=== PATIENT | male | born 1965 | race Caucasian/White ===

== ENCOUNTER 2021-07-21 13:51 | Emergency (ER) | payer OTHER ==
--- OUTSIDE RECORDS SUMMARY | 2021-07-21 14:10 | XMS REPORT | Continuity of Care Document ---
:1965 Author Organization [facility] t Address [address] [place] [address] Care Team Providers Name Role Phone Adolfo PINEDO Primary Care Physician Unavailable Josh Mendosa Attending Clinician Unavailable GUSTAVO Attending Clinician Unavailable Gustavo BAEZ Attending Clinician Massimo BAEZ Attending Clinician Lucy NORRIS Attending Clinician Unavailable Only, Test Attending Clinician Unavailable Lucy Norris MD Attending Clinician Doctor Unassigned, Name Attending Clinician Unavailable Patrick Malave MD Attending Clinician Patrick MALAVE Attending Clinician Unavailable Pob, Lab Main Attending Clinician Unavailable Aristides Vidal DO Attending Clinician Patrick Alaniz MD Attending Clinician Patrick ALANIZ Attending Clinician Unavailable Radiology Attending Clinician Unavailable RADIOLOGY Attending Clinician Unavailable Ena BAEZ Attending Clinician ENA Attending Clinician Unavailable BONITA A Attending Clinician Unavailable BASSEM Attending Clinician Unavailable Bassem BAEZ Attending Clinician Rm, Surg Spec Procedure Attending Clinician Unavailable Nurse, Surgery Gu Attending Clinician Unavailable Unknown Attending Clinician Unavailable Station, Heart Attending Clinician Unavailable 1, Lab Attending Clinician Unavailable Feroz Clifford MD Attending Clinician Leidy ORR M Attending Clinician Ibikunle MENAGERIE CARETAKER, F Attending Clinician Regino BAEZ Attending Clinician Chika BAEZ, L Attending Clinician Serjio XAVIER, S Attending Clinician Cris BAEZ, S Attending Clinician Physician, Primary or Family Admitting Clinician Estrella Lacy MD Admitting Clinician Cris BAEZ, S Admitting Clinician Payers Payer Name Policy Type Policy Number Effective Date Expiration Date Ronda aguilar [employer] MEDICARE OUT [id number] 2020 OF NETWORK 00:00:00 MEDICARE PART A [id number] 2006 \\T\\ B 00:00:00 Problems Condition Condition Condition Status Onset Resolution Last Treating Co mments Source Name Details Category Date Date Treatment Clinician Date Acute back Acute back Disease Active 2019- U nivers pain pain 1-21 ity of 00:00: [address] Branch ARF (acute ARF (acute Disease Active 2019-0 U nivers renal renal 9-05 ity of failure) failure) 00:00: [place] [address] Medical Branch Pain Pain Disease Active 2019-0 Univers 6-24 ity of 00:00: [place] [address] Medical Branch Tobacco Tobacco Disease Active 2019-0 Univers use use 2-04 ity of 00:00: [place] [address] Medical Branch UCRT CURT Disease Active 2019-0 Univers (obstructi (obstructi 2-04 it y of ve sleep ve sleep 00:00: [place] apnea) apnea) 00 Medical Branch Essential Essential Disease Active 2019-0 Uni vers hypertensi hypertensi 2-04 it y of on on 00:00: [place] [address] Medical Branch COPD COPD Disease Active 2019-0 Univers (chronic (chronic 2-04 ity [place] pulmonary pulmonary Bran ch disease) disease) Tobacco Tobacco Disease Active 2019-0 Univers use use 2-04 ity of 00:00: [place] [address] Medical Branch Chest pain Chest pain Disease Active 2019-0 U nivers 2-03 ity of 00:00: [place] [address] Medical Branch Obesity Obesity Disease Active 2017-0 Univers (BMI (BMI 6-25 ity of 30-39.9) 30-39.9) 00:00: [place] [facility] Morbid Problem Active 2020-07-26 Memor ia obesity 21:31:14 l (disorder) Morbid Herm marycruz obesity (disorder) Active Problem 07/26/2020 [facility] Thoracic Problem Active 2020-07-26 Mem oria radiculopa 21:31:14 l thy Thoracic Grant n (disorder) radiculopa thy (disorder) Active Problem 07/26/2020 [facility] Cervical Problem Active 2020-07-26 Mem oria radiculopa 21:31:14 l thy Cervical [place] n (disorder) radiculopa thy (disorder) Active Problem 07/26/2020 [facility] Device in Problem Active 2020-07-26 Me moria situ 21:31:14 l (finding) Device Khushi nn in situ (finding) Active Problem 07/26/2020 [facility] Hyperlipid Problem Active 2020-07-26 M emoria emia 21:31:14 l (disorder) [place] Hyperlipid emia (disorder) Active Problem 07/26/2020 [facility] Hypertensi Problem Active 2020-07-26 M emoria ve 21:31:14 l disorder, [place] systemic Hypertensi arterial ve (disorder) disorder, systemic arterial (disorder) Active Problem 07/26/2020 [facility] Allergies, Adverse Reactions, Alerts Allergy Allergy Status Severity Reaction(s) Onset Inactive Treating Comm ents Source Name Type Date Date Clinician furosemi DA Active U 2019-0 [facility] [place] [facility] furosemi DA Active U SYNCOPE 2019-0 [facility] [place] [facility] d [facility] NO KNOWN Drug Active Univers ALLERGIE Class ity of [facility] Branch Social History Social Habit Start Date Stop Date Quantity Comments Source History of tobacco Cigarette Smoker University of use [facility] Branch History SDOH University o f Alcohol Binge [facility] al Branch Exposure to Not sure [place] of SARS-CoV-2 (event) [place] [facility] Social History 2020-05-21 2020-05-21 Cony t[place] 20:33:55 20:33:55 Alcohol intake 2020-01-04 2020-01-04 Current drinker Unive rsity of 00:00:00 00:00:00 of alcohol [place] [facility] (finding) Branch History [facility] 2019-02-16 2019-02-16 4 University o f Alcohol Frequency 00:00:00 00:00:00 [facility] edical Branch History [facility] 2019-02-16 2019-02-16 3 University o f Alcohol Std Drinks 00:00:00 00:00:00 [place] [facility] History [facility] 2018-12-02 2018-12-02 5 University o f Financial 00:00:00 00:00:00 [place] [facility] History [facility] Food 2018-12-02 2018-12-02 1 Univers ity of Worry 00:00:00 00:00:00 [place] [facility] History [facility] Food 2018-12-02 2018-12-02 1 Univers ity of Scarcity 00:00:00 00:00:00 [place] [facility] History [facility] 2018-12-02 2018-12-02 2 University o f Transport Med 00:00:00 00:00:00 [place] [facility] al Branch History [facility] 2018-12-02 2018-12-02 2 University o f Transport Non-Med 00:00:00 00:00:00 [facility] Branch Cigarettes smoked 2017-06-22 2017-06-22 Univers ity of current (pack per 00:00:00 00:00:00 [facility]) - Reported Branch Tobacco use and 2017-06-22 2017-06-22 Never used Universit y of exposure 00:00:00 00:00:00 [facility] Branch Alcohol Comment 2017-06-22 2017-06-22 Occasional Universit y of 00:00:00 00:00:00 [facility] Sex Ass[birth year] At [birth year] Universit y of 00:00:00 00:00:00 [facility] Smoking Status Start Date Stop Date Source Current every day smoker 2017-06-22 00:00:00 Uni versity of [place] [facility] Medications Ordered Filled Start Stop Current Ordering Indication Dosage Frequency Signature Comments Components Source Medication Medication Date Date Medication? Clinician (SIG) Name Name polymyxin B 2020-03 Yes [id number] 1[drp] Place 1 Univers sulf-trimet 2-08 Drop in ity o f hoprim 00:00: right eye [place] 10,000 00 every 4 Medical unit- 1 (four) Branch mg/mL hours. ophthalmic drops iohexol 2020- No [id number] 150mL 150 mL, Univers (OMNIPAQUE 07-10 Intravenou it y of 350 19:45: 19:32 s, ONCE, 1 [place] BULK-150 00 :00 dose, Wed Medica l mL) 07/10/20 at Branch injection 1445, 150 mL Routine barium 2020- No [id number] 340g 340 g, Uni vers sulfate 06-06 Oral, ity of (LIQUID E-Z 18:15: 15:30 ONCE, 1 Evaristo BECK) 60 % 00 :00 dose, [place] Med ical (w/v) oral 06/06/20 at [facility] suspension 1215, 340 g Routine Clonidine Yes 0.1 mg = 1 Me moria Hydrochlori 2-23 tab, PO, l de 0.1 MG 19:41: PRN, 0 [place] n Oral Tablet 00 Refill(s) Hydromorpho Yes 4 mg, PO, M emoria ne 2-23 TID, 0 l 19:41: Refill(s) Ehsan 00 pregabalin Yes 50 mg = 1 Me moria 50 mg oral 2-23 cap, PO, l capsule 19:41: BID, # 60 Khushi nn 00 cap, 1 Refill(s) cyclobenzap Yes 10 mg = 1 M emoria rine 10 mg 2-23 tab, PO, l oral tablet 19:41: PRN, 0 Herm marycruz 00 Refill(s) Prednisone Yes 5 mg, PO, Me moria 2-23 PRN, l 19:41: Quantity Ehsan 00 sufficient , 0 Refill(s) Roflumilast Yes 500 Memori a 0.5 MG Oral 2-23 microgram l Tablet 19:41: = 1 tab, Ehsan [Daliresp] 00 PO, Daily, 0 Refill(s) Trelegy Yes = 1 Memoria Ellipta 2-23 inhalation l inhalation 19:41: , PO, Grant n powder 00 Daily, PRN COPD, # 1 ea, 0 Refill(s) Albuterol Yes 2.5 mg = 3 Me moria 0.83 MG/ML 2-23 mL, NEB, l Inhalant 19:41: PRN, 0 Ehsan Solution 00 Refill(s) 200 ACTUAT Yes 2 puff, Oscar ryan Albuterol 2-23 INHALATION l 0.09 19:41: , Q6H, 0 [place] MG/ACTUAT 00 Refill(s) Metered Dose Inhaler [ProAir HFA] Fluticasone Yes Daily, 0 Me moria propionate 2-23 Refill(s) l 0.05 19:41: Ehsan MG/ACTUAT 00 Metered Dose Nasal Latta [Flonase] montelukast Yes 10 mg = 1 M emoria 10 mg oral 2-23 tab, PO, l tablet 19:41: Bedtime, # Khushi nn 00 30 tab, 0 Refill(s) pantoprazol Yes 40 mg = 1 M emoria e 40 mg 2-23 tab, PO, l oral 19:41: Daily, # [place] enteric 00 30 tab, 0 coated Refill(s) tablet atorvastati Yes 40 mg = 1 M emoria n 40 mg 2-23 tab, PO, l oral tablet 19:41: Bedtime, # [place] 00 30 tab, 0 Refill(s) ezetimibe Yes 10 mg = 1 Mem oria 10 mg oral 2-23 tab, PO, l tablet 19:41: Daily, # [place] 00 30 tab, 0 Refill(s) losartan Yes 100 mg = 1 Mem oria 100 mg oral 2-23 tab, PO, l tablet 19:41: Daily, # [place] 00 30 tab, 0 Refill(s) clopidogrel Yes 75 mg = 1 M emoria 75 mg oral 2-23 tab, PO, l tablet 19:41: Daily, # [place] 00 30 tab, 0 Refill(s) metoprolol Yes 100 mg = 1 M emoria tartrate 2-23 tab, PO, l 100 mg oral 19:41: Daily, 0 He r[place] tablet 00 Refill(s) Vitamin D2 Yes 50,000 Memor ia 50,000 intl 2-23 IntlUnit = l units oral 19:41: 1 cap, PO, H ermann capsule 00 Daily, 0 Refill(s) Aspirin 81 Yes 81 mg = 1 Me moria MG Enteric 2-23 tab, PO, l Coated 19:41: Daily, # [place] Tablet 00 90 tab, 3 Refill(s) Nitroglycer Yes 0.4 mg = 1 Memoria in 0.4 MG 2-23 tab, SL, l Sublingual 19:41: Q5Min, PRN H ermann Tablet 00 Chest pain, Give up to 3 doses. Call 911 if pain persists., # 100 tab, 0 Refill(s) cephALEXin 2019- No [id number] 500mg Take 2 Univers 250 mg 10-01-10 capsules ity of capsule 00:00: 04:59 by mouth [place] 00 :00 every 12 Medical (twelve) Branch hours for 3 days. cephALEXin 2019- No [id number] 500mg Take 2 Univers 250 mg 10-01-10 capsules ity of capsule 00:00: 04:59 by mouth [place] 00 :00 every 12 Medical (twelve) Branch hours for 3 days. tamsulosin 2020- No [id number] .4mg Take 1 Univers 0.4 mg 24 08-29 capsule by ity of hr capsule 00:00: 05:59 mouth [place] 00 :00 daily for Medical 270 days. Branch tamsulosin 2020- No [id number] .4mg Take 1 Univers 0.4 mg 24 08-29 capsule by ity of hr capsule 00:00: 05:59 mouth [place] 00 :00 daily for Medical 270 days. Branch tamsulosin 2020- No [id number] .4mg Take 1 Univers 0.4 mg 24 08-29 capsule by ity of hr capsule 00:00: 05:59 mouth [place] 00 :00 daily for Medical 270 days. Branch tamsulosin 2020- No [id number] .4mg Take 1 Univers 0.4 mg 24 08-29 capsule by ity of hr capsule 00:00: 05:59 mouth [place] 00 :00 daily for Medical 270 days. Branch tamsulosin 2020- No [id number] .4mg Take 1 Univers 0.4 mg 24 6-03 03-01 capsule by ity of hr capsule 00:00: 05:59 mouth [place] 00 :00 daily for Medical 270 days. Branch tamsulosin 2020- No [id number] .4mg Take 1 Univers 0.4 mg 24 08-29 capsule by ity of hr capsule 00:00: 05:59 mouth [place] 00 :00 daily for Medical 270 days. Branch tamsulosin 2020- No [id number] .4mg Take 1 Univers 0.4 mg 24 08-29 capsule by ity of hr capsule 00:00: 05:59 mouth [place] 00 :00 daily for Medical 270 days. Branch tamsulosin 2020- No [id number] .4mg Take 1 Univers 0.4 mg 24 08-29 capsule by ity of hr capsule 00:00: 05:59 mouth [place] 00 :00 daily for Medical 270 days. Branch tamsulosin 2020- No [id number] .4mg Take 1 Univers 0.4 mg 24 08-29 capsule by ity of hr capsule 00:00: 05:59 mouth [place] 00 :00 daily for Medical 270 days. Branch tamsulosin 2020- No [id number] .4mg Take 1 Univers 0.4 mg 24 08-29 capsule by ity of hr capsule 00:00: 05:59 mouth [place] 00 :00 daily for Medical 270 days. Branch tamsulosin 2020- No [id number] .4mg Take 1 Univers 0.4 mg 24 08-29 capsule by ity of hr capsule 00:00: 05:59 mouth [place] 00 :00 daily for Medical 270 days. Branch tamsulosin 2020- No [id number] .4mg Take 1 Univers 0.4 mg 24 08-29 capsule by ity of hr capsule 00:00: 05:59 mouth [place] 00 :00 daily for Medical 270 days. Branch cephALEXin 2019-0 Yes [id number] 500mg Take 1 Univers 500 mg 3-31 capsule by ity of capsule 00:00: mouth 2 [place] 00 (two) Medical times Branch daily. cephALEXin 2020-0 Yes [id number] 500mg Take 1 Univers 500 mg 3-31 capsule by ity of capsule 00:00: mouth 2 [place] 00 (two) Medical times Branch daily. cephALEXin 2020-0 Yes [id number] 500mg Take 1 Univers 500 mg 3-31 capsule by ity of capsule 00:00: mouth 2 (two) Medical times Branch daily. cephALEXin 2020-0 Yes [id number] 500mg Take 1 Univers 500 mg 3-31 capsule by ity of capsule 00:00: mouth (two) Medical times Branch daily. cephALEXin 2020-0 Yes [id number] 500mg Take 1 Univers 500 mg 3-31 capsule by ity of capsule 00:00: mouth (two) Medical times Branch daily. cephALEXin 2020-0 Yes [id number] 500mg Take 1 Univers 500 mg 3-31 capsule by ity of capsule 00:00: mouth (two) Medical times Branch daily. cephALEXin 2020-0 Yes [id number] 500mg Take 1 Univers 500 mg 3-31 capsule by ity of capsule 00:00: mouth [place] (two) Medical times Branch daily. cephALEXin 2020-0 Yes [id number] 500mg Take 1 Univers 500 mg 3-31 capsule by ity of capsule 00:00: mouth [place] (two) Medical times Branch daily. cephALEXin 2020-0 Yes [id number] 500mg Take 1 Univers 500 mg 3-31 capsule by ity of capsule 00:00: mouth [place] (two) Medical times Branch daily. cephALEXin 2020-0 Yes [id number] 500mg Take 1 Univers 500 mg 3-31 capsule by ity of capsule 00:00: mouth [place] (two) Medical times Branch daily. cephALEXin 2020-0 Yes [id number] 500mg Take 1 Univers 500 mg 3-31 capsule by ity of capsule 00:00: mouth [place] (two) Medical times Branch daily. cephALEXin 2020-0 Yes [id number] 500mg Take 1 Univers 500 mg 3-31 capsule by ity of capsule 00:00: mouth 2 [place] (two) Medical times Branch daily. cephALEXin 2020-0 Yes [id number] 500mg Take 1 Univers 500 mg 3-31 capsule by ity of capsule 00:00: mouth 2 [place] (two) Medical times Branch daily. cephALEXin 2020-0 2020- No [id number] 500mg Take 1 Univers 500 mg 3-31 07-06 capsule by ity of capsule 00:00: 00:00 mouth 2 [place] 00 :00 (two) Medical times Branch daily. cephALEXin 2020- No [id number] 500mg Take 1 Univers 500 mg 06-26 capsule by ity of capsule 00:00: 00:00 mouth 2 [place] 00 :00 (two) Medical times Branch daily. azelastine- 2018-03 Yes 2{spray Use 2 Un rosalba fluticasone 1-23 } Sprays in ity of 137-50 22:53: each [place] mcg/spray nostril Medical nasal spray daily. Branch predniSONE 2018-03 Yes 10mg Take 10 mg U nivers 10 mg 1-23 by mouth ity of tablet pack 22:53: daily. [address] Branch pantoprazol 2018-03 Yes 40mg Take 40 mg Univers e 40 mg EC 1-23 by mouth 2 ity of tablet 22:53: (two) [place] 58 times Medical daily. Branch clotrimazol 2018-03 Yes 10mg Take 10 mg Univers e 10 mg 1-23 by mouth 5 ity of marcie 22:53: (five) [place] 58 times Medical daily. Branch nebivolol 2018-03 Yes 5mg Take 5 mg Uni vers (BYSTOLIC) 1-23 by mouth ity o f 5 mg tablet 22:53: daily. [address] HYDROmorpho 2018-03 Yes 4mg Take 4 mg U nivers ne 1-23 by mouth. ity of (DILAUDID) 22:53: [place] 4 mg tablet 58 Medical Branch aclidinium 2018-03 Yes 1{puff} Inhale 1 Univers bromide 1-23 Puff ity of (TUDORZA 22:53: daily. [place] PRESSAIR) [address] [place] [address] mcg/actuati on AePB atorvastati 2018-03 Yes 20mg Take 20 mg Univers n (LIPITOR) 1-23 by mouth ity of 20 mg 22:53: at [place] tablet 58 bedtime. Medical Branch aclidinium 2018-03 Yes 1{puff} Inhale 1 Univers bromide 1-23 Puff ity of (TUDORZA 22:53: daily. [place] PRESSAIR) [address] [place] [address] mcg/actuati on AePB atorvastati 2018-03 Yes 20mg Take 20 mg Univers n (LIPITOR) 1-23 by mouth ity of 20 mg 22:53: at [place] tablet 58 bedtime. Medical Branch roflumilast 2018-03 Yes 1{tbl} Take 1 Un rosalba (DALIRESP) 1-23 tablet by ity of 500 mcg Tab 22:53: mouth [place] 58 daily. Medical Branch fluticasone 2018-03 Yes 1{puff} Inhale 1 Univers -salmeterol 1-23 Puff every it y of (ADVAIR 22:53: 12 [place] DISKUS) 58 (twelve) Medical 250-50 hours. Branch mcg/dose inhalation disk montelukast 2018-03 Yes 10mg Take 10 mg Univers (SINGULAIR) 1-23 by mouth ity of 10 mg 22:53: daily. [place] tablet 58 Medical Branch roflumilast 2018-03 Yes 1{tbl} Take 1 Un rosalba (DALIRESP) 1-23 tablet by ity of 500 mcg Tab 22:53: mouth [place] 58 daily. Medical Branch cyclobenzap 2018-03 Yes 10mg Take 10 mg Univers rine 1-23 by mouth 3 ity of (FLEXERIL) 22:53: (three) [place] 10 mg 58 times Medical tablet daily. Branch umeclidiniu 2018-03 Yes 1{puff} Inhale 1 Univers m 62.5 1-23 Puff ity of mcg/actuati 22:53: daily. [place] on DsDv 58 Medical Branch losartan 2018-03 Yes 100mg Take 100 Univ ers 100 mg 1-23 mg by ity of tablet 22:53: mouth [place] 58 daily. Medical Branch ezetimibe 2018-03 Yes 10mg Take 10 mg Un rosalba 10 mg 1-23 by mouth ity of tablet 22:53: daily. [place] [facility] azelastine- 2018-03 Yes 2{spray Use 2 Un rosalba fluticasone 1-23 } Sprays in ity of 137-50 22:53: each [place] mcg/spray 58 nostril Medical nasal spray daily. Branch predniSONE 2018-03 Yes 10mg Take 10 mg U nivers 10 mg 1-23 by mouth ity of tablet pack 22:53: daily. [place] 58 Medical Branch pantoprazol 2018-03 Yes 40mg Take 40 mg Univers e 40 mg EC 1-23 by mouth 2 ity of tablet 22:53: (two) [place] 58 times Medical daily. Branch clotrimazol 2018- Yes 10mg Take 10 mg Univers e 10 mg 1-23 by mouth 5 ity of marcie 22:53: (five) [place] 58 times Medical daily. Branch nebivolol 2018- Yes 5mg Take 5 mg Uni vers (BYSTOLIC) 1-23 by mouth ity o f 5 mg tablet 22:53: daily. [place] 58 Medical Branch fluticasone 2018- Yes 1{puff} Inhale 1 Univers -salmeterol 1-23 Puff every it y of (ADVAIR 22:53: 12 [place] DISKUS) 58 (twelve) Medical 250-50 hours. Branch mcg/dose inhalation disk HYDROmorpho 2018- Yes 4mg Take 4 mg U nivers ne 1-23 by mouth. ity of (DILAUDID) 22:53: [place] 4 mg tablet 58 Medical Branch montelukast 2018- Yes 10mg Take 10 mg Univers (SINGULAIR) 1-23 by mouth ity of 10 mg 22:53: daily. [place] tablet 58 Medical Branch aclidinium 2018- Yes 1{puff} Inhale 1 Univers bromide 1-23 Puff ity of (TUDORZA 22:53: daily. [place] PRESSAIR) 58 Medical 400 Branch mcg/actuati on AePB atorvastati 2018- Yes 20mg Take 20 mg Univers n (LIPITOR) 1-23 by mouth ity of 20 mg 22:53: at [place] tablet 58 bedtime. Medical Branch roflumilast 2018- Yes 1{tbl} Take 1 Un rosalba (DALIRESP) 1-23 tablet by ity of 500 mcg Tab 22:53: mouth [place] 58 daily. Medical Branch fluticasone 2018- Yes 1{puff} Inhale 1 Univers -salmeterol 1-23 Puff every it y of (ADVAIR 22:53: 12 [place] DISKUS) 58 (twelve) Medical 250-50 hours. Branch mcg/dose inhalation disk montelukast 2018- Yes 10mg Take 10 mg Univers (SINGULAIR) 1-23 by mouth ity of 10 mg 22:53: daily. [place] tablet 58 Medical Branch cyclobenzap 2018- Yes 10mg Take 10 mg Univers rine 1-23 by mouth 3 ity of (FLEXERIL) 22:53: (three) [place] 10 mg 58 times Medical tablet daily. Branch umeclidiniu 2018-03 Yes 1{puff} Inhale 1 Univers m 62.5 1-23 Puff ity of mcg/actuati 22:53: daily. [place] DsDv 58 Medical Branch losartan 2018-03 Yes 100mg Take 100 Univ ers 100 mg 1-23 mg by ity of tablet 22:53: mouth [place] 58 daily. Medical Branch ezetimibe 2018-03 Yes 10mg Take 10 mg Un rosalba 10 mg 1-23 by mouth ity of tablet 22:53: daily. [place] 58 Medical Branch azelastine- 2018-03 Yes 2{spray Use 2 Un rosalba fluticasone 1-23 } Sprays in ity of 137-50 22:53: each [place] mcg/spray 58 nostril Medical nasal spray daily. Branch cyclobenzap 2018-03 Yes 10mg Take 10 mg Univers rine 1-23 by mouth 3 ity of (FLEXERIL) 22:53: (three) [place] 10 mg 58 times Medical tablet daily. Branch predniSONE 2018-03 Yes 10mg Take 10 mg U nivers 10 mg 1-23 by mouth ity of tablet pack 22:53: daily. [place] 58 Medical Branch pantoprazol 2018-03 Yes 40mg Take 40 mg Univers e 40 mg EC 1-23 by mouth 2 ity of tablet 22:53: (two) [place] 58 times Medical daily. Branch clotrimazol 2018-03 Yes 10mg Take 10 mg Univers e 10 mg 1-23 by mouth 5 ity of marcie 22:53: (five) [place] 58 times Medical daily. Branch nebivolol 2018-03 Yes 5mg Take 5 mg Uni vers (BYSTOLIC) 1-23 by mouth ity o f 5 mg tablet 22:53: daily. [place] 58 Medical Branch HYDROmorpho 2018-03 Yes 4mg Take 4 mg U nivers ne 1-23 by mouth. ity of (DILAUDID) 22:53: [place] 4 mg tablet 58 Medical Branch umeclidiniu 2018-03 Yes 1{puff} Inhale 1 Univers m 62.5 1-23 Puff ity of mcg/actuati 22:53: daily. [place] DsDv 58 Medical Branch aclidinium 2018-03 Yes 1{puff} Inhale 1 Univers bromide 1-23 Puff ity of (TUDORZA 22:53: daily. [place] PRESSAIR) 58 Medical 400 Branch mcg/actuati on AePB atorvastati 2018-03 Yes 20mg Take 20 mg Univers n (LIPITOR) 1-23 by mouth ity of 20 mg 22:53: at [place] tablet 58 bedtime. Medical Branch roflumilast 2018-03 Yes 1{tbl} Take 1 Un rosalba (DALIRESP) 1-23 tablet by ity of 500 mcg Tab 22:53: mouth [place] 58 daily. Medical Branch fluticasone 2018-03 Yes 1{puff} Inhale 1 Univers -salmeterol 1-23 Puff every it y of (ADVAIR 22:53: 12 [place] DISKUS) 58 (twelve) Medical 250-50 hours. Branch mcg/dose inhalation disk montelukast 2018-03 Yes 10mg Take 10 mg Univers (SINGULAIR) 1-23 by mouth ity of 10 mg 22:53: daily. [place] tablet 58 Medical Branch cyclobenzap 2018-03 Yes 10mg Take 10 mg Univers rine 1-23 by mouth 3 ity of (FLEXERIL) 22:53: (three) [place] 10 mg 58 times Medical tablet daily. Branch umeclidiniu 2018-03 Yes 1{puff} Inhale 1 Univers m 62.5 1-23 Puff ity of mcg/actuati 22:53: daily. [place] DsDv 58 Medical Branch losartan 2018-03 Yes 100mg Take 100 Univ ers 100 mg 1-23 mg by ity of tablet 22:53: mouth [place] 58 daily. Medical Branch losartan 2018-03 Yes 100mg Take 100 Univ ers 100 mg 1-23 mg by ity of tablet 22:53: mouth [place] 58 daily. Medical Branch ezetimibe 2018-03 Yes 10mg Take 10 mg Un rosalba 10 mg 1-23 by mouth ity of tablet 22:53: daily. [place] 58 Medical Branch azelastine- 2018- Yes 2{spray Use 2 Un rosalba fluticasone 1-23 } Sprays in ity of 137-50 22:53: each [place] mcg/spray 58 nostril Medical nasal spray daily. Branch predniSONE 2018-03 Yes 10mg Take 10 mg U nivers 10 mg 1-23 by mouth ity of tablet pack 22:53: daily. [facility] s 58 Medical Branch pantoprazol 2018-03 Yes 40mg Take 40 mg Univers e 40 mg EC 1-23 by mouth 2 ity of tablet 22:53: (two) [place] 58 times Medical daily. Branch clotrimazol 2018-03 Yes 10mg Take 10 mg Univers e 10 mg 1-23 by mouth 5 ity of marcie 22:53: (five) [place] 58 times Medical daily. Branch nebivolol 2018-03 Yes 5mg Take 5 mg Uni vers (BYSTOLIC) 1-23 by mouth ity o f 5 mg tablet 22:53: daily. [facility] s 58 Medical Branch HYDROmorpho 2018-03 Yes 4mg Take 4 mg U nivers ne 1-23 by mouth. ity of (DILAUDID) 22:53: [place] 4 mg tablet 58 Medical Branch ezetimibe 2018-03 Yes 10mg Take 10 mg Un rosalba 10 mg 1-23 by mouth ity of tablet 22:53: daily. [place] [address] Medical Branch aclidinium 2018-03 Yes 1{puff} Inhale 1 Univers bromide 1-23 Puff ity of (TUDORZA 22:53: daily. [place] PRESSAIR) 58 Medical 400 Branch mcg/actuati on AePB atorvastati 2018-03 Yes 20mg Take 20 mg Univers n (LIPITOR) 1-23 by mouth ity of 20 mg 22:53: at [place] tablet 58 bedtime. Medical Branch azelastine- 2018-03 Yes 2{spray Use 2 Un rosalba fluticasone 1-23 } Sprays in ity of 137-50 22:53: each [place] mcg/spray 58 nostril Medical nasal spray daily. Branch roflumilast 2018-03 Yes 1{tbl} Take 1 Un rosalba (DALIRESP) 1-23 tablet by ity of 500 mcg Tab 22:53: mouth [place] 58 daily. Medical Branch fluticasone 2018-03 Yes 1{puff} Inhale 1 Univers -salmeterol 1-23 Puff every it y of (ADVAIR 22:53: 12 [place] DISKUS) 58 (twelve) Medical 250-50 hours. Branch mcg/dose inhalation disk montelukast 2018- Yes 10mg Take 10 mg Univers (SINGULAIR) 1-23 by mouth ity of 10 mg 22:53: daily. [place] tablet Medical Branch cyclobenzap 2018-03 Yes 10mg Take 10 mg Univers rine 1-23 by mouth 3 ity of (FLEXERIL) 22:53: (three) [facility] 10 mg 58 times Medical tablet daily. Branch umeclidiniu 2018-03 Yes 1{puff} Inhale 1 [facility] m 62.5 1-23 Puff ity of mcg/actuati 22:53: daily. [facility] on DsDv [address] [place] [address] Branch losartan 2018-03 Yes 100mg Take 100 Univ ers 100 mg 1-23 mg by ity of tablet 22:53: mouth [place] 58 daily. Medical Branch ezetimibe 2018-03 Yes 10mg Take 10 mg Un rosalba 10 mg 1-23 by mouth ity of tablet 22:53: daily. [address] azelastine- 2018-03 Yes 2{spray Use 2 Un rosalba fluticasone 1-23 } Sprays in ity of 137-50 22:53: each [place] mcg/spray 58 nostril Medical nasal spray daily. Branch predniSONE 2018-03 Yes 10mg Take 10 mg U nivers 10 mg 1-23 by mouth ity of tablet pack 22:53: daily. [address] predniSONE 2018-03 Yes 10mg Take 10 mg U nivers 10 mg 1-23 by mouth ity of tablet pack 22:53: daily. [address] pantoprazol 2018-03 Yes 40mg Take 40 mg Univers e 40 mg EC 1-23 by mouth 2 ity of tablet 22:53: (two) [place] 58 times Medical daily. Branch clotrimazol 2018-03 Yes 10mg Take 10 mg Univers e 10 mg 1-23 by mouth 5 ity of marcie 22:53: (five) [place] 58 times Medical daily. Branch nebivolol 2018-03 Yes 5mg Take 5 mg Uni vers (BYSTOLIC) 1-23 by mouth ity o f 5 mg tablet 22:53: daily. [address] HYDROmorpho 2018-03 Yes 4mg Take 4 mg U nivers ne 1-23 by mouth. ity of (DILAUDID) 22:53: [place] 4 mg tablet Medical Branch aclidinium 2018-03 Yes 1{puff} Inhale 1 Univers bromide 1-23 Puff ity of (TUDORZA 22:53: daily. [place] PRESSAIR) 58 Medical 400 Branch mcg/actuati on AePB pantoprazol 2018-03 Yes 40mg Take 40 mg Univers e 40 mg EC 1-23 by mouth 2 ity of tablet 22:53: (two) [place] 58 times Medical daily. Branch atorvastati 2018-03 Yes 20mg Take 20 mg Univers n (LIPITOR) 1-23 by mouth ity of 20 mg 22:53: at [place] tablet 58 bedtime. Medical Branch roflumilast 2018-03 Yes 1{tbl} Take 1 Un rosalba (DALIRESP) 1-23 tablet by ity of 500 mcg Tab 22:53: mouth [place] 58 daily. Medical Branch fluticasone 2018-03 Yes 1{puff} Inhale 1 Univers -salmeterol 1-23 Puff every it y of (ADVAIR 22:53: 12 [place] DISKUS) 58 (twelve) Medical 250-50 hours. Branch mcg/dose inhalation disk montelukast 2018- Yes 10mg Take 10 mg Univers (SINGULAIR) 1-23 by mouth ity of 10 mg 22:53: daily. [place] tablet 58 Medical Branch cyclobenzap 2018-03 Yes 10mg Take 10 mg Univers rine 1-23 by mouth 3 ity of (FLEXERIL) 22:53: (three) [place] 10 [place] 58 times Medical tablet daily. Branch umeclidiniu 2018-03 Yes 1{puff} Inhale 1 [facility] m 62.5 1-23 Puff ity of mcg/actuati 22:53: [place]. [place] DsD[place] 58 Medical Branch losartan 2018- Yes 100mg Take 100 Univ ers 100 mg 1-23 mg by ity of tablet 22:53: mouth [place] 58 daily. Medical Branch ezetimibe 2018- Yes 10mg Take 10 mg Un rosalba 10 mg 1-23 by mouth ity of tablet 22:53: daily. [place] 58 Medical Branch azelastine- 2018- Yes 2{spray Use 2 Un rosal[place] fluticasone 1-23 } Sprays in ity of 137-50 22:53: each [place] mcg/spray 58 nostril Medical nasal spray daily. Branch predniSONE 2018- Yes 10mg Take 10 mg U nivers 10 mg 1-23 by mouth ity of tablet pack 22:53: daily. [address] Branch clotrimazol 2018-03 Yes 10mg Take 10 mg Univers e 10 mg 1-23 by mouth 5 ity of marcie 22:53: (five) [place] 58 times Medical daily. Branch pantoprazol 2018-03 Yes 40mg Take 40 mg [facility] e 40 mg EC 1-23 by mouth 2 ity of tablet 22:53: (two) [place] 58 times Medical daily. Branch clotrimazol 2018-03 Yes 10mg Take 10 mg [facility] e 10 mg 1-23 by mouth 5 ity of marcie 22:53: (five) [place] 58 times Medical daily. Branch nebivolol 2018-03 Yes 5mg Take 5 mg Uni vers (BYSTOLIC) 1-23 by mouth ity o f 5 mg tablet 22:53: daily. [address] Branch HYDROmorpho 2018-03 Yes 4mg Take 4 mg U nivers ne 1-23 by mouth. ity of (DILAUDID) 22:53: [place] 4 mg tablet 58 [facility] Branch nebivolol 2018-03 Yes 5mg Take 5 mg Uni vers (BYSTOLIC) 1-23 by mouth ity o f 5 mg tablet 22:53: daily. [address] Branch aclidinium 2018-03 Yes 1{puff} Inhale 1 Univers bromide 1-23 Puff ity of (TUDORZA 22:53: daily. [place] PRESSAIR) 58 Medical 400 Branch mcg/actuati on AePB HYDROmorpho 2018-03 Yes 4mg Take 4 mg U nivers ne 1-23 by mouth. ity of (DILAUDID) 22:53: [place] 4 mg tablet 58 Medical Branch atorvastati 2018-03 Yes 20mg Take 20 mg Univers n (LIPITOR) 1-23 by mouth ity of 20 mg 22:53: at [place] tablet 58 bedtime. Medical Branch roflumilast 2018-03 Yes 1{tbl} Take 1 Un rosalba (DALIRESP) 1-23 tablet by ity of 500 mcg Tab 22:53: mouth [place] 58 daily. Medical Branch fluticasone 2018-03 Yes 1{puff} Inhale 1 Univers -salmeterol 1-23 Puff every it y of (ADVAIR 22:53: 12 [place] DISKUS) 58 ([facility]) Medical 250-50 hours. Branch mcg/dose inhalation disk montelukast 2018-03 Yes 10mg Take 10 mg Univers (SINGULAIR) 1-23 by mouth ity of 10 mg 22:53: daily. [place] tablet 58 Medical Branch cyclobenzap 2018-03 Yes 10mg Take 10 mg Univers rine 1-23 by mouth 3 ity of (FLEXERIL) 22:53: (three) [place] 10 [place] 58 times Medical tablet daily. Branch umeclidiniu 2018-03 Yes 1{puff} Inhale 1 [facility] m 62.5 1-23 Puff ity of mcg/actuati 22:53: daily. [place] on DsD[facility] Medical Branch losartan 2018-03 Yes 100mg Take 100 Univ ers 100 mg 1-23 mg by ity of tablet 22:53: mouth [place] 58 daily. Medical Branch ezetimibe 2018-03 Yes 10mg Take 10 mg Un rosalba 10 mg 1-23 by mouth ity of tablet 22:53: daily. [place] [address] Medical Branch azelastine- 2018-03 Yes 2{spray Use 2 Un rosalba fluticasone 1-23 } Sprays in ity of 137-50 22:53: each [place] mcg/spray nostril Medical nasal spray daily. Branch predniSONE 2018-03 Yes 10mg Take 10 mg U nivers 10 mg 1-23 by mouth ity of tablet pack 22:53: daily. [facility] Branch pantoprazol 2018-03 Yes 40mg Take 40 mg Univers e 40 mg EC 1-23 by mouth 2 ity of tablet 22:53: (two) [place] 58 times Medical daily. Branch clotrimazol 2018-03 Yes 10mg Take 10 mg Univers e 10 mg 1-23 by mouth 5 ity of marcie 22:53: (five) [place] 58 times Medical daily. Branch nebivolol 2018-03 Yes 5mg Take 5 mg Uni vers (BYSTOLIC) 1-23 by mouth ity o f 5 mg tablet 22:53: daily. [facility] Medical Branch HYDROmorpho 2018-03 Yes 4mg Take 4 mg U nivers ne 1-23 by mouth. ity of (DILAUDID) 22:53: [place] 4 mg tablet 58 Medical Branch aclidinium 2018-03 Yes 1{puff} Inhale 1 Univers bromide 1-23 Puff ity of (TUDORZA 22:53: daily. [place] PRESSAIR) 58 Medical 400 Branch mcg/actuati on AePB atorvastati 2018-03 Yes 20mg Take 20 mg Univers n (LIPITOR) 1-23 by mouth ity of 20 mg 22:53: at [place] tablet 58 bedtime. Medical Branch roflumilast 2018-03 Yes 1{tbl} Take 1 Un rosalba (DALIRESP) 1-23 tablet by ity of 500 mcg Tab 22:53: mouth [place] 58 daily. Medical Branch fluticasone 2018-03 Yes 1{puff} Inhale 1 Univers -salmeterol 1-23 Puff every it y of (ADVAIR 22:53: 12 [place] DISKUS) 58 (twelve) Medical 250-50 hours. Branch mcg/dose inhalation disk montelukast 2018- Yes 10mg Take 10 mg Univers (SINGULAIR) 1-23 by mouth ity of 10 mg 22:53: daily. [place] tablet 58 Medical Branch cyclobenzap 2018-03 Yes 10mg Take 10 mg Univers rine 1-23 by mouth 3 ity of (FLEXERIL) 22:53: (three) [place] 10 [place] 58 times Medical tablet daily. Branch umeclidiniu 2018-03 Yes 1{puff} Inhale 1 [facility] m 62.5 1-23 Puff ity of mcg/actuati 22:53: daily. [place] on DsD[place] 58 Medical Branch losartan 2018-03 Yes 100mg Take 100 Univ ers 100 mg 1-23 mg by ity of tablet 22:53: mouth [place] 58 daily. Medical Branch ezetimibe 2018-03 Yes 10mg Take 10 mg Un rosalba 10 mg 1-23 by mouth ity of tablet 22:53: daily. [place] [facility] Branch azelastine- 2018- Yes 2{spray Use 2 Un rosalba fluticasone 1-23 } Sprays in ity of 137-50 22:53: each [place] mcg/spray 58 nostril Medical nasal spray daily. Branch predniSONE 2018- Yes 10mg Take 10 mg U nivers 10 mg 1-23 by mouth ity of tablet pack 22:53: daily. [place] 58 Medical Branch pantoprazol 2018-03 Yes 40mg Take 40 mg Univers e 40 mg EC 1-23 by mouth 2 ity of tablet 22:53: (two) [place] 58 times Medical daily. Branch clotrimazol 2018-03 Yes 10mg Take 10 mg Univers e 10 mg 1-23 by mouth 5 ity of marcie 22:53: (five) [place] 58 times Medical daily. Branch nebivolol 2018-03 Yes 5mg Take 5 mg Uni vers (BYSTOLIC) 1-23 by mouth ity o f 5 mg tablet 22:53: daily. [place] 58 Medical Branch HYDROmorpho 2018-03 Yes 4mg Take 4 mg U nivers ne 1-23 by mouth. ity of (DILAUDID) 22:53: [place] 4 mg tablet 58 Medical Branch aclidinium 2018- Yes 1{puff} Inhale 1 [facility] bromide 1-23 Puff ity of (TUDORZA 22:53: daily. [place] PRESSAIR) 58 Medical 400 Branch mcg/actuati on AePB atorvastati 2018-03 Yes 20mg Take 20 mg Univers n (LIPITOR) 1-23 by mouth ity of 20 mg 22:53: at [place] tablet 58 bedtime. Medical Branch roflumilast 2018-03 Yes 1{tbl} Take 1 Un rosalba (DALIRESP) 1-23 tablet by ity of 500 mcg Tab 22:53: mouth [place] 58 daily. Medical Branch fluticasone 2018-03 Yes 1{puff} Inhale 1 Univers -salmeterol 1-23 Puff every it y of (ADVAIR 22:53: 12 [place] DISKUS) 58 (twelve) Medical 250-50 hours. Branch mcg/dose inhalation disk montelukast 2018-03 Yes 10mg Take 10 mg Univers (SINGULAIR) 1-23 by mouth ity of 10 mg 22:53: daily. [place] tablet 58 Medical Branch cyclobenzap 2018-03 Yes 10mg Take 10 mg Univers rine 1-23 by mouth 3 ity of (FLEXERIL) 22:53: (three) [place] 10 mg 58 times Medical tablet daily. Branch umeclidiniu 2018-03 Yes 1{puff} Inhale 1 [facility] m 62.5 1-23 Puff ity of mcg/actuati 22:53: daily. [place] on DsD[place] 58 Medical Branch losartan 2018-03 Yes 100mg Take 100 Univ ers 100 mg 1-23 mg by ity of tablet 22:53: mouth [place] 58 daily. Medical Branch ezetimibe 2018- Yes 10mg Take 10 mg Un rosalba 10 mg 1-23 by mouth ity of tablet 22:53: daily. [place] [address] Medical Branch azelastine- 2018- Yes 2{spray Use 2 Un rosalba fluticasone 1-23 } Sprays in ity of 137-50 22:53: each [place] mcg/spray 58 nostril Medical nasal spray daily. Branch predniSONE 2018-03 Yes 10mg Take 10 mg U nivers 10 mg 1-23 by mouth ity of tablet pack 22:53: daily. [facility] 58 Medical Branch pantoprazol 2018-03 Yes 40mg Take 40 mg Univers e 40 mg EC 1-23 by mouth 2 ity of tablet 22:53: (two) [place] 58 times Medical daily. Branch clotrimazol 2018-03 Yes 10mg Take 10 mg Univers e 10 mg 1-23 by mouth 5 ity of marcie 22:53: (five) [place] 58 times Medical daily. Branch nebivolol 2018-03 Yes 5mg Take 5 mg Uni vers (BYSTOLIC) 1-23 by mouth ity o f 5 mg tablet 22:53: daily. [facility] 58 Medical Branch HYDROmorpho 2018-03 Yes 4mg Take 4 mg U nivers ne 1-23 by mouth. ity of (DILAUDID) 22:53: [place] 4 mg tablet 58 Medical Branch aclidinium 2018-03 Yes 1{puff} Inhale 1 Univers bromide 1-23 Puff ity of (TUDORZA 22:53: daily. [place] PRESSAIR) 58 [facility] Branch mcg/actuati on AePB atorvastati 2018-03 Yes 20mg Take 20 mg Univers n (LIPITOR) 1-23 by mouth ity of 20 mg 22:53: at [place] tablet 58 bedtime. Medical Branch roflumilast 2018- Yes 1{tbl} Take 1 Un rosalba (DALIRESP) 1-23 tablet by ity of 500 mcg Tab 22:53: mouth [place] 58 daily. Medical Branch fluticasone 2018-03 Yes 1{puff} Inhale 1 Univers -salmeterol 1-23 Puff every it y of (ADVAIR 22:53: 12 [place] DISKUS) 58 (twelve) Medical 250-50 hours. Branch mcg/dose inhalation disk montelukast 2018- Yes 10mg Take 10 mg Univers (SINGULAIR) 1-23 by mouth ity of 10 mg 22:53: daily. [place] tablet 58 Medical Branch cyclobenzap 2018-03 Yes 10mg Take 10 mg Univers rine 1-23 by mouth 3 ity of (FLEXERIL) 22:53: (three) [place] 10 mg 58 times Medical tablet daily. Branch umeclidiniu 2018-03 Yes 1{puff} Inhale 1 Univers m 62.5 1-23 Puff ity of mcg/actuati 22:53: daily. [place] on DsDv 58 Medical Branch losartan 2018-03 Yes 100mg Take 100 Univ ers 100 mg 1-23 mg by ity of tablet 22:53: mouth [place] 58 daily. Medical Branch ezetimibe 2018-03 Yes 10mg Take 10 mg Un rosalba 10 mg 1-23 by mouth ity of tablet 22:53: daily. [place] [address] Medical Branch azelastine- 2018-03 Yes 2{spray Use 2 Un rosalba fluticasone 1-23 } Sprays in ity of 137-50 22:53: each [place] mcg/spray 58 nostril Medical nasal spray daily. Branch predniSONE 2018-03 Yes 10mg Take 10 mg U nivers 10 mg 1-23 by mouth ity of tablet pack 22:53: daily. [facility] s Medical Branch pantoprazol 2018-03 Yes 40mg Take 40 mg Univers e 40 mg EC 1-23 by mouth 2 ity of tablet 22:53: (two) [place] 58 times Medical daily. Branch clotrimazol 2018-03 Yes 10mg Take 10 mg Univers e 10 mg 1-23 by mouth 5 ity of marcie 22:53: (five) [place] 58 times Medical daily. Branch nebivolol 2018-03 Yes 5mg Take 5 mg Uni vers (BYSTOLIC) 1-23 by mouth ity o f 5 mg tablet 22:53: daily. [facility] s Medical Branch HYDROmorpho 2018-03 Yes 4mg Take 4 mg U nivers ne 1-23 by mouth. ity of (DILAUDID) 22:53: [place] 4 mg tablet 58 Medical Branch aclidinium 2018-03 Yes 1{puff} Inhale 1 Univers bromide 1-23 Puff ity of (TUDORZA 22:53: daily. [place] PRESSAIR) 58 Medical 400 Branch mcg/actuati on AePB atorvastati 2018-03 Yes 20mg Take 20 mg Univers n (LIPITOR) 1-23 by mouth ity of 20 mg 22:53: at [place] tablet 58 bedtime. Medical Branch roflumilast 2018- Yes 1{tbl} Take 1 Un rosalba (DALIRESP) 1-23 tablet by ity of 500 mcg Tab 22:53: mouth [place] 58 daily. Medical Branch fluticasone 2018-03 Yes 1{puff} Inhale 1 Univers -salmeterol 1-23 Puff every it y of (ADVAIR 22:53: 12 [place] DISKUS) 58 (twelve) Medical 250-50 hours. Branch mcg/dose inhalation disk montelukast 2018- Yes 10mg Take 10 mg Univers (SINGULAIR) 1-23 by mouth ity of 10 mg 22:53: daily. [place] tablet 58 Medical Branch cyclobenzap 2018-03 Yes 10mg Take 10 mg Univers rine 1-23 by mouth 3 ity of (FLEXERIL) 22:53: (three) [place] 10 [place] 58 times Medical tablet daily. Branch umeclidiniu 2018-03 Yes 1{puff} Inhale 1 Univers m 62.5 1-23 Puff ity of mcg/actuati 22:53: daily. [place] on DsDv 58 Medical Branch losartan 2018- Yes 100mg Take 100 Univ ers 100 mg 1-23 mg by ity of tablet 22:53: mouth [place] 58 daily. Medical Branch ezetimibe 2018-03 Yes 10mg Take 10 mg Un rosalba 10 mg 1-23 by mouth ity of tablet 22:53: daily. [place] 58 Medical Branch azelastine- 2018- Yes 2{spray Use 2 Un rosalba fluticasone 1-23 } Sprays in ity of 137-50 22:53: each [place] mcg/spray 58 nostril Medical nasal spray daily. Branch predniSONE 2018-03 Yes 10mg Take 10 mg U nivers 10 mg 1-23 by mouth ity of tablet pack 22:53: daily. [place] 58 Medical Branch pantoprazol 2018- Yes 40mg Take 40 mg Univers e 40 mg EC 1-23 by mouth 2 ity of tablet 22:53: (two) [place] 58 times Medical daily. Branch clotrimazol 2018-03 Yes 10mg Take 10 mg Univers e 10 mg 1-23 by mouth 5 ity of marcie 22:53: (five) [place] 58 times Medical daily. Branch nebivolol 2018-03 Yes 5mg Take 5 mg Uni vers (BYSTOLIC) 1-23 by mouth ity o f 5 mg tablet 22:53: daily. [place] 58 Medical Branch HYDROmorpho 2018-03 Yes 4mg Take 4 mg U nivers ne 1-23 by mouth. ity of (DILAUDID) 22:53: [place] 4 mg tablet 58 Medical Branch aclidinium 2018-03 Yes 1{puff} Inhale 1 Univers bromide 1-23 Puff ity of (TUDORZA 22:53: daily. [place] PRESSAIR) 58 Medical 400 Branch mcg/actuati on AePB atorvastati 2018-03 Yes 20mg Take 20 mg Univers n (LIPITOR) 1-23 by mouth ity of 20 mg 22:53: at [place] tablet 58 bedtime. Medical Branch roflumilast 2018-03 Yes 1{tbl} Take 1 Un rosalba (DALIRESP) 1-23 tablet by ity of 500 mcg Tab 22:53: mouth [place] 58 daily. Medical Branch fluticasone 2018-03 Yes 1{puff} Inhale 1 Univers -salmeterol 1-23 Puff every it y of (ADVAIR 22:53: 12 [place] DISKUS) 58 (twelve) Medical 250-50 hours. Branch mcg/dose inhalation disk montelukast 2018- Yes 10mg Take 10 mg Univers (SINGULAIR) 1-23 by mouth ity of 10 mg 22:53: daily. [place] tablet 58 Medical Branch cyclobenzap 2018-03 Yes 10mg Take 10 mg Univers rine 1-23 by mouth 3 ity of (FLEXERIL) 22:53: (three) [place] 10 mg 58 times Medical tablet daily. Branch umeclidiniu 2018-03 Yes 1{puff} Inhale 1 Univers m 62.5 1-23 Puff ity of mcg/actuati 22:53: daily. [place] on DsDv 58 Medical Branch losartan 2018-03 Yes 100mg Take 100 Univ ers 100 mg 1-23 mg by ity of tablet 22:53: mouth [place] 58 daily. Medical Branch ezetimibe 2018-03 Yes 10mg Take 10 mg Un rosalba 10 mg 1-23 by mouth ity of tablet 22:53: daily. [place] 58 Medical Branch azelastine- 2018- Yes 2{spray Use 2 Un rosalba fluticasone 1-23 } Sprays in ity of 137-50 22:53: each [place] mcg/spray 58 nostril Medical nasal spray daily. Branch predniSONE 2018- Yes 10mg Take 10 mg U nivers 10 mg 1-23 by mouth ity of tablet pack 22:53: daily. [facility] 58 Medical Branch pantoprazol 2018-03 Yes 40mg Take 40 mg Univers e 40 mg EC 1-23 by mouth 2 ity of tablet 22:53: (two) [place] 58 times Medical daily. Branch clotrimazol 2018-03 Yes 10mg Take 10 mg Univers e 10 mg 1-23 by mouth 5 ity of marcie 22:53: (five) [place] 58 times Medical daily. Branch nebivolol 2018-03 Yes 5mg Take 5 mg Uni vers (BYSTOLIC) 1-23 by mouth ity o f 5 mg tablet 22:53: daily. [facility] 58 Medical Branch HYDROmorpho 2018-03 Yes 4mg Take 4 mg U nivers ne 1-23 by mouth. ity of (DILAUDID) 22:53: [place] 4 mg tablet 58 Medical Branch aclidinium 2018-03 Yes 1{puff} Inhale 1 Univers bromide 1-23 Puff ity of (TUDORZA 22:53: daily. [place] PRESSAIR) 58 Medical 400 Branch mcg/actuati on AePB atorvastati 2018-03 Yes 20mg Take 20 mg Univers n (LIPITOR) 1-23 by mouth ity of 20 mg 22:53: at [place] tablet 58 bedtime. Medical Branch roflumilast 2018- Yes 1{tbl} Take 1 Un rosalba (DALIRESP) 1-23 tablet by ity of 500 mcg Tab 22:53: mouth [place] 58 daily. Medical Branch fluticasone 2018-03 Yes 1{puff} Inhale 1 Univers -salmeterol 1-23 Puff every it y of (ADVAIR 22:53: 12 [place] DISKUS) 58 (twelve) Medical 250-50 hours. Branch mcg/dose inhalation disk montelukast 2019-1 Yes 10mg Take 10 mg Univers (SINGULAIR) 1-23 by mouth ity of 10 mg 22:53: daily. [place] tablet 58 Medical Branch cyclobenzap 2018-03 Yes 10mg Take 10 mg Univers rine 1-23 by mouth 3 ity of (FLEXERIL) 22:53: (three) [place] 10 [place] 58 times Medical tablet daily. Branch umeclidiniu 2018-03 Yes 1{puff} Inhale 1 Univers m 62.5 1-23 Puff ity of mcg/actuati 22:53: daily. [place] [facility] 58 Medical Branch losartan 2018-03 Yes 100mg Take 100 Univ ers 100 mg 1-23 mg by ity of tablet 22:53: mouth [place] 58 daily. Medical Branch ezetimibe 2018-03 Yes 10mg Take 10 mg Un rosalba 10 mg 1-23 by mouth ity of tablet 22:53: daily. [place] [address] Medical Branch azelastine- 2018- Yes 2{spray Use 2 Un rosalba fluticasone 1-23 } Sprays in ity of 137-50 22:53: each [place] mcg/spray nostril Medical nasal spray daily. Branch predniSONE 2018-03 Yes 10mg Take 10 mg U nivers 10 mg 1-23 by mouth ity of tablet pack 22:53: daily. [facility] Medical Branch pantoprazol 2018-03 Yes 40mg Take 40 mg Univers e 40 mg EC 1-23 by mouth 2 ity of tablet 22:53: (two) [place] 58 times Medical daily. Branch clotrimazol 2018-03 Yes 10mg Take 10 mg Univers e 10 mg 1-23 by mouth 5 ity of marcie 22:53: (five) [place] [address] times Medical daily. Branch nebivolol 2018-03 Yes 5mg Take 5 mg Uni vers (BYSTOLIC) 1-23 by mouth ity o f 5 mg tablet 22:53: daily. [facility] Medical Branch HYDROmorpho 2018-03 Yes 4mg Take 4 mg U nivers ne 1-23 by mouth. ity of (DILAUDID) 22:53: [place] 4 mg tablet 58 Medical Branch aclidinium 2018-03 Yes 1{puff} Inhale 1 Univers bromide 1-23 Puff ity of (TUDORZA 22:53: daily. [place] [id number] Medical 400 Branch mcg/actuati on AePB atorvastati 2018-03 Yes 20mg Take 20 mg Univers n (LIPITOR) 1-23 by mouth ity of 20 mg 22:53: at [place] tablet 58 bedtime. Medical Branch roflumilast 2018-03 Yes 1{tbl} Take 1 Un rosalba (DALIRESP) 1-23 tablet by ity of 500 mcg Tab 22:53: mouth [place] 58 daily. Medical Branch fluticasone 2018-03 Yes 1{puff} Inhale 1 Univers -salmeterol 1-23 Puff every it y of (ADVAIR 22:53: 12 [place] DISKUS) 58 (twelve) Medical 250-50 hours. Branch mcg/dose inhalation disk montelukast 2018- Yes 10mg Take 10 mg Univers (SINGULAIR) 1-23 by mouth ity of 10 mg 22:53: daily. [place] tablet 58 Medical Branch cyclobenzap 2018-03 Yes 10mg Take 10 mg Univers rine 1-23 by mouth 3 ity of (FLEXERIL) 22:53: (three) [place] 10 [place] 58 times Medical tablet daily. Branch umeclidiniu 2018-03 Yes 1{puff} Inhale 1 Univers m 62.5 1-23 Puff ity of mcg/actuati 22:53: daily. [place] on DsDv 58 Medical Branch losartan 2018- Yes 100mg Take 100 Univ ers 100 mg 1-23 mg by ity of tablet 22:53: mouth [place] 58 daily. Medical Branch ezetimibe 2018- Yes 10mg Take 10 mg Un rosalba 10 mg 1-23 by mouth ity of tablet 22:53: daily. [place] 58 Medical Branch azelastine- 2018- Yes 2{spray Use 2 Un rosalba fluticasone 1-23 } Sprays in ity of 137-50 22:53: each [place] mcg/spray 58 nostril Medical nasal spray daily. Branch predniSONE 2018- Yes 10mg Take 10 mg U nivers 10 mg 1-23 by mouth ity of tablet pack 22:53: daily. [place] 58 [facility] Branch pantoprazol 2018- Yes 40mg Take 40 mg Univers e 40 mg EC 1-23 by mouth 2 ity of tablet 22:53: (two) [place] 58 times Medical daily. Branch clotrimazol 2018- Yes 10mg Take 10 mg Univers e 10 mg 1-23 by mouth 5 ity of marcie 22:53: (five) [place] 58 times Medical daily. Branch nebivolol 2018-03 Yes 5mg Take 5 mg Uni vers (BYSTOLIC) 1-23 by mouth ity o f 5 mg tablet 22:53: daily. [place] 58 Medical Branch HYDROmorpho 2018-03 Yes 4mg Take 4 mg U nivers ne 1-23 by mouth. ity of (DILAUDID) 22:53: [place] 4 mg tablet 58 Medical Branch aclidinium 2018-03 Yes 1{puff} Inhale 1 Univers bromide 1-23 Puff ity of (TUDORZA 22:53: daily. [place] PRESSAIR) 58 Medical 400 Branch mcg/actuati on AePB atorvastati 2018-03 Yes 20mg Take 20 mg Univers n (LIPITOR) 1-23 by mouth ity of 20 mg 22:53: at [place] tablet 58 bedtime. Medical Branch roflumilast 2018-03 Yes 1{tbl} Take 1 Un rosalba (DALIRESP) 1-23 tablet by ity of 500 mcg Tab 22:53: mouth [place] 58 daily. Medical Branch fluticasone 2018-03 Yes 1{puff} Inhale 1 Univers -salmeterol 1-23 Puff every it y of (ADVAIR 22:53: 12 [place] DISKUS) 58 (twelve) Medical 250-50 hours. Branch mcg/dose inhalation disk montelukast 2018-03 Yes 10mg Take 10 mg Univers (SINGULAIR) 1-23 by mouth ity of 10 mg 22:53: daily. [place] tablet 58 Medical Branch cyclobenzap 2018-03 Yes 10mg Take 10 mg Univers rine 1-23 by mouth 3 ity of (FLEXERIL) 22:53: (three) [place] 10 [place] 58 times Medical tablet daily. Branch umeclidiniu 2018-03 Yes 1{puff} Inhale 1 Univers m 62.5 1-23 Puff ity of mcg/actuati 22:53: daily. [place] DsDv 58 Medical Branch losartan 2018-03 Yes 100mg Take 100 Univ ers 100 mg 1-23 mg by ity of tablet 22:53: mouth [place] 58 daily. Medical Branch ezetimibe 2018-03 Yes 10mg Take 10 mg Un rosalba 10 mg 1-23 by mouth ity of tablet 22:53: daily. [place] [address] Medical Branch azelastine- 2018- Yes 2{spray Use 2 Un rosalba fluticasone 1-23 } Sprays in ity of 137-50 22:53: each [place] mcg/spray 58 nostril Medical nasal spray daily. Branch predniSONE 2018- Yes 10mg Take 10 mg U nivers 10 mg 1-23 by mouth ity of tablet pack 22:53: daily. [facility] 58 Medical Branch pantoprazol 2018- Yes 40mg Take 40 mg Univers e 40 mg EC 1-23 by mouth 2 ity of tablet 22:53: (two) [place] 58 times Medical daily. Branch clotrimazol 2018-03 Yes 10mg Take 10 mg Univers e 10 mg 1-23 by mouth 5 ity of marcie 22:53: (five) [place] 58 times Medical daily. Branch nebivolol 2018-03 Yes 5mg Take 5 mg Uni vers (BYSTOLIC) 1-23 by mouth ity o f 5 mg tablet 22:53: daily. [facility] 58 Medical Branch HYDROmorpho 2018-03 Yes 4mg Take 4 mg U nivers ne 1-23 by mouth. ity of (DILAUDID) 22:53: [place] 4 mg tablet 58 Medical Branch aclidinium 2018-03 Yes 1{puff} Inhale 1 Univers bromide 1-23 Puff ity of (TUDORZA 22:53: daily. [place] PRESSAIR) 58 Medical 400 Branch mcg/actuati on AePB atorvastati 2018- Yes 20mg Take 20 mg Univers n (LIPITOR) 1-23 by mouth ity of 20 mg 22:53: at [place] tablet 58 bedtime. Medical Branch roflumilast 2018- Yes 1{tbl} Take 1 Un rosalba (DALIRESP) 1-23 tablet by ity of 500 mcg Tab 22:53: mouth [place] 58 daily. Medical Branch fluticasone 2018-03 Yes 1{puff} Inhale 1 Univers -salmeterol 1-23 Puff every it y of (ADVAIR 22:53: 12 [place] DISKUS) 58 (twelve) Medical 250-50 hours. Branch mcg/dose inhalation disk montelukast 2018- Yes 10mg Take 10 mg Univers (SINGULAIR) 1-23 by mouth ity of 10 mg 22:53: daily. [place] tablet 58 Medical Branch cyclobenzap 2018-03 Yes 10mg Take 10 mg [facility] rine 1-23 by mouth 3 ity of (FLEXERIL) 22:53: (three) [place] 10 [place] 58 times Medical tablet daily. Branch umeclidiniu 2018-03 Yes 1{puff} Inhale 1 [facility] m 62.5 1-23 Puff ity of mcg/actuati 22:53: daily. [place] on DsDv 58 Medical Branch losartan 2018- Yes 100mg Take 100 [facility] ers 100 mg 1-23 mg by ity of tablet 22:53: mouth [place] 58 daily. Medical Branch ezetimibe 2018-03 Yes 10mg Take 10 mg Un rosal[place] 10 mg 1-23 by mouth ity of tablet 22:53: daily. [place] [address] Medical Branch azelastine- 2018- Yes 2{spray Use 2 Un [place] fluticasone 1-23 } Sprays in ity of 137-50 22:53: each [place] mcg/spray nostril Medical nasal spray daily. Branch predniSONE 2018-03 Yes 10mg Take 10 mg U nivers 10 mg 1-23 by mouth ity of tablet pack 22:53: daily. [place] [facility] pantoprazol 2018-03 Yes 40mg Take 40 mg [facility] e 40 mg EC 1-23 by mouth 2 ity of tablet 22:53: (two) [place] [address] times Medical daily. Branch clotrimazol 2018-03 Yes 10mg Take 10 mg [facility] e 10 mg 1-23 by mouth 5 ity of marcie 22:53: (five) [place] 58 times Medical daily. Branch nebivolol 2018-03 Yes 5mg Take 5 mg Uni vers (BYSTOLIC) 1-23 by mouth ity o f 5 mg tablet 22:53: daily. [place] [facility] HYDROmorpho 2018-03 Yes 4mg Take 4 mg U nivers ne 1-23 by mouth. ity of (DILAUDID) 22:53: [place] 4 mg tablet 58 Medical Branch aclidinium 2018-03 Yes 1{puff} Inhale 1 [facility] bromide 1-23 Puff ity of (TUDORZA 22:53: daily. [place] PRESSAIR) Medical 400 Branch mcg/actuati on AePB atorvastati 2018-03 Yes 20mg Take 20 mg [facility] n (LIPITOR) 1-23 by mouth ity of 20 mg 22:53: at [place] tablet 58 bedtime. Medical Branch roflumilast 2018-03 Yes 1{tbl} Take 1 Un rosalba (DALIRESP) 1-23 tablet by ity of 500 mcg Tab 22:53: mouth [place] 58 daily. Medical Branch fluticasone 2018-03 Yes 1{puff} Inhale 1 [facility] -salmeterol 1-23 Puff every it y of (ADVAIR 22:53: 12 [place] DISKUS) 58 (twelve) Medical 250-50 hours. Branch mcg/dose inhalation disk montelukast 2018-03 Yes 10mg Take 10 mg [facility] (SINGULAIR) 1-23 by mouth ity of 10 mg 22:53: daily. [place] tablet 58 Medical Branch cyclobenzap 2018-03 Yes 10mg Take 10 mg [facility] rine 1-23 by mouth 3 ity of (FLEXERIL) 22:53: (three) [place] 10 [place] 58 times [facility] tablet daily. Branch umeclidiniu 2018-03 Yes 1{puff} Inhale 1 [facility] m 62.5 1-23 Puff ity of mcg/actuati 22:53: daily. [place] DsDv 58 [facility] losartan 2018-03 Yes 100mg Take 100 [facility] ers 100 mg 1-23 mg by ity of tablet 22:53: mouth [place] 58 daily. Medical Branch ezetimibe 2018-03 Yes 10mg Take 10 mg Un rosalba 10 mg 1-23 by mouth ity of tablet 22:53: daily. [place] 58 Medical Branch azelastine- 2018- Yes 2{spray Use 2 Un [place] fluticasone 1-23 } Sprays in ity of 137-50 22:53: each [place] mcg/spray 58 nostril Medical nasal spray daily. Branch predniSONE 2018- Yes 10mg Take 10 mg U nivers 10 mg 1-23 by mouth ity of tablet pack 22:53: daily. [place] 58 [facility] pantoprazol 2018-03 Yes 40mg Take 40 mg [facility] e 40 mg EC 1-23 by mouth 2 ity of tablet 22:53: (two) [place] 58 times Medical daily. Branch clotrimazol 2018-03 Yes 10mg Take 10 mg [facility] e 10 mg 1-23 by mouth 5 ity of marcie 22:53: (five) [place] 58 times Medical daily. Branch nebivolol 2018-03 Yes 5mg Take 5 mg Uni vers (BYSTOLIC) 1-23 by mouth ity o f 5 mg tablet 22:53: daily. [place] 58 [facility] HYDROmorpho 2018-03 Yes 4mg Take 4 mg U nivers ne 1-23 by mouth. ity of (DILAUDID) 22:53: [place] 4 mg tablet 58 Medical Branch aclidinium 2018-03 Yes 1{puff} Inhale 1 [facility] bromide 1-23 Puff ity of (TUDORZA 22:53: daily. [place] PRESSAIR) 58 Medical 400 Branch mcg/actuati on AePB atorvastati 2018-03 Yes 20mg Take 20 mg [facility] n (LIPITOR) 1-23 by mouth ity of 20 mg 22:53: at [place] tablet 58 bedtime. Medical Branch roflumilast 2018-03 Yes 1{tbl} Take 1 Un rosalba (DALIRESP) 1-23 tablet by ity of 500 mcg Tab 22:53: mouth [place] 58 daily. Medical Branch fluticasone 2018-03 Yes 1{puff} Inhale 1 [facility] -salmeterol 1-23 Puff every it y of (ADVAIR 22:53: 12 [place] DISKUS) 58 (twelve) Medical 250-50 hours. Branch mcg/dose inhalation disk montelukast 2018-03 Yes 10mg Take 10 mg [facility] (SINGULAIR) 1-23 by mouth ity of 10 mg 22:53: daily. [place] tablet 58 Medical Branch cyclobenzap 2018-03 Yes 10mg Take 10 mg [facility] rine 1-23 by mouth 3 ity of (FLEXERIL) 22:53: (three) [place] 10 [place] 58 times Medical tablet daily. Branch umeclidiniu 2018-03 Yes 1{puff} Inhale 1 [facility] m 62.5 1-23 Puff ity of mcg/actuati 22:53: daily. [place] DsDv 58 [facility] Branch losartan 2018-03 Yes 100mg Take 100 [facility] ers 100 mg 1-23 mg by ity of tablet 22:53: mouth [place] 58 daily. Medical Branch ezetimibe 2018-03 Yes 10mg Take 10 mg Un rosal[place] 10 mg 1-23 by mouth ity of tablet 22:53: daily. [place] [address] Medical Branch azelastine- 2018- Yes 2{spray Use 2 Un [place] fluticasone 1-23 } Sprays in ity of 137-50 22:53: each [place] mcg/spray 58 nostril Medical nasal spray daily. Branch predniSONE 2018- Yes 10mg Take 10 mg U nivers 10 mg 1-23 by mouth ity of tablet pack 22:53: daily. [facility] 58 Medical Branch pantoprazol 2018- Yes 40mg Take 40 mg [facility] e 40 mg EC 1-23 by mouth 2 ity of tablet 22:53: (two) [place] 58 times Medical daily. Branch clotrimazol 2018-03 Yes 10mg Take 10 mg [facility] e 10 mg 1-23 by mouth 5 ity of marcie 22:53: (five) [place] 58 times Medical daily. Branch nebivolol 2018-03 Yes 5mg Take 5 mg Uni vers (BYSTOLIC) 1-23 by mouth ity o f 5 mg tablet 22:53: daily. [facility] 58 Medical Branch HYDROmorpho 2018-03 Yes 4mg Take 4 mg U nivers ne 1-23 by mouth. ity of (DILAUDID) 22:53: [place] 4 mg tablet 58 Medical Branch aclidinium 2018-03 Yes 1{puff} Inhale 1 [facility] bromide 1-23 Puff ity of (TUDORZA 22:53: daily. [place] [facility] Branch mcg/actuati on AePB atorvastati 2018- Yes 20mg Take 20 mg [facility] n (LIPITOR) 1-23 by mouth ity of 20 mg 22:53: at [place] tablet 58 bedtime. Medical Branch roflumilast 2018- Yes 1{tbl} Take 1 Un rosalba (DALIRESP) 1-23 tablet by ity of 500 mcg Tab 22:53: mouth [place] 58 daily. Medical Branch fluticasone 2018- Yes 1{puff} Inhale 1 [facility] -salmeterol 1-23 Puff every it y of (ADVAIR 22:53: 12 [place] DISKUS) 58 (twelve) Medical 250-50 hours. Branch mcg/dose inhalation disk montelukast 2018- Yes 10mg Take 10 mg [facility] (SINGULAIR) 1-23 by mouth ity of 10 mg 22:53: daily. [place] tablet 58 Medical Branch cyclobenzap 2018-03 Yes 10mg Take 10 mg [facility] rine 1-23 by mouth 3 ity of (FLEXERIL) 22:53: (three) [place] 10 [place] 58 times Medical tablet daily. Branch umeclidiniu 2018-03 Yes 1{puff} Inhale 1 [facility] m 62.5 1-23 Puff ity of mcg/actuati 22:53: daily. [place] DsD[place] 58 [facility] Branch losartan 2018- Yes 100mg Take 100 [facility] ers 100 mg 1-23 mg by ity of tablet 22:53: mouth [place] 58 daily. Medical Branch ezetimibe 2018- Yes 10mg Take 10 mg Un rosalba 10 mg 1-23 by mouth ity of tablet 22:53: daily. [place] [address] Medical Branch azelastine- 2018- Yes 2{spray Use 2 Un [place] fluticasone 1-23 } Sprays in ity of 137-50 22:53: each [place] mcg/spray nostril Medical nasal spray daily. Branch predniSONE 2018-03 Yes 10mg Take 10 mg U nivers 10 mg 1-23 by mouth ity of tablet pack 22:53: daily. [place] 58 [facility] pantoprazol 2018-03 Yes 40mg Take 40 mg [facility] e 40 mg EC 1-23 by mouth 2 ity of tablet 22:53: (two) [place] [address] times Medical daily. Branch clotrimazol 2018-03 Yes 10mg Take 10 mg [facility] e 10 mg 1-23 by mouth 5 ity of marcie 22:53: (five) [place] 58 times Medical daily. Branch nebivolol 2018-03 Yes 5mg Take 5 mg Uni vers (BYSTOLIC) 1-23 by mouth ity o f 5 mg tablet 22:53: daily. [place] 58 [facility] Branch HYDROmorpho 2018-03 Yes 4mg Take 4 mg U nivers ne 1-23 by mouth. ity of (DILAUDID) 22:53: [place] 4 mg tablet 58 Medical Branch aclidinium 2018-03 Yes 1{puff} Inhale 1 [facility] bromide 1-23 Puff ity of (TUDORZA 22:53: daily. [place] [id number] Medical 400 Branch mcg/actuati on AePB atorvastati 2018-03 Yes 20mg Take 20 mg [facility] n (LIPITOR) 1-23 by mouth ity of 20 mg 22:53: at [place] tablet 58 bedtime. Medical Branch roflumilast 2018-03 Yes 1{tbl} Take 1 Un rosalba (DALIRESP) 1-23 tablet by ity of 500 mcg Tab 22:53: mouth [place] 58 daily. Medical Branch fluticasone 2018-03 Yes 1{puff} Inhale 1 [facility] -salmeterol 1-23 Puff every it y of (ADVAIR 22:53: 12 [place] DISKUS) 58 (twelve) Medical 250-50 hours. Branch mcg/dose inhalation disk montelukast 2018-03 Yes 10mg Take 10 mg [facility] (SINGULAIR) 1-23 by mouth ity of 10 mg 22:53: daily. [place] tablet 58 Medical Branch cyclobenzap 2018-03 Yes 10mg Take 10 mg [facility] rine 1-23 by mouth 3 ity of (FLEXERIL) 22:53: (three) [place] 10 mg 58 times Medical tablet daily. Branch umeclidiniu 2018-03 Yes 1{puff} Inhale 1 [facility] m 62.5 1-23 Puff ity of mcg/actuati 22:53: daily. [place] DsDv 58 Medical Branch losartan 2018-03 Yes 100mg Take 100 Univ ers 100 mg 1-23 mg by ity of tablet 22:53: mouth [place] 58 daily. Medical Branch ezetimibe 2018-03 Yes 10mg Take 10 mg Un rosalba 10 mg 1-23 by mouth ity of tablet 22:53: daily. [place] [address] Medical Branch azelastine- 2018- Yes 2{spray Use 2 Un rosal[place] fluticasone 1-23 } Sprays in ity of 137-50 22:53: each [place] mcg/spray 58 nostril Medical nasal spray daily. Branch predniSONE 2018-03 Yes 10mg Take 10 mg U nivers 10 mg 1-23 by mouth ity of tablet pack 22:53: daily. [place] 58 [facility] Branch pantoprazol 2018-03 Yes 40mg Take 40 mg [facility] e 40 mg EC 1-23 by mouth 2 ity of tablet 22:53: (two) [place] 58 times Medical daily. Branch clotrimazol 2018-03 Yes 10mg Take 10 mg [facility] e 10 mg 1-23 by mouth 5 ity of marcie 22:53: (five) [place] 58 times Medical daily. Branch nebivolol 2018- Yes 5mg Take 5 mg Uni vers (BYSTOLIC) 1-23 by mouth ity o f 5 mg tablet 22:53: daily. [place] 58 [facility] Branch HYDROmorpho 2018- Yes 4mg Take 4 mg U nivers ne 1-23 by mouth. ity of (DILAUDID) 22:53: [place] 4 mg tablet 58 Medical Branch aclidinium 2018- Yes 1{puff} Inhale 1 [facility] bromide 1-23 Puff ity of (TUDORZA 22:53: daily. [place] PRESSAIR) 58 Medical 400 Branch mcg/actuati on AePB atorvastati 2018- Yes 20mg Take 20 mg Univers n (LIPITOR) 1-23 by mouth ity of 20 mg 22:53: at [place] tablet 58 bedtime. Medical Branch roflumilast 2018- Yes 1{tbl} Take 1 Un rosalba (DALIRESP) 1-23 tablet by ity of 500 mcg Tab 22:53: mouth [place] 58 daily. Medical Branch fluticasone 2018- Yes 1{puff} Inhale 1 Univers -salmeterol 1-23 Puff every it y of (ADVAIR 22:53: 12 [place] DISKUS) 58 (twelve) Medical 250-50 hours. Branch mcg/dose inhalation disk montelukast 2018- Yes 10mg Take 10 mg Univers (SINGULAIR) 1-23 by mouth ity of 10 mg 22:53: daily. [place] tablet 58 Medical Branch cyclobenzap 2018- Yes 10mg Take 10 mg [facility] rine 1-23 by mouth 3 ity of (FLEXERIL) 22:53: (three) [place] 10 mg 58 times Medical tablet daily. Branch umeclidiniu 2018- Yes 1{puff} Inhale 1 [facility] m 62.5 1-23 Puff ity of mcg/actuati 22:53: daily. [place] on DsDv 58 Medical Branch losartan 2018- Yes 100mg Take 100 Univ ers 100 mg 1-23 mg by ity of tablet 22:53: mouth [place] 58 daily. Medical Branch ezetimibe 2018- Yes 10mg Take 10 mg Un rosalba 10 mg 1-23 by mouth ity of tablet 22:53: daily. [place] 58 Medical Branch azelastine- 2018- Yes 2{spray Use 2 Un [place] fluticasone 1-23 } Sprays in ity of 137-50 22:53: each [place] mcg/spray 58 nostril Medical nasal spray daily. Branch predniSONE 2018- Yes 10mg Take 10 mg U nivers 10 mg 1-23 by mouth ity of tablet pack 22:53: daily. [facility] 58 Medical Branch pantoprazol 2018-03 Yes 40mg Take 40 mg Univers e 40 mg EC 1-23 by mouth 2 ity of tablet 22:53: (two) [place] 58 times Medical daily. Branch clotrimazol 2018-03 Yes 10mg Take 10 mg [facility] e 10 mg 1-23 by mouth 5 ity of marcie 22:53: (five) [place] 58 times Medical daily. Branch nebivolol 2018- Yes 5mg Take 5 mg Uni vers (BYSTOLIC) 1-23 by mouth ity o f 5 mg tablet 22:53: daily. [facility] 58 Medical Branch HYDROmorpho 2018-03 Yes 4mg Take 4 mg U nivers ne 1-23 by mouth. ity of (DILAUDID) 22:53: [place] 4 mg tablet 58 Medical Branch aclidinium 2018-03 Yes 1{puff} Inhale 1 [facility] bromide 1-23 Puff ity of (TUDORZA 22:53: daily. [place] [facility] 400 Branch mcg/actuati on AePB atorvastati 2018-03 Yes 20mg Take 20 mg Univers n (LIPITOR) 1-23 by mouth ity of 20 mg 22:53: at [place] tablet 58 bedtime. Medical Branch roflumilast 2018- Yes 1{tbl} Take 1 Un rosalba (DALIRESP) 1-23 tablet by ity of 500 mcg Tab 22:53: mouth [place] 58 daily. Medical Branch fluticasone 2018- Yes 1{puff} Inhale 1 Univers -salmeterol 1-23 Puff every it y of (ADVAIR 22:53: 12 [place] DISKUS) 58 (twelve) Medical 250-50 hours. Branch mcg/dose inhalation disk montelukast 2018- Yes 10mg Take 10 mg Univers (SINGULAIR) 1-23 by mouth ity of 10 mg 22:53: daily. [place] tablet 58 Medical Branch cyclobenzap 2018-03 Yes 10mg Take 10 mg [facility] rine 1-23 by mouth 3 ity of (FLEXERIL) 22:53: (three) [place] 10 [place] 58 times Medical tablet daily. Branch umeclidiniu 2018-03 Yes 1{puff} Inhale 1 [facility] m 62.5 1-23 Puff ity of mcg/actuati 22:53: daily. [place] on DsD[place] 58 Medical Branch losartan 2018-03 Yes 100mg Take 100 Univ ers 100 mg 1-23 mg by ity of tablet 22:53: mouth [place] 58 daily. Medical Branch ezetimibe 2018-03 Yes 10mg Take 10 mg Un rosalba 10 mg 1-23 by mouth ity of tablet 22:53: daily. [place] [address] Medical Branch azelastine- 2018-03 Yes 2{spray Use 2 Un rosalba fluticasone 1-23 } Sprays in ity of 137-50 22:53: each [place] mcg/spray 58 nostril Medical nasal spray daily. Branch predniSONE 2018-03 Yes 10mg Take 10 mg U nivers 10 mg 1-23 by mouth ity of tablet pack 22:53: daily. [place] 58 [facility] Branch pantoprazol 2018-03 Yes 40mg Take 40 mg Univers e 40 mg EC 1-23 by mouth 2 ity of tablet 22:53: (two) [place] 58 times Medical daily. Branch clotrimazol 2018-03 Yes 10mg Take 10 mg [facility] e 10 mg 1-23 by mouth 5 ity of marcie 22:53: (five) [place] 58 times Medical daily. Branch nebivolol 2018-03 Yes 5mg Take 5 mg Uni vers (BYSTOLIC) 1-23 by mouth ity o f 5 mg tablet 22:53: daily. [place] 58 [facility] Branch HYDROmorpho 2018-03 Yes 4mg Take 4 mg U nivers ne 1-23 by mouth. ity of (DILAUDID) 22:53: [place] 4 mg tablet 58 Medical Branch aclidinium 2018-03 Yes 1{puff} Inhale 1 [facility] bromide 1-23 Puff ity of (TUDORZA 22:53: daily. [place] PRESSAIR) Medical 400 Branch mcg/actuati on AePB atorvastati 2018-03 Yes 20mg Take 20 mg Univers n (LIPITOR) 1-23 by mouth ity of 20 mg 22:53: at [place] tablet 58 bedtime. Medical Branch roflumilast 2018-03 Yes 1{tbl} Take 1 Un rosalba (DALIRESP) 1-23 tablet by ity of 500 mcg Tab 22:53: mouth [place] 58 daily. Medical Branch fluticasone 2018-03 Yes 1{puff} Inhale 1 Univers -salmeterol 1-23 Puff every it y of (ADVAIR 22:53: 12 [place] DISKUS) 58 (twelve) Medical 250-50 hours. Branch mcg/dose inhalation disk montelukast 2018-03 Yes 10mg Take 10 mg Univers (SINGULAIR) 1-23 by mouth ity of 10 mg 22:53: daily. [place] tablet 58 Medical Branch cyclobenzap 2018-03 Yes 10mg Take 10 mg [facility] rine 1-23 by mouth 3 ity of (FLEXERIL) 22:53: (three) [place] 10 [place] 58 times Medical tablet daily. Branch umeclidiniu 2018-03 Yes 1{puff} Inhale 1 Univers m 62.5 1-23 Puff ity of mcg/actuati 22:53: daily. [place] DsDv 58 Medical Branch losartan 2018-03 Yes 100mg Take 100 Univ ers 100 mg 1-23 mg by ity of tablet 22:53: mouth [place] 58 daily. Medical Branch ezetimibe 2018-03 Yes 10mg Take 10 mg Un rosalba 10 mg 1-23 by mouth ity of tablet 22:53: daily. [place] 58 Medical Branch azelastine- 2018-03 Yes 2{spray Use 2 Un rosalba fluticasone 1-23 } Sprays in ity of 137-50 22:53: each [place] mcg/spray 58 nostril Medical nasal spray daily. Branch predniSONE 2018-03 Yes 10mg Take 10 mg U nivers 10 mg 1-23 by mouth ity of tablet pack 22:53: daily. [place] 58 [facility] Branch pantoprazol 2018-03 Yes 40mg Take 40 mg Univers e 40 mg EC 1-23 by mouth 2 ity of tablet 22:53: (two) [place] 58 times Medical daily. Branch clotrimazol 2018-03 Yes 10mg Take 10 mg Univers e 10 mg 1-23 by mouth 5 ity of marcie 22:53: (five) [place] 58 times Medical daily. Branch nebivolol 2018- Yes 5mg Take 5 mg Uni vers (BYSTOLIC) 1-23 by mouth ity o f 5 mg tablet 22:53: daily. [place] 58 [facility] Branch HYDROmorpho 2018- Yes 4mg Take 4 mg U nivers ne 1-23 by mouth. ity of (DILAUDID) 22:53: [place] 4 mg tablet 58 Medical Branch aclidinium 2018- Yes 1{puff} Inhale 1 [facility] bromide 1-23 Puff ity of (TUDORZA 22:53: daily. [place] PRESSAIR) 58 Medical 400 Branch mcg/actuati on AePB atorvastati 2018- Yes 20mg Take 20 mg Univers n (LIPITOR) 1-23 by mouth ity of 20 mg 22:53: at [place] tablet 58 bedtime. Medical Branch roflumilast 2018- Yes 1{tbl} Take 1 Un rosalba (DALIRESP) 1-23 tablet by ity of 500 mcg Tab 22:53: mouth [place] 58 daily. Medical Branch fluticasone 2018- Yes 1{puff} Inhale 1 Univers -salmeterol 1-23 Puff every it y of (ADVAIR 22:53: 12 [place] DISKUS) 58 (twelve) Medical 250-50 hours. Branch mcg/dose inhalation disk montelukast 2018- Yes 10mg Take 10 mg Univers (SINGULAIR) 1-23 by mouth ity of 10 mg 22:53: daily. [place] tablet 58 Medical Branch cyclobenzap 2018- Yes 10mg Take 10 mg [facility] rine 1-23 by mouth 3 ity of (FLEXERIL) 22:53: (three) [place] 10 [place] 58 times Medical tablet daily. Branch umeclidiniu 2018- Yes 1{puff} Inhale 1 [facility] m 62.5 1-23 Puff ity of mcg/actuati 22:53: daily. [place] on DsDv 58 Medical Branch losartan 2018- Yes 100mg Take 100 Univ ers 100 mg 1-23 mg by ity of tablet 22:53: mouth [place] 58 daily. Medical Branch ezetimibe 2018- Yes 10mg Take 10 mg Un rosalba 10 mg 1-23 by mouth ity of tablet 22:53: daily. [place] 58 Medical Branch azelastine- 2018-03 Yes 2{spray Use 2 Un rosalba fluticasone 1-23 } Sprays in ity of 137-50 22:53: each [place] mcg/spray 58 nostril Medical nasal spray daily. Branch predniSONE 2018-03 Yes 10mg Take 10 mg U nivers 10 mg 1-23 by mouth ity of tablet pack 22:53: daily. [facility] 58 [facility] Branch pantoprazol 2018-03 Yes 40mg Take 40 mg Univers e 40 mg EC 1-23 by mouth 2 ity of tablet 22:53: (two) [place] 58 times Medical daily. Branch clotrimazol 2018-03 Yes 10mg Take 10 mg [facility] e 10 mg 1-23 by mouth 5 ity of marcie 22:53: (five) [place] 58 times Medical daily. Branch nebivolol 2018-03 Yes 5mg Take 5 mg Uni vers (BYSTOLIC) 1-23 by mouth ity o f 5 mg tablet 22:53: daily. [facility] 58 Medical Branch HYDROmorpho 2018-03 Yes 4mg Take 4 mg U nivers ne 1-23 by mouth. ity of (DILAUDID) 22:53: [place] 4 mg tablet 58 Medical Branch aclidinium 2018-03 Yes 1{puff} Inhale 1 Univers bromide 1-23 Puff ity of (TUDORZA 22:53: daily. [place] PRESSAIR) 58 [facility] Branch mcg/actuati on AePB atorvastati 2018-03 Yes 20mg Take 20 mg Univers n (LIPITOR) 1-23 by mouth ity of 20 mg 22:53: at [place] tablet 58 bedtime. Medical Branch roflumilast 2018-03 Yes 1{tbl} Take 1 Un rosalba (DALIRESP) 1-23 tablet by ity of 500 mcg Tab 22:53: mouth [place] 58 daily. Medical Branch fluticasone 2018-03 Yes 1{puff} Inhale 1 Univers -salmeterol 1-23 Puff every it y of (ADVAIR 22:53: 12 [place] DISKUS) 58 (twelve) Medical 250-50 hours. Branch mcg/dose inhalation disk montelukast 2018-03 Yes 10mg Take 10 mg Univers (SINGULAIR) 1-23 by mouth ity of 10 mg 22:53: daily. [place] tablet 58 Medical Branch cyclobenzap 2018-03 Yes 10mg Take 10 mg [facility] rine 1-23 by mouth 3 ity of (FLEXERIL) 22:53: (three) [place] 10 [place] 58 times Medical tablet daily. Branch umeclidiniu 2018-03 Yes 1{puff} Inhale 1 [facility] m 62.5 1-23 Puff ity of mcg/actuati 22:53: daily. [place] DsD[place] 58 Medical Branch losartan 2018-03 Yes 100mg Take 100 Univ ers 100 mg 1-23 mg by ity of tablet 22:53: mouth [place] 58 daily. Medical Branch ezetimibe 2018-03 Yes 10mg Take 10 mg Un rosalba 10 mg 1-23 by mouth ity of tablet 22:53: daily. [place] [address] Medical Branch azelastine- 2018-03 Yes 2{spray Use 2 Un rosalba fluticasone 1-23 } Sprays in ity of 137-50 22:53: each [place] mcg/spray 58 nostril Medical nasal spray daily. Branch predniSONE 2018-03 Yes 10mg Take 10 mg U nivers 10 mg 1-23 by mouth ity of tablet pack 22:53: daily. [place] 58 [facility] Branch pantoprazol 2018-03 Yes 40mg Take 40 mg Univers e 40 mg EC 1-23 by mouth 2 ity of tablet 22:53: (two) [place] 58 times Medical daily. Branch clotrimazol 2018-03 Yes 10mg Take 10 mg [facility] e 10 mg 1-23 by mouth 5 ity of marcie 22:53: (five) [place] 58 times Medical daily. Branch nebivolol 2018-03 Yes 5mg Take 5 mg Uni vers (BYSTOLIC) 1-23 by mouth ity o f 5 mg tablet 22:53: daily. [place] 58 [facility] Branch HYDROmorpho 2018-03 Yes 4mg Take 4 mg U nivers ne 1-23 by mouth. ity of (DILAUDID) 22:53: [place] 4 mg tablet 58 Medical Branch aclidinium 2018-03 Yes 1{puff} Inhale 1 [facility] bromide 1-23 Puff ity of (TUDORZA 22:53: daily. [place] PRESSAIR) Medical 400 Branch mcg/actuati on AePB atorvastati 2018-03 Yes 20mg Take 20 mg Univers n (LIPITOR) 1-23 by mouth ity of 20 mg 22:53: at [place] tablet 58 bedtime. Medical Branch roflumilast 2018-03 Yes 1{tbl} Take 1 Un rosalba (DALIRESP) 1-23 tablet by ity of 500 mcg Tab 22:53: mouth [place] 58 daily. Medical Branch fluticasone 2018-03 Yes 1{puff} Inhale 1 Univers -salmeterol 1-23 Puff every it y of (ADVAIR 22:53: 12 [place] DISKUS) 58 (twelve) Medical 250-50 hours. Branch mcg/dose inhalation disk montelukast 2018-03 Yes 10mg Take 10 mg Univers (SINGULAIR) 1-23 by mouth ity of 10 mg 22:53: daily. [place] tablet 58 Medical Branch cyclobenzap 2018-03 Yes 10mg Take 10 mg [facility] rine 1-23 by mouth 3 ity of (FLEXERIL) 22:53: (three) [place] 10 [place] 58 times Medical tablet daily. Branch umeclidiniu 2018-03 Yes 1{puff} Inhale 1 [facility] m 62.5 1-23 Puff ity of mcg/actuati 22:53: daily. [place] DsDv 58 Medical Branch losartan 2018-03 Yes 100mg Take 100 Univ ers 100 mg 1-23 mg by ity of tablet 22:53: mouth [place] 58 daily. Medical Branch ezetimibe 2018-03 Yes 10mg Take 10 mg Un rosalba 10 mg 1-23 by mouth ity of tablet 22:53: daily. [place] [address] Medical Branch azelastine- 2018-03 Yes 2{spray Use 2 Un rosalba fluticasone 1-23 } Sprays in ity of 137-50 22:53: each [place] mcg/spray 58 nostril Medical nasal spray daily. Branch predniSONE 2018-03 Yes 10mg Take 10 mg U nivers 10 mg 1-23 by mouth ity of tablet pack 22:53: daily. [place] 58 [facility] Branch pantoprazol 2018-03 Yes 40mg Take 40 mg Univers e 40 mg EC 1-23 by mouth 2 ity of tablet 22:53: (two) [place] 58 times Medical daily. Branch clotrimazol 2018-03 Yes 10mg Take 10 mg Univers e 10 mg 1-23 by mouth 5 ity of marcie 22:53: (five) [place] 58 times Medical daily. Branch nebivolol 2019-1 Yes 5mg Take 5 mg Uni vers (BYSTOLIC) 1-23 by mouth ity o f 5 mg tablet 22:53: daily. [place] 58 [facility] Branch HYDROmorpho 2018- Yes 4mg Take 4 mg U nivers ne 1-23 by mouth. ity of (DILAUDID) 22:53: [place] 4 mg tablet 58 Medical Branch aclidinium 2018- Yes 1{puff} Inhale 1 [facility] bromide 1-23 Puff ity of (TUDORZA 22:53: daily. [place] PRESSAIR) 58 Medical 400 Branch mcg/actuati on AePB atorvastati 2018- Yes 20mg Take 20 mg Univers n (LIPITOR) 1-23 by mouth ity of 20 mg 22:53: at [place] tablet 58 bedtime. Medical Branch roflumilast 2018- Yes 1{tbl} Take 1 Un rosalba (DALIRESP) 1-23 tablet by ity of 500 mcg Tab 22:53: mouth [place] 58 daily. Medical Branch fluticasone 2019- Yes 1{puff} Inhale 1 Univers -salmeterol 1-23 Puff every it y of (ADVAIR 22:53: 12 [place] DISKUS) 58 (twelve) Medical 250-50 hours. Branch mcg/dose inhalation disk montelukast 2018- Yes 10mg Take 10 mg Univers (SINGULAIR) 1-23 by mouth ity of 10 mg 22:53: daily. [place] tablet 58 Medical Branch cyclobenzap 2018- Yes 10mg Take 10 mg [facility] rine 1-23 by mouth 3 ity of (FLEXERIL) 22:53: (three) [place] 10 [place] 58 times Medical tablet daily. Branch umeclidiniu 2019- Yes 1{puff} Inhale 1 [facility] m 62.5 1-23 Puff ity of mcg/actuati 22:53: daily. [place] DsDv 58 Medical Branch losartan 2018- Yes 100mg Take 100 Univ ers 100 mg 1-23 mg by ity of tablet 22:53: mouth [place] 58 daily. Medical Branch ezetimibe 2019- Yes 10mg Take 10 mg Un rosalba 10 mg 1-23 by mouth ity of tablet 22:53: daily. [place] Medical Branch azelastine- 2018- Yes 2{spray Use 2 Un rosalba fluticasone 1-23 } Sprays in ity of 137-50 22:53: each [place] mcg/spray 58 nostril Medical nasal spray daily. Branch predniSONE 2018-03 Yes 10mg Take 10 mg U nivers 10 mg 1-23 by mouth ity of tablet pack 22:53: daily. [facility] 58 Medical Branch pantoprazol 2018-03 Yes 40mg Take 40 mg Univers e 40 mg EC 1-23 by mouth 2 ity of tablet 22:53: (two) [place] 58 times Medical daily. Branch clotrimazol 2018-03 Yes 10mg Take 10 mg Univers e 10 mg 1-23 by mouth 5 ity of marcie 22:53: (five) [place] 58 times Medical daily. Branch nebivolol 2018-03 Yes 5mg Take 5 mg Uni vers (BYSTOLIC) 1-23 by mouth ity o f 5 mg tablet 22:53: daily. [facility] 58 Medical Branch HYDROmorpho 2018-03 Yes 4mg Take 4 mg U nivers ne 1-23 by mouth. ity of (DILAUDID) 22:53: [place] 4 mg tablet 58 Medical Branch aclidinium 2018-03 Yes 1{puff} Inhale 1 Univers bromide 1-23 Puff ity of (TUDORZA 22:53: daily. [place] PRESSAIR) 58 Medical 400 Branch mcg/actuati on AePB atorvastati 2018-03 Yes 20mg Take 20 mg Univers n (LIPITOR) 1-23 by mouth ity of 20 mg 22:53: at [place] tablet 58 bedtime. Medical Branch roflumilast 2018-03 Yes 1{tbl} Take 1 Un rosalba (DALIRESP) 1-23 tablet by ity of 500 mcg Tab 22:53: mouth [place] 58 daily. Medical Branch fluticasone 2018-03 Yes 1{puff} Inhale 1 Univers -salmeterol 1-23 Puff every it y of (ADVAIR 22:53: 12 [place] DISKUS) 58 (twelve) Medical 250-50 hours. Branch mcg/dose inhalation disk montelukast 2018- Yes 10mg Take 10 mg Univers (SINGULAIR) 1-23 by mouth ity of 10 mg 22:53: daily. [place] tablet 58 Medical Branch cyclobenzap 2018- Yes 10mg Take 10 mg Univers rine 1-23 by mouth 3 ity of (FLEXERIL) 22:53: (three) [place] 10 [place] 58 times Medical tablet daily. Branch umeclidiniu 2018-03 Yes 1{puff} Inhale 1 Univers m 62.5 1-23 Puff ity of mcg/actuati 22:53: daily. [place] DsD[facility] 58 Medical Branch losartan 2018-03 Yes 100mg Take 100 Univ ers 100 mg 1-23 mg by ity of tablet 22:53: mouth [place] 58 daily. Medical Branch ezetimibe 2019- Yes 10mg Take 10 mg Un rosalba 10 mg 1-23 by mouth ity of tablet 22:53: daily. [place] [address] Medical Branch azelastine- 2018- Yes 2{spray Use 2 Un rosalba fluticasone 1-23 } Sprays in ity of 137-50 22:53: each [place] mcg/spray 58 nostril Medical nasal spray daily. Branch predniSONE 2018-03 Yes 10mg Take 10 mg U nivers 10 mg 1-23 by mouth ity of tablet pack 22:53: [place]. [place] 58 [facility] Branch pantoprazol 2018-03 Yes 40mg Take 40 mg Univers e 40 mg EC 1-23 by mouth 2 ity of tablet 22:53: (two) [place] 58 times Medical daily. Branch clotrimazol 2018-03 Yes 10mg Take 10 mg Univers e 10 mg 1-23 by mouth 5 ity of marcie 22:53: (five) [place] 58 times Medical daily. Branch nebivolol 2018-03 Yes 5mg Take 5 mg Uni vers (BYSTOLIC) 1-23 by mouth ity o f 5 mg tablet 22:53: daily. [place] 58 [facility] Branch HYDROmorpho 2018-03 Yes 4mg Take 4 mg U nivers ne 1-23 by mouth. ity of (DILAUDID) 22:53: [place] 4 mg tablet 58 Medical Branch aclidinium 2018- Yes 1{puff} Inhale 1 Univers bromide 1-23 Puff ity of (TUDORZA 22:53: daily. [place] [facility] Branch mcg/actuati on AePB atorvastati 2018-03 Yes 20mg Take 20 mg Univers n (LIPITOR) 1-23 by mouth ity of 20 mg 22:53: at [place] tablet 58 bedtime. Medical Branch roflumilast 2018-03 Yes 1{tbl} Take 1 Un rosalba (DALIRESP) 1-23 tablet by ity of 500 mcg Tab 22:53: mouth [place] 58 daily. Medical Branch fluticasone 2018-03 Yes 1{puff} Inhale 1 Univers -salmeterol 1-23 Puff every it y of (ADVAIR 22:53: 12 [place] DISKUS) 58 (twelve) Medical 250-50 hours. Branch mcg/dose inhalation disk montelukast 2018- Yes 10mg Take 10 mg Univers (SINGULAIR) 1-23 by mouth ity of 10 mg 22:53: daily. [place] tablet 58 Medical Branch cyclobenzap 2018-03 Yes 10mg Take 10 mg Univers rine 1-23 by mouth 3 ity of (FLEXERIL) 22:53: (three) [place] 10 [place] 58 times Medical tablet daily. Branch umeclidiniu 2018-03 Yes 1{puff} Inhale 1 Univers m 62.5 1-23 Puff ity of mcg/actuati 22:53: daily. [place] Ds[facility] Branch losartan 2018-03 Yes 100mg Take 100 Univ ers 100 mg 1-23 mg by ity of tablet 22:53: mouth [place] 58 daily. Medical Branch ezetimibe 2018-03 Yes 10mg Take 10 mg Un rosalba 10 mg 1-23 by mouth ity of tablet 22:53: daily. [place] [address] Medical Branch azelastine- 2018- Yes 2{spray Use 2 Un rosalba fluticasone 1-23 } Sprays in ity of 137-50 22:53: each [place] mcg/spray 58 nostril Medical nasal spray daily. Branch predniSONE 2018-03 Yes 10mg Take 10 mg U nivers 10 mg 1-23 by mouth ity of tablet pack 22:53: daily. [place] 58 [facility] Branch pantoprazol 2018- Yes 40mg Take 40 mg Univers e 40 mg EC 1-23 by mouth 2 ity of tablet 22:53: (two) [place] 58 times Medical daily. Branch clotrimazol 2018-03 Yes 10mg Take 10 mg Univers e 10 mg 1-23 by mouth 5 ity of marcie 22:53: (five) [place] 58 times Medical daily. Branch nebivolol 2018-03 Yes 5mg Take 5 mg Uni vers (BYSTOLIC) 1-23 by mouth ity o f 5 mg tablet 22:53: daily. [place] 58 [facility] Branch aclidinium 2018-03 Yes 1{puff} Inhale 1 Univers bromide 1-23 Puff ity of (TUDORZA 22:53: daily. [place] PRESSAIR) 58 Medical 400 Branch mcg/actuati on AePB atorvastati 2018-03 Yes 20mg Take 20 mg Univers n (LIPITOR) 1-23 by mouth ity of 20 mg 22:53: at [place] tablet 58 bedtime. Medical Branch roflumilast 2018-03 Yes 1{tbl} Take 1 Un rosalba (DALIRESP) 1-23 tablet by ity of 500 mcg Tab 22:53: mouth [place] 58 daily. Medical Branch fluticasone 2018-03 Yes 1{puff} Inhale 1 Univers -salmeterol 1-23 Puff every it y of (ADVAIR 22:53: 12 [place] DISKUS) 58 (twelve) Medical 250-50 hours. Branch mcg/dose inhalation disk montelukast 2018- Yes 10mg Take 10 mg Univers (SINGULAIR) 1-23 by mouth ity of 10 mg 22:53: daily. [place] tablet 58 Medical Branch cyclobenzap 2018-03 Yes 10mg Take 10 mg Univers rine 1-23 by mouth 3 ity of (FLEXERIL) 22:53: (three) [place] 10 [place] 58 times Medical tablet daily. Branch umeclidiniu 2018-03 Yes 1{puff} Inhale 1 Univers m 62.5 1-23 Puff ity of mcg/actuati 22:53: daily. [place] Ds[facility] 58 Medical Branch losartan 2018- Yes 100mg Take 100 Univ ers 100 mg 1-23 mg by ity of tablet 22:53: mouth [place] 58 daily. Medical Branch ezetimibe 2018- Yes 10mg Take 10 mg Un rosalba 10 mg 1-23 by mouth ity of tablet 22:53: daily. [place] 58 Medical Branch azelastine- 2018-03 Yes 2{spray Use 2 Un rosalba fluticasone 1-23 } Sprays in ity of 137-50 22:53: each [place] mcg/spray 58 nostril Medical nasal spray daily. Branch predniSONE 2018- Yes 10mg Take 10 mg U nivers 10 mg 1-23 by mouth ity of tablet pack 22:53: daily. [place] 58 [facility] Branch pantoprazol 2018-03 Yes 40mg Take 40 mg Univers e 40 mg EC 1-23 by mouth 2 ity of tablet 22:53: (two) [place] 58 times Medical daily. Branch clotrimazol 2018-03 Yes 10mg Take 10 mg Univers e 10 mg 1-23 by mouth 5 ity of marcie 22:53: (five) [place] 58 times Medical daily. Branch nebivolol 2018-03 Yes 5mg Take 5 mg Uni vers (BYSTOLIC) 1-23 by mouth ity o f 5 mg tablet 22:53: daily. [place] 58 [facility] Branch HYDROmorpho 2018-03 Yes 4mg Take 4 mg U nivers ne -23 by mouth. ity of (DILAUDID) 22:53: [place] 4 mg tablet 58 Medical Branch aclidinium 2018-03 Yes 1{puff} Inhale 1 Univers bromide 1-23 Puff ity of (TUDORZA 22:53: daily. [place] PRESSAIR) 58 Medical 400 Branch mcg/actuati on AePB atorvastati 2018-03 Yes 20mg Take 20 mg Univers n (LIPITOR) 1-23 by mouth ity of 20 mg 22:53: at [place] tablet 58 bedtime. Medical Branch roflumilast 2018-03 Yes 1{tbl} Take 1 Un rosalba (DALIRESP) 1-23 tablet by ity of 500 mcg Tab 22:53: mouth [place] 58 daily. Medical Branch fluticasone 2018-03 Yes 1{puff} Inhale 1 Univers -salmeterol 1-23 Puff every it y of (ADVAIR 22:53: 12 [place] DISKUS) 58 (twelve) Medical 250-50 hours. Branch mcg/dose inhalation disk montelukast 2018- Yes 10mg Take 10 mg Univers (SINGULAIR) 1-23 by mouth ity of 10 mg 22:53: daily. [place] tablet 58 Medical Branch cyclobenzap 2018-03 Yes 10mg Take 10 mg Univers rine 1-23 by mouth 3 ity of (FLEXERIL) 22:53: (three) [place] 10 [place] 58 times Medical tablet daily. Branch umeclidiniu 2018-03 Yes 1{puff} Inhale 1 Univers m 62.5 1-23 Puff ity of mcg/actuati 22:53: daily. [place] DsDv 58 Medical Branch losartan 2018-03 Yes 100mg Take 100 Univ ers 100 mg 1-23 mg by ity of tablet 22:53: mouth [place] 58 daily. Medical Branch ezetimibe 2018-03 Yes 10mg Take 10 mg Un rosalba 10 mg 1-23 by mouth ity of tablet 22:53: daily. [place] [address] Medical Branch azelastine- 2018-03 Yes 2{spray Use 2 Un rosalba fluticasone 1-23 } Sprays in ity of 137-50 22:53: each [place] mcg/spray 58 nostril Medical nasal spray daily. Branch predniSONE 2018-03 Yes 10mg Take 10 mg U nivers 10 mg 1-23 by mouth ity of tablet pack 22:53: daily. [place] 58 Medical Branch pantoprazol 2018-03 Yes 40mg Take 40 mg Univers e 40 mg EC 1-23 by mouth 2 ity of tablet 22:53: (two) [place] 58 times Medical daily. Branch clotrimazol 2018-03 Yes 10mg Take 10 mg Univers e 10 mg 1-23 by mouth 5 ity of marcie 22:53: (five) [place] [address] times Medical daily. Branch nebivolol 2018-03 Yes 5mg Take 5 mg Uni vers (BYSTOLIC) 1-23 by mouth ity o f 5 mg tablet 22:53: daily. [place] 58 Medical Branch HYDROmorpho 2018-03 Yes 4mg Take 4 mg U nivers ne 1-23 by mouth. ity of (DILAUDID) 22:53: [place] 4 mg tablet 58 Medical Branch aclidinium 2018-03 Yes 1{puff} Inhale 1 Univers bromide 1-23 Puff ity of (TUDORZA 22:53: daily. [place] PRESSAIR) Medical 400 Branch mcg/actuati on AePB atorvastati 2018-03 Yes 20mg Take 20 mg Univers n (LIPITOR) 1-23 by mouth ity of 20 mg 22:53: at [place] tablet 58 bedtime. Medical Branch roflumilast 2018-03 Yes 1{tbl} Take 1 Un rosalba (DALIRESP) 1-23 tablet by ity of 500 mcg Tab 22:53: mouth [place] 58 daily. Medical Branch fluticasone 2018-03 Yes 1{puff} Inhale 1 Univers -salmeterol 1-23 Puff every it y of (ADVAIR 22:53: 12 [place] DISKUS) 58 (twelve) Medical 250-50 hours. Branch mcg/dose inhalation disk montelukast 2018-03 Yes 10mg Take 10 mg Univers (SINGULAIR) 1-23 by mouth ity of 10 mg 22:53: daily. [place] tablet Medical Branch cyclobenzap 2018-03 Yes 10mg Take 10 mg Univers rine 1-23 by mouth 3 ity of (FLEXERIL) 22:53: (three) [place] 10 [place] 58 times Medical tablet daily. Branch umeclidiniu 2018-03 Yes 1{puff} Inhale 1 Univers m 62.5 1-23 Puff ity of mcg/actuati 22:53: daily. [place] DsD[facility] Medical Branch losartan 2018-03 Yes 100mg Take 100 Univ ers 100 mg 1-23 mg by ity of tablet 22:53: mouth [place] 58 daily. Medical Branch ezetimibe 2018-03 Yes 10mg Take 10 mg Un rosalba 10 mg 1-23 by mouth ity of tablet 22:53: daily. [place] [address] Medical Branch azelastine- 2018-03 Yes 2{spray Use 2 Un rosalba fluticasone 1-23 } Sprays in ity of 137-50 22:53: each [place] mcg/spray 58 nostril Medical nasal spray daily. Branch predniSONE 2018-03 Yes 10mg Take 10 mg U nivers 10 mg 1-23 by mouth ity of tablet pack 22:53: [place]. [place] [facility] pantoprazol 2018-03 Yes 40mg Take 40 mg Univers e 40 mg EC 1-23 by mouth 2 ity of tablet 22:53: (two) [place] 58 times Medical daily. Branch clotrimazol 2018-03 Yes 10mg Take 10 mg Univers e 10 mg 1-23 by mouth 5 ity of marcie 22:53: (five) [place] 58 times Medical daily. Branch nebivolol 2018-03 Yes 5mg Take 5 mg Uni vers (BYSTOLIC) 1-23 by mouth ity o f 5 mg tablet 22:53: daily. [place] [facility] HYDROmorpho 2018-03 Yes 4mg Take 4 mg U nivers ne 1-23 by mouth. ity of (DILAUDID) 22:53: [place] 4 mg tablet 58 Medical Branch aclidinium 2018- Yes 1{puff} Inhale 1 Univers bromide 1-23 Puff ity of (TUDORZA 22:53: daily. [place] PRESSAIR) 58 Medical 400 Branch mcg/actuati on AePB atorvastati 2018-03 Yes 20mg Take 20 mg Univers n (LIPITOR) 1-23 by mouth ity of 20 mg 22:53: at [place] tablet 58 bedtime. Medical Branch roflumilast 2019- Yes 1{tbl} Take 1 Un rosalba (DALIRESP) 1-23 tablet by ity of 500 mcg Tab 22:53: mouth [place] 58 daily. Medical Branch fluticasone 2019- Yes 1{puff} Inhale 1 Univers -salmeterol 1-23 Puff every it y of (ADVAIR 22:53: 12 [place] DISKUS) 58 (twelve) Medical 250-50 hours. Branch mcg/dose inhalation disk montelukast 2018- Yes 10mg Take 10 mg Univers (SINGULAIR) 1-23 by mouth ity of 10 mg 22:53: daily. [place] tablet 58 Medical Branch cyclobenzap 2018- Yes 10mg Take 10 mg Univers rine 1-23 by mouth 3 ity of (FLEXERIL) 22:53: (three) [place] 10 [place] 58 times Medical tablet daily. Branch umeclidiniu 2018-03 Yes 1{puff} Inhale 1 Univers m 62.5 1-23 Puff ity of mcg/actuati 22:53: daily. [place] DsD[facility] 58 Medical Branch losartan 2018- Yes 100mg Take 100 Univ ers 100 mg 1-23 mg by ity of tablet 22:53: mouth [place] 58 daily. Medical Branch ezetimibe 2019- Yes 10mg Take 10 mg Un rosalba 10 mg 1-23 by mouth ity of tablet 22:53: daily. [place] 58 Medical Branch azelastine- 2018- Yes 2{spray Use 2 Un rosalba fluticasone 1-23 } Sprays in ity of 137-50 22:53: each [place] mcg/spray 58 nostril Medical nasal spray daily. Branch predniSONE 2018- Yes 10mg Take 10 mg U nivers 10 mg 1-23 by mouth ity of tablet pack 22:53: daily. [place] 58 [facility] Branch pantoprazol 2018-03 Yes 40mg Take 40 mg Univers e 40 mg EC 1-23 by mouth 2 ity of tablet 22:53: (two) [place] 58 times Medical daily. Branch clotrimazol 2018-03 Yes 10mg Take 10 mg Univers e 10 mg 1-23 by mouth 5 ity of marcie 22:53: (five) [place] 58 times Medical daily. Branch nebivolol 2018-03 Yes 5mg Take 5 mg Uni vers (BYSTOLIC) 1-23 by mouth ity o f 5 mg tablet 22:53: daily. [place] 58 Medical Branch HYDROmorpho 2018-03 Yes 4mg Take 4 mg U nivers ne 1-23 by mouth. ity of (DILAUDID) 22:53: [place] 4 mg tablet 58 Medical Branch aclidinium 2018-03 Yes 1{puff} Inhale 1 Univers bromide 1-23 Puff ity of (TUDORZA 22:53: daily. [place] PRESSAIR) 58 Medical 400 Branch mcg/actuati on AePB atorvastati 2018-03 Yes 20mg Take 20 mg Univers n (LIPITOR) 1-23 by mouth ity of 20 mg 22:53: at [place] tablet 58 bedtime. Medical Branch roflumilast 2018-03 Yes 1{tbl} Take 1 Un rosalba (DALIRESP) 1-23 tablet by ity of 500 mcg Tab 22:53: mouth [place] 58 daily. Medical Branch fluticasone 2018-03 Yes 1{puff} Inhale 1 Univers -salmeterol 1-23 Puff every it y of (ADVAIR 22:53: 12 [place] DISKUS) 58 (twelve) Medical 250-50 hours. Branch mcg/dose inhalation disk montelukast 2018- Yes 10mg Take 10 mg Univers (SINGULAIR) 1-23 by mouth ity of 10 mg 22:53: daily. [place] tablet 58 Medical Branch cyclobenzap 2018- Yes 10mg Take 10 mg Univers rine 1-23 by mouth 3 ity of (FLEXERIL) 22:53: (three) [place] 10 [place] 58 times Medical tablet daily. Branch umeclidiniu 2018-03 Yes 1{puff} Inhale 1 Univers m 62.5 1-23 Puff ity of mcg/actuati 22:53: daily. [place] DsD[facility] 58 Medical Branch losartan 2018-03 Yes 100mg Take 100 Univ ers 100 mg 1-23 mg by ity of tablet 22:53: mouth [place] 58 daily. Medical Branch ezetimibe 2018-03 Yes 10mg Take 10 mg Un rosalba 10 mg 1-23 by mouth ity of tablet 22:53: daily. [place] [address] Medical Branch azelastine- 2018-03 Yes 2{spray Use 2 Un rosalba fluticasone 1-23 } Sprays in ity of 137-50 22:53: each [place] mcg/spray nostril Medical nasal spray daily. Branch predniSONE 2018-03 Yes 10mg Take 10 mg U nivers 10 mg 1-23 by mouth ity of tablet pack 22:53: daily. [place] 58 Medical Branch pantoprazol 2018-03 Yes 40mg Take 40 mg Univers e 40 mg EC 1-23 by mouth 2 ity of tablet 22:53: (two) [place] [address] times Medical daily. Branch clotrimazol 2018-03 Yes 10mg Take 10 mg Univers e 10 mg 1-23 by mouth 5 ity of marcie 22:53: (five) [place] [address] times Medical daily. Branch nebivolol 2018-03 Yes 5mg Take 5 mg Uni vers (BYSTOLIC) 1-23 by mouth ity o f 5 mg tablet 22:53: daily. [place] 58 Medical Branch HYDROmorpho 2018-03 Yes 4mg Take 4 mg U nivers ne 1-23 by mouth. ity of (DILAUDID) 22:53: [place] 4 mg tablet 58 Medical Branch aclidinium 2018-03 Yes 1{puff} Inhale 1 Univers bromide 1-23 Puff ity of (TUDORZA 22:53: daily. [place] [facility] Branch mcg/actuati on AePB atorvastati 2018-03 Yes 20mg Take 20 mg Univers n (LIPITOR) 1-23 by mouth ity of 20 mg 22:53: at [place] tablet 58 bedtime. Medical Branch aclidinium 2018-03 Yes 1{puff} Inhale 1 Univers bromide 1-23 Puff ity of (TUDORZA 22:53: daily. [place] [facility] Medical 400 Branch mcg/actuati on AePB roflumilast 2018- Yes 1{tbl} Take 1 Un rosalba (DALIRESP) 1-23 tablet by ity of 500 mcg Tab 22:53: mouth [place] 58 daily. Medical Branch fluticasone 2018-03 Yes 1{puff} Inhale 1 Univers -salmeterol 1-23 Puff every it y of (ADVAIR 22:53: 12 [place] DISKUS) 58 (twelve) Medical 250-50 hours. Branch mcg/dose inhalation disk montelukast 2018-03 Yes 10mg Take 10 mg Univers (SINGULAIR) 1-23 by mouth ity of 10 mg 22:53: daily. [place] tablet 58 Medical Branch cyclobenzap 2018-03 Yes 10mg Take 10 mg Univers rine 1-23 by mouth 3 ity of (FLEXERIL) 22:53: (three) [place] 10 [place] 58 times Medical tablet daily. Branch umeclidiniu 2018-03 Yes 1{puff} Inhale 1 Univers m 62.5 1-23 Puff ity of mcg/actuati 22:53: daily. [place] DsD[facility] 58 Medical Branch losartan 2018-03 Yes 100mg Take 100 Univ ers 100 mg 1-23 mg by ity of tablet 22:53: mouth [place] 58 daily. Medical Branch ezetimibe 2018-03 Yes 10mg Take 10 mg Un rosalba 10 mg 1-23 by mouth ity of tablet 22:53: daily. [place] [address] Medical Branch azelastine- 2018-03 Yes 2{spray Use 2 Un rosalba fluticasone 1-23 } Sprays in ity of 137-50 22:53: each [place] mcg/spray 58 nostril Medical nasal spray daily. Branch predniSONE 2018-03 Yes 10mg Take 10 mg U nivers 10 mg 1-23 by mouth ity of tablet pack 22:53: daily. [place] 58 [facility] Branch atorvastati 2018-03 Yes 20mg Take 20 mg Univers n (LIPITOR) 1-23 by mouth ity of 20 mg 22:53: at [place] tablet 58 bedtime. Medical Branch pantoprazol 2018-03 Yes 40mg Take 40 mg Univers e 40 mg EC 1-23 by mouth 2 ity of tablet 22:53: (two) [place] 58 times Medical daily. Branch clotrimazol 2018-03 Yes 10mg Take 10 mg Univers e 10 mg 1-23 by mouth 5 ity of marcie 22:53: (five) [place] 58 times Medical daily. Branch nebivolol 2018-03 Yes 5mg Take 5 mg Uni vers (BYSTOLIC) 1-23 by mouth ity o f 5 mg tablet 22:53: daily. [place] 58 Medical Branch HYDROmorpho 2018-03 Yes 4mg Take 4 mg U nivers ne 1-23 by mouth. ity of (DILAUDID) 22:53: [place] 4 mg tablet 58 Medical Branch roflumilast 2018-03 Yes 1{tbl} Take 1 Un rosalba (DALIRESP) 1-23 tablet by ity of 500 mcg Tab 22:53: mouth [place] 58 daily. Medical Branch aclidinium 2018-03 Yes 1{puff} Inhale 1 Univers bromide 1-23 Puff ity of (TUDORZA 22:53: daily. [place] PRESSAIR) 58 Medical 400 Branch mcg/actuati on AePB atorvastati 2018-03 Yes 20mg Take 20 mg Univers n (LIPITOR) 1-23 by mouth ity of 20 mg 22:53: at [place] tablet 58 bedtime. Medical Branch roflumilast 2018-03 Yes 1{tbl} Take 1 Un rosalba (DALIRESP) 1-23 tablet by ity of 500 mcg Tab 22:53: mouth [place] 58 daily. Medical Branch fluticasone 2018-03 Yes 1{puff} Inhale 1 Univers -salmeterol 1-23 Puff every it y of (ADVAIR 22:53: 12 [place] DISKUS) 58 (twelve) Medical 250-50 hours. Branch mcg/dose inhalation disk fluticasone 2018-03 Yes 1{puff} Inhale 1 Univers -salmeterol 1-23 Puff every it y of (ADVAIR 22:53: 12 [place] DISKUS) 58 (twelve) Medical 250-50 hours. Branch mcg/dose inhalation disk montelukast 2018-03 Yes 10mg Take 10 mg Univers (SINGULAIR) 1-23 by mouth ity of 10 mg 22:53: daily. [place] tablet 58 Medical Branch cyclobenzap 2018-03 Yes 10mg Take 10 mg Univers rine 1-23 by mouth 3 ity of (FLEXERIL) 22:53: (three) [place] 10 [place] 58 times Medical tablet daily. Branch umeclidiniu 2018-03 Yes 1{puff} Inhale 1 Univers m 62.5 1-23 Puff ity of mcg/actuati 22:53: daily. [place] Ds[facility] 58 Medical Branch losartan 2018- Yes 100mg Take 100 Univ ers 100 mg 1-23 mg by ity of tablet 22:53: mouth [place] 58 daily. Medical Branch ezetimibe 2018- Yes 10mg Take 10 mg Un rosalba 10 mg 1-23 by mouth ity of tablet 22:53: daily. [place] [address] Medical Branch azelastine- 2018- Yes 2{spray Use 2 Un rosalba fluticasone 1-23 } Sprays in ity of 137-50 22:53: each [place] mcg/spray 58 nostril Medical nasal spray daily. Branch predniSONE 2018-03 Yes 10mg Take 10 mg U nivers 10 mg 1-23 by mouth ity of tablet pack 22:53: daily. [facility] Medical Branch pantoprazol 2018-03 Yes 40mg Take 40 mg Univers e 40 mg EC 1-23 by mouth 2 ity of tablet 22:53: (two) [place] 58 times Medical daily. Branch montelukast 2018-03 Yes 10mg Take 10 mg Univers (SINGULAIR) 1-23 by mouth ity of 10 mg 22:53: daily. [place] tablet Medical Branch clotrimazol 2018-03 Yes 10mg Take 10 mg Univers e 10 mg 1-23 by mouth 5 ity of marcie 22:53: (five) [place] 58 times Medical daily. Branch nebivolol 2018-03 Yes 5mg Take 5 mg Uni vers (BYSTOLIC) 1-23 by mouth ity o f 5 mg tablet 22:53: daily. [place] 58 Medical Branch HYDROmorpho 2018-03 Yes 4mg Take 4 mg U nivers ne 1-23 by mouth. ity of (DILAUDID) 22:53: [place] 4 mg tablet 58 Medical Branch cyclobenzap 2018-03 Yes 10mg Take 10 mg Univers rine 1-23 by mouth 3 ity of (FLEXERIL) 22:53: (three) [place] 10 [place] 58 times Medical tablet daily. Branch aclidinium 2018-03 Yes 1{puff} Inhale 1 Univers bromide 1-23 Puff ity of (TUDORZA 22:53: daily. [place] [facility] Medical 400 Branch mcg/actuati on AePB atorvastati 2018-03 Yes 20mg Take 20 mg Univers n (LIPITOR) 1-23 by mouth ity of 20 mg 22:53: at [place] tablet 58 bedtime. Medical Branch roflumilast 2018- Yes 1{tbl} Take 1 Un rosalba (DALIRESP) 1-23 tablet by ity of 500 mcg Tab 22:53: mouth [place] 58 daily. Medical Branch fluticasone 2018-03 Yes 1{puff} Inhale 1 Univers -salmeterol 1-23 Puff every it y of (ADVAIR 22:53: 12 [place] DISKUS) 58 (twelve) Medical 250-50 hours. Branch mcg/dose inhalation disk montelukast 2018- Yes 10mg Take 10 mg Univers (SINGULAIR) 1-23 by mouth ity of 10 mg 22:53: daily. [place] tablet 58 Medical Branch cyclobenzap 2018- Yes 10mg Take 10 mg Univers rine 1-23 by mouth 3 ity of (FLEXERIL) 22:53: (three) [place] 10 [place] 58 times Medical tablet daily. Branch umeclidiniu 2018- Yes 1{puff} Inhale 1 Univers m 62.5 1-23 Puff ity of mcg/actuati 22:53: daily. [place] DsDv 58 Medical Branch losartan 2018- Yes 100mg Take 100 Univ ers 100 mg 1-23 mg by ity of tablet 22:53: mouth [place] 58 daily. Medical Branch ezetimibe 2018-03 Yes 10mg Take 10 mg Un rosalba 10 mg 1-23 by mouth ity of tablet 22:53: daily. [place] [address] Medical Branch umeclidiniu 2018-03 Yes 1{puff} Inhale 1 Univers m 62.5 1-23 Puff ity of mcg/actuati 22:53: daily. [place] Ds[facility] 58 Medical Branch azelastine- 2018- Yes 2{spray Use 2 Un rosalba fluticasone 1-23 } Sprays in ity of 137-50 22:53: each [place] mcg/spray 58 nostril Medical nasal spray daily. Branch predniSONE 2018- Yes 10mg Take 10 mg U nivers 10 mg 1-23 by mouth ity of tablet pack 22:53: daily. [place] 58 [facility] Branch pantoprazol 2018- Yes 40mg Take 40 mg Univers e 40 mg EC 1-23 by mouth 2 ity of tablet 22:53: (two) [place] 58 times Medical daily. Branch clotrimazol 2018- Yes 10mg Take 10 mg Univers e 10 mg 1-23 by mouth 5 ity of marcie 22:53: (five) [place] 58 times Medical daily. Branch nebivolol 2018- Yes 5mg Take 5 mg Uni vers (BYSTOLIC) 1-23 by mouth ity o f 5 mg tablet 22:53: daily. [place] 58 Medical Branch HYDROmorpho 2018- Yes 4mg Take 4 mg U nivers ne 1-23 by mouth. ity of (DILAUDID) 22:53: [place] 4 mg tablet 58 Medical Branch losartan 2018- Yes 100mg Take 100 Univ ers 100 mg 1-23 mg by ity of tablet 22:53: mouth [place] 58 daily. Medical Branch aclidinium 2018- Yes 1{puff} Inhale 1 Univers bromide 1-23 Puff ity of (TUDORZA 22:53: daily. [place] PRESSAIR) 58 Medical 400 Branch mcg/actuati on AePB ezetimibe 2018- Yes 10mg Take 10 mg Un rosalba 10 mg 1-23 by mouth ity of tablet 22:53: daily. [place] [address] Medical Branch atorvastati 2018- Yes 20mg Take 20 mg Univers n (LIPITOR) 1-23 by mouth ity of 20 mg 22:53: at [place] tablet 58 bedtime. Medical Branch roflumilast 2018- Yes 1{tbl} Take 1 Un rosalba (DALIRESP) 1-23 tablet by ity of 500 mcg Tab 22:53: mouth [place] 58 daily. Medical Branch fluticasone 2018- Yes 1{puff} Inhale 1 Univers -salmeterol 1-23 Puff every it y of (ADVAIR 22:53: 12 [place] DISKUS) 58 (twelve) Medical 250-50 hours. Branch mcg/dose inhalation disk montelukast 2018- Yes 10mg Take 10 mg Univers (SINGULAIR) 1-23 by mouth ity of 10 mg 22:53: daily. [place] tablet 58 Medical Branch cyclobenzap 2018- Yes 10mg Take 10 mg Univers rine 1-23 by mouth 3 ity of (FLEXERIL) 22:53: (three) [place] 10 [place] 58 times Medical tablet daily. Branch umeclidiniu 2018-03 Yes 1{puff} Inhale 1 Univers m 62.5 1-23 Puff ity of mcg/actuati 22:53: daily. [place] [facility] losartan 2018-03 Yes 100mg Take 100 Univ ers 100 mg 1-23 mg by ity of tablet 22:53: mouth [place] 58 daily. Medical Branch ezetimibe 2018-03 Yes 10mg Take 10 mg Un rosalba 10 mg 1-23 by mouth ity of tablet 22:53: daily. [place] [address] Medical Branch azelastine- 2018-03 Yes 2{spray Use 2 Un [place] fluticasone 1-23 } Sprays in ity of 137-50 22:53: each [place] mcg/spray 58 nostril Medical nasal spray daily. Branch predniSONE 2018-03 Yes 10mg Take 10 mg U nivers 10 mg 1-23 by mouth ity of tablet pack 22:53: daily. [place] [place] azelastine- 2018-03 Yes 2{spray Use 2 Un [place] fluticasone 1-23 } Sprays in ity of 137-50 22:53: each [place] mcg/spray 58 nostril Medical nasal spray daily. Branch pantoprazol 2018-03 Yes 40mg Take 40 mg Univers e 40 mg EC 1-23 by mouth 2 ity of tablet 22:53: (two) [place] 58 times Medical daily. Branch clotrimazol 2018-03 Yes 10mg Take 10 mg Univers e 10 mg 1-23 by mouth 5 ity of marcie 22:53: (five) [place] 58 times Medical daily. Branch nebivolol 2018-03 Yes 5mg Take 5 mg Uni vers (BYSTOLIC) 1-23 by mouth ity o f 5 mg tablet 22:53: daily. [facility] Branch HYDROmorpho 2018-03 Yes 4mg Take 4 mg U nivers ne 1-23 by mouth. ity of (DILAUDID) 22:53: [place] 4 mg tablet Medical Branch predniSONE 2018-03 Yes 10mg Take 10 mg U nivers 10 mg 1-23 by mouth ity of tablet pack 22:53: daily. [place] [address] Medical Branch aclidinium 2018-03 Yes 1{puff} Inhale 1 Univers bromide 1-23 Puff ity of (TUDORZA 22:53: daily. [place] PRESSAIR) 58 Medical 400 Branch mcg/actuati on AePB atorvastati 2018-03 Yes 20mg Take 20 mg Univers n (LIPITOR) 1-23 by mouth ity of 20 mg 22:53: at [place] tablet 58 bedtime. Medical Branch roflumilast 2018- Yes 1{tbl} Take 1 Un rosalba (DALIRESP) 1-23 tablet by ity of 500 mcg Tab 22:53: mouth [place] 58 daily. Medical Branch fluticasone 2018-03 Yes 1{puff} Inhale 1 Univers -salmeterol 1-23 Puff every it y of (ADVAIR 22:53: 12 [place] DISKUS) 58 (twelve) Medical 250-50 hours. Branch mcg/dose inhalation disk montelukast 2018-03 Yes 10mg Take 10 mg Univers (SINGULAIR) 1-23 by mouth ity of 10 mg 22:53: daily. [place] tablet 58 Medical Branch cyclobenzap 2018-03 Yes 10mg Take 10 mg Univers rine 1-23 by mouth 3 ity of (FLEXERIL) 22:53: (three) [place] 10 [place] 58 times Medical tablet daily. Branch umeclidiniu 2018-03 Yes 1{puff} Inhale 1 Univers m 62.5 1-23 Puff ity of mcg/actuati 22:53: [place]. [place] [facility] [place] Medical Branch losartan 2018-03 Yes 100mg Take 100 Univ ers 100 mg 1-23 mg by ity of tablet 22:53: mouth [place] 58 daily. Medical Branch pantoprazol 2018-03 Yes 40mg Take 40 mg Univers e 40 mg EC 1-23 by mouth 2 ity of tablet 22:53: (two) [place] 58 times Medical daily. Branch ezetimibe 2018- Yes 10mg Take 10 mg Un rosalba 10 mg 1-23 by mouth ity of tablet 22:53: daily. [place] 58 Medical Branch azelastine- 2018- Yes 2{spray Use 2 Un [place] fluticasone 1-23 } Sprays in ity of 137-50 22:53: each [place] mcg/spray 58 nostril Medical nasal spray daily. Branch predniSONE 2018- Yes 10mg Take 10 mg U nivers 10 mg 1-23 by mouth ity of tablet pack 22:53: daily. [facility] 58 Medical Branch pantoprazol 2018-03 Yes 40mg Take 40 mg Univers e 40 mg EC 1-23 by mouth 2 ity of tablet 22:53: (two) [place] 58 times Medical daily. Branch clotrimazol 2018-03 Yes 10mg Take 10 mg Univers e 10 mg 1-23 by mouth 5 ity of marcie 22:53: (five) [place] 58 times Medical daily. Branch nebivolol 2018-03 Yes 5mg Take 5 mg Uni vers (BYSTOLIC) 1-23 by mouth ity o f 5 mg tablet 22:53: daily. [facility] 58 Medical Branch HYDROmorpho 2018-03 Yes 4mg Take 4 mg U nivers ne 1-23 by mouth. ity of (DILAUDID) 22:53: [place] 4 mg tablet 58 Medical Branch clotrimazol 2018-03 Yes 10mg Take 10 mg Univers e 10 mg 1-23 by mouth 5 ity of marcie 22:53: (five) [place] 58 times Medical daily. Branch aclidinium 2018-03 Yes 1{puff} Inhale 1 Univers bromide 1-23 Puff ity of (TUDORZA 22:53: daily. [place] PRESSAIR) 58 Medical 400 Branch mcg/actuati on AePB atorvastati 2018-03 Yes 20mg Take 20 mg Univers n (LIPITOR) 1-23 by mouth ity of 20 mg 22:53: at [place] tablet 58 bedtime. Medical Branch nebivolol 2018-03 Yes 5mg Take 5 mg Uni vers (BYSTOLIC) 1-23 by mouth ity o f 5 mg tablet 22:53: daily. [facility] 58 Medical Branch roflumilast 2018-03 Yes 1{tbl} Take 1 Un rosalba (DALIRESP) 1-23 tablet by ity of 500 mcg Tab 22:53: mouth [place] 58 daily. Medical Branch fluticasone 2018-03 Yes 1{puff} Inhale 1 Univers -salmeterol 1-23 Puff every it y of (ADVAIR 22:53: 12 [place] DISKUS) 58 (twelve) Medical 250-50 hours. Branch mcg/dose inhalation disk montelukast 2018-03 Yes 10mg Take 10 mg Univers (SINGULAIR) 1-23 by mouth ity of 10 mg 22:53: daily. [place] tablet 58 Medical Branch cyclobenzap 2018-03 Yes 10mg Take 10 mg Univers rine 1-23 by mouth 3 ity of (FLEXERIL) 22:53: (three) [place] 58 times Medical tablet daily. Branch umeclidiniu 2018-03 Yes 1{puff} Inhale 1 Univers m 62.5 1-23 Puff ity of mcg/actuati 22:53: daily. [place] [facility] losartan 2018-03 Yes 100mg Take 100 Univ ers 100 mg 1-23 mg by ity of tablet 22:53: mouth [place] 58 daily. Medical Branch ezetimibe 2018-03 Yes 10mg Take 10 mg Un rosalba 10 mg 1-23 by mouth ity of tablet 22:53: daily. [address] azelastine- 2018-03 Yes 2{spray Use 2 Un [place] fluticasone 1-23 } Sprays in ity of 137-50 22:53: each [place] mcg/spray 58 nostril Medical nasal spray daily. Branch predniSONE 2018-03 Yes 10mg Take 10 mg U nivers 10 mg 1-23 by mouth ity of tablet pack 22:53: daily. [facility] s [address] [place] [address] HYDROmorpho 2018-03 Yes 4mg Take 4 mg U nivers ne 1-23 by mouth. ity of (DILAUDID) 22:53: [place] 4 mg tablet [address] [place] [address] Branch pantoprazol 2018-03 Yes 40mg Take 40 mg Univers e 40 mg EC 1-23 by mouth 2 ity of tablet 22:53: (two) [place] 58 times Medical daily. Branch clotrimazol 2018-03 Yes 10mg Take 10 mg Univers e 10 mg 1-23 by mouth 5 ity of marcie 22:53: (five) [place] 58 times Medical daily. Branch nebivolol 2018-03 Yes 5mg Take 5 mg Uni vers (BYSTOLIC) 1-23 by mouth ity o f 5 mg tablet 22:53: daily. [address] HYDROmorpho 2018-03 Yes 4mg Take 4 mg U nivers ne 1-23 by mouth. ity of (DILAUDID) 22:53: [place] 4 mg tablet 58 Medical Branch aclidinium 2018-03 Yes 1{puff} Inhale 1 Univers bromide 1-23 Puff ity of (TUDORZA 22:53: daily. [place] PRESSAIR) 58 Medical 400 Branch mcg/actuati on AePB atorvastati 2018-03 Yes 20mg Take 20 mg Univers n (LIPITOR) 1-23 by mouth ity of 20 mg 22:53: at [place] tablet 58 bedtime. Medical Branch roflumilast 2018-03 Yes 1{tbl} Take 1 Un rosalba (DALIRESP) 1-23 tablet by ity of 500 mcg Tab 22:53: mouth [place] 58 daily. Medical Branch fluticasone 2018-03 Yes 1{puff} Inhale 1 Univers -salmeterol 1-23 Puff every it y of (ADVAIR 22:53: 12 [place] DISKUS) 58 (twelve) Medical 250-50 hours. Branch mcg/dose inhalation disk montelukast 2018- Yes 10mg Take 10 mg Univers (SINGULAIR) 1-23 by mouth ity of 10 mg 22:53: daily. [place] tablet 58 Medical Branch cyclobenzap 2018-03 Yes 10mg Take 10 mg Univers rine 1-23 by mouth 3 ity of (FLEXERIL) 22:53: (three) [place] 10 [place] 58 times Medical tablet daily. Branch umeclidiniu 2018-03 Yes 1{puff} Inhale 1 Univers m 62.5 1-23 Puff ity of mcg/actuati 22:53: [place]. [place] [facility] 58 Medical Branch losartan 2018-03 Yes 100mg Take 100 Univ ers 100 mg 1-23 mg by ity of tablet 22:53: mouth [place] 58 daily. Medical Branch ezetimibe 2018-03 Yes 10mg Take 10 mg Un rosalba 10 mg 1-23 by mouth ity of tablet 22:53: daily. [place] [facility] azelastine- 2018- Yes 2{spray Use 2 Un [place] fluticasone 1-23 } Sprays in ity of 137-50 22:53: each [place] mcg/spray 58 nostril Medical nasal spray daily. Branch predniSONE 2018- Yes 10mg Take 10 mg U nivers 10 mg 1-23 by mouth ity of tablet pack 22:53: daily. [place] 58 Medical Branch pantoprazol 2018-03 Yes 40mg Take 40 mg Univers e 40 mg EC 1-23 by mouth 2 ity of tablet 22:53: (two) [place] 58 times Medical daily. Branch clotrimazol 2018-03 Yes 10mg Take 10 mg Univers e 10 mg 1-23 by mouth 5 ity of marcie 22:53: (five) [place] 58 times Medical daily. Branch nebivolol 2018-03 Yes 5mg Take 5 mg Uni vers (BYSTOLIC) 1-23 by mouth ity o f 5 mg tablet 22:53: daily. [place] 58 Medical Branch HYDROmorpho 2018-03 Yes 4mg Take 4 mg U nivers ne 1-23 by mouth. ity of (DILAUDID) 22:53: [place] 4 mg tablet 58 Medical Branch aclidinium 2018- Yes 1{puff} Inhale 1 Univers bromide 1-23 Puff ity of (TUDORZA 22:53: daily. [place] PRESSAIR) 58 Medical 400 Branch mcg/actuati on AePB atorvastati 2018-03 Yes 20mg Take 20 mg Univers n (LIPITOR) 1-23 by mouth ity of 20 mg 22:53: at [place] tablet 58 bedtime. Medical Branch roflumilast 2018-03 Yes 1{tbl} Take 1 Un rosalba (DALIRESP) 1-23 tablet by ity of 500 mcg Tab 22:53: mouth [place] 58 daily. Medical Branch fluticasone 2018-03 Yes 1{puff} Inhale 1 Univers -salmeterol 1-23 Puff every it y of (ADVAIR 22:53: 12 [place] DISKUS) 58 (twelve) Medical 250-50 hours. Branch mcg/dose inhalation disk montelukast 2018-03 Yes 10mg Take 10 mg Univers (SINGULAIR) 1-23 by mouth ity of 10 mg 22:53: daily. [place] tablet 58 Medical Branch cyclobenzap 2018-03 Yes 10mg Take 10 mg Univers rine 1-23 by mouth 3 ity of (FLEXERIL) 22:53: (three) [place] 10 [place] 58 times Medical tablet daily. Branch umeclidiniu 2018-03 Yes 1{puff} Inhale 1 Univers m 62.5 1-23 Puff ity of mcg/actuati 22:53: [place]. [place] [facility] 58 Medical Branch losartan 2018-03 Yes 100mg Take 100 Univ ers 100 mg 1-23 mg by ity of tablet 22:53: mouth [place] 58 daily. Medical Branch ezetimibe 2018- Yes 10mg Take 10 mg Un rosalba 10 mg 1-23 by mouth ity of tablet 22:53: daily. [place] [address] Medical Branch azelastine- 2018- Yes 2{spray Use 2 Un rosalba fluticasone 1-23 } Sprays in ity of 137-50 22:53: each [place] mcg/spray 58 nostril Medical nasal spray daily. Branch predniSONE 2018-03 Yes 10mg Take 10 mg U nivers 10 mg 1-23 by mouth ity of tablet pack 22:53: daily. [facility] 58 Medical Branch pantoprazol 2018-03 Yes 40mg Take 40 mg Univers e 40 mg EC 1-23 by mouth 2 ity of tablet 22:53: (two) [place] 58 times Medical daily. Branch clotrimazol 2018-03 Yes 10mg Take 10 mg Univers e 10 mg 1-23 by mouth 5 ity of marcie 22:53: (five) [place] 58 times Medical daily. Branch nebivolol 2018-03 Yes 5mg Take 5 mg Uni vers (BYSTOLIC) 1-23 by mouth ity o f 5 mg tablet 22:53: daily. [facility] 58 Medical Branch HYDROmorpho 2018-03 Yes 4mg Take 4 mg U nivers ne 1-23 by mouth. ity of (DILAUDID) 22:53: [place] 4 mg tablet 58 Medical Branch aclidinium 2018-03 Yes 1{puff} Inhale 1 Univers bromide 1-23 Puff ity of (TUDORZA 22:53: daily. [place] PRESSAIR) 58 Medical [facility] Branch mcg/actuati on AePB atorvastati 2018-03 Yes 20mg Take 20 mg Univers n (LIPITOR) 1-23 by mouth ity of 20 mg 22:53: at [place] tablet 58 bedtime. Medical Branch roflumilast 2018- Yes 1{tbl} Take 1 Un rosalba (DALIRESP) 1-23 tablet by ity of 500 mcg Tab 22:53: mouth [place] 58 daily. Medical Branch fluticasone 2018-03 Yes 1{puff} Inhale 1 Univers -salmeterol 1-23 Puff every it y of (ADVAIR 22:53: 12 [place] DISKUS) 58 (twelve) Medical 250-50 hours. Branch mcg/dose inhalation disk montelukast 2018-03 Yes 10mg Take 10 mg Univers (SINGULAIR) 1-23 by mouth ity of 10 mg 22:53: daily. [place] tablet 58 Medical Branch cyclobenzap 2018-03 Yes 10mg Take 10 mg Univers rine 1-23 by mouth 3 ity of (FLEXERIL) 22:53: (three) [place] 10 [place] 58 times Medical tablet daily. Branch umeclidiniu 2018-03 Yes 1{puff} Inhale 1 Univers m 62.5 1-23 Puff ity of mcg/actuati 22:53: daily. [place] [facility] 58 Medical Branch losartan 2018-03 Yes 100mg Take 100 Univ ers 100 mg 1-23 mg by ity of tablet 22:53: mouth [place] 58 daily. Medical Branch ezetimibe 2018-03 Yes 10mg Take 10 mg Un rosalba 10 mg 1-23 by mouth ity of tablet 22:53: daily. [place] 58 Medical Branch aclidinium 2018-03 Yes 1{puff} Inhale 1 Univers bromide 1-23 Puff ity of (TUDORZA 16:53: daily. [place] PRESSAIR) 58 Medical 400 Branch mcg/actuati on AePB atorvastati 2018-03 Yes 20mg Take 20 mg Univers n (LIPITOR) 1-23 by mouth ity of 20 mg 16:53: at [place] tablet 58 bedtime. Medical Branch roflumilast 2018-03 Yes 1{tbl} Take 1 Un rosalba (DALIRESP) 1-23 tablet by ity of 500 mcg Tab 16:53: mouth [place] 58 daily. Medical Branch fluticasone 2018-03 Yes 1{puff} Inhale 1 Univers -salmeterol 1-23 Puff every it y of (ADVAIR 16:53: 12 [place] DISKUS) 58 (twelve) Medical 250-50 hours. Branch mcg/dose inhalation disk montelukast 2018-03 Yes 10mg Take 10 mg Univers (SINGULAIR) 1-23 by mouth ity of 10 mg 16:53: daily. [place] tablet 58 Medical Branch cyclobenzap 2018-03 Yes 10mg Take 10 mg Univers rine 1-23 by mouth 3 ity of (FLEXERIL) 16:53: (three) [place] 10 [place] 58 times Medical tablet daily. Branch umeclidiniu 2018-03 Yes 1{puff} Inhale 1 Univers m 62.5 1-23 Puff ity of mcg/actuati 16:53: daily. [place] [facility] 58 Medical Branch losartan 2018-03 Yes 100mg Take 100 Univ ers 100 mg 1-23 mg by ity of tablet 16:53: mouth [place] 58 daily. Medical Branch ezetimibe 2018-03 Yes 10mg Take 10 mg Un rosalba 10 mg 1-23 by mouth ity of tablet 16:53: daily. [place] [address] Medical Branch azelastine- 2018- Yes 2{spray Use 2 Un rosalba fluticasone 1-23 } Sprays in ity of 137-50 16:53: each [place] mcg/spray nostril Medical nasal spray daily. Branch predniSONE 2018-03 Yes 10mg Take 10 mg U nivers 10 mg 1-23 by mouth ity of tablet pack 16:53: daily. [place] 58 Medical Branch pantoprazol 2018-03 Yes 40mg Take 40 mg Univers e 40 mg EC 1-23 by mouth 2 ity of tablet 16:53: (two) [place] [address] times Medical daily. Branch clotrimazol 2018-03 Yes 10mg Take 10 mg Univers e 10 mg 1-23 by mouth 5 ity of marcie 16:53: (five) [place] [address] times Medical daily. Branch nebivolol 2018-03 Yes 5mg Take 5 mg Uni vers (BYSTOLIC) 1-23 by mouth ity o f 5 mg tablet 16:53: daily. [place] 58 Medical Branch HYDROmorpho 2018-03 Yes 4mg Take 4 mg U nivers ne 1-23 by mouth. ity of (DILAUDID) 16:53: [place] 4 mg tablet 58 Medical Branch aclidinium 2018-03 Yes 1{puff} Inhale 1 Univers bromide 1-23 Puff ity of (TUDORZA 16:53: daily. [place] PRESSAIR) Medical 400 Branch mcg/actuati on AePB atorvastati 2018-03 Yes 20mg Take 20 mg Univers n (LIPITOR) 1-23 by mouth ity of 20 mg 16:53: at [place] tablet 58 bedtime. Medical Branch roflumilast 2018-03 Yes 1{tbl} Take 1 Un rosalba (DALIRESP) 1-23 tablet by ity of 500 mcg Tab 16:53: mouth [place] 58 daily. Medical Branch fluticasone 2018-03 Yes 1{puff} Inhale 1 Univers -salmeterol 1-23 Puff every it y of (ADVAIR 16:53: 12 [place] DISKUS) 58 (twelve) Medical 250-50 hours. Branch mcg/dose inhalation disk montelukast 2018-03 Yes 10mg Take 10 mg Univers (SINGULAIR) 1-23 by mouth ity of 10 mg 16:53: daily. [place] tablet 58 Medical Branch cyclobenzap 2018-03 Yes 10mg Take 10 mg Univers rine 1-23 by mouth 3 ity of (FLEXERIL) 16:53: (three) [place] 10 [place] 58 times Medical tablet daily. Branch umeclidiniu 2018-03 Yes 1{puff} Inhale 1 Univers m 62.5 1-23 Puff ity of mcg/actuati 16:53: daily. [place] [facility] 58 Medical Branch losartan 2018-03 Yes 100mg Take 100 Univ ers 100 mg 1-23 mg by ity of tablet 16:53: mouth [place] 58 daily. Medical Branch ezetimibe 2018-03 Yes 10mg Take 10 mg Un rosalba 10 mg 1-23 by mouth ity of tablet 16:53: daily. [place] [address] Medical Branch azelastine- 2018-03 Yes 2{spray Use 2 Un [place]sal[place] fluticasone 1-23 } Sprays in ity of 137-50 16:53: each [place] mcg/spray 58 nostril Medical nasal spray daily. Branch predniSONE 2018-03 Yes 10mg Take 10 mg U nivers 10 mg 1-23 by mouth ity of tablet pack 16:53: daily. [place] 58 Medical Branch pantoprazol 2018-03 Yes 40mg Take 40 mg Univers e 40 mg EC 1-23 by mouth 2 ity of tablet 16:53: (two) [place] 58 times Medical daily. Branch clotrimazol 2018-03 Yes 10mg Take 10 mg Univers e 10 mg 1-23 by mouth 5 ity of marcie 16:53: (five) [place] 58 times Medical daily. Branch nebivolol 2018-03 Yes 5mg Take 5 mg Uni vers (BYSTOLIC) 1-23 by mouth ity o f 5 mg tablet 16:53: daily. [place] 58 Medical Branch HYDROmorpho 2018-03 Yes 4mg Take 4 mg U nivers ne 1-23 by mouth. ity of (DILAUDID) 16:53: [place] 4 mg tablet 58 Medical Branch calcium 2018-03 2020- No [id number] 250mg Take 1 U nivers carbonate-v - 05-22 tablet by it y of itamin D3 00:00: 04:59 mouth [place] 250-125 00 :00 daily for Medical mg-unit per 180 days. Bra nc tablet tamsulosin 2018-03 2020- No [id number] .4mg Take 1 Univers 0.4 mg 24 -23 05-22 capsule by ity of hr capsule 00:00: 04:59 mouth [place] 00 :00 daily for Medical 180 days. Branch gabapentin 2018-03- No [id number] 600mg Take 1 Univers 600 mg 1-23 05-22 tablet by ity of tablet 00:00: 04:59 mouth 3 [place] 00 :00 (three) Medical times Branch daily for 180 days. calcium 2018-03- No [id number] 250mg Take 1 U nivers carbonate-v - 05-22 tablet by it y of itamin D3 00:00: 04:59 mouth [place] 250-125 00 :00 daily for Medical mg-unit per [address] [facility] nc tablet tamsulosin 2018-03 2020- No [id number] .4mg Take 1 Univers 0.4 mg 24 - 05-22 capsule by ity of hr capsule 00:00: 04:59 mouth [place] 00 :00 daily for Medical 180 days. Branch gabapentin 2018-03 2020- No [id number] 600mg Take 1 Univers 600 mg -23 05-22 tablet by ity of tablet 00:00: 04:59 mouth 3 [place] 00 :00 (three) Medical times Branch daily for 180 days. calcium 2018-03 2020- No [id number] 250mg Take 1 U nivers carbonate-v - 05-22 tablet by it y of itamin D3 00:00: 04:59 mouth [place] 250-125 00 :00 daily for Medical mg-unit per 180 days. Bra n[facility] tablet tamsulosin 2018-03 2020- No [id number] .4mg Take 1 Univers 0.4 mg 24 -23 05-22 capsule by ity of hr capsule 00:00: 04:59 mouth [place] 00 :00 daily for Medical 180 days. Branch gabapentin 2018-03- No [id number] 600mg Take 1 Univers 600 mg 1-23 05-22 tablet by ity of tablet 00:00: 04:59 mouth 3 [place] 00 :00 (three) Medical times Branch daily for 180 days. calcium 2018-03 2020- No [id number] 250mg Take 1 U nivers carbonate-v -23 05-22 tablet by it y of itamin D3 00:00: 04:59 mouth [place] 250-125 00 :00 daily for Medical mg-unit per 180 days. Bra n[facility] tablet tamsulosin 2018-03 2020- No [id number] .4mg Take 1 Univers 0.4 mg 24 -23 05-22 capsule by ity of hr capsule 00:00: 04:59 mouth [place] 00 :00 daily for Medical 180 days. [place] gabapentin 2018-03- No [id number] 600mg Take 1 Univers 600 mg -23 05-22 tablet by ity of tablet 00:00: 04:59 mouth 3 [place] 00 :00 (three) Medical times Branch daily for 180 days. calcium 2018-03- No [id number] 250mg Take 1 U nivers carbonate-v - 05-22 tablet by it y of itamin D3 00:00: 04:59 mouth [place] 250-125 00 :00 daily for Medical mg-unit per 180 days. Bra n[facility] tablet tamsulosin 2018-03 2020- No [id number] .4mg Take 1 Univers 0.4 mg 24 - 05-22 capsule by ity of hr capsule 00:00: 04:59 mouth [place] 00 :00 daily for Medical 180 days. [place] gabapentin 2018-03 2020- No [id number] 600mg Take 1 Univers 600 mg -23 05-22 tablet by ity of tablet 00:00: 04:59 mouth 3 [place] 00 :00 (three) Medical times Branch daily for 180 days. calcium 2018-03 2020- No [id number] 250mg Take 1 U nivers carbonate-v -23 05-22 tablet by it y of itamin D3 00:00: 04:59 mouth [place] 250-125 00 :00 daily for Medical mg-unit per 180 days. Bra [facility] tablet tamsulosin 2018-03 2020- No [id number] .4mg Take 1 Univers 0.4 mg 24 1-23 05-22 capsule by ity of hr capsule 00:00: 04:59 mouth [place] 00 :00 daily for Medical 180 days. Branch gabapentin 2018-03 2020- No [id number] 600mg Take 1 Univers 600 mg 1-23 05-22 tablet by ity of tablet 00:00: 04:59 mouth 3 [place] 00 :00 (three) Medical times Branch daily for 180 days. calcium 2018-03 2020- No [id number] 250mg Take 1 U nivers carbonate-v -23 05-22 tablet by it y of itamin D3 00:00: 04:59 mouth [place] 250-125 00 :00 daily for Medical mg-unit per 180 days. Bra [facility] tablet tamsulosin 2018-03 2020- No [id number] .4mg Take 1 Univers 0.4 mg 24 -23 05-22 capsule by ity of hr capsule 00:00: 04:59 mouth [place] 00 :00 daily for Medical 180 days. [place] gabapentin 2018-03 2020- No [id number] 600mg Take 1 Univers 600 mg -23 05-22 tablet by ity of tablet 00:00: 04:59 mouth 3 [place] 00 :00 (three) Medical times Branch daily for 180 days. calcium 2018-03 2020- No [id number] 250mg Take 1 U nivers carbonate-v - 05-22 tablet by it y of itamin D3 00:00: 04:59 mouth [place] 250-125 00 :00 daily for Medical mg-unit per 180 days. Bra n[facility] tablet tamsulosin 2018-03 2020- No [id number] .4mg Take 1 Univers 0.4 mg 24 - 05-22 capsule by ity of hr capsule 00:00: 04:59 mouth [place] 00 :00 daily for Medical 180 days. Branch gabapentin 2018-03 2020- No [id number] 600mg Take 1 Univers 600 mg 1-23 05-22 tablet by ity of tablet 00:00: 04:59 mouth 3 [place] 00 :00 (three) Medical times Branch daily for 180 days. calcium 2018-03 2020- No [id number] 250mg Take 1 U nivers carbonate-v -23 05-22 tablet by it y of itamin D3 00:00: 04:59 mouth [place] 250-125 00 :00 daily for Medical mg-unit per 180 days. Bra [facility] tablet tamsulosin 2018-03 2020- No [id number] .4mg Take 1 Univers 0.4 mg 24 -23 05-22 capsule by ity of hr capsule 00:00: 04:59 mouth [place] 00 :00 daily for Medical 180 days. Branch gabapentin 2018-03 2020- No [id number] 600mg Take 1 Univers 600 mg 1-23 05-22 tablet by ity of tablet 00:00: 04:59 mouth 3 [place] 00 :00 (three) Medical times Branch daily for 180 days. calcium 2018-03 2020- No [id number] 250mg Take 1 U nivers carbonate-v -23 05-22 tablet by it y of itamin D3 00:00: 04:59 mouth [place] 250-125 00 :00 daily for Medical mg-unit per 180 days. Bra n[facility] tablet tamsulosin 2018-03 2020- No [id number] .4mg Take 1 Univers 0.4 mg 24 -23 05-22 capsule by ity of hr capsule 00:00: 04:59 mouth [place] 00 :00 daily for Medical 180 days. Branch gabapentin 2018-03- No [id number] 600mg Take 1 Univers 600 mg 1-23 05-22 tablet by ity of tablet 00:00: 04:59 mouth 3 [place] 00 :00 (three) Medical times Branch daily for 180 days. calcium 2018-03 2020- No [id number] 250mg Take 1 U nivers carbonate-v - 05-22 tablet by it y of itamin D3 00:00: 04:59 mouth [place] 250-125 00 :00 daily for Medical mg-unit per [address] [facility] nc tablet tamsulosin 2018-03 2020- No [id number] .4mg Take 1 Univers 0.4 mg 24 - 05-22 capsule by ity of hr capsule 00:00: 04:59 mouth [place] 00 :00 daily for Medical 180 days. Branch gabapentin 2018-03 2020- No [id number] 600mg Take 1 [facility] 600 mg 1-23 05-22 tablet by ity of tablet 00:00: 04:59 mouth 3 [place] 00 :00 (three) Medical times Branch daily for 180 days. calcium 2018-03 2020- No [id number] 250mg Take 1 U nivers carbonate-v -23 05-22 tablet by it y of itamin D3 00:00: 04:59 mouth [place] 250-125 00 :00 daily for Medical mg-unit per 180 days. Bra [facility] tablet tamsulosin 2018-03 2020- No [id number] .4mg Take 1 Univers 0.4 mg 24 1-23 05-22 capsule by ity of hr capsule 00:00: 04:59 mouth [place] 00 :00 daily for Medical 180 days. Branch gabapentin 2018-03 2020- No [id number] 600mg Take 1 [facility] 600 mg 1-23 05-22 tablet by ity of tablet 00:00: 04:59 mouth 3 [place] 00 :00 (three) Medical times Branch daily for 180 days. calcium 2018-03 2020- No [id number] 250mg Take 1 U nivers carbonate-v 1-23 05-22 tablet by it y of itamin D3 00:00: 04:59 mouth [place] 250-125 00 :00 daily for Medical mg-unit per 180 days. [facility] tablet tamsulosin 2018-03 2020- No [id number] .4mg Take 1 Univers 0.4 mg 24 -23 05-22 capsule by ity of hr capsule 00:00: 04:59 mouth [place] 00 :00 daily for Medical 180 days. Branch gabapentin 2018-03- No [id number] 600mg Take 1 [facility] 600 mg 1-23 05-22 tablet by ity of tablet 00:00: 04:59 mouth 3 [place] 00 :00 (three) Medical times Branch daily for 180 days. calcium 2018-03- No [id number] 250mg Take 1 U nivers carbonate-v -23 05-22 tablet by it y of itamin D3 00:00: 04:59 mouth [place] 250-125 00 :00 daily for Medical mg-unit per 180 days. [facility] tablet tamsulosin 2018-03- No [id number] .4mg Take 1 Univers 0.4 mg 24 -23 05-22 capsule by ity of hr capsule 00:00: 04:59 mouth [place] 00 :00 daily for Medical 180 days. Branch gabapentin 2018-03 2020- No [id number] 600mg Take 1 [facility] 600 mg 1-23 05-22 tablet by ity of tablet 00:00: 04:59 mouth 3 [place] 00 :00 (three) Medical times Branch daily for 180 days. calcium 2018-03 2020- No [id number] 250mg Take 1 U nivers carbonate-v 1-23 05-22 tablet by it y of itamin D3 00:00: 04:59 mouth [place] 250-125 00 :00 daily for Medical mg-unit per 180 days. [facility] tablet tamsulosin 2018-03 2020- No [id number] .4mg Take 1 [facility] 0.4 mg 24 04-20- capsule by ity of hr capsule 00:00: 04:59 mouth [place] 00 :00 daily for Medical 180 days. Branch gabapentin 2018-03 2020- No [id number] 600mg Take 1 [facility] 600 mg 04-20-22 tablet by ity of tablet 00:00: 04:59 mouth 3 [place] 00 :00 (three) Medical times [place] daily for 180 days. atorvastati Yes 20mg 20 mg, Univ ers n (LIPITOR) 9- Oral, QHS, it y of tablet 20 02:00: First dose [place] mg 00 on Wed Medical 12/02/18 at Branch 2100, Until Discontinu ed, Routine tamsulosin Yes [id number] .4mg Take 1 [facility] 0.4 mg 24 - capsule by ity of hr capsule 00:00: mouth [place] 00 daily. Medical Branch tamsulosin Yes [id number] .4mg Take 1 [facility] 0.4 mg 24 - capsule by ity of hr capsule 00:00: mouth [place] 00 daily. Medical Branch tamsulosin Yes [id number] .4mg Take 1 [facility] 0.4 mg 24 - capsule by ity of hr capsule 00:00: mouth [place] 00 daily. Medical Branch tamsulosin Yes [id number] .4mg Take 1 [facility] 0.4 mg 24 - capsule by ity of hr capsule 00:00: mouth [place] 00 daily. Medical Branch tamsulosin Yes [id number] .4mg Take 1 [facility] 0.4 mg 24 - capsule by ity of hr capsule 00:00: mouth [place] 00 daily. Medical Branch tamsulosin Yes [id number] .4mg Take 1 [facility] 0.4 mg 24 9- capsule by ity of hr capsule 00:00: mouth [place] 00 daily. Medical Branch aclidinium Yes 1{puff} Inhale 1 [facility] bromide 9-06 Puff ity of (TUDORZA 19:53: daily. [place] PRESSAIR) 50 Medical 400 Branch mcg/actuati on AePB atorvastati Yes 20mg Take 20 mg Univers n (LIPITOR) 9-06 by mouth ity of 20 mg 19:53: at [place] tablet 50 bedtime. Medical Branch roflumilast Yes 1{tbl} Take 1 Un [facility] (DALIRESP) 9-06 tablet by ity of 500 mcg Tab 19:53: mouth [place] 50 daily. Medical Branch fluticasone Yes 1{puff} Inhale 1 [facility] -salmeterol 9-06 Puff every it y of (ADVAIR 19:53: 12 [place] DISKUS) 50 (twelve) Medical 250-50 hours. Branch mcg/dose inhalation disk montelukast Yes 10mg Take 10 mg Univers (SINGULAIR) 9-06 by mouth ity of 10 mg 19:53: daily. [place] tablet 50 Medical Branch cyclobenzap Yes 10mg Take 10 mg Univers rine 9-06 by mouth 3 ity of (FLEXERIL) 19:53: (three) [place] 10 mg 50 times Medical tablet daily. Branch HYDROmorphO Yes 4mg Take 4 mg U nivers ne 9-06 by mouth 3 ity of (DILAUDID) 19:53: (three) [place] 4 mg tablet 50 times Medical daily. Branch umeclidiniu 0 Yes 1{puff} Inhale 1 [facility] m 62.5 9-06 Puff ity of mcg/actuati 19:53: daily. [place] on DsDv 50 Medical Branch losartan 0 Yes 100mg Take 100 Univ ers 100 mg 9-06 mg by ity of tablet 19:53: mouth [place] 50 daily. Medical Branch ezetimibe Yes 10mg Take 10 mg [facility] 10 mg 9-06 by mouth ity of tablet 19:53: daily. [place] 50 Medical Branch azelastine- 0 Yes 2{spray Use 2 [facility] fluticasone 9-06 } Sprays in ity of 137-50 19:53: each [place] mcg/spray 50 nostril Medical nasal spray daily. Branch predniSONE 0 Yes 10mg Take 10 mg U nivers 10 mg 9-06 by mouth ity of tablet pack 19:53: daily. [place] 50 Medical Branch cloniDINE 0 Yes 1{patch Apply 1 Un [facility] 0.1 mg/24 9-06 } Patch to ity of hr patch 19:53: skin [place] 50 weekly. Medical Branch pantoprazol Yes 40mg Take 40 mg Univers e 40 mg EC 9-06 by mouth 2 ity of tablet 19:53: (two) [place] 50 times Medical daily. Branch leflunomide 0 Yes 10mg Take 10 mg [facility] 10 mg 9-06 by mouth ity of tablet 19:53: daily. [place] 50 Medical Branch clotrimazol 0 Yes 10mg Take 10 mg Univers e 10 mg 9-06 by mouth 5 ity of marcie 19:53: (five) [place] 50 times Medical daily. Branch Magnesium 0 Yes 250mg Take 250 Uni vers 250 mg Tab 9-06 mg by ity of 19:53: mouth [place] 50 daily. Medical Branch nebivolol 0 Yes 5mg Take 5 mg Uni vers (BYSTOLIC) 9-06 by mouth ity o f 5 mg tablet 19:53: daily. [place] 50 Medical Branch aclidinium 0 Yes 1{puff} Inhale 1 [facility] bromide 9-06 Puff ity of (TUDORZA 19:53: daily. [place] PRESSAIR) 50 Medical 400 Branch mcg/actuati on AePB atorvastati Yes 20mg Take 20 mg Univers n (LIPITOR) 9-06 by mouth ity of 20 mg 19:53: at [place] tablet 50 bedtime. Medical Branch roflumilast 0 Yes 1{tbl} Take 1 [facility] (DALIRESP) 9-06 tablet by ity of 500 mcg Tab 19:53: mouth [place] 50 daily. Medical Branch fluticasone 0 Yes 1{puff} Inhale 1 [facility] -salmeterol 9-06 Puff every it y of (ADVAIR 19:53: 12 [place] DISKUS) 50 (twelve) Medical 250-50 hours. Branch mcg/dose inhalation disk montelukast 0 Yes 10mg Take 10 mg Univers (SINGULAIR) 9-06 by mouth ity of 10 mg 19:53: daily. [place] tablet 50 Medical Branch cyclobenzap 0 Yes 10mg Take 10 mg [facility] rine 9-06 by mouth 3 ity of (FLEXERIL) 19:53: (three) [place] 10 mg 50 times Medical tablet daily. Branch HYDROmorphO Yes 4mg Take 4 mg U nivers ne 9-06 by mouth 3 ity of (DILAUDID) 19:53: (three) [place] 4 mg tablet 50 times Medical daily. Branch umeclidiniu 0 Yes 1{puff} Inhale 1 [facility] m 62.5 9-06 Puff ity of mcg/actuati 19:53: daily. [place] on DsDv 50 Medical Branch losartan 0 Yes 100mg Take 100 Univ ers 100 mg 9-06 mg by ity of tablet 19:53: mouth [place] 50 daily. Medical Branch ezetimibe 0 Yes 10mg Take 10 mg [facility] 10 mg 9-06 by mouth ity of tablet 19:53: daily. [address] Branch azelastine- 0 Yes 2{spray Use 2 Un [facility] fluticasone 9-06 } Sprays in ity of 137-50 19:53: each [place] mcg/spray 50 nostril Medical nasal spray daily. Branch predniSONE Yes 10mg Take 10 mg U nivers 10 mg 9-06 by mouth ity of tablet pack 19:53: daily. [facility] Medical Branch cloniDINE 0 Yes 1{patch Apply 1 Un rosal[facility] 0.1 mg/24 906 } Patch to ity of hr patch 19:53: skin [place] 50 weekly. Medical Branch pantoprazol 0 Yes 40mg Take 40 mg Univers e 40 mg EC 9-06 by mouth 2 ity of tablet 19:53: (two) [place] 50 times Medical daily. Branch leflunomide Yes 10mg Take 10 mg [facility] 10 mg 9-06 by mouth ity of tablet 19:53: daily. [place] [address] Medical Branch clotrimazol 0 Yes 10mg Take 10 mg Univers e 10 mg 9-06 by mouth 5 ity of marcie 19:53: (five) [place] 50 times Medical daily. Branch Magnesium 0 Yes 250mg Take 250 Uni vers 250 mg Tab 9-06 mg by ity of 19:53: mouth [place] 50 daily. Medical Branch nebivolol 0 Yes 5mg Take 5 mg Uni vers (BYSTOLIC) 9-06 by mouth ity o f 5 mg tablet 19:53: daily. [place] 50 Medical Branch aclidinium 0 Yes 1{puff} Inhale 1 [facility] bromide 9-06 Puff ity of (TUDORZA 19:53: daily. [place] PRESSAIR) 50 Medical 400 Branch mcg/actuati on AePB atorvastati Yes 20mg Take 20 mg Univers n (LIPITOR) 9-06 by mouth ity of 20 mg 19:53: at [place] tablet 50 bedtime. Medical Branch roflumilast 0 Yes 1{tbl} Take 1 Un [facility] (DALIRESP) 9-06 tablet by ity of 500 mcg Tab 19:53: mouth [place] 50 daily. Medical Branch fluticasone 0 Yes 1{puff} Inhale 1 [facility] -salmeterol 9-06 Puff every it y of (ADVAIR 19:53: 12 [place] DISKUS) 50 (twelve) Medical 250-50 hours. Branch mcg/dose inhalation disk montelukast 0 Yes 10mg Take 10 mg Univers (SINGULAIR) 9-06 by mouth ity of 10 mg 19:53: daily. [place] tablet 50 Medical Branch cyclobenzap 0 Yes 10mg Take 10 mg Univers rine 9-06 by mouth 3 ity of (FLEXERIL) 19:53: (three) [place] 10 mg 50 times Medical tablet daily. Branch HYDROmorphO 0 Yes 4mg Take 4 mg U nivers ne 9-06 by mouth 3 ity of (DILAUDID) 19:53: (three) [place] 4 mg tablet 50 times Medical daily. Branch umeclidiniu 0 Yes 1{puff} Inhale 1 [facility] m 62.5 9-06 Puff ity of mcg/actuati 19:53: daily. [place] on DsDv 50 Medical Branch losartan 0 Yes 100mg Take 100 Univ ers 100 mg 9-06 mg by ity of tablet 19:53: mouth [place] 50 daily. Medical Branch ezetimibe 0 Yes 10mg Take 10 mg Un [facility] 10 mg 9-06 by mouth ity of tablet 19:53: daily. [place] 50 Medical Branch azelastine- 0 Yes 2{spray Use 2 Un [place] fluticasone 9-06 } Sprays in ity of 137-50 19:53: each [place] mcg/spray 50 nostril Medical nasal spray daily. Branch predniSONE 2019-0 Yes 10mg Take 10 mg U nivers 10 mg 9-06 by mouth ity of tablet pack 19:53: daily. [facility] s 50 Medical Branch cloniDINE 2018-0 Yes 1{patch Apply 1 Un rosal[place] 0.1 mg/24 12-02 } Patch to ity of hr patch 19:53: skin [place] 50 weekly. Medical Branch pantoprazol 0 Yes 40mg Take 40 mg Univers e 40 mg EC 906 by mouth 2 ity of tablet 19:53: (two) [place] 50 times Medical daily. Branch leflunomide 0 Yes 10mg Take 10 mg Univers 10 mg 9-06 by mouth ity of tablet 19:53: daily. [place] 50 Medical Branch clotrimazol 0 Yes 10mg Take 10 mg Univers e 10 mg 9-06 by mouth 5 ity of marcie 19:53: (five) [place] 50 times Medical daily. Branch Magnesium 0 Yes 250mg Take 250 Uni vers 250 mg Tab 9-06 mg by ity of 19:53: mouth [place] 50 daily. Medical Branch nebivolol 0 Yes 5mg Take 5 mg Uni vers (BYSTOLIC) 906 by mouth ity o f 5 mg tablet 19:53: daily. [facility] s 50 Medical Branch aclidinium 0 Yes 1{puff} Inhale 1 [facility] bromide 9-06 Puff ity of (TUDORZA 19:53: daily. [place] PRESSAIR) 50 Medical 400 Branch mcg/actuati on AePB atorvastati 0 Yes 20mg Take 20 mg Univers n (LIPITOR) 906 by mouth ity of 20 mg 19:53: at [place] tablet 50 bedtime. Medical Branch roflumilast 0 Yes 1{tbl} Take 1 Un [facility] (DALIRESP) 9- tablet by ity of 500 mcg Tab 19:53: mouth [place] 50 daily. Medical Branch fluticasone 0 Yes 1{puff} Inhale 1 Univers -salmeterol 9-06 Puff every it y of (ADVAIR 19:53: 12 [place] DISKUS) 50 (twelve) Medical 250-50 hours. Branch mcg/dose inhalation disk montelukast 0 Yes 10mg Take 10 mg Univers (SINGULAIR) 9-06 by mouth ity of 10 mg 19:53: daily. [place] tablet 50 Medical Branch cyclobenzap 0 Yes 10mg Take 10 mg Univers rine 9-06 by mouth 3 ity of (FLEXERIL) 19:53: (three) [place] 10 mg 50 times Medical tablet daily. Branch HYDROmorphO 0 Yes 4mg Take 4 mg U nivers ne 9-06 by mouth 3 ity of (DILAUDID) 19:53: (three) [place] 4 mg tablet 50 times Medical daily. Branch umeclidiniu 0 Yes 1{puff} Inhale 1 [facility] m 62.5 9-06 Puff ity of mcg/actuati 19:53: daily. [place] on DsDv 50 Medical Branch losartan 0 Yes 100mg Take 100 Univ ers 100 mg 9-06 mg by ity of tablet 19:53: mouth [place] 50 daily. Medical Branch ezetimibe 0 Yes 10mg Take 10 mg Un [facility] 10 mg 9-06 by mouth ity of tablet 19:53: daily. [place] [address] Medical Branch azelastine- 0 Yes 2{spray Use 2 Un [place] fluticasone 9-06 } Sprays in ity of 137-50 19:53: each [place] mcg/spray 50 nostril Medical nasal spray daily. Branch predniSONE 0 Yes 10mg Take 10 mg U nivers 10 mg 9-06 by mouth ity of tablet pack 19:53: daily. [facility] Medical Branch cloniDINE 0 Yes 1{patch Apply 1 Un rosalba 0.1 mg/24 906 } Patch to ity of hr patch 19:53: skin [place] 50 weekly. Medical Branch pantoprazol 0 Yes 40mg Take 40 mg Univers e 40 mg EC 9-06 by mouth 2 ity of tablet 19:53: (two) [place] 50 times Medical daily. Branch leflunomide 0 Yes 10mg Take 10 mg Univers 10 mg 9-06 by mouth ity of tablet 19:53: daily. [address] clotrimazol 0 Yes 10mg Take 10 mg Univers e 10 mg 9-06 by mouth 5 ity of marcie 19:53: (five) [place] 50 times Medical daily. Branch Magnesium 0 Yes 250mg Take 250 Uni vers 250 mg Tab 9-06 mg by ity of 19:53: mouth [place] 50 daily. Medical Branch nebivolol Yes 5mg Take 5 mg Uni vers (BYSTOLIC) 9-06 by mouth ity o f 5 mg tablet 19:53: daily. [place] 50 Medical Branch aclidinium 0 Yes 1{puff} Inhale 1 [facility] bromide 9-06 Puff ity of (TUDORZA 19:53: daily. [place] PRESSAIR) 50 Medical 400 Branch mcg/actuati on AePB atorvastati 0 Yes 20mg Take 20 mg Univers n (LIPITOR) 9-06 by mouth ity of 20 mg 19:53: at [place] tablet 50 bedtime. Medical Branch roflumilast 0 Yes 1{tbl} Take 1 Un rosal[facility] (DALIRESP) 9-06 tablet by ity of 500 mcg Tab 19:53: mouth [place] 50 daily. Medical Branch fluticasone Yes 1{puff} Inhale 1 Univers -salmeterol 9-06 Puff every it y of (ADVAIR 19:53: 12 [place] DISKUS) 50 (twelve) Medical 250-50 hours. Branch mcg/dose inhalation disk montelukast Yes 10mg Take 10 mg Univers (SINGULAIR) 9-06 by mouth ity of 10 mg 19:53: daily. [place] tablet 50 Medical Branch cyclobenzap 0 Yes 10mg Take 10 mg Univers rine 9-06 by mouth 3 ity of (FLEXERIL) 19:53: (three) [place] 10 mg 50 times Medical tablet daily. Branch HYDROmorphO Yes 4mg Take 4 mg U nivers ne 9-06 by mouth 3 ity of (DILAUDID) 19:53: (three) [place] 4 mg tablet 50 times Medical daily. Branch umeclidiniu Yes 1{puff} Inhale 1 Univers m 62.5 9-06 Puff ity of mcg/actuati 19:53: daily. [place] on DsDv 50 Medical Branch losartan 0 Yes 100mg Take 100 Univ ers 100 mg 9-06 mg by ity of tablet 19:53: mouth [place] 50 daily. Medical Branch ezetimibe 0 Yes 10mg Take 10 mg Un [facility] 10 mg 9-06 by mouth ity of tablet 19:53: daily. [place] 50 Medical Branch azelastine- 2018-0 Yes 2{spray Use 2 Un [place] fluticasone 06 } Sprays in ity of 137-50 19:53: each [place] mcg/spray 50 nostril Medical nasal spray daily. Branch predniSONE 2018-0 Yes 10mg Take 10 mg U nivers 10 mg 9-06 by mouth ity of tablet pack 19:53: daily. [facility] s 50 Medical Branch cloniDINE 2018-0 Yes 1{patch Apply 1 Un rosal[place] 0.1 mg/24 06 } Patch to ity of hr patch 19:53: skin [place] 50 weekly. Medical Branch pantoprazol 0 Yes 40mg Take 40 mg Univers e 40 mg EC 9-06 by mouth 2 ity of tablet 19:53: (two) [place] 50 times Medical daily. Branch leflunomide 0 Yes 10mg Take 10 mg Univers 10 mg 9-06 by mouth ity of tablet 19:53: daily. [place] [address] Medical Branch clotrimazol 0 Yes 10mg Take 10 mg Univers e 10 mg 9-06 by mouth 5 ity of marcie 19:53: (five) [place] 50 times Medical daily. Branch Magnesium 0 Yes 250mg Take 250 Uni vers 250 mg Tab 9-06 mg by ity of 19:53: mouth [place] 50 daily. Medical Branch nebivolol 0 Yes 5mg Take 5 mg Uni vers (BYSTOLIC) 9-06 by mouth ity o f 5 mg tablet 19:53: daily. [facility] s 50 Medical Branch aclidinium 0 Yes 1{puff} Inhale 1 Univers bromide 9-06 Puff ity of (TUDORZA 19:53: daily. [place] [facility] 50 Medical 400 Branch mcg/actuati on AePB atorvastati 0 Yes 20mg Take 20 mg Univers n (LIPITOR) 9-06 by mouth ity of 20 mg 19:53: at [place] tablet 50 bedtime. Medical Branch roflumilast 2018-0 Yes 1{tbl} Take 1 Un ro[facility] (DALIRESP) 9-06 tablet by ity of 500 mcg Tab 19:53: mouth [place] 50 daily. Medical Branch fluticasone 2018-0 Yes 1{puff} Inhale 1 Univers -salmeterol 9-06 Puff every it y of (ADVAIR 19:53: 12 [place] DISKUS) 50 (twelve) Medical 250-50 hours. Branch mcg/dose inhalation disk montelukast 0 Yes 10mg Take 10 mg Univers (SINGULAIR) 9-06 by mouth ity of 10 mg 19:53: daily. [place] tablet 50 Medical Branch cyclobenzap 0 Yes 10mg Take 10 mg Univers rine 9-06 by mouth 3 ity of (FLEXERIL) 19:53: (three) [place] 10 mg 50 times Medical tablet daily. Branch HYDROmorphO 0 Yes 4mg Take 4 mg U nivers ne 9-06 by mouth 3 ity of (DILAUDID) 19:53: (three) [place] 4 mg tablet 50 times Medical daily. Branch umeclidiniu 0 Yes 1{puff} Inhale 1 Univers m 62.5 9-06 Puff ity of mcg/actuati 19:53: daily. [place] on DsDv 50 Medical Branch losartan 0 Yes 100mg Take 100 Univ ers 100 mg 9-06 mg by ity of tablet 19:53: mouth [place] 50 daily. Medical Branch ezetimibe 0 Yes 10mg Take 10 mg Un [facility] 10 mg 9-06 by mouth ity of tablet 19:53: daily. [place] 50 Medical Branch azelastine- 0 Yes 2{spray Use 2 Un [place] fluticasone 9-06 } Sprays in ity of 137-50 19:53: each [place] mcg/spray 50 nostril Medical nasal spray daily. Branch predniSONE 0 Yes 10mg Take 10 mg U nivers 10 mg 9-06 by mouth ity of tablet pack 19:53: daily. [place] 50 Medical Branch cloniDINE 0 Yes 1{patch Apply 1 Un rosal[place] 0.1 mg/24 9-06 } Patch to ity of hr patch 19:53: skin [place] 50 weekly. Medical Branch pantoprazol 0 Yes 40mg Take 40 mg Univers e 40 mg EC 9-06 by mouth 2 ity of tablet 19:53: (two) [place] 50 times Medical daily. Branch leflunomide Yes 10mg Take 10 mg Univers 10 mg 9-06 by mouth ity of tablet 19:53: daily. [place] 50 Medical Branch clotrimazol 2019-0 Yes 10mg Take 10 mg Univers e 10 mg 12-02 by mouth 5 ity of marcie 19:53: (five) [place] 50 times Medical daily. Branch Magnesium 2019-0 Yes 250mg Take 250 Uni vers 250 mg Tab 9-06 mg by ity of 19:53: mouth [place] 50 daily. Medical Branch nebivolol Yes 5mg Take 5 mg Uni vers (BYSTOLIC) 12-02 by mouth ity o f 5 mg tablet 19:53: daily. [place] 50 Medical Branch ciprofloxac 2019- No 500mg Take 500 Univers in HCl 12-02 09-06 mg by ity of (CIPRO) 500 18:15: 00:00 mouth [place] mg tablet 51 :00 every 12 Medica l (twelve) Branch hours. predniSONE Yes 10mg 10 mg, Unive rs (DELTASONE) 12-02 Oral, ity of tablet 10 14:00: DAILY, [place] mg 00 First dose Medical on Wed Branch 12/02/18 at 0900, Until Discontinu ed montelukast Yes 10mg 10 mg, Univ ers (SINGULAIR) 12-02 Oral, ity of tablet 10 14:00: DAILY, [place] mg 00 First dose Medical on Wed Branch 12/02/18 at 0900, Until Discontinu ed, Routine leflunomide Yes 10mg 10 mg, Univ ers (ARAVA) 12-02 Oral, ity of tablet 10 14:00: DAILY, [place] mg 00 First dose Medical on Wed Branch 12/02/18 at 0900, Until Discontinu ed, Routine ezetimibe 2018- Yes 10mg 10 mg, Univer s (ZETIA) 12-02 Oral, ity of tablet 10 14:00: DAILY, [place] mg 00 First dose Medical on Wed Branch 12/02/18 at 0900, Until Discontinu ed, Routine cloniDINE 2018-0 Yes 1{patch 1 Patch, U nivers (CATAPRES-T 12-02 } Transderma it y of TS 1) 0.1 14:00: l (Apply [place] mg/24 hr 00 To Skin), Medica l patch 1 Administer Branch Patch over 7 Days, QWEEKLY, First dose on Wed12/02/18 at 0900, Until Discontinu ed, Routine pantoprazol 2019-0 Yes 40mg 40 mg, Univ ers e 12-02 Oral, BID, ity of (PROTONIX) 13:00: First dose [place] EC tablet 00 on Wed Medical 40 mg 12/02/18 at Branch 0800, Until Discontinu ed, Routine metoprolol 2019-0 Yes 25mg 25 mg, Unive rs tartrate 12-02 Oral, BID, ity o f (LOPRESSOR) 13:00: First dose [place] tablet 25 00 on Wed Medical mg 12/02/18 at Branch 0800, Until Discontinu ed, Routine docusate 2019-0 Yes 100mg 100 mg, Unive rs (COLACE) 12-02 Oral, BID, ity o f capsule 100 13:00: First dose [place] mg 00 on Wed Medical 12/02/18 at Branch 0800, Until Discontinu ed, Routine nicotine 2019-0 Yes 1{patch 1 Patch, Un ro[facility] (NICODERM) 12-02 } Topical, ity o f 21 mg/24 hr 04:00: Administer [place] patch 1 00 over 24 Medical Patch Hours, Branch Q24H, First dose on Wed12/01/18 at 2300, Until Discontinu ed, Routine NaCl 0.9% 2019-0 Yes 1000mL at 150 Univ ers (NS) IV 12-02 mL/hr, IV ity of infusion 04:00: Infusion, [place] 1,000 mL 00 CONTINUOUS Medic al , Starting Branch [facility] 12/01/18 at 2300, Until Discontinu ed, Routine ipratropium 2019-0 Yes 3mL 3 mL, Unive rs -albuterol 12-02 Inhalation ity of (DUONEB) 03:00: , Q6H, [place] 0.5 mg-3 00 First dose Medic al mg(2.5 mg on Inag Branch base)/3 mL 12/01/18 at nebulizer 2200, solution 3 Until mL Discontinu ed, Routine clotrimazol 2019-0 Yes 10mg 10 mg, Univ ers e (MYCELEX) 12-02 Oral, TID, it y of marcie 10 03:00: First dose [place] mg 00 on Inga Medical 12/01/18 at Branch 2200, Until Discontinu ed, Routine HYDROmorpho 2019-0 Yes 4mg 4 mg, Unive rs ne 12-02 Oral, TID, ity of (DILAUDID) 03:00: First dose [place] tablet 4 mg 00 on Inga Medica l 12/01/18 at Branch 2200, Until Discontinu ed, Routine fluticasone 2019-0 Yes 1{puff} 1 Puff, [place] [facility] propion-gerardo 12-02 Inhalation it y of meterol 03:00: , Q12H, [place] (ADVAIR) 00 First dose Medic al 250-50 on Inga Branch mcg/dose 12/01/18 at inhalation 2200, disk 1 Puff Until Discontinu ed, Routine
Use approved by (Faculty and pager): ADC PROVIDER cyclobenzap 2019-0 Yes 10mg 10 mg, [facility] ers rine 12-02 Oral, TID, ity of (FLEXERIL) 03:00: First dose [place] tablet 10 00 on [facility] Medical mg 12/01/18 at Branch 2200, Until Discontinu ed, Routine tamsulosin 2018-0 Yes .4mg 0.4 mg, [facility] ers (FLOMAX) 12-02 Oral, ity of capsule 0.4 03:00: DAILY, [place] mg 00 First dose Medical on [facility] Branch 12/01/18 at 2200, Until Discontinu ed, Routine ondansetron 2018-0 Yes 4mg 4 mg, Slow Univers (ZOFRAN 12-02 IV Push, ity of (PF)) 02:49: Q6HPRN, [place] injection 4 42 Starting Medi harsha mg [facility] 12/01/18 Branch at 2149, Until Discontinu ed, Routine, Nausea and Vomiting (N/V) morpHINE 2019-0 2019- No 4mg 4 mg, Slow Un rosalba injection 4 12-02 IV Push, ity of mg 01:15: 01:13 ONCE, 1 [place] 00 :00 dose, [facility] Medical 12/01/18 at Branch 2015, STAT NaCl 0.9% 2019-0 2019- No 1000mL at 999 Uni vers (NS) bolus 12-02-06 mL/hr, ity of infusion 00:45: 01:12 1,000 mL, [place] 1,000 mL 00 :00 IV Medical Infusion, [place] ONCE, 1 dose, [facility] 12/01/18 at 1945, ANN-MARIE NaCl 0.9% 2018- No 1000mL at 999 Uni vers (NS) bolus 12-01 mL/hr, ity of infusion 21:30: 01:11 1,000 mL, [place] 1,000 mL 00 :00 IV Medical Infusion, [place] ONCE, 1 dose, [facility] 12/01/18 at 1630, ANN-MARIE cetirizine 2018- No 10mg 10 mg, [facility] ers (ZYRTEC) 12-01 Oral, ity of tablet 10 21:30: 20:38 ONCE, 1 [place] mg 00 :00 dose, [facility] 12/01/18 at Branch 1630, Routine famotidine 2018- No 40mg 40 mg, [facility] ers (PEPCID AC) 12-01 Oral, ity of tablet 40 21:15: 20:38 ONCE, 1 [place] mg 00 :00 dose, [facility] 12/01/18 at Branch 1615, ANN-MAR[place] dexamethaso 2018- No 10mg 10 mg, Uni vers ne 12-01 Oral, ity of (DECADRON 21:15: 20:37 ONCE, 1 [place] PHOSPHATE) 00 :00 dose, [facility] harsha injection 12/01/18 at Bran h 10 mg 1615, Routine clindamycin 2018- No 300mg Take 1 [facility] 300 mg 8-30 -10 capsule by ity of capsule 00:00: 04:59 mouth 4 [place] 00 :00 (four) Medical times Branch daily for 10 days. clindamycin 2019- No 300mg Take 1 Un [place] 300 mg 830 -10 capsule by ity of capsule 00:00: 04:59 mouth 4 [place] 00 :00 (four) Medical times Branch daily for 10 days. clindamycin 2018-0 2019- No 300mg Take 1 Un [place] 300 mg 8-30 09-10 capsule by ity of capsule 00:00: 04:59 mouth 4 [place] 00 :00 (four) Medical times Branch daily for 10 days. clindamycin 2018- 2019- No [id number] 300mg Take 2 Univers 150 mg 11-03- capsules ity of capsule 00:00: 04:59 by mouth 4 [place] 00 :00 (four) Medical times Branch daily for 10 days. clindamycin 2019- No [id number] 300mg Take 2 Univers 150 mg 8- 08-19 capsules ity of capsule 00:00: 04:59 by mouth 4 [place] 00 :00 (four) Medical times Branch daily for 10 days. clindamycin 2018- 2019- No [id number] 300mg Take 2 Univers 150 mg 8- 08-19 capsules ity of capsule 00:00: 04:59 by mouth 4 [place] 00 :00 (four) Medical times Branch daily for 10 days. clindamycin 2019- No [id number] 300mg Take 2 Univers 150 mg 8- 08-19 capsules ity of capsule 00:00: 04:59 by mouth 4 [place] 00 :00 (four) Medical times Branch daily for 10 days. clindamycin 2019- No [id number] 300mg Take 2 Univers 150 mg 8-11 03-19 capsules ity of capsule 00:00: 04:59 by mouth 4 [place] 00 :00 (four) Medical times Branch daily for 10 days. clindamycin 2019- No [id number] 300mg Take 2 Univers 150 mg 8- 08-19 capsules ity of capsule 00:00: 04:59 by mouth 4 [place] 00 :00 (four) Medical times Branch daily for 10 days. clindamycin 2019- No [id number] 300mg Take 2 Univers 150 mg 8- 08-19 capsules ity of capsule 00:00: 04:59 by mouth 4 [place] 00 :00 (four) Medical times Branch daily for 10 days. aclidinium Yes 1{puff} Inhale 1 [facility] bromide 8-05 Puff ity of (TUDORZA 14:51: daily. [place] PRESSAIR) 16 Medical 400 Branch mcg/actuati on AePB atorvastati Yes 20mg Take 20 mg Univers n (LIPITOR) 8-05 by mouth ity of 20 mg 14:51: at [place] tablet 16 bedtime. Medical Branch roflumilast Yes 1{tbl} Take 1 Un [facility] (DALIRESP) 8-05 tablet by ity of 500 mcg Tab 14:51: mouth [place] 16 daily. Medical Branch fluticasone Yes 1{puff} Inhale 1 Univers -salmeterol 8-05 Puff every it y of (ADVAIR 14:51: 12 [place] DISKUS) 16 (twelve) Medical 250-50 hours. Branch mcg/dose inhalation disk montelukast Yes 10mg Take 10 mg Univers (SINGULAIR) 8-05 by mouth ity of 10 mg 14:51: daily. [place] tablet 16 Medical Branch cyclobenzap Yes 10mg Take 10 mg Univers rine 8-05 by mouth 3 ity of (FLEXERIL) 14:51: (three) [place] 10 mg 16 times Medical tablet daily. Branch HYDROmorphO Yes 4mg Take 4 mg U nivers ne 8-05 by mouth ity of (DILAUDID) 14:51: every 4 [place] 4 mg tablet 16 (four) Medica l hours as Branch needed. umeclidiniu Yes 1{puff} Inhale 1 Univers m 62.5 8-05 Puff ity of mcg/actuati 14:51: [place] [facility] losartan Yes 100mg Take 100 [facility] ers 100 mg 8-05 mg by ity of tablet 14:51: mouth [place] 16 daily. Medical Branch ezetimibe Yes 10mg Take 10 mg [facility] 10 mg 8-05 by mouth ity of tablet 14:51: daily. [address] Branch azelastine- Yes 2{spray Use 2 [facility] fluticasone 8-05 } Sprays in ity of 137-50 14:51: each [place] mcg/spray 16 nostril Medical nasal spray daily. Branch predniSONE Yes 10mg Take 10 mg [facility] nivers 10 mg 8-05 by mouth ity of tablet pack 14:51: daily. [place] 16 [facility] cloniDINE Yes 1{patch Apply 1 Un [facility] 0.1 mg/24 8-05 } Patch to ity of hr patch 14:51: skin [place] 16 weekly. Medical Branch ciprofloxac Yes 500mg Take 500 U nivers in HCl 8-05 mg by ity of (CIPRO) 500 14:51: mouth [place] mg tablet 16 every 12 Medica l (twelve) Branch hours. aclidinium Yes 1{puff} Inhale 1 [facility] bromide 8-05 Puff ity of (TUDORZA 14:51: daily. [place] PRESSAIR) 16 Medical 400 Branch mcg/actuati on AePB atorvastati Yes 20mg Take 20 mg [facility] n (LIPITOR) 8-05 by mouth ity of 20 mg 14:51: at [place] tablet 16 bedtime. Medical Branch roflumilast Yes 1{tbl} Take 1 [facility] (DALIRESP) 8-05 tablet by ity of 500 mcg Tab 14:51: mouth [place] 16 daily. Medical Branch fluticasone Yes 1{puff} Inhale 1 [facility] -salmeterol 8-05 Puff every it y of (ADVAIR 14:51: 12 [place] DISKUS) 16 (twelve) Medical 250-50 hours. Branch mcg/dose inhalation disk montelukast Yes 10mg Take 10 mg [facility] (SINGULAIR) 8-05 by mouth ity of 10 mg 14:51: daily. [place] tablet 16 Medical Branch cyclobenzap Yes 10mg Take 10 mg [facility] rine 8-05 by mouth 3 ity of (FLEXERIL) 14:51: (three) [place] 10 mg 16 times Medical tablet daily. Branch HYDROmorphO Yes 4mg Take 4 mg U nivers ne 8-05 by mouth ity of (DILAUDID) 14:51: every 4 [place] 4 mg tablet 16 (four) Medica l hours as Branch needed. umeclidiniu Yes 1{puff} Inhale 1 [facility] m 62.5 8-05 Puff ity of mcg/actuati 14:51: daily. [place] [facility] 16 [facility] losartan 0 Yes 100mg Take 100 [facility] ers 100 mg 8-05 mg by ity of tablet 14:51: mouth [place] 16 daily. Medical Branch ezetimibe Yes 10mg Take 10 mg [facility] [place] 10 mg 8-05 by mouth ity of tablet 14:51: daily. [place] 16 [facility] azelastine- Yes 2{spray Use 2 [facility] [place] fluticasone 8-05 } Sprays in ity of 137-50 14:51: each [place] mcg/spray 16 nostril Medical nasal spray daily. Branch predniSONE Yes 10mg Take 10 mg [facility] nivers 10 mg 8-05 by mouth ity of tablet pack 14:51: daily. [place] 16 [facility] cloniDINE Yes 1{patch Apply 1 Un [place] 0.1 mg/24 8-05 } Patch to ity of hr patch 14:51: skin [place] 16 weekly. Medical Branch ciprofloxac Yes 500mg Take 500 U nivers in HCl 8-05 mg by ity of (CIPRO) 500 14:51: mouth [place] mg tablet 16 every 12 Medica l (twelve) Branch hours. aclidinium Yes 1{puff} Inhale 1 [facility] bromide 8-05 Puff ity of (TUDORZA 14:51: daily. [place] PRESSAIR) 16 Medical 400 Branch mcg/actuati on AePB atorvastati Yes 20mg Take 20 mg [facility] n (LIPITOR) 8-05 by mouth ity of 20 mg 14:51: at [place] tablet 16 bedtime. Medical Branch roflumilast Yes 1{tbl} Take 1 [facility] (DALIRESP) 8-05 tablet by ity of 500 mcg Tab 14:51: mouth [place] 16 daily. Medical Branch fluticasone Yes 1{puff} Inhale 1 [facility] -salmeterol 8-05 Puff every it y of (ADVAIR 14:51: 12 [place] DISKUS) 16 (twelve) Medical 250-50 hours. Branch mcg/dose inhalation disk montelukast Yes 10mg Take 10 mg [facility] (SINGULAIR) 8-05 by mouth ity of 10 mg 14:51: daily. [place] tablet 16 Medical Branch cyclobenzap Yes 10mg Take 10 mg [facility] rine 8-05 by mouth 3 ity of (FLEXERIL) 14:51: (three) [place] 10 mg 16 times Medical tablet daily. Branch HYDROmorphO Yes 4mg Take 4 mg U nivers ne 8-05 by mouth ity of (DILAUDID) 14:51: every 4 [place] 4 mg tablet 16 (four) Medica l hours as Branch needed. umeclidiniu Yes 1{puff} Inhale 1 [facility] m 62.5 8-05 Puff ity of mcg/actuati 14:51: daily. [place] [facility] 16 [facility] losartan Yes 100mg Take 100 [facility] ers 100 mg 8-05 mg by ity of tablet 14:51: mouth [place] 16 daily. Medical [facility] ezetimibe Yes 10mg Take 10 mg [facility] [place] 10 mg 8-05 by mouth ity of tablet 14:51: daily. [place] 16 [facility] azelastine- Yes 2{spray Use 2 [facility] [place] fluticasone 8-05 } Sprays in ity of 137-50 14:51: each [place] mcg/spray 16 nostril Medical nasal spray daily. Branch predniSONE Yes 10mg Take 10 mg [facility] nivers 10 mg 8-05 by mouth ity of tablet pack 14:51: daily. [place] 16 [facility] cloniDINE Yes 1{patch Apply 1 Un [place] 0.1 mg/24 8-05 } Patch to ity of hr patch 14:51: skin [place] 16 weekly. Medical Branch ciprofloxac Yes 500mg Take 500 U nivers in HCl 8-05 mg by ity of (CIPRO) 500 14:51: mouth [place] mg tablet 16 every 12 Medica l (twelve) Branch hours. aclidinium Yes 1{puff} Inhale 1 [facility] bromide 8-05 Puff ity of (TUDORZA 14:51: daily. [place] PRESSAIR) 16 Medical 400 Branch mcg/actuati on AePB atorvastati Yes 20mg Take 20 mg [facility] n (LIPITOR) 8-05 by mouth ity of 20 mg 14:51: at [place] tablet 16 bedtime. Medical Branch roflumilast Yes 1{tbl} Take 1 [facility] (DALIRESP) 8-05 tablet by ity of 500 mcg Tab 14:51: mouth [place] 16 daily. Medical Branch fluticasone Yes 1{puff} Inhale 1 [facility] -salmeterol 8-05 Puff every it y of (ADVAIR 14:51: 12 [place] DISKUS) 16 (twelve) Medical 250-50 hours. Branch mcg/dose inhalation disk montelukast Yes 10mg Take 10 mg [facility] (SINGULAIR) 8-05 by mouth ity of 10 mg 14:51: daily. [place] tablet 16 Medical [facility] cyclobenzap Yes 10mg Take 10 mg [facility] rine 8-05 by mouth 3 ity of (FLEXERIL) 14:51: (three) [place] 10 mg 16 times Medical tablet daily. Branch HYDROmorphO Yes 4mg Take 4 mg U nivers ne 8-05 by mouth ity of (DILAUDID) 14:51: every 4 [place] 4 mg tablet 16 (four) Medica l hours as Branch needed. umeclidiniu Yes 1{puff} Inhale 1 [facility] m 62.5 8-05 Puff ity of mcg/actuati 14:51: daily. [place] [facility] 16 [facility] losartan Yes 100mg Take 100 [facility] ers 100 mg 8-05 mg by ity of tablet 14:51: mouth [place] 16 daily. Medical Branch ezetimibe Yes 10mg Take 10 mg [facility] [place] 10 mg 8-05 by mouth ity of tablet 14:51: daily. [place] [address] Medical Branch azelastine- Yes 2{spray Use 2 [facility] [place] fluticasone 8-05 } Sprays in ity of 137-50 14:51: each [place] mcg/spray 16 nostril Medical nasal spray daily. Branch predniSONE Yes 10mg Take 10 mg U nivers 10 mg 8-05 by mouth ity of tablet pack 14:51: [facility]. [facility] cloniDINE Yes 1{patch Apply 1 Un rosal[place] 0.1 mg/24 8-05 } Patch to ity of hr patch 14:51: skin [place] 16 weekly. Medical Branch ciprofloxac Yes 500mg Take 500 U nivers in HCl 8-05 mg by ity of (CIPRO) 500 14:51: mouth [place] mg tablet 16 every 12 Medica l (twelve) Branch hours. aclidinium Yes 1{puff} Inhale 1 [facility] bromide 8-05 Puff ity of (TUDORZA 14:51: daily. [place] PRESSAIR) 16 [facility] Branch mcg/actuati on AePB atorvastati Yes 20mg Take 20 mg [facility] n (LIPITOR) 8-05 by mouth ity of 20 mg 14:51: at [place] tablet 16 bedtime. Medical Branch roflumilast Yes 1{tbl} Take 1 Un [facility] (DALIRESP) 8-05 tablet by ity of 500 mcg Tab 14:51: mouth [place] 16 daily. Medical Branch fluticasone Yes 1{puff} Inhale 1 [facility] -salmeterol 8-05 Puff every it y of (ADVAIR 14:51: 12 [place] DISKUS) 16 (twelve) Medical 250-50 hours. Branch mcg/dose inhalation disk montelukast Yes 10mg Take 10 mg [facility] (SINGULAIR) 8-05 by mouth ity of 10 mg 14:51: daily. [place] tablet 16 Medical Branch cyclobenzap Yes 10mg Take 10 mg [facility] rine 8-05 by mouth 3 ity of (FLEXERIL) 14:51: (three) [place] 10 mg 16 times Medical tablet daily. Branch HYDROmorphO Yes 4mg Take 4 mg U nivers ne 8-05 by mouth ity of (DILAUDID) 14:51: every 4 [place] 4 mg tablet 16 (four) Medica l hours as Branch needed. umeclidiniu Yes 1{puff} Inhale 1 [facility] m 62.5 8-05 Puff ity of mcg/actuati 14:51: daily. [place] [facility] 16 [facility] losartan Yes 100mg Take 100 [facility] ers 100 mg 8-05 mg by ity of tablet 14:51: mouth [place] 16 daily. Medical Branch ezetimibe Yes 10mg Take 10 mg [facility] [place] 10 mg 8-05 by mouth ity of tablet 14:51: daily. [place] [address] Medical Branch azelastine- Yes 2{spray Use 2 Un [place] fluticasone 8-05 } Sprays in ity of 137-50 14:51: each [place] mcg/spray 16 nostril Medical nasal spray daily. Branch predniSONE Yes 10mg Take 10 mg [facility] nivers 10 mg 8-05 by mouth ity of tablet pack 14:51: daily. [place] 16 [facility] cloniDINE Yes 1{patch Apply 1 Un [place] 0.1 mg/24 8-05 } Patch to ity of hr patch 14:51: skin [place] 16 weekly. Medical Branch ciprofloxac Yes 500mg Take 500 U nivers in HCl 8-05 mg by ity of (CIPRO) 500 14:51: mouth [place] mg tablet 16 every 12 Medica l (twelve) Branch hours. aclidinium Yes 1{puff} Inhale 1 [facility] bromide 8-05 Puff ity of (TUDORZA 14:51: daily. [place] PRESSAIR) 16 Medical 400 Branch mcg/actuati on AePB atorvastati Yes 20mg Take 20 mg [facility] n (LIPITOR) 8-05 by mouth ity of 20 mg 14:51: at [place] tablet 16 bedtime. Medical Branch roflumilast Yes 1{tbl} Take 1 [facility] (DALIRESP) 8-05 tablet by ity of 500 mcg Tab 14:51: mouth [place] 16 daily. Medical Branch fluticasone Yes 1{puff} Inhale 1 [facility] -salmeterol 8-05 Puff every it y of (ADVAIR 14:51: 12 [place] DISKUS) 16 (twelve) Medical 250-50 hours. Branch mcg/dose inhalation disk montelukast Yes 10mg Take 10 mg [facility] (SINGULAIR) 8-05 by mouth ity of 10 mg 14:51: daily. [place] tablet 16 Medical Branch cyclobenzap Yes 10mg Take 10 mg [facility] rine 8-05 by mouth 3 ity of (FLEXERIL) 14:51: (three) [place] 10 mg 16 times Medical tablet daily. Branch HYDROmorphO Yes 4mg Take 4 mg U nivers ne 8-05 by mouth ity of (DILAUDID) 14:51: every 4 [place] 4 mg tablet 16 (four) Medica l hours as Branch needed. umeclidiniu Yes 1{puff} Inhale 1 [facility] m 62.5 8-05 Puff ity of mcg/actuati 14:51: daily. [place] on DsD[facility] 16 [facility] losartan 0 Yes 100mg Take 100 [facility] ers 100 mg 8-05 mg by ity of tablet 14:51: mouth [place] 16 daily. Medical Branch ezetimibe Yes 10mg Take 10 mg Un [place] 10 mg 8-05 by mouth ity of tablet 14:51: daily. [place] 16 Medical Branch azelastine- Yes 2{spray Use 2 Un [place] fluticasone 8-05 } Sprays in ity of 137-50 14:51: each [place] mcg/spray 16 nostril Medical nasal spray daily. Branch predniSONE Yes 10mg Take 10 mg U nivers 10 mg 8-05 by mouth ity of tablet pack 14:51: daily. [place] 16 [facility] cloniDINE Yes 1{patch Apply 1 Un [place] 0.1 mg/24 8-05 } Patch to ity of hr patch 14:51: skin [place] 16 weekly. Medical Branch ciprofloxac Yes 500mg Take 500 U nivers in HCl 8-05 mg by ity of (CIPRO) 500 14:51: mouth [place] mg tablet 16 every 12 Medica l (twelve) Branch hours. aclidinium Yes 1{puff} Inhale 1 [facility] bromide 8-05 Puff ity of (TUDORZA 14:51: daily. [place] PRESSAIR) 16 Medical 400 Branch mcg/actuati on AePB atorvastati Yes 20mg Take 20 mg Univers n (LIPITOR) 8-05 by mouth ity of 20 mg 14:51: at [place] tablet 16 bedtime. Medical Branch roflumilast Yes 1{tbl} Take 1 Un [facility] (DALIRESP) 8-05 tablet by ity of 500 mcg Tab 14:51: mouth [place] 16 daily. Medical Branch fluticasone Yes 1{puff} Inhale 1 [facility] -salmeterol 8-05 Puff every it y of (ADVAIR 14:51: 12 [place] DISKUS) 16 (twelve) Medical 250-50 hours. Branch mcg/dose inhalation disk montelukast Yes 10mg Take 10 mg [facility] (SINGULAIR) 8-05 by mouth ity of 10 mg 14:51: daily. [place] tablet 16 Medical Branch cyclobenzap Yes 10mg Take 10 mg [facility] rine 8-05 by mouth 3 ity of (FLEXERIL) 14:51: (three) [place] 10 mg 16 times Medical tablet daily. Branch HYDROmorphO 2019-0 Yes 4mg Take 4 mg U nivers ne 8-05 by mouth ity of (DILAUDID) 14:51: every 4 [place] 4 mg tablet 16 (four) Medica l hours as Branch needed. umeclidiniu Yes 1{puff} Inhale 1 [facility] m 62.5 8-05 Puff ity of mcg/actuati 14:51: daily. [place] on DsD[facility] 16 [facility] Branch losartan Yes 100mg Take 100 Univ ers 100 mg 8-05 mg by ity of tablet 14:51: mouth [place] 16 daily. Medical Branch ezetimibe Yes 10mg Take 10 mg Un [place] 10 mg 8-05 by mouth ity of tablet 14:51: daily. [place] 16 Medical Branch azelastine- Yes 2{spray Use 2 Un [place] fluticasone 8-05 } Sprays in ity of 137-50 14:51: each [place] mcg/spray 16 nostril Medical nasal spray daily. Branch predniSONE Yes 10mg Take 10 mg U nivers 10 mg 8-05 by mouth ity of tablet pack 14:51: daily. [place] 16 [facility] cloniDINE Yes 1{patch Apply 1 Un rosal[place] 0.1 mg/24 8-05 } Patch to ity of hr patch 14:51: skin [place] 16 weekly. Medical Branch ciprofloxac Yes 500mg Take 500 U nivers in HCl 8-05 mg by ity of (CIPRO) 500 14:51: mouth [place] mg tablet 16 every 12 Medica l (twelve) Branch hours. aclidinium Yes 1{puff} Inhale 1 [facility] bromide 8-05 Puff ity of (TUDORZA 14:51: daily. [place] PRESSAIR) 16 Medical 400 Branch mcg/actuati on AePB atorvastati Yes 20mg Take 20 mg Univers n (LIPITOR) 8-05 by mouth ity of 20 mg 14:51: at [place] tablet 16 bedtime. Medical Branch roflumilast Yes 1{tbl} Take 1 Un [facility] (DALIRESP) 8-05 tablet by ity of 500 mcg Tab 14:51: mouth [place] 16 daily. Medical Branch fluticasone Yes 1{puff} Inhale 1 [facility] -salmeterol 8-05 Puff every it y of (ADVAIR 14:51: 12 [place] DISKUS) 16 (twelve) Medical 250-50 hours. Branch mcg/dose inhalation disk montelukast 0 Yes 10mg Take 10 mg Univers (SINGULAIR) 8-05 by mouth ity of 10 mg 14:51: daily. [place] tablet 16 Medical Branch cyclobenzap Yes 10mg Take 10 mg [facility] rine 8-05 by mouth 3 ity of (FLEXERIL) 14:51: (three) [place] 10 mg 16 times Medical tablet daily. Branch HYDROmorphO Yes 4mg Take 4 mg U nivers ne 8-05 by mouth ity of (DILAUDID) 14:51: every 4 [place] 4 mg tablet 16 (four) Medica l hours as Branch needed. umeclidiniu 0 Yes 1{puff} Inhale 1 [facility] m 62.5 8-05 Puff ity of mcg/actuati 14:51: daily. [place] on DsD[facility] 16 [facility] Branch losartan 0 Yes 100mg Take 100 Univ ers 100 mg 8-05 mg by ity of tablet 14:51: mouth [place] 16 daily. Medical Branch ezetimibe Yes 10mg Take 10 mg [facility] [place] 10 mg 8-05 by mouth ity of tablet 14:51: daily. [address] Branch azelastine- 0 Yes 2{spray Use 2 Un [place] fluticasone 8-05 } Sprays in ity of 137-50 14:51: each [place] mcg/spray 16 nostril Medical nasal spray daily. Branch predniSONE 0 Yes 10mg Take 10 mg U nivers 10 mg 8-05 by mouth ity of tablet pack 14:51: daily. [place] 16 [facility] cloniDINE 0 Yes 1{patch Apply 1 Un [place] 0.1 mg/24 8-05 } Patch to ity of hr patch 14:51: skin [place] 16 weekly. Medical Branch ciprofloxac 0 Yes 500mg Take 500 U nivers in HCl 8-05 mg by ity of (CIPRO) 500 14:51: mouth [place] mg tablet 16 every 12 Medica l (twelve) Branch hours. aclidinium 0 Yes 1{puff} Inhale 1 [facility] bromide 8-05 Puff ity of (TUDORZA 14:51: daily. [place] PRESSAIR) 16 Medical 400 Branch mcg/actuati on AePB atorvastati Yes 20mg Take 20 mg Univers n (LIPITOR) 8-05 by mouth ity of 20 mg 14:51: at [place] tablet 16 bedtime. Medical Branch roflumilast Yes 1{tbl} Take 1 Un [facility] (DALIRESP) 8-05 tablet by ity of 500 mcg Tab 14:51: mouth [place] 16 daily. Medical Branch fluticasone Yes 1{puff} Inhale 1 [facility] -salmeterol 8-05 Puff every it y of (ADVAIR 14:51: 12 [place] DISKUS) 16 (twelve) Medical 250-50 hours. Branch mcg/dose inhalation disk montelukast Yes 10mg Take 10 mg Univers (SINGULAIR) 8-05 by mouth ity of 10 mg 14:51: daily. [place] tablet 16 Medical Branch cyclobenzap Yes 10mg Take 10 mg [facility] rine 8-05 by mouth 3 ity of (FLEXERIL) 14:51: (three) [place] 10 mg 16 times Medical tablet daily. Branch HYDROmorphO Yes 4mg Take 4 mg U nivers ne 8-05 by mouth ity of (DILAUDID) 14:51: every 4 [place] 4 mg tablet 16 (four) Medica l hours as Branch needed. umeclidiniu Yes 1{puff} Inhale 1 [facility] m 62.5 8-05 Puff ity of mcg/actuati 14:51: daily. [place] on DsD[facility] 16 [facility] Branch losartan 0 Yes 100mg Take 100 Univ ers 100 mg 8-05 mg by ity of tablet 14:51: mouth [place] 16 daily. Medical Branch ezetimibe Yes 10mg Take 10 mg [facility] [place] 10 mg 8-05 by mouth ity of tablet 14:51: daily. [place] 16 Medical Branch azelastine- Yes 2{spray Use 2 Un [place] fluticasone 8-05 } Sprays in ity of 137-50 14:51: each [place] mcg/spray 16 nostril Medical nasal spray daily. Branch predniSONE Yes 10mg Take 10 mg U nivers 10 mg 8-05 by mouth ity of tablet pack 14:51: daily. [place] 16 [facility] cloniDINE Yes 1{patch Apply 1 Un [place] 0.1 mg/24 8-05 } Patch to ity of hr patch 14:51: skin [place] 16 weekly. Medical Branch ciprofloxac Yes 500mg Take 500 U nivers in HCl 8-05 mg by ity of (CIPRO) 500 14:51: mouth [place] mg tablet 16 every 12 Medica l (twelve) Branch hours. aclidinium Yes 1{puff} Inhale 1 [facility] bromide 8-05 Puff ity of (TUDORZA 14:51: daily. [place] PRESSAIR) 16 Medical 400 Branch mcg/actuati on AePB atorvastati Yes 20mg Take 20 mg Univers n (LIPITOR) 8-05 by mouth ity of 20 mg 14:51: at [place] tablet 16 bedtime. Medical Branch roflumilast Yes 1{tbl} Take 1 Un [place] (DALIRESP) 8-05 tablet by ity of 500 mcg Tab 14:51: mouth [place] 16 daily. Medical Branch fluticasone Yes 1{puff} Inhale 1 [facility] -salmeterol 8-05 Puff every it y of (ADVAIR 14:51: 12 [place] DISKUS) 16 (twelve) Medical 250-50 hours. Branch mcg/dose inhalation disk montelukast Yes 10mg Take 10 mg [facility] (SINGULAIR) 8-05 by mouth ity of 10 mg 14:51: daily. [place] tablet 16 Medical Branch cyclobenzap Yes 10mg Take 10 mg [facility] rine 8-05 by mouth 3 ity of (FLEXERIL) 14:51: (three) [place] 10 mg 16 times Medical tablet daily. Branch HYDROmorphO Yes 4mg Take 4 mg U nivers ne 8-05 by mouth ity of (DILAUDID) 14:51: every 4 [place] 4 mg tablet 16 (four) Medica l hours as Branch needed. umeclidiniu Yes 1{puff} Inhale 1 [facility] m 62.5 8-05 Puff ity of mcg/actuati 14:51: daily. [place] on DsDv 16 Medical Branch losartan Yes 100mg Take 100 Univ ers 100 mg 8-05 mg by ity of tablet 14:51: mouth [place] 16 daily. Medical Branch ezetimibe Yes 10mg Take 10 mg [facility] [place] 10 mg 8-05 by mouth ity of tablet 14:51: daily. [place] 16 Medical Branch azelastine- Yes 2{spray Use 2 [facility] [place] fluticasone 8-05 } Sprays in ity of 137-50 14:51: each [place] mcg/spray 16 nostril Medical nasal spray daily. Branch predniSONE Yes 10mg Take 10 mg U nivers 10 mg 8-05 by mouth ity of tablet pack 14:51: daily. [place] 16 [facility] cloniDINE Yes 1{patch Apply 1 Un [place] 0.1 mg/24 8-05 } Patch to ity of hr patch 14:51: skin [place] 16 weekly. Medical Branch ciprofloxac Yes 500mg Take 500 U nivers in HCl 8-05 mg by ity of (CIPRO) 500 14:51: mouth [place] mg tablet 16 every 12 Medica l (twelve) Branch hours. aclidinium Yes 1{puff} Inhale 1 [facility] bromide 8-05 Puff ity of (TUDORZA 14:51: daily. [place] PRESSAIR) 16 Medical 400 Branch mcg/actuati on AePB atorvastati Yes 20mg Take 20 mg Univers n (LIPITOR) 8-05 by mouth ity of 20 mg 14:51: at [place] tablet 16 bedtime. Medical Branch roflumilast Yes 1{tbl} Take 1 Un [facility] (DALIRESP) 8-05 tablet by ity of 500 mcg Tab 14:51: mouth [place] 16 daily. Medical Branch fluticasone Yes 1{puff} Inhale 1 [facility] -salmeterol 8-05 Puff every it y of (ADVAIR 14:51: 12 [place] DISKUS) 16 (twelve) Medical 250-50 hours. Branch mcg/dose inhalation disk montelukast Yes 10mg Take 10 mg [facility] (SINGULAIR) 8-05 by mouth ity of 10 mg 14:51: daily. [place] tablet 16 Medical Branch cyclobenzap Yes 10mg Take 10 mg [facility] rine 8-05 by mouth 3 ity of (FLEXERIL) 14:51: (three) [place] 10 mg 16 times Medical tablet daily. Branch HYDROmorphO Yes 4mg Take 4 mg U nivers ne 8-05 by mouth ity of (DILAUDID) 14:51: every 4 [place] 4 mg tablet 16 (four) Medica l hours as Branch needed. umeclidiniu Yes 1{puff} Inhale 1 [facility] m 62.5 8-05 Puff ity of mcg/actuati 14:51: daily. [place] on DsD[facility] 16 Medical Branch losartan Yes 100mg Take 100 Univ ers 100 mg 8-05 mg by ity of tablet 14:51: mouth [place] 16 daily. Medical Branch ezetimibe Yes 10mg Take 10 mg [facility] [place] 10 mg 8-05 by mouth ity of tablet 14:51: daily. [place] [address] Medical Branch azelastine- Yes 2{spray Use 2 Un [place] fluticasone 8-05 } Sprays in ity of 137-50 14:51: each [place] mcg/spray 16 nostril Medical nasal spray daily. Branch predniSONE Yes 10mg Take 10 mg U nivers 10 mg 8-05 by mouth ity of tablet pack 14:51: daily. [place] 16 [facility] cloniDINE Yes 1{patch Apply 1 Un [place] 0.1 mg/24 8-05 } Patch to ity of hr patch 14:51: skin [place] 16 weekly. Medical Branch ciprofloxac Yes 500mg Take 500 U nivers in HCl 8-05 mg by ity of (CIPRO) 500 14:51: mouth [place] mg tablet 16 every 12 Medica l (twelve) Branch hours. aclidinium Yes 1{puff} Inhale 1 [facility] bromide 8-05 Puff ity of (TUDORZA 14:51: daily. [place] PRESSAIR) 16 Medical 400 Branch mcg/actuati on AePB atorvastati Yes 20mg Take 20 mg Univers n (LIPITOR) 8-05 by mouth ity of 20 mg 14:51: at [place] tablet 16 bedtime. Medical Branch roflumilast Yes 1{tbl} Take 1 [facility] (DALIRESP) 8-05 tablet by ity of 500 mcg Tab 14:51: mouth [place] 16 daily. Medical Branch fluticasone Yes 1{puff} Inhale 1 [facility] -salmeterol 8-05 Puff every it y of (ADVAIR 14:51: 12 [place] DISKUS) 16 (twelve) Medical 250-50 hours. Branch mcg/dose inhalation disk montelukast Yes 10mg Take 10 mg [facility] (SINGULAIR) 8-05 by mouth ity of 10 mg 14:51: daily. [place] tablet 16 Medical Branch cyclobenzap Yes 10mg Take 10 mg [facility] rine 8-05 by mouth 3 ity of (FLEXERIL) 14:51: (three) [place] 10 mg 16 times Medical tablet daily. Branch HYDROmorphO Yes 4mg Take 4 mg U nivers ne 8-05 by mouth ity of (DILAUDID) 14:51: every 4 [place] 4 mg tablet 16 (four) Medica l hours as Branch needed. umeclidiniu Yes 1{puff} Inhale 1 [facility] m 62.5 8-05 Puff ity of mcg/actuati 14:51: daily. [place] on DsDv 16 [facility] Branch losartan Yes 100mg Take 100 Univ ers 100 mg 8-05 mg by ity of tablet 14:51: mouth [place] 16 daily. Medical Branch ezetimibe Yes 10mg Take 10 mg [facility] [place] 10 mg 8-05 by mouth ity of tablet 14:51: daily. [place] [address] Medical Branch azelastine- Yes 2{spray Use 2 Un [facility] fluticasone 8-05 } Sprays in ity of 137-50 14:51: each [place] mcg/spray 16 nostril Medical nasal spray daily. Branch predniSONE Yes 10mg Take 10 mg U nivers 10 mg 8-05 by mouth ity of tablet pack 14:51: daily. [place] 16 [facility] cloniDINE Yes 1{patch Apply 1 Un [place]sal[facility] 0.1 mg/24 8-05 } Patch to ity of hr patch 14:51: skin [place] 16 weekly. Medical Branch ciprofloxac Yes 500mg Take 500 U nivers in HCl 8-05 mg by ity of (CIPRO) 500 14:51: mouth [place] mg tablet 16 every 12 Medica l (twelve) Branch hours. ondansetron Yes 4mg 4 mg, Slow [facility] (ZOFRAN 10-31 IV Push, ity of (PF)) 13:34: PRN, 1 [place] injection 4 44 dose, Medical mg Starting Branch 10/31/18 at 0834, Until Discontinu ed, Routine, Nausea and Vomiting (N/V), PACU FENTanyl PF 2019- No 50ug 50 mcg, Un [facility] (SUBLIMAZE 10-31-05 Slow IV ity o f (PF)) 13:34: 13:48 Push, [place] injection 44 :00 Q5MIN PRN, Medi harsha 50 mcg 2 doses, Branch Starting Wed10/31/18 at 0834, Until Wed10/31/18 at 0848, Routine, Pain (scale 4-6), PACU bupivacaine Yes PRN, Univer s -epinephrin 10-31 Starting ity of e-pf 13:17: 10/31/18 [place] (SENSORCAIN 00 at 0817, Medi harsha E Until Branch W/EPINEPHRI Discontinu NE) 0.25 ed, %-1:200,000 Routine, injection Intra-op lactated 2019- No 500mL at 20 Univer s ringers IV 10-31 08-05 mL/hr, 500 it y of infusion 11:15: 11:21 mL, IV [place] 500 mL 00 :00 Infusion, Medical ONCE, 1 Branch dose, Wed10/31/18 at 0615, Routine, DSU Pre-op aclidinium Yes 1{puff} Inhale 1 [facility] bromide 6-25 Puff ity of (TUDORZA 13:43: daily. [place] PRESSAIR) 09 Medical 400 Branch mcg/actuati on AePB atorvastati Yes 20mg Take 20 mg Univers n (LIPITOR) 6-25 by mouth ity of 20 mg 13:43: at [place] tablet 09 bedtime. Medical Branch roflumilast Yes 1{tbl} Take 1 Un [facility] (DALIRESP) 6-25 tablet by ity of 500 mcg Tab 13:43: mouth [place] 09 daily. Medical Branch fluticasone Yes 1{puff} Inhale 1 [facility] -salmeterol 6-25 Puff every it y of (ADVAIR 13:43: 12 [place] DISKUS) 09 (twelve) Medical 250-50 hours. Branch mcg/dose inhalation disk montelukast Yes 10mg Take 10 mg [facility] (SINGULAIR) 6-25 by mouth ity of 10 mg 13:43: daily. [place] tablet Medical Branch cyclobenzap Yes 10mg Take 10 mg [facility] rine 6-25 by mouth 3 ity of (FLEXERIL) 13:43: (three) [place] 10 mg 09 times Medical tablet daily. Branch HYDROmorphO Yes 4mg Take 4 mg U nivers ne 6-25 by mouth ity of (DILAUDID) 13:43: every 4 [place] 4 mg tablet 09 (four) Medica l hours as Branch needed. umeclidiniu Yes 1{puff} Inhale 1 [facility] m 62.5 6-25 Puff ity of mcg/actuati 13:43: daily. [place] on DsD[place] [facility] Branch losartan Yes 100mg Take 100 [facility] 100 mg 6-25 mg by ity of tablet 13:43: mouth 09 daily. [facility] Branch ezetimibe Yes 10mg Take 10 mg [facility] ro[facility] 10 mg 6-25 by mouth ity of tablet 13:43: daily. Medical [facility] azelastine- Yes 2{spray Use 2 [facility] fluticasone 6-25 } Sprays in ity of 137-50 13:43: each [place] mcg/spray 09 nostril Medical nasal spray daily. Branch predniSONE Yes 10mg Take 10 mg [facility] nivers 10 mg 6-25 by mouth [facility]y of tablet pack 13:43: [place]. [place] [facility] cloniDINE Yes 1{patch Apply 1 [facility] 0.1 mg/24 6-25 } Patch to ity of hr patch 13:43: skin [place] 09 weekly. Medical [facility] ciprofloxac Yes 500mg Take 500 U nivers in HCl 6-25 mg by ity of (CIPRO) 500 13:43: mouth [place] mg tablet 09 every 12 Medica l (twelve) Branch hours. aclidinium Yes 1{puff} Inhale 1 [facility] bromide 6-25 Puff ity of (TUDORZA 13:43: daily. [place] PRESSAIR) 09 Medical 400 Branch mcg/actuati on AePB atorvastati Yes 20mg Take 20 mg [facility] n (LIPITOR) 6-25 by mouth ity of 20 mg 13:43: at [place] tablet 09 bedtime. Medical Branch roflumilast Yes 1{tbl} Take 1 [facility] (DALIRESP) 6-25 tablet by ity of 500 mcg Tab 13:43: mouth [place] 09 daily. Medical Branch fluticasone Yes 1{puff} Inhale 1 [facility] -salmeterol 6-25 Puff every it y of (ADVAIR 13:43: 12 [place] DISKUS) 09 (twelve) Medical 250-50 hours. Branch mcg/dose inhalation disk montelukast Yes 10mg Take 10 mg [facility] (SINGULAIR) 6-25 by mouth ity of 10 mg 13:43: daily. [place] tablet 09 Medical [facility] cyclobenzap Yes 10mg Take 10 mg [facility] rine 6-25 by mouth 3 ity of (FLEXERIL) 13:43: (three) [place] 10 mg 09 times [facility] tablet daily. [facility] HYDROmorphO Yes 4mg Take 4 mg [facility] nivers ne 6-25 by mouth ity of (DILAUDID) 13:43: every 4 [place] 4 mg tablet 09 (four) Medica l hours as Branch needed. umeclidiniu Yes 1{puff} Inhale 1 [facility] m 62.5 6-25 Puff ity of mcg/actuati 13:43: [place]. [place] DsDv 09 [facility] losartan Yes 100mg Take 100 [facility] 100 mg 6-25 mg by ity of tablet 13:43: mouth [place] 09 daily. [facility] ezetimibe Yes 10mg Take 10 mg [facility] 10 mg 6-25 by mouth ity of tablet 13:43: daily. [place] 09 Medical [facility] azelastine- Yes 2{spray Use 2 [facility] fluticasone 6-25 } Sprays in ity of 137-50 13:43: each [place] mcg/spray 09 nostril Medical nasal spray daily. Branch predniSONE Yes 10mg Take 10 mg [facility] nivers 10 mg 6-25 by mouth [facility] of tablet pack 13:43: [place]. [place] 09 [facility] cloniDINE 2018-0 Yes 1{patch Apply 1 [facility] ro[facility] 0.1 mg/24 6-25 } Patch to ity of hr patch 13:43: skin [place] 09 weekly. Medical [facility] ciprofloxac Yes 500mg Take 500 U nivers in HCl 6-25 mg by ity of (CIPRO) 500 13:43: mouth [place] mg tablet 09 every 12 Medica l (twelve) Branch hours. dicyclomine Yes [id number] 10mg Take 1 [facility] (BENTYL) 10 3-21 capsule by it y of mg capsule 00:00: mouth [place] 00 every 8 Medical (eight) Branch hours as needed for Abdominal pain. dicyclomine Yes [id number] 10mg Take 1 [facility] (BENTYL) 10 3-21 capsule by it y of mg capsule 00:00: mouth [place] 00 every 8 Medical (eight) Branch hours as needed for Abdominal pain. dicyclomine Yes [id number] 10mg Take 1 [facility] (BENTYL) 10 3-21 capsule by it y of mg capsule 00:00: mouth [place] 00 every 8 Medical (eight) Branch hours as needed for Abdominal pain. dicyclomine 2018- Yes [id number] 10mg Take 1 [facility] (BENTYL) 10 3-21 capsule by it y of mg capsule 00:00: mouth [place] 00 every 8 Medical (eight) Branch hours as needed for Abdominal pain. dicyclomine Yes [id number] 10mg Take 1 [facility] (BENTYL) 10 3-21 capsule by it y of mg capsule 00:00: mouth [place] 00 every 8 Medical (eight) Branch hours as needed for Abdominal pain. dicyclomine 20190 Yes [id number] 10mg Take 1 [facility] (BENTYL) 10 3-21 capsule by it y of mg capsule 00:00: mouth [place] 00 every 8 Medical (eight) Branch hours as needed for Abdominal pain. dicyclomine 2018- Yes [id number] 10mg Take 1 [facility] (BENTYL) 10 3-21 capsule by it y of mg capsule 00:00: mouth [place] 00 every 8 Medical (eight) Branch hours as needed for Abdominal pain. dicyclomine 2018-0 Yes [id number] 10mg Take 1 [facility] (BENTYL) 10 3-21 capsule by it y of mg capsule 00:00: mouth [place] 00 every 8 Medical (eight) Branch hours as needed for Abdominal pain. dicyclomine 2018-0 Yes [id number] 10mg Take 1 [facility] (BENTYL) 10 3-21 capsule by it y of mg capsule 00:00: mouth [place] 00 every 8 Medical (eight) Branch hours as needed for Abdominal pain. dicyclomine 2018-0 Yes [id number] 10mg Take 1 [facility] (BENTYL) 10 3-21 capsule by it y of mg capsule 00:00: mouth [place] 00 every 8 Medical (eight) Branch hours as needed for Abdominal pain. dicyclomine 2018-0 Yes [id number] 10mg Take 1 [facility] (BENTYL) 10 3-21 capsule by it y of mg capsule 00:00: mouth [place] 00 every 8 Medical (eight) Branch hours as needed for Abdominal pain. dicyclomine 2018-0 Yes [id number] 10mg Take 1 [facility] (BENTYL) 10 3-21 capsule by it y of mg capsule 00:00: mouth [place] 00 every 8 Medical (eight) Branch hours as needed for Abdominal pain. dicyclomine 2018-0 Yes [id number] 10mg Take 1 [facility] (BENTYL) 10 3-21 capsule by it y of mg capsule 00:00: mouth [place] 00 every 8 Medical (eight) Branch hours as needed for Abdominal pain. dicyclomine 2018-0 Yes [id number] 10mg Take 1 [facility] (BENTYL) 10 3-21 capsule by it y of mg capsule 00:00: mouth [place] 00 every 8 Medical (eight) Branch hours as needed for Abdominal pain. dicyclomine 2018-0 Yes [id number] 10mg Take 1 [facility] (BENTYL) 10 3-21 capsule by it y of mg capsule 00:00: mouth [place] 00 every 8 Medical (eight) Branch hours as needed for Abdominal pain. dicyclomine 2019-0 Yes [id number] 10mg Take 1 [facility] (BENTYL) 10 3-21 capsule by it y of mg capsule 00:00: mouth [place] 00 every 8 Medical (eight) Branch hours as needed for Abdominal pain. dicyclomine 2019-0 Yes [id number] 10mg Take 1 [facility] (BENTYL) 10 3-21 capsule by it y of mg capsule 00:00: mouth [place] 00 every 8 Medical (eight) Branch hours as needed for Abdominal pain. dicyclomine 2019-0 Yes [id number] 10mg Take 1 [facility] (BENTYL) 10 3-21 capsule by it y of mg capsule 00:00: mouth [place] 00 every 8 Medical (eight) Branch hours as needed for Abdominal pain. dicyclomine 2019-0 Yes [id number] 10mg Take 1 [facility] (BENTYL) 10 3-21 capsule by it y of mg capsule 00:00: mouth [place] 00 every 8 Medical (eight) Branch hours as needed for Abdominal pain. dicyclomine 2019-0 Yes [id number] 10mg Take 1 [facility] (BENTYL) 10 3-21 capsule by it y of mg capsule 00:00: mouth [place] 00 every 8 Medical (eight) Branch hours as needed for Abdominal pain. dicyclomine 2019-0 Yes [id number] 10mg Take 1 [facility] (BENTYL) 10 3-21 capsule by it y of mg capsule 00:00: mouth [place] 00 every 8 Medical (eight) Branch hours as needed for Abdominal pain. dicyclomine 2019-0 Yes [id number] 10mg Take 1 [facility] (BENTYL) 10 3-21 capsule by it y of mg capsule 00:00: mouth [place] 00 every 8 Medical (eight) Branch hours as needed for Abdominal pain. dicyclomine 2019-0 Yes [id number] 10mg Take 1 [facility] (BENTYL) 10 3-21 capsule by it y of mg capsule 00:00: mouth [place] 00 every 8 Medical (eight) Branch hours as needed for Abdominal pain. dicyclomine 2019-0 Yes [id number] 10mg Take 1 [facility] (BENTYL) 10 3-21 capsule by it y of mg capsule 00:00: mouth [place] 00 every 8 Medical (eight) Branch hours as needed for Abdominal pain. dicyclomine 2019-0 Yes [id number] 10mg Take 1 [facility] (BENTYL) 10 3-21 capsule by it y of mg capsule 00:00: mouth [place] 00 every 8 Medical (eight) Branch hours as needed for Abdominal pain. dicyclomine 2019-0 Yes [id number] 10mg Take 1 [facility] (BENTYL) 10 3-21 capsule by it y of mg capsule 00:00: mouth [place] 00 every 8 Medical (eight) Branch hours as needed for Abdominal pain. dicyclomine 2018-0 Yes [id number] 10mg Take 1 [facility] (BENTYL) 10 3-21 capsule by it y of mg capsule 00:00: mouth [place] 00 every 8 Medical (eight) Branch hours as needed for Abdominal pain. dicyclomine 2018- Yes [id number] 10mg Take 1 [facility] (BENTYL) 10 3-21 capsule by it y of mg capsule 00:00: mouth [place] 00 every 8 Medical (eight) Branch hours as needed for Abdominal pain. dicyclomine Yes [id number] 10mg Take 1 [facility] (BENTYL) 10 3-21 capsule by it y of mg capsule 00:00: mouth [place] 00 every 8 Medical (eight) Branch hours as needed for Abdominal pain. dicyclomine 2018- Yes [id number] 10mg Take 1 [facility] (BENTYL) 10 3-21 capsule by it y of mg capsule 00:00: mouth [place] 00 every 8 Medical (eight) Branch hours as needed for Abdominal pain. dicyclomine Yes [id number] 10mg Take 1 [facility] (BENTYL) 10 3-21 capsule by it y of mg capsule 00:00: mouth [place] 00 every 8 Medical (eight) Branch hours as needed for Abdominal pain. dicyclomine 0 Yes [id number] 10mg Take 1 [facility] (BENTYL) 10 3-21 capsule by it y of mg capsule 00:00: mouth [place] 00 every 8 Medical (eight) Branch hours as needed for Abdominal pain. dicyclomine 2018-0 Yes [id number] 10mg Take 1 [facility] (BENTYL) 10 3-21 capsule by it y of mg capsule 00:00: mouth [place] 00 every 8 Medical (eight) Branch hours as needed for Abdominal pain. dicyclomine 2018-0 Yes [id number] 10mg Take 1 [facility] (BENTYL) 10 3-21 capsule by it y of mg capsule 00:00: mouth [place] 00 every 8 Medical (eight) Branch hours as needed for Abdominal pain. dicyclomine 2018-0 Yes [id number] 10mg Take 1 [facility] (BENTYL) 10 3-21 capsule by it y of mg capsule 00:00: mouth [place] 00 every 8 Medical (eight) Branch hours as needed for Abdominal pain. dicyclomine 2019-0 Yes [id number] 10mg Take 1 [facility] (BENTYL) 10 3-21 capsule by it y of mg capsule 00:00: mouth [place] 00 every 8 Medical (eight) Branch hours as needed for Abdominal pain. dicyclomine 2019-0 Yes [id number] 10mg Take 1 [facility] (BENTYL) 10 3-21 capsule by it y of mg capsule 00:00: mouth [place] 00 every 8 Medical (eight) Branch hours as needed for Abdominal pain. dicyclomine 2019-0 Yes [id number] 10mg Take 1 [facility] (BENTYL) 10 3-21 capsule by it y of mg capsule 00:00: mouth [place] 00 every 8 Medical (eight) Branch hours as needed for Abdominal pain. dicyclomine 2019-0 Yes [id number] 10mg Take 1 [facility] (BENTYL) 10 3-21 capsule by it y of mg capsule 00:00: mouth [place] 00 every 8 Medical (eight) Branch hours as needed for Abdominal pain. dicyclomine 2019-0 Yes [id number] 10mg Take 1 [facility] (BENTYL) 10 3-21 capsule by it y of mg capsule 00:00: mouth [place] 00 every 8 Medical (eight) Branch hours as needed for Abdominal pain. dicyclomine 2019-0 Yes [id number] 10mg Take 1 [facility] (BENTYL) 10 3-21 capsule by it y of mg capsule 00:00: mouth [place] 00 every 8 Medical (eight) Branch hours as needed for Abdominal pain. dicyclomine 2019-0 Yes [id number] 10mg Take 1 [facility] (BENTYL) 10 3-21 capsule by it y of mg capsule 00:00: mouth [place] 00 every 8 Medical (eight) Branch hours as needed for Abdominal pain. dicyclomine 2019-0 Yes [id number] 10mg Take 1 [facility] (BENTYL) 10 3-21 capsule by it y of mg capsule 00:00: mouth [place] 00 every 8 Medical (eight) Branch hours as needed for Abdominal pain. dicyclomine 2019-0 Yes [id number] 10mg Take 1 [facility] (BENTYL) 10 3-21 capsule by it y of mg capsule 00:00: mouth [place] 00 every 8 Medical (eight) Branch hours as needed for Abdominal pain. dicyclomine 2019-0 Yes [id number] 10mg Take 1 [facility] (BENTYL) 10 3-21 capsule by it y of mg capsule 00:00: mouth [place] 00 every 8 Medical (eight) Branch hours as needed for Abdominal pain. dicyclomine 2019-0 Yes [id number] 10mg Take 1 [facility] (BENTYL) 10 3-21 capsule by it y of mg capsule 00:00: mouth [place] 00 every 8 Medical (eight) Branch hours as needed for Abdominal pain. dicyclomine 2018-0 Yes [id number] 10mg Take 1 [facility] (BENTYL) 10 3-21 capsule by it y of mg capsule 00:00: mouth [place] 00 every 8 Medical (eight) Branch hours as needed for Abdominal pain. dicyclomine 2018-0 Yes [id number] 10mg Take 1 [facility] (BENTYL) 10 3-21 capsule by it y of mg capsule 00:00: mouth [place] 00 every 8 Medical (eight) Branch hours as needed for Abdominal pain. dicyclomine 2018-0 Yes [id number] 10mg Take 1 [facility] (BENTYL) 10 3-21 capsule by it y of mg capsule 00:00: mouth [place] 00 every 8 Medical (eight) Branch hours as needed for Abdominal pain. dicyclomine 2018-0 Yes [id number] 10mg Take 1 [facility] (BENTYL) 10 3-21 capsule by it y of mg capsule 00:00: mouth [place] 00 every 8 Medical (eight) Branch hours as needed for Abdominal pain. dicyclomine 2018-0 Yes [id number] 10mg Take 1 [facility] (BENTYL) 10 3-21 capsule by it y of mg capsule 00:00: mouth [place] 00 every 8 Medical (eight) Branch hours as needed for Abdominal pain. dicyclomine 2018-0 Yes [id number] 10mg Take 1 [facility] (BENTYL) 10 3-21 capsule by it y of mg capsule 00:00: mouth [place] 00 every 8 Medical (eight) Branch hours as needed for Abdominal pain. dicyclomine 2019-0 Yes [id number] 10mg Take 1 [facility] (BENTYL) 10 3-21 capsule by it y of mg capsule 00:00: mouth [place] 00 every 8 Medical (eight) Branch hours as needed for Abdominal pain. dicyclomine 2019-0 Yes [id number] 10mg Take 1 [facility] (BENTYL) 10 3-21 capsule by it y of mg capsule 00:00: mouth [place] 00 every 8 Medical (eight) Branch hours as needed for Abdominal pain. dicyclomine 2019-0 Yes [id number] 10mg Take 1 [facility] (BENTYL) 10 3-21 capsule by it y of mg capsule 00:00: mouth [place] 00 every 8 Medical (eight) Branch hours as needed for Abdominal pain. dicyclomine 2019-0 Yes [id number] 10mg Take 1 [facility] (BENTYL) 10 3-21 capsule by it y of mg capsule 00:00: mouth [place] 00 every 8 Medical (eight) Branch hours as needed for Abdominal pain. dicyclomine 2018-0 Yes [id number] 10mg Take 1 [facility] (BENTYL) 10 3-21 capsule by it y of mg capsule 00:00: mouth [place] 00 every 8 Medical (eight) Branch hours as needed for Abdominal pain. dicyclomine 2018-0 Yes [id number] 10mg Take 1 [facility] (BENTYL) 10 3-21 capsule by it y of mg capsule 00:00: mouth [place] 00 every 8 Medical (eight) Branch hours as needed for Abdominal pain. dicyclomine 2018-0 Yes [id number] 10mg Take 1 [facility] (BENTYL) 10 3-21 capsule by it y of mg capsule 00:00: mouth [place] 00 every 8 Medical (eight) Branch hours as needed for Abdominal pain. dicyclomine 2018-0 Yes [id number] 10mg Take 1 [facility] (BENTYL) 10 3-21 capsule by it y of mg capsule 00:00: mouth [place] 00 every 8 Medical (eight) Branch hours as needed for Abdominal pain. dicyclomine 2018-0 Yes [id number] 10mg Take 1 [facility] (BENTYL) 10 3-21 capsule by it y of mg capsule 00:00: mouth [place] 00 every 8 Medical (eight) Branch hours as needed for Abdominal pain. dicyclomine 2018-0 Yes [id number] 10mg Take 1 [facility] (BENTYL) 10 3-21 capsule by it y of mg capsule 00:00: mouth [place] 00 every 8 Medical (eight) Branch hours as needed for Abdominal pain. dicyclomine 2019-0 Yes [id number] 10mg Take 1 [facility] (BENTYL) 10 3-21 capsule by it y of mg capsule 00:00: mouth [place] 00 every 8 Medical (eight) Branch hours as needed for Abdominal pain. dicyclomine 2018-0 Yes [id number] 10mg Take 1 [facility] (BENTYL) 10 3-21 capsule by it y of mg capsule 00:00: mouth [place] 00 every 8 Medical (eight) Branch hours as needed for Abdominal pain. dicyclomine 2019-0 Yes [id number] 10mg Take 1 [facility] (BENTYL) 10 3-21 capsule by it y of mg capsule 00:00: mouth [place] 00 every 8 Medical (eight) Branch hours as needed for Abdominal pain. dicyclomine 2019-0 Yes [id number] 10mg Take 1 [facility] (BENTYL) 10 3-21 capsule by it y of mg capsule 00:00: mouth [place] 00 every 8 Medical (eight) Branch hours as needed for Abdominal pain. ondansetron 2018-0 Yes 4mg Take 1 [facility] ers (ZOFRAN 3-22 tablet by ity of ODT) 4 mg 00:00: mouth [place] disintegrat 00 every 8 Medic al ing tablet (eight) Branch hours as needed for Nausea and Vomiting (N/V). ondansetron 2018-0 Yes 4mg Take 1 [facility] ers (ZOFRAN 3-22 tablet by ity of ODT) 4 mg 00:00: mouth [place] disintegrat 00 every 8 Medic al ing tablet (eight) Branch hours as needed for Nausea and Vomiting (N/V). ondansetron 2018-0 Yes 4mg Take 1 [facility] ers (ZOFRAN 3-22 tablet by ity of ODT) 4 mg 00:00: mouth [place] disintegrat 00 every 8 Medic al ing tablet (eight) Branch hours as needed for Nausea and Vomiting (N/V). ondansetron 2018-0 Yes 4mg Take 1 [facility] ers (ZOFRAN 3-22 tablet by ity of ODT) 4 mg 00:00: mouth [place] disintegrat 00 every 8 Medic al ing tablet (eight) Branch hours as needed for Nausea and Vomiting (N/V). ondansetron 2018-0 Yes 4mg Take 1 [facility] ers (ZOFRAN 3-22 tablet by ity of ODT) 4 mg 00:00: mouth [place] disintegrat 00 every 8 Medic al ing tablet (eight) Branch hours as needed for Nausea and Vomiting (N/V). ondansetron 2018-0 Yes 4mg Take 1 [facility] ers (ZOFRAN 3-22 tablet by ity of ODT) 4 mg 00:00: mouth [place] disintegrat 00 every 8 Medic al ing tablet (eight) Branch hours as needed for Nausea and Vomiting (N/V). ondansetron 2018-0 Yes 4mg Take 1 [facility] ers (ZOFRAN 3-22 tablet by ity of ODT) 4 mg 00:00: mouth [place] disintegrat 00 every 8 Medic al ing tablet (eight) Branch hours as needed for Nausea and Vomiting (N/V). ondansetron 2018-0 Yes 4mg Take 1 [facility] ers (ZOFRAN 3-22 tablet by ity of ODT) 4 mg 00:00: mouth [place] disintegrat 00 every 8 Medic al ing tablet (eight) Branch hours as needed for Nausea and Vomiting (N/V). ondansetron 2018-0 Yes 4mg Take 1 [facility] ers (ZOFRAN 3-22 tablet by ity of ODT) 4 mg 00:00: mouth [place] disintegrat 00 every 8 Medic al ing tablet (eight) Branch hours as needed for Nausea and Vomiting (N/V). ondansetron 2018-0 Yes 4mg Take 1 [facility] ers (ZOFRAN 3-22 tablet by ity of ODT) 4 mg 00:00: mouth [place] disintegrat 00 every 8 Medic al ing tablet (eight) Branch hours as needed for Nausea and Vomiting (N/V). ondansetron 2018-0 Yes 4mg Take 1 [facility] ers (ZOFRAN 3-22 tablet by ity of ODT) 4 mg 00:00: mouth [place] disintegrat 00 every 8 Medic al ing tablet (eight) Branch hours as needed for Nausea and Vomiting (N/V). ondansetron 2018-0 Yes 4mg Take 1 [facility] ers (ZOFRAN 3-22 tablet by ity of ODT) 4 mg 00:00: mouth [place] disintegrat 00 every 8 Medic al ing tablet (eight) Branch hours as needed for Nausea and Vomiting (N/V). ondansetron 2018-0 Yes 4mg Take 1 [facility] ers (ZOFRAN 3-22 tablet by ity of ODT) 4 mg 00:00: mouth [place] disintegrat 00 every 8 Medic al ing tablet (eight) Branch hours as needed for Nausea and Vomiting (N/V). ondansetron 2018-0 Yes 4mg Take 1 [facility] ers (ZOFRAN 3-22 tablet by ity of ODT) 4 mg 00:00: mouth [place] disintegrat 00 every 8 Medic al ing tablet (eight) Branch hours as needed for Nausea and Vomiting (N/V). ondansetron 2018-0 Yes 4mg Take 1 [facility] ers (ZOFRAN 3-22 tablet by ity of ODT) 4 mg 00:00: mouth [place] disintegrat 00 every 8 Medic al ing tablet (eight) Branch hours as needed for Nausea and Vomiting (N/V). ondansetron 2018-0 Yes 4mg Take 1 [facility] ers (ZOFRAN 3-22 tablet by ity of ODT) 4 mg 00:00: mouth [place] disintegrat 00 every 8 Medic al ing tablet (eight) Branch hours as needed for Nausea and Vomiting (N/V). ondansetron 2018-0 Yes 4mg Take 1 [facility] ers (ZOFRAN 3-22 tablet by ity of ODT) 4 mg 00:00: mouth [place] disintegrat 00 every 8 Medic al ing tablet (eight) Branch hours as needed for Nausea and Vomiting (N/V). ondansetron 2018-0 Yes 4mg Take 1 [facility] ers (ZOFRAN 3-22 tablet by ity of ODT) 4 mg 00:00: mouth [place] disintegrat 00 every 8 Medic al ing tablet (eight) Branch hours as needed for Nausea and Vomiting (N/V). ondansetron 2018-0 Yes 4mg Take 1 [facility] ers (ZOFRAN 3-22 tablet by ity of ODT) 4 mg 00:00: mouth [place] disintegrat 00 every 8 Medic al ing tablet (eight) Branch hours as needed for Nausea and Vomiting (N/V). ondansetron 2018-0 Yes 4mg Take 1 [facility] ers (ZOFRAN 3-22 tablet by ity of ODT) 4 mg 00:00: mouth [place] disintegrat 00 every 8 Medic al ing tablet (eight) Branch hours as needed for Nausea and Vomiting (N/V). Immunizations Ordered Filled Immunization Date Status Comments [facility] e Immunization Name Name [id number] 2020-05-07 Completed Memor shannan Moser RNA-1273vaxMODERNA 00:00:00 [id number] 2020-04-09 Completed Memor iabriseyda Moser RNA-1273vaxMODERNA 00:00:00 Influenza Virus 2018-11-27 Completed Universit y of Vaccine 00:00:00 [facility] Influenza Virus 2018-11-27 Completed Universit y of Vaccine 00:00:00 [facility] Influenza Virus 2018-11-27 Completed Universit y of Vaccine 00:00:00 [facility] Influenza Virus 2018-11-27 Completed Universit y of Vaccine 00:00:00 [facility] Influenza Virus 2018-11-27 Completed Universit y of Vaccine 00:00:00 [facility] Influenza Virus 2018-11-27 Completed Universit y of Vaccine 00:00:00 [facility] Influenza Virus 2018-11-27 Completed [facility]it y of Vaccine 00:00:00 [facility] Influenza Virus 2018-11-27 Completed Universit y of Vaccine 00:00:00 [facility] Influenza Virus 2018-11-27 Completed [facility]it y of Vaccine 00:00:00 [facility] Influenza Virus 2018-11-27 Completed [facility]it y of Vaccine 00:00:00 [facility] Influenza Virus 2018-11-27 Completed [facility]it y of Vaccine 00:00:00 [facility] Influenza Virus 2018-11-27 Completed Universit y of Vaccine 00:00:00 [facility] Influenza Virus 2018-11-27 Completed Universit y of Vaccine 00:00:00 [facility] Influenza Virus 2018-11-27 Completed [facility]it y of Vaccine 00:00:00 [facility] Influenza Virus 2018-11-27 Completed Universit y of Vaccine 00:00:00 [facility] Influenza Virus 2018-11-27 Completed Universit y of Vaccine 00:00:00 [facility] Influenza Virus 2018-11-27 Completed Universit y of Vaccine 00:00:00 [facility] Influenza Virus 2018-11-27 Completed Universit y of Vaccine 00:00:00 [facility] Influenza Virus 2018-11-27 Completed Universit y of Vaccine 00:00:00 [facility] Influenza Virus 2018-11-27 Completed Universit y of Vaccine 00:00:00 [facility] Influenza Virus 2018-11-27 Completed Universit y of Vaccine 00:00:00 [facility] Influenza Virus 2018-11-27 Completed Universit y of Vaccine 00:00:00 [facility] Influenza Virus 2018-11-27 Completed [facility]it y of Vaccine 00:00:00 [facility] Influenza Virus 2018-11-27 Completed [facility]it y of Vaccine 00:00:00 [facility] Influenza Virus 2018-11-27 Completed [facility]it y of Vaccine 00:00:00 [facility] Influenza Virus 2018-11-27 Completed [facility]it y of Vaccine 00:00:00 [facility] Influenza Virus 2018-11-27 Completed [facility]it y of Vaccine 00:00:00 [facility] Influenza Virus 2018-11-27 Completed Universit y of Vaccine 00:00:00 [facility] Influenza Virus 2018-11-27 Completed Universit y of Vaccine 00:00:00 [facility] Influenza Virus 2018-11-27 Completed [facility]it y of Vaccine 00:00:00 [facility] Influenza Virus 2018-11-27 Completed [facility]it y of Vaccine 00:00:00 [facility] Influenza Virus 2018-11-27 Completed [facility]it y of Vaccine 00:00:00 [facility] Influenza Virus 2018-11-27 Completed [facility]it y of Vaccine 00:00:00 [facility] Influenza Virus 2018-11-27 Completed [facility]it y of Vaccine 00:00:00 [facility] Influenza Virus 2018-11-27 Completed [facility]it y of Vaccine 00:00:00 [facility] Influenza Virus 2018-11-27 Completed [facility]it y of Vaccine 00:00:00 [facility] Influenza Virus 2018-11-27 Completed [facility]it y of Vaccine 00:00:00 [facility] Influenza Virus 2018-11-27 Completed [facility]it y of Vaccine 00:00:00 [facility] Influenza Virus 2018-11-27 Completed [facility]it y of Vaccine 00:00:00 [facility] Influenza Virus 2018-11-27 Completed [facility]it y of Vaccine 00:00:00 [facility] Influenza Virus 2018-11-27 Completed [facility]it y of Vaccine 00:00:00 [facility] Influenza Virus 2018-11-27 Completed Universit y of Vaccine 00:00:00 [facility] Influenza Virus 2018-11-27 Completed Universit y of Vaccine 00:00:00 [facility] Influenza Virus 2018-11-27 Completed [facility]it y of Vaccine 00:00:00 [facility] Influenza Virus 2018-11-27 Completed [facility]it y of Vaccine 00:00:00 [facility] Influenza Virus 2018-11-27 Completed [facility]it y of Vaccine 00:00:00 [facility] Vital Signs Vital Name Observation Time Observation Value Comments Source Systolic blood 2021-03-05 19:45:00 148 mm[Hg] Univer sity of pressure [facility] Diastolic blood 2021-03-05 19:45:00 73 mm[Hg] [facility] Heart rate 2021-03-05 19:45:00 53 /min [facility] Body temperature 2021-03-05 19:45:00 37.33 Traci [facility] Respiratory rate 2021-03-05 19:45:00 18 /min [facility] Body height 2021-03-05 19:45:00 177.8 cm [facility] Body weight 2021-03-05 19:45:00 109.317 kg [facility] BMI 2021-03-05 19:45:00 34.58 kg/m2 [facility] Oxygen saturation in 2021-03-05 19:45:00 97 /min University of Arterial blood by [facility] Pulse oximetry Branch Systolic blood 2020-01-04 13:17:00 107 mm[Hg] Univer [facility] Diastolic blood 2020-01-04 13:17:00 71 mm[Hg] Unive [facility] Heart rate 2020-01-04 13:17:00 64 /min [facility] Body temperature 2020-01-04 13:17:00 35.28 Traci [facility] Respiratory rate 2020-01-04 13:17:00 18 /min [facility] Body height 2020-01-04 13:17:00 177.8 cm [facility] Body weight 2020-01-04 13:17:00 104.237 kg [facility] BMI 2020-01-04 13:17:00 32.97 kg/m2 [facility] Systolic blood 2020-01-04 13:17:00 107 mm[Hg] [facility] Diastolic blood 2020-01-04 13:17:00 71 mm[Hg] [facility] Heart rate 2020-01-04 13:17:00 64 /min [facility] Body temperature 2020-01-04 13:17:00 35.28 Traci [facility] Respiratory rate 2020-01-04 13:17:00 18 /min [facility] Body height 2020-01-04 13:17:00 177.8 cm [facility] Body weight 2020-01-04 13:17:00 104.237 kg [facility] BMI 2020-01-04 13:17:00 32.97 kg/m2 [facility] Systolic blood 2019-10-02 13:40:00 152 mm[Hg] [facility] Diastolic blood 2019-10-02 13:40:00 79 mm[Hg] [facility] Heart rate 2019-10-02 13:40:00 80 /min Universi ty of [facility] Branch Body temperature 2019-10-02 13:35:00 36.72 Traci [facility] [address] [facility] Branch Respiratory rate 2019-10-02 13:35:00 20 /min Univ ersity of [facility] Branch Body height 2019-10-02 13:35:00 172.7 cm [facility] Body weight 2019-10-02 13:35:00 110.224 kg [facility] BMI 2019-10-02 13:35:00 36.95 kg/m2 [facility] Systolic blood 2019-08-14 13:44:00 144 mm[Hg] [facility] Diastolic blood 2019-08-14 13:44:00 82 mm[Hg] [facility] Heart rate 2019-08-14 13:44:00 71 /min [facility] Body temperature 2019-08-14 13:44:00 35.61 Traci [facility] Respiratory rate 2019-08-14 13:44:00 18 /min [facility] Body weight 2019-08-14 13:44:00 110.315 kg [facility] BMI 2019-08-14 13:44:00 36.98 kg/m2 [facility] Systolic blood 2019-06-02 19:21:00 147 mm[Hg] [facility] Diastolic blood 2019-06-02 19:21:00 87 mm[Hg] [facility] Heart rate 2019-06-02 19:21:00 78 /min [facility] Body temperature 2019-06-02 19:21:00 36.67 Traci [facility] Respiratory rate 2019-06-02 19:20:00 20 /min [facility] Body height 2019-06-02 19:20:00 172.7 cm [facility] Body weight 2019-06-02 19:20:00 113.399 kg [facility] BMI 2019-06-02 19:20:00 38.01 kg/m2 [facility] Oxygen saturation in 2019-06-02 19:20:00 98 /min University of Arterial blood by [facility] harsha Pulse oximetry Branch Systolic blood 2018-12-02 17:00:00 146 mm[Hg] Univer [facility] Diastolic blood 2018-12-02 17:00:00 68 mm[Hg] [facility] Heart rate 2018-12-02 17:00:00 68 /min [facility] Body temperature 2018-12-02 17:00:00 36.94 Traic [facility] Respiratory rate 2018-12-02 17:00:00 18 /min [facility] Oxygen saturation in 2018-12-02 17:00:00 98 /min University of Arterial blood by [facility] Pulse oximetry Branch Body height 2018-12-01 20:00:00 177.8 cm [facility] Body weight 2018-12-01 20:00:00 111.585 kg [facility] BMI 2018-12-01 20:00:00 35.30 kg/m2 [facility] Body height 2018-11-25 14:47:00 175.3 cm [facility] Body weight 2018-11-25 14:47:00 104.327 kg [facility] BMI 2018-11-25 14:47:00 33.97 kg/m2 [facility] Systolic blood 2018-11-15 19:48:00 136 mm[Hg] [facility] Diastolic blood 2018-11-15 19:48:00 89 mm[Hg] [facility]ive [facility] Heart rate 2018-11-15 19:48:00 79 /min [facility] Body height 2018-11-15 19:48:00 175.3 cm [facility] Body weight 2018-11-15 19:48:00 104.327 kg [facility] BMI 2018-11-15 19:48:00 33.97 kg/m2 [facility] Systolic blood 2018-11-07 19:25:00 131 mm[Hg] [facility] Diastolic blood 2018-11-07 19:25:00 85 mm[Hg] [facility] Heart rate 2018-11-07 19:25:00 79 /min [facility] Body height 2018-11-07 19:23:00 175.3 cm [facility] Body weight 2018-11-07 19:23:00 104.327 kg [facility] BMI 2018-11-07 19:23:00 33.97 kg/m2 [facility] Systolic blood 2018-11-03 14:37:00 130 mm[Hg] [facility] Diastolic blood 2018-11-03 14:37:00 80 mm[Hg] [facility]ive [facility] Heart rate 2018-11-03 14:37:00 108 /min [facility] Body height 2018-11-03 14:37:00 177.8 cm [facility] Body weight 2018-11-03 14:37:00 104.327 kg [facility] BMI 2018-11-03 14:37:00 33.00 kg/m2 [facility] Systolic blood 2018-10-31 14:27:00 118 mm[Hg] [facility] Diastolic blood 2018-10-31 14:27:00 75 mm[Hg] [facility]ive [facility] Heart rate 2018-10-31 14:27:00 73 /min [facility] Respiratory rate 2018-10-31 14:27:00 16 /min Univ ersity [facility] Oxygen saturation in 2018-10-31 14:27:00 93 /min [facility] Arterial blood by [facility] Pulse oximetry Branch Body temperature 2018-10-31 13:32:00 36.56 Traci [facility] Body height 2018-10-27 14:00:00 177.8 cm [facility] Body weight 2018-10-27 14:00:00 104.327 kg [facility] BMI 2018-10-27 14:00:00 33.00 kg/m2 [facility] Systolic (mm Hg) 2020-06-12 18:05:00 Oscar rial Ehsan Diastolic (mm Hg) 2020-06-12 18:05:00 Mem orial Ehsan Heart Rate 2020-06-12 18:05:00 [facility] Respitory Rate 2020-06-12 18:05:00 Memori al Ehsan Systolic (mm Hg) 2020-05-21 20:30:00 Oscar rial [place] Diastolic (mm Hg) 2020-05-21 20:30:00 Mem orial Ehsan Heart Rate 2020-05-21 20:30:00 [facility] Respitory Rate 2020-05-21 20:30:00 Aurelio al [place] Height 2020-05-21 20:30:[address] [facility] 2020-05-21 20:30:00 [facility] BMI Calculated 2020-05-21 20:30:00 Memjosselyn al Ehsan Procedures Procedure Date / Time Performing Clinician Source Performed CONSENT/REFUSAL FOR 2021-03-05 19:26:41 Doctor Unassigned, [facility] DIAGNOSIS AND TREATMENT [place] [facility] EMERGENCY SERVICES 2020-11-19 05:01:00 Doctor Unachristina, [facility] AGREEMENTS AND [place] [facility] AUTHORIZATIONS CT ABDOMEN PELVIS W WO 2020-07-10 19:41:19 [facility] CBC WITH DIFF 2020-07-05 13:17:00 Vini Malave [place] [facility] PROTHROMBIN TIME / INR 2020-07-05 13:17:00 Vini Malave [facility] ACTIVATED PARTIAL THRMPLAS 2020-07-05 13:17:00 [facility] 2020-07-05 05:01:00 Doctor Unassigned, [facility] [place] [facility] [place] ABDOMEN COMPLETE 2020-06-27 14:46:53 Vini Malave [facility] PHYSICIAN ORDERS 2020-06-24 05:01:00 Doctor Unassigned, [facility] Name Medical [place] SMALL BOWEL SERIES 2020-06-06 18:04:47 Javier Alaniz [facility] PHYSICIAN ORDERS 2020-06-05 06:01:00 Doctor Unassigned, [facility] XR CHEST 2 VW 2020-05-31 18:14:50 Rj Sanchez [facility] XR CERVICAL SPINE 2 VW 2020-05-31 18:14:50 Rj Sanchez [facility] XR LUMBAR SPINE 2 VW 2020-05-31 18:14:[address] [facility] XR SPINE THORACIC 2 VW 2020-05-31 18:14:50 Rj Sanchez [facility] URINALYSIS 2020-05-09 15:04:00 Sergio Pinedo [facility] PROSTATIC SPECIFIC ANTIGEN 2020-05-09 15:00:00 Sergio Pinedo [facility] IRON 2020-05-09 15:00:00 Sergio Pinedo [facility] TOTAL IRON BINDING 2020-05-09 15:00:00 Sergio Pinedo [facility] CAPACITY [facility] THYROID STIMULATING 2020-05-09 15:00:00 Sergio Pinedo [facility] HORMONE [facility] COMP. METABOLIC PANEL 2020-05-09 15:00:00 Sergio Pinedo [facility] ([id number]) [facility] LIPID PANEL ([id number])(TOTAL 2020-05-09 15:00:00 Sergio Pinedo [facility] CHOLESTEROL, [facility] TRIGLYCERIDES, HDL) SEDIMENTATION RATE 2020-05-09 15:00:00 Sergio Pinedo [facility] CBC WITH DIFF 2020-05-09 15:00:00 Sergio Pinedo [facility] PHYSICIAN ORDERS 2020-05-09 06:01:00 Doctor Unassigned, [facility] [place] [facility] PHYSICIAN ORDERS 2020-04-26 06:01:00 Doctor Unasstd, [facility] [place] [facility] [place] POCT URINALYSIS AUTO 2020-01-04 13:24:00 Tong Jolly [facility] ASSIGNMENT OF BENEFITS 2020-01-04 12:57:55 Doctor Unasstd, [facility] [place] [facility] POCT URINALYSIS AUTO 2019-10-02 13:31:00 Tong Jolly [facility] DISCLOSURE AND CONSENT, 2019-10-02 05:01:00 Doctor Unasstd, [facility] MEDICAL AND SURGICAL [place] [facility] PROCEDURES REFERRAL- REQUEST/RESPONSE 2019-08-17 05:01:00 Doctor Elaine [facility] Name [facility] [place] POCT URINALYSIS AUTO 2019-08-14 13:43:00 Tong Jolly [facility] EXTERNAL PROVIDER RECORDS 2019-06-29 05:01:00 Doctor Unachristina [facility] [place] [facility] [place] POCT URINALYSIS AUTO 2019-06-02 19:19:00 Tong Jolly [facility] REFERRAL- REQUEST/RESPONSE 2018-12-16 05:01:00 Doctor [facility] [place] EKG-12 LEAD 2018-12-08 19:13:56 Doctor Unasstd, [facility] [place] [facility] [place] XR CHEST 2 VW 2018-12-08 19:04:15 Laura Hampton [facility] URINALYSIS 2018-12-02 11:48:00 Demarco Ewing [facility] URIC ACID, URIC RANDOM 2018-12-02 11:48:00 Demarco [facility] URIC ACID 2018-12-02 09:07:00 [facility]o [facility] MAGNESIUM 2018-12-02 09:07:[address] [facility] THYROID STIMULATING 2018-12-02 09:07:[address] [facility] HORMONE [facility] COMP. METABOLIC PANEL 2018-12-02 09:07:[address] [facility] ([id number]) Medical Branch CBC WITH DIFFERENTIAL 2018-12-02 09:07:00 Dominga Lacy [facility] PROCALCITONIN 2018-12-02 09:07:00 Dominga Lacy [facility] SODIUM, URINE RANDOM 2018-12-02 03:35:00 Dominga Lacy [facility] PROTEIN CREAT RATIO URINE 2018-12-02 03:35:00 Dominga Lacy [facility] Medical Branch BLOOD CULTURE SCREEN 2018-12-02 03:27:00 Dominga Lacy [facility] BLOOD CULTURE SCREEN 2018-12-02 03:22:00 Dominga Lacy [facility] US RETROPERITONEAL 2018-12-02 03:20:01 Dominga Lacy [facility] COMPLETE [facility] CT ABDOMEN PELVIS WO 2018-12-01 23:37:19 Yosvany Stock [facility] CONTRAST [facility] URINALYSIS 2018-12-01 21:06:00 Yosvany Stock [facility] URIC ACID 2018-12-01 20:35:00 Dominga Lacy [facility] COMP. METABOLIC PANEL 2018-12-01 20:35:00 Yosvany Stock Un [facility] ([id number]) [facility] Branch CBC WITH DIFFERENTIAL 2018-12-01 20:35:00 Yosvany Stock Un [facility] CONSENT/REFUSAL FOR 2018-12-01 19:33:11 Doctor Unassigned, [facility] DIAGNOSIS AND TREATMENT [place] [facility] [place] TIME OR 2018-10-31 13:17:00 Carlos Lynch [facility] (NON-REPORTABLE) Medical Branch CBC WITH DIFFERENTIAL 2018-10-24 13:05:00 Carlos Lynch Uni [facility] PROTHROMBIN TIME / INR 2018-10-24 13:05:00 Carlos Lynch Un [facility] ACTIVATED PARTIAL THRMPLAS 2018-10-24 13:05:00 Carlos Lynch [facility] BRITTANY [facility] ADC OR CLC ONLY - PLATELET 2018-10-24 13:05:00 Carlos Lynch [facility] FUNCTION TEST Medical Branch ASSIGNMENT OF BENEFITS 2018-10-24 12:43:10 Doctor Unassigned, [facility] [place] [facility] CONSENT/REFUSAL FOR 2018-10-11 13:04:01 Doctor Unasstd, [facility] DIAGNOSIS AND TREATMENT [place] [facility] ASSIGNMENT OF BENEFITS 2018-10-11 13:03:39 Doctor [facility]igned, [facility] [place] [facility] PHYSICIAN ORDERS 2018-10-11 05:01:00 Doctor Elaine, [facility] [place] [facility] Encounters Start End Encounter Admission Attending Care Care Encounter Source Date/Time Date/Time Type Type Clinicians Facility Department ID 2019-08-08 Inpatient PAUL Mendosa [id number] [facility] 10:16:[address] [facility] [id number] [facility] 2021-03-05 2021-03-05 Emergency [facility] [id number] Univers 13:49:00 15:25:00 ANN [facility] 2021-03-05 2021-03-05 Emergency [facility] [id number] Univers 13:49:00 15:25:00 Ann LAGUERRE [id number] i ty [facility] [id number] [facility] [id number] [facility] 084 Branch 2021-03-05 2021-03-05 Telephone YAMIL KeysIT 1.2.840.114 [id number] Univers 00:00:00 00:00:00 Tricia Y [id number] it y of [facility] [id number] [place] BANK [phone] [facility] BLDG. 136 Branch 2020-11-19 2020-11-19 Outpatient R [facility] [id number] Univers 12:00:00 12:00:00 [id number] [facility] 2020-11-19 2020-11-19 [facility] [id number] Univers 12:00:00 12:00:00 JANA ity of [facility] 2020-11-19 2020-11-19 Laboratory Only, Adc Test [facility] 1.2.840. [id number] Univers 09:12:14 09:27:14 Only Jana Norris [id number] [id number] [phone] [facility] 353 Branch 2020-11-19 2020-11-19 Orders Doctor YVETTE 1.2.840.114 [id number] Univers 00:00:00 00:00:00 Only Unassigned, SILVANA [id number] [place] [facility] [id number] [place] [phone] [facility] 009 Branch 2020-07-24 2020-07-24 Ambulatory nullFlavo MNA [id number] Memoria 14:30:00 14:30:00 Pre-Reg r Neurology 02 l [place] 2020-07-10 2020-07-10 [facility] 1.2.840.114 [id number] Univers 13:56:31 23:59:00 Encounter Patrick TubbsHawthorne [id number] ity [id number] [phone] [facility] 801 Branch 2020-07-10 2020-07-10 Outpatient R FRIEDA [facility] [id number] Univers 00:00:00 00:00:00 [id number] ity of [facility] 2020-07-10 2020-07-10 Outpatient R [facility] [id number] Univers 00:00:00 00:00:00 ity of [facility] 2020-07-05 2020-07-05 Metal Cans Supervisor Yi, Gisselle Lab Main [facility] 1.2.8 40.114 [id number] Univers 08:02:32 08:17:32 Visit Vini Malave [id number] ity [id number] [phone] [facility] 353 Branch [facility] 2020-07-05 2020-07-05 Outpatient R [facility] [id number] Univers 08:00:00 08:00:00 [id number] ity of [facility] 2020-07-05 2020-07-05 [facility] [id number] Univers 08:00:00 08:00:00 ity of [facility] 2020-07-05 2020-07-05 Orders Doctor YVETTE 1.2.840.114 [id number] Univers 00:00:00 00:00:00 Only Unassigned, SILVANA [id number] ity of [facility] [id number] [place] [phone] [facility] 009 Branch 2020-06-27 2020-06-27 [facility] [id number] Univers 08:52:07 23:59:00 Encounter Patrick Laguerre [id number] it[id number] [phone] [facility] 806 [place] 2020-06-27 2020-06-27 Outpatient R FRIEDA [facility] [id number] Univers 09:00:00 09:00:00 [id number] ity of [facility] 2020-06-27 2020-06-27 Outpatient [facility] [id number] Univers 00:00:00 00:00:00 ity of [facility] 2020-06-24 2020-06-24 Metal Cans Supervisor Gisselle [place] Lab Main [facility] 1.2.8 40.114 [id number] Univers 07:57:47 08:12:47 Visit Vini Malave [id number] it[id number] [facility] [phone] Nh dical [facility] 353 [facility] 2020-06-24 2020-06-24 Outpatient R [facility] [id number] Univers 07:45:00 07:45:00 [id number] ity of [facility] 2020-06-24 2020-06-24 Outpatient R FRIEDA [facility] [id number] Univers 07:45:00 07:45:00 ity of [facility] 2020-06-24 2020-06-24 Orders Doctor YVETTE 1.2.840.114 [id number] Univers 00:00:00 00:00:00 Only Unassigned, SILVANA [id number] [place] [facility] [id number] [place] [phone] [facility] 009 Branch 2020-06-12 2020-06-13 Outpatient nullFlavo MNA [id number] Memoria 18:30:00 04:59:59 r Neurology 01 l [place] 2020-06-08 2020-06-08 Patient [facility] 1.2.840.114 [id number] Univers 00:00:00 00:00:00 Outreach Tommie PRIMARY [id number] i ty of [facility] [id number] [facility] [phone] Nh dical 388 Branch 2020-06-06 2020-06-06 [facility] 1.2.840.114 [id number] Univers 08:48:41 23:59:00 Encounter Javier Laguerre [id number] it[id number] [id number] [facility] 807 [place] 2020-06-06 2020-06-06 [facility] [id number] Univers 09:00:00 09:00:00 JAVIER [id number] ity [facility] 2020-06-06 2020-06-06 [facility] [id number] Univers 00:00:00 00:00:00 JAVIER ity [facility] 2020-06-05 2020-06-05 Outpatient R [facility] [id number] Univers 10:30:00 10:30:00 [id number] ity [facility] 2020-06-05 2020-06-05 Outpatient R VINI MALAVE [facility] [id number] Univers 10:30:00 10:30:00 ity [facility] 2020-06-05 2020-06-05 Metal Cans Supervisor Yi, Adc Lab Main [facility] 1.2.8 40.114 [id number] Univers 10:00:19 10:15:19 Visit Vini Malave Chente [id number] it[id number] [phone] Nh dical nal 353 [facility] 2020-06-05 2020-06-05 Orders Doctor YVETTE 1.2.840.114 [id number] Univers 00:00:00 00:00:00 Only Unassigned, SILVANA [id number] [place] [facility] [id number] [place] [phone] [facility] 009 [place] 2020-05-31 2020-05-31 Hospital Radiology [facility] 1.2.840.114 [id number] Univers 11:30:00 23:59:00 Encounter Chente [id number] ity [id number] [id number] [facility] 807 [place] 2020-05-31 2020-05-31 Outpatient R RADIOLOGY [facility] [id number] Univers 11:30:00 11:30:00 [id number] ity of [facility] 2020-05-31 2020-05-31 Outpatient R RADIOLOGY [facility] [id number] Univers 00:00:00 00:00:00 ity of [facility] 2020-05-21 2020-05-22 Outpatient nullFlavo MNA [id number] Memoria 20:30:00 05:59:59 r Neurology 00 l Pimadotty [place] 2020-05-09 2020-05-09 Metal Cans Supervisor Yi, Adc Lab Main [facility] 1.2.8 40.114 [id number] Univers 08:36:09 08:51:09 Visit Ayush Sutherland [id number] [id number] [phone] Nh dical nal 353 [facility] 2020-05-09 2020-05-09 Outpatient R [facility] [id number] Univers 08:30:00 08:30:00 [id number] [facility] 2020-05-09 2020-05-09 Outpatient R ENA [facility] [id number] Univers 08:30:00 08:30:00 AYUSH [facility] 2020-05-09 2020-05-09 Orders Doctor YVETTE 1.2.840.114 [id number] Univers 00:00:00 00:00:00 Only Unassigned, SILVANA [id number] ity of [place] [facility] [id number] [place] [id number] [address] 2020-05-06 2020-05-06 [facility] [id number] Univers 13:15:00 13:15:00 VERONICA [id number] [facility] 2020-05-06 2020-05-06 Outpatient [facility] [id number] Univers 13:15:00 13:15:00 VERONICA [facility] 2020-04-26 2020-04-26 Metal Cans Supervisor Yi, Adc Lab Main [facility] 1.2.8 40.114 [id number] Univers 07:51:38 08:06:38 Visit Ayush Sutherland [id number] ity [facility] [id number] [phone] [address] 2020-04-26 2020-04-26 Outpatient R [facility] [id number] Univers 07:45:00 07:45:00 [id number] [facility] 2020-04-26 2020-04-26 [facility] [id number] Univers 07:45:00 07:45:00 AYUSH [facility] 2020-04-26 2020-04-26 Orders Doctor CRAWFORD 1.2.840.114 [id number] Univers 00:00:00 00:00:00 Only Unassigned, SILVANA [id number] ity of [place] [facility] [id number] [place] [phone] [address] 2020-01-05 2020-01-05 Outpatient [facility] [id number] Univers 08:00:00 08:00:00 TONG ity of [facility] 2020-01-05 2020-01-05 Outpatient [facility] [id number] Univers 08:00:00 08:00:00 TONG ity of [facility] 2020-01-04 2020-01-04 Office [facility] 1.2.840.114 [id number] 07:58:18 08:32:41 Visit [facility] 350.1.13.10 [place] 4.2.7.2.686 Professio [phone] [address] 2020-01-04 2020-01-04 [facility] 1.2.840.114 [id number] Univers 07:58:18 08:32:41 Visit [facility] 350.1.13.10 [place] [phone] Nh dical [address] 2020-01-04 2020-01-04 [facility] [id number] Q-20 Univers 08:00:00 08:00:00 [facility]y of [facility] 2020-01-04 2020-01-04 Outpatient [facility] [id number] Univers 08:00:00 08:00:00 [facility] ity of [facility] 2020-01-04 2020-01-04 Orders Doctor YVETTE 1.2.840.114 [id number] Univers 00:00:00 00:00:00 Only Unassigned, SILVANA 350.1.13.[address] [place] [facility] 4.2.7.2.686 [place] [phone] [address] 2019-10-02 2019-10-02 [facility] 1.2.840.114 [id number] Univers 08:09:05 09:26:39 Visit Rm, Adc Surg Spec Procedure [place] 3 50.1.13.10 [place] [phone] Nh dical [address] 2019-10-02 2019-10-02 Outpatient R BASSEM [facility] [id number] Q-20 Univers 08:30:00 08:30:00 [facility] [id number] ity of [facility] 2019-10-02 2019-10-02 Outpatient R BASSEM [facility] [id number] Univers 08:30:00 08:30:00 TONG ity [facility] 2019-10-02 2019-10-02 Orders Doctor YVETTE 1.2.840.114 [id number] Univers 00:00:00 00:00:00 Only Unassigned, SILVANA 350.1.13.10 ity of [place] [facility] 4.2.7.2.686 [place] [phone] [address] 2019-08-30 2019-08-30 Telephone YVETTE Jolly 1.2.840.114 [id number] Univers 00:00:00 00:00:00 Tong SILVANA 350.1.13.10 it y of HOSPITAL 4.2.7.2.686 [place] [phone] [address] 2019-08-30 2019-08-30 Telephone [facility] 1.2.840.114 [id number] Univers 00:00:00 00:00:00 Tong [place] 350.1.13.10 [place] [phone] Nh dic[address] 2019-08-17 2019-08-17 Orders Doctor YVETTE 1.2.840.114 [id number] Univers 00:00:00 00:00:00 Only Unassigned, SILVANA 350.1.13.10 ity of [place] [facility] 4.2.7.2.686 [place] [phone] [address] 2019-08-14 2019-08-14 Office [facility] 1.2.840.114 [id number] Univers 09:41:20 10:03:41 Visit Tongmirian Laguerre 350.1.13.10 i [place] [phone] [address] 2019-08-14 2019-08-14 Office Sebastian Jollyth [facility] 1.2.840.114 [id number] Univers 08:30:00 09:00:00 Visit Rm, Adc Surg Spec Procedure [place] 3 50.1.13.10 ity [facility] 4.2.7.2.[place] [phone] Nh dic[address] 2019-08-14 2019-08-14 Outpatient R [facility] [id number] Q-20 Univers 08:30:00 08:30:00 [facility] [id number] ity [facility] 2019-08-14 2019-08-14 Outpatient [facility] [id number] Univers 08:30:00 08:30:00 [facility] 2019-08-14 2019-08-14 [facility] [id number] Univers 08:30:00 08:30:00 [facility] 2019-08-12 2019-08-12 Outpatient MARGARITA MendosaWU SURG [id number] [facility] 09:30:00 09:30:[id number] [facility] 2019-08-10 2019-08-10 Outpatient Deondre HCACL OUTD [id number] 3-20 [facility] 09:03:00 09:03:00 Salim [id number] [facility] 2019-06-29 2019-07-07 [facility] 1.2.840.114 [id number] Univers 13:18:50 17:18:31 ne Visit [facility] Chente 350.1.13.10 ity [facility] 4[place]2.[place].2.[place] [phone] Nh dical [address] 2019-07-03 2019-07-03 Outpatient R BASSEM [facility] [id number] Q-20 Univers 10:00:00 10:00:00 [facility] 2019-07-03 2019-07-03 Outpatient [facility] [id number] Univers 10:00:00 10:00:00 [facility] 2019-06-29 2019-06-29 Outpatient [facility] [id number] Q-20 Univers 14:30:00 14:30:00 [facility] [id number] ity of [facility] 2019-06-29 2019-06-29 Outpatient R BASSEM [facility] [id number] Univers 14:30:00 14:30:00 TONG ity [facility] 2019-06-29 2019-06-29 Orders Doctor YVETTE 1.2.840.114 [id number] Univers 00:00:00 00:00:00 Only Unassigned, SILVANA 350.1.13.[address] [place] [facility] 4.2.7.2.686 [place] [phone] [address] 2019-06-28 2019-06-28 Telephone [facility] 1.2.840.114 [id number] Univers 00:00:00 00:00:00 [facility] Health 350.1.13.10 it y [place] - [phone] Med ical [address] 2019-06-27 2019-06-27 Nurse Nurse, Adc Surgery [facility] 1.2. 840.114 [id number] Univers 10:53:00 11:08:00 Visit Tong Jolly 350.1.13.10 [place] [phone] Nh dical nal [address] [facility] 2019-06-27 2019-06-27 Outpatient R [facility] [id number] Univers 10:45:00 10:45:00 [id number] ity of [facility] 2019-06-27 2019-06-27 Outpatient [facility] [id number] Univers 10:45:00 10:45:00 TONG ity [facility] 2019-06-27 2019-06-27 Telephone [facility] 1.2.840.114 [id number] Univers 00:00:00 00:00:00 Tong Chente 350.1.13.10 i [place] [phone] Nh dical nal [address] [facility] 2019-06-05 2019-06-05 Telephone [facility] 1.2.840.114 [id number] Univers 00:00:00 00:00:00 [facility] 350.1.13.10 [place] [phone] [facility] [address] [facility] 2019-06-05 2019-06-05 Telephone [facility] 1.2.840.114 [id number] Univers 00:00:00 00:00:00 [facility] 350.1.13.10 it [place]2.[place] [facility] [phone] [facility] [address] [place] 2019-06-02 2019-06-02 Office [facility] 1.2.840.114 [id number] Univers 12:34:18 16:34:13 Visit [facility] 350.1.13.10 i [place] [phone] [facility] [address] [facility] 2019-06-02 2019-06-02 Outpatient [facility] [id number] Q-20 Univers 13:00:00 13:00:00 [facility] [id number] ity [facility] 2019-06-02 2019-06-02 Outpatient R [facility] [id number] Univers 13:00:00 13:00:00 [facility] ity of [facility] 2018-12-16 2018-12-16 Orders Doctor CRAWFORD 1.2.840.114 [id number] Univers 00:00:00 00:00:00 Only Unassigned, SILVANA 350.1.13.10 ity of [place] [facility] 4.2.7.2.686 [place] [phone] [facility] [address] 2018-12-08 2018-12-08 Hospital Unknown, Attending [facility] 1.2.84 0.114 [id number] Univers 13:37:11 23:59:00 Encounter Station, [facility] Heart [place] 350.1.13 .10 it[place].2.[place] [phone] [facility] [address] 2018-12-08 2018-12-08 Metal Cans Supervisor 1, Adc Lab [place] 1.2.840.114 [id number] Univers 13:34:49 13:49:49 Visit Kirsten Clifford Ferozamber Laguerre 350.1.13 .10 ity of [place] 4.2.7.2.686 [facility] [phone] [facility] [address] 2018-12-08 2018-12-08 Hospital Radiology [facility] 1.2.840.114 [id number] [facility] 13:31:54 13:36:00 Encounter Chente 350.1.13.10 ity of [place] 4.2.7.2.686 [facility] [phone] [facility] [address] 2018-12-05 2018-12-05 Transition Marguerite Forbes 1.2.840.114 [id number] Univers 00:00:00 00:00:00 of Care Cami Alonzo 350.1.13.10 i ty of [place] 4.2.7.2.686 [facility] [phone] [facility] [address] 2018-12-01 2018-12-02 Emergency Yosvany Stock [facility] 1.2. 840.114 [id number] Univers 14:51:35 13:42:00 Dominga Lacy 350.1.13.10 ity of [place] 4.2.7.2.686 [facility] [phone] [facility] [address] 2018-11-25 2018-11-25 Office Chika [facility] 1.2.315.328 [id number] Univers 09:41:51 09:56:28 Visit Hakeem Osorio Chat& (ChatAnd) 350.1.13.10 it y of Surgical 4.2.7.2.686 [place] Specialti [phone] Nh dical es [address] [facility] 2018-11-15 2018-11-15 Office Serjio [facility] 1.2.840.114 [id number] [facility] 14:46:58 15:12:48 Visit Tristan Bond [facility] 350.1.13.10 it y of Surgical 4.2.7.2.686 [place] Specialti [phone] Nh dical es [address] [facility] 2018-11-07 2018-11-07 Office Serjio NJLUCRECIA 1.2.840.114 [id number] Univers 14:18:02 14:52:55 Visit Tristan [facility] 350.1.13.10 it y of Surgical 4.2.7.2.686 [place] Specialti [phone] Nh dical es 198 [facility] 2018-11-04 2018-11-04 [facility] 1.2.840.114 [id number] Univers 10:20:00 23:59:00 Encounter Carlos Laguerre 350.1.13.10 [place].2.[place] [phone] [facility] [address] [place] 2018-11-03 2018-11-03 Office [facility] 1.2.840.114 [id number] Univers 09:36:36 09:59:24 Visit Tristan [facility] 350.1.13.10 it y of Surgical 4.2.7.2.686 [place] Specialti [phone] [facility] es [address] [facility] 2018-10-31 2018-10-31 [facility] 1.2.840.114 [id number] Univers 06:03:00 09:49:00 Encounter Carlos Laguerre 350.1.13.10 [place].2.[place] [phone] [facility] [address] [place] 2018-10-24 2018-10-24 Metal Cans Supervisor 1, Adc Lab [facility] 1.2.840.114 [id number] Univers 07:42:19 07:57:19 Visit Carlos Lynch 350.1.13.1 0 it[place].2.[place] [phone] [facility] harsha [address] 2018-10-24 2018-10-24 Orders Doctor YVETTE 1.2.840.114 [id number] Univers 00:00:00 00:00:00 Only Unassigned, SILVANA 350.1.13.10 ity of [place] [facility] 4.2.7.2.686 [place] [phone] [facility] harsha [address] [place] Results Test Description Test Time Test Comments Results Result [facility] e Comments CT ABDOMEN 2020-06-27 CT Abdomen and University of PELVIS W WO 4 Pelvis without and [place] [facility] CONTRAST 19:50:41 with intravenous [place] contrast. CLINICAL HISTORY: Abnormal ultrasound finding of dilated bile duct. DOSE: Up-to-date CT equipment and radiation dose reduction techniques wereemployed. CTDIvol: 12.57+12.54+12.54+14 .62 mGy. DLP: 632+631+628+430 mGy-cm. TECHNIQUE : Contiguous axial imaging from the level of the lung basesthrough the pubic symphysis were performed initially without contrast andsubsequently after the uncomplicated administration of Omnipaque contrastmaterial. ?Coronal and sagittal reconstructions were obtained. Auto mAand/or iterative reconstruction were used to reduce radiation dose. FINDINGS: Comparison has been made with recent ultrasound study of06/27/2020. Lower lungs: Minimal fibrosis in the left lower lung. Short sliding hiatalhernia suspected. No pleural effusion or pericardial effusion. Liver, Gallbladder and Spleen: Liver is enlarged, measuring 18.3 cm withmild diffuse hepatic steatosis noted. No focal liver lesions visualized.Spleen measures approximately 12.5 x 5 cm. Mild dilatation of the biliary ducts noted with common hepatic ductmeasuring up to 10 mm and proximal common bile duct 9 mm, tapering downtoward ampulla. Pancreatic duct is not dilated. Peritoneum: ?No free air or free fluid. Slightly enlargedperipancreat ic/periportal lymph nodes are seen, 10 26 mm in 19 mm in size,likely nonspecific adenopathy. Pancreas and Adrenals: ?Unremarkable pancreas and adrenal glands. Kidneys and Ureters: ?No visible calculi in the renal collecting systems. No hydroureter or hydronephrosis. Vessels: Mild atherosclerosis. Patent hepatic/portal venous systems andrenal veins. Retroperitoneum: No abnormal fluid or lymphadenopathy. Bowel: Normal appendix. Mild constipation. Minimal diverticulosis of thesigmoid colon noted without any acute changes of diverticulitis. Smallbowel gas pattern is unremarkable. Bladder and Reproductive Organs: TURP surgery suspected. Dilated prostaticurethra. Bones: Morphine pump is seen implanted in the right abdominal wall.Intrathecal catheter entering the spinal canal at the level of L2-L3. Noaggressive bone lesions or any acute compression fracture deformity in thelower thoracic or lumbar vertebral bodies detected. Soft tissues: Unremarkable. CONCLUSION:1. S/P cholecystectomy. Mild dilatation of the common hepatic duct andproximal common bile duct noted. Pancreatic duct is not dilated. Noenhancing tumor detected in the head of the pancreas.2. Mild hepatomegaly with hepatic steatosis.3. S/P TURP surgical changes. [place], Radiant Results Inft User - 07/10/2020 2:51 PM CDTCT Abdomen and Pelvis without and with intravenous contrast.CLINICAL HISTORY: Abnormal ultrasound finding of dilated bile duct.DOSE: Up-to-date CT equipment and radiation dose reduction techniques wereemployed. CTDIvol: 12.57+12.54+12.54+14 .62 mGy. DLP: 632+631+628+430 mGy-cm.TECHNIQUE : Contiguous axial imaging from the level of the lung basesthrough the pubic symphysis were performed initially without contrast andsubsequently after the uncomplicated administration of Omnipaque contrastmaterial. Coronal and sagittal reconstructions were obtained. Auto mAand/or iterative reconstruction were used to reduce radiation dose.FINDINGS: Comparison has been made with recent ultrasound study of06/27/2020.Lower lungs: Minimal fibrosis in the left lower lung. Short sliding hiatalhernia suspected. No pleural effusion or pericardial effusion.Liver, Gallbladder and Spleen: Liver is enlarged, measuring 18.3 cm withmild diffuse hepatic steatosis noted. No focal liver lesions visualized.Spleen measures approximately 12.5 x 5 cm.Mild dilatation of the biliary ducts noted with common hepatic ductmeasuring up to 10 mm and proximal common bile duct 9 mm, tapering downtoward ampulla. Pancreatic duct is not dilated.Peritoneum: No free air or free fluid. Slightly enlargedperipancreat ic/periportal lymph nodes are seen, 10 26 mm in 19 mm in size,likely nonspecific adenopathy.Pancreas and Adrenals: Unremarkable pancreas and adrenal glands.Kidneys and Ureters: No visible calculi in the renal collecting systems. No hydroureter or hydronephrosis. Vessels: Mild atherosclerosis. Patent hepatic/portal venous systems andrenal veins.Retroperitoneu m: No abnormal fluid or lymphadenopathy.Diane l: Normal appendix. Mild constipation. Minimal diverticulosis of thesigmoid colon noted without any acute changes of diverticulitis. Smallbowel gas pattern is unremarkable.Bladder and Reproductive Organs: TURP surgery suspected. Dilated prostaticurethra.Bon es: Morphine pump is seen implanted in the right abdominal wall.Intrathecal catheter entering the spinal canal at the level of L2-L3. Noaggressive bone lesions or any acute compression fracture deformity in thelower thoracic or lumbar vertebral bodies detected.Soft tissues: Unremarkable.CONCLUS ION:1. S/P cholecystectomy. Mild dilatation of the common hepatic duct andproximal common bile duct noted. Pancreatic duct is not dilated. Noenhancing tumor detected in the head of the pancreas.2. Mild hepatomegaly with hepatic steatosis.3. S/P TURP surgical changes. ACTIVATED PARTIAL THRMPLAS BRITTANY 2020-07-05 13:33:22 Test Item Value Reference Range Interpretation Comme nts APTT Patient (test code = See_Comment L [ Automated message] The 3173-2) system which ge nerated this result tra nsmitted reference range : 23 - 38 Seconds. The re ference range was not u sed to interpret this result as normal/abnormal . [place] (test code = [place]) The [facility] patient population mean normal value for aPTT is 30 seconds. Lab Interpretation (test Abnormal code = 27852-6) [facility] Hospital[facility] / [id number] 13:31:21 Test Item Value Reference Range Interpretation Comments PROTIME PATIENT (test See_Comment [Auto mated message] code = 5964-2) The system wh ich generated this result transmitted ref erence range: 12.0 - 1 4.7 Seconds. The re ference range was not u sed to interpret this result as normal/abnor mal. INR (test code = 6301-6) Nor mal INR <1.1; Warfarin Therap eutic range 2.0 to 3. 0 or 2.5 to 3.5, dep ending upon the indica tions. Lab Interpretation (test Normal code = 38546-5) [facility] HospitalCBC WITH [id number] 13:26:41 Test Item Value Reference Range Interpretation Comments WBC (test code = See_Comment [Automated 7601-2) message] The sy stem which generated this result transmitted reference range : 4.20 - 10.70 10*3/?L. The reference range was not used to interpret this result as normal/abnormal . RBC (test code = See_Comment [Automated 568-8) message] The sy stem which generated this result transmitted reference range : 4.26 - 5.52 10*6/?L. The reference range was not used to interpret this result as normal/abnormal . HGB (test code = 15.3 g/dL 12.2-16.4 718-7) HCT (test code = 46.3 % 38.4-49.3 4544-3) MCV (test code = 86.7 fL 81.7-95.6 787-2) MCH (test code = 28.7 pg 26.1-32.7 785-6) MCHC (test code = 33.0 g/dL 31.2-35.0 786-4) RDW-SD (test code = 42.2 fL 38.5-51.6 60895-9) RDW-CV (test code = 13.3 % 12.1-15.4 788-0) PLT (test code = See_Comment [Automated 777-3) message] The sy stem which generated this result transmitted reference range : 150 - 328 10*3/ ?L. The reference r alfreda was not used to interpret this result as normal/abnormal . MPV (test code = 10.7 fL 9.8-13.0 40735-4) NRBC/100 WBC (test See_Comment [Automat ed code = 5958620730) message] The system which generated this result transmitted reference range : 0.0 - 10.0 /100 WBCs. The refer ence range was not u sed to interpret th is result as normal/abnormal . NRBC x10^3 (test code <0.01 See_Comment [Auto mated = 9251574113) message] The s ystem which generated this result transmitted reference range : 10*3/?L. The reference range was not used to interpret this result as normal/abnormal . GRAN MAT (NEUT) % 53.6 % (test code = 770-8) IMM GRAN % (test code 0.50 % = 9324258903) LYMPH % (test code = 35.3 % 736-9) MONO % (test code = 7.6 % 5905-5) EOS % (test code = 2.0 % 713-8) BASO % (test code = 1.0 % 706-2) GRAN MAT x10^3(ANC) 5.20 10*3/uL 1.99-6.95 (test code = 0929065127) IMM GRAN x10^3 (test 0.05 10*3/uL 0.00-0.06 code = 2849133091) LYMPH x10^3 (test code 3.42 10*3/uL 1.09-3.23 H = 731-0) MONO x10^3 (test code 0.74 10*3/uL 0.36-1.02 = 742-7) EOS x10^3 (test code = 0.19 10*3/uL 0.06-0.53 711-2) BASO x10^3 (test code 0.10 10*3/uL 0.01-0.09 H = 704-7) Lab Interpretation Abnormal (test code = 46693-5) [facility] ABDOMEN [id number] 14:51:06HISTORY: Generalized Abdominal pain. TECHNIQUE: Upper abdominal organs were evaluated in multiple planes withthe patient in multiple different positions, without and with colorimaging. FINDINGS: Comparison is made with CT scan of abdomen and pelvis dated104/18/2018. Liver is enlarged, 18.5 cm, spleen is borderline enlarged, 13.1 x 5.3 cm,right kidney is 10 x 4.9 x 5.3 cm and left kidney is 12.7 x 5.3 x 4.5 cm insize. Mild diffuse increased echogenicity of the liver parenchyma noted. Nofocal lesions are detected in these organs. Cortex of both kidneys rangebetween 12.8 mm and 15.4 mm. No hydronephrosis, free fluid in the upperabdomen or aortic aneurysm detected. Visualized portions of the pancreasapp ear normal. Hepatic and portal venous system appear patent, withhepatopetal portal flow noted. Gallbladder is absent. Common hepatic duct is 1.0 mm. CONCLUSIONS:1. Mild hepatomegaly with hepatic steatosis.2. S/P cholecystectomy. Slightly dilated extrahepatic bile ducts as well ascentral intrahepatic bile duct. These may be secondary to priorcholecystectomy (Miltona Phenomenon), however, if the patient's LFTsresults are abnormal, additional investigation may be of value [facility], Radiant Results Inft User - 06/27/2020 9:52 AM CDTHISTORY: Generalized Abdominal pain.TECHNIQUE: Upper abdominal organswere evaluated in multiple planes withthe patient in multiple different positions, without and with colorimaging.FINDINGS: Comparison is made with CT scan of abdomen and pelvis dated104/18/2018.Liver isenlarged, 18.5 cm, spleen is borderline enlarged, 13.1 x 5.3 cm,right kidney is 10 x 4.9 x 5.3 cm and left kidney is 12.7 x 5.3 x 4.5 cm insize. Mild diffuse increased echogenicity of the liver parenchyma noted. Nofocal lesions are detected in these organs. Cortex of both kidneys rangebetween 12.8 mm and 15.4 mm. No hydronephrosis, free fluid in the upperabdomen or aortic aneurysm detected. Visualized portions of the pancreasappear normal. Hepatic and portal venous system appear patent, withhepatopetal portal flow noted.Gallbladder is absent. Common hepatic duct is 1.0 mm.CONCLUSIONS:1. Mild hepatomegaly with hepatic steatosis.2. S/P cholecystectomy. Slightly dilated extrahepatic bile ducts as well ascentral intrahepatic bile duct. These may be secondary to priorcholecystectomy (Miltona Phenomenon), however, if the patient's LFTsresults are abnormal, additional investigation may be of valueUnDoctors Hospital of LaredoFL SMALL BOWEL [id number] 18:31:23HISTORY: Generalized Abdominal pain and history of irregular bowelmovements. TECHNIQUE: Abdominal radiograph because obtained which was reviewed by me.Subsequently barium is administered orally and serial films of theabdominal and pelvis are obtained. Digital spot images of small bowel loopsincluding terminal ileum were obtained by me. FINDINGS: Abdominal radiograph show evidence of constipation andcholecystectomy. Transit of barium from stomach through the duodenum, through entire smallbowel was wit hin normal limits with visualization of right several largebowel at 2 hours. Some of the distal ileal loop showed narrowing which isonly visible in the spot films, likely secondary to spasm. There is noalteration in the mucosal lining or any dilatation of the bowel loopsproximally. Terminal ileum is normal. Rest of the small bowel also showednormal caliber and mucosal lining.. CONCLUSIONS: Essentially normal small bowel series. [facility], Radiant Results Inft User - 06/06/2020 12:32 PM CSTHISTORY: Generalized Abdominal pain and history of irregular bowelmovements.TECHNIQUE: Abdominal radiograph because obtained which was reviewed by me.Subsequently barium is administered orally and serial films of theabdominal and pelvis are obtained. Digital spot images of small bowel loopsincluding terminal ileum were obtained by me.FINDINGS: Abdominal radiograph show evidence of constipation andcholecystectomy.Transit of barium from stomach through the duodenum, through entire smallbowel was within normal limits with visualization of right several largebowel at 2 hours. Some of the distal ileal loop showed narrowing which isonly visible in the spot films, likely secondary to spasm. There is noalteration in the mucosal lining or any dilatation of the bowel loopsproximally. Terminal ileum is normal. Rest of the small bowel also showednormal caliber and mucosal lining..CONCLUSIONS: Essentially normal small bowelseries.[facility] [place] [facility] HospitalXR CHEST 2 [id number] 21:17:41 No acute cardiopulmonary process. Preliminary Report Dictated by Resident: [place] Hernandez MD., have reviewed this study and agree with the abovereport.EXAM: XR CHEST 2 VW COMPARISON: 02/07/2019 HISTORY: Brachial neuritis FINDINGS: Lungs: The lungs are clear. No pleural effusion or pneumot horax isidentified. Heart/Mediastinum: The cardiomediastinal silhouette is normal in size. Bones: Noacute osseous abnormality is seen. Cervical fusion hardwarenoted. [facility], Radiant Results Inft User - 05/31/2020 3:18 PM CSTEXAM: XR CHEST 2 VWCOMPARISON: 02/07/2019HISTORY: Brachial neuritis FINDINGS:Lungs: The lungs are clear. No pleural effusion or pneumothorax isidentified.Heart/Mediastinum: The cardiomediastinal silhouette is normal in size.Bones: No acute osseous abnormality is seen. Cervical fusion hardwarenoted.IMPRESSIONNo acute cardiopulmonary process.Preliminary Report Dictated by Resident: Tico Givens MD., have reviewed this study and agree with the abovereport.[facility] THORACIC 2 [id number] 18:21:03FINDINGS/IMPRESSION: Cervical spine: Postsurgical changes are seen from anterior spinal fusionfrom C4 through C7. Mild compression deformity at C4 is noted. No hardwarefractures/complications are seen.Mild degenerative changes are seen atC3-C4. Thoracic spine: There is normal sagittal alignment. The vertebral bodyheights are preserved. No significant degenerative changes or acute osseousfindings areseen. Lumbar spine: There is mild retrolisthesis of L1 on L2 and L3 on L4. Thevertebral body heights are preserved. No acute fractures are seen.Xrxf-tq-tgreguxk degenerative changes are seen in the lumbar spine in theform of facet arthropathy and anterior osteophytes. The facet arthropathythe dominantcomponent. HISTORY:Brachial neuritis TECHNIQUE: Frontal and lateral views of the cervical, thoracicand lumbarspine were obtained. COMPARISON:None. [facility], Radiant Results Inft User - 05/31/2020 12:22 PM CSTHISTORY:Brachial neuritis TECHNIQUE: Frontal and lateral views of the cervical, thoracic and lumbarspine were obtained. COMPARISON:None.IMPRESSIONFINDINGS/IMPRESSION:Cervical spine: Postsurgical ch anges are seen from anterior spinal fusionfrom C4 through C7. Mild compression deformity at C4 is noted. No hardwarefractures/complications are seen. Mild degenerative changes are seen atC3-C4.Thoracicspine: There is normal sagittal alignment. The vertebral bodyheights are preserved. No significant degenerative changes or acute osseousfindings are seen.Lumbar spine: There is mild retrolisthesis of L1 on L2 and L3 on L4. Thevertebral body heights are preserved. No acute fractures are seen.Ckcy-rn-tsqmxasw degenerative changes are seen in the lumbar spine in theform of facet arthropathy and anterior osteophytes. The facet arthropathythe dominant component.[facility]XR LUMBAR SPINE 2 [id number] 18:21:03FINDINGS/IMPRESSION: Cervical spine: Postsurgical changes are seen from anterior spinal fusionfrom C4 through C7. Mild compression deformity at C4 is noted. No hardwarefractures/complications are seen.Mild degenerative changes are seen atC3-C4. Thoracic spine: There is normal sagittal alignment. The vertebral bodyheights are preserved. No significant degenerative changes or acute osseousfindings areseen. Lumbar spine: There is mild retrolisthesis of L1 on L2 and L3 on L4. Thevertebral body heightsare preserved. No acute fractures are seen.Umpt-fw-rnlfxfpr degenerative changes are seen in the lumbar spine in theform of facet arthropathy and anterior osteophytes. The facet arthropathythe dominantcomponent. HISTORY:Brachial neuritis TECHNIQUE: Frontal and lateral views of the cervical, thoracicand lumbarspine were obtained. COMPARISON:None. [facility], Radiant Results Inft User - 05/31/2020 12:22 PM CSTHISTORY:Brachial neuritis TECHNIQUE: Frontal and lateral views of the cervical, thoracic and lum barspine were obtained. COMPARISON:None.IMPRESSIONFINDINGS/IMPRESSION:Cervical spine: Postsurgical changes are seen from anterior spinal fusionfrom C4 through C7. Mild compression deformity at C4 is noted. No hardwarefractures/complications are seen. Mild degenerative changes are seen atC3-C4.Thoracicspine: There is normal sagittal alignment. The vertebral bodyheights are preserved. No significant degenerative changes or acute osseousfindings are seen.Lumbar spine: There is mild retrolisthesis of L1 on L2 and L3 on L4. Thevertebral body heights are preserved. No acute fractures are seen.Revv-tk-tcimoncu degenerative changes are seen in the lumbar spine in theform of facet arthropathy and anteriorosteophytes. The facet arthropathythe dominant component.[facility] CERVICAL SPINE 2 VW 2020-05-31 18:21:03FINDINGS/IMPRESSION: Cervical spine: Postsurgical changes are seen from anterior spinal fusionfrom C4 through C7. Mild compression deformity at C4 is noted. No hardwarefractures/complications are seen.Mild degenerative changes are seen atC3-C4. Thoracic spine: There is normal sagittal alignment. The vertebral bodyheights are preserved. No significant degenerative changes or acute osseousfindings areseen. Lumbar spine: There is mild retrolisthesis of L1 on L2 and L3 on L4. Thevertebral body heightsare preserved. No acute fractures are seen.Rseh-ev-slkyhezx degenerative changes are seen in the lumbar spine in theform of facet arthropathy and anterior osteophytes. The facet arthropathythe dominantcomponent. HISTORY:Brachial neuritis TECHNIQUE: Frontal and lateral views of the cervical, thoracicand lumbarspine were obtained. COMPARISON:None. [facility], Radiant Results Inft User - 05/31/2020 12:22 PM CSTHISTORY:Brachial neuritis TECHNIQUE: Frontal and lateral views of the cervical, thoracic and lum barspine were obtained. COMPARISON:None.IMPRESSIONFINDINGS/IMPRESSION:Cervical spine: Postsurgical changes are seen from anterior spinal fusionfrom C4 through C7. Mild compression deformity at C4 is noted. No hardwarefractures/complications are seen. Mild degenerative changes are seen atC3-C4.Thoracicspine: There is normal sagittal alignment. The vertebral bodyheights are preserved. No significant degenerative changes or acute osseousfindings are seen.Lumbar spine: There is mild retrolisthesis of L1 on L2 and L3 on L4. Thevertebral body heights are preserved. No acute fractures are seen.Zslr-kr-pmyugjxt degenerative changes are seen in the lumbar spine in theform of facet arthropathy and anteriorosteophytes. The facet arthropathythe dominant component.[facility] HospitalTHYROID STIMULATING HORMONE 2020-05-09 16:54:00 Test Item Value Reference Range Interpretation Comments TSH (test code = See_Comment [Automated message] [id number]) The system [employer] generated this result transmitted ref erence range: 0.45 - 4 .70 mIU/L. The refe rence range was not u sed to interpret this result as normal/abnor mal. Lab Interpretation (test Normal code = 88030-2) [facility] HospitalPROSTATIC SPECIFIC [id number] 16:53:00 Test Item Value Reference Range Interpretation Comments PSA (test code = 0.07 ng/mL See_Comment [Automated [id number]) message] The system which generated this result transmitted reference range : <=4.00. The reference range was not used to interpret this result as normal/abnormal . [place] (test code = [place]) Biotin has been reported to cause a negative bias, interpret results relative to patient's use of biotin. Lab Interpretation Normal (test code = 89421-8) [facility] HospitalTOTAL IRON BINDING [id number] 16:32:00 Test Item Value Reference Range Interpretation Comments TIBC (test code = 5887766689) 330 ug/dL 250-410 % FE SAT (test code = 6356614599) 25 % 20-50 Lab Interpretation (test code = Normal 52230-1) [facility] HospitalLIPID PANEL (91026)(TOTAL CHOLESTEROL, TRIGLYCERIDES, HDL)2020-05-09 16:24:00 Test Item Value Reference Range Interpretation Comments CHOL (test code = 181 mg/dL 120-200 7227426057) HDL (test code = 47 mg/dL >40 9177819192) HDLC RATIO (test code = See_Comment [Au tomated message] 7121209490) The system [employer] generated this result transmit radha reference range : <=5.0. The refe rence range was not u sed to interpret th is result as normal/abnormal . TRIG (test code = 91 mg/dL 30-170 4761814630) LDL CHOL (test code = 116 mg/dL See_Comment [Auto mated message] 38213-2) The system [employer] generated this result transmit radha reference range : <=160. The refe rence range was not u sed to interpret th is result as normal/abnormal . VLDL (test code = 18 mg/dL 5-60 6279405113) Lab Interpretation (test Normal code = 89649-0) [facility]. METABOLIC PANEL (16240)2020-05-09 16:23:00 Test Item Value Reference Range Interpretation Comments NA (test code = 136 mmol/L 135-145 3407056747) K (test code = 4.3 mmol/L 3.5-5 9032395544) CL (test code = 97 mmol/L 98-108 L 4567922943) CO2 TOTAL (test code = 32 mmol/L 23-31 H 3453620140) AGAP (test code = 2-16 9585961665) BUN (test code = 12 mg/dL 7-23 0144133849) GLUCOSE (test code = 93 mg/dL 70-110 7358644398) CREATININE (test code = 0.81 mg/dL 0.6-1.25 4303712214) TOTAL BILI (test code = 0.7 mg/dL 0.1-1.0 7446017053) CALCIUM (test code = 10.0 mg/dL 8.6-10.6 0157481866) T PROTEIN (test code = 7.2 g/dL 6.3-8.2 5260837822) ALBUMIN (test code = 4.6 g/dL 3.5-5 3840472508) ALK PHOS (test code = 133 U/L 34-122 H 6122377438) ALTv (test code = 51 U/L 5-50 H 1742-6) AST(SGOT) (test code = 33 U/L 13-40 0440802071) eGFR Calculation mL/min/1.73m2 (Non-) (test code = 8575828507) eGFR Calculation mL/min/1.73m2 () (test code = 7701723160) [place] (test code = [place]) Association of Glomerular Filtration Rate (GFR) and Staging of Kidney Disease* + --+ --+ ------+| GFR (mL/min/1.73 m2) ?| With Kidney Damage ?| ?Without Kidney Damage+ --------+ --------+ +| ?>90 ?| ?Stage one ?| ? Normal ?+ ---+ ---+ -------+| ?60-89 ?| ?Stage two ?| ? Decreased GFR ? + --+ --+ ------+| ?30-59 ?| ?Stage three ?| ? Stage three ? + --+ --+ ------+| ?15-29 ?| ?Stage four ? | ? Stage four ?+ ---+ ---+ -------+| ?<15 (or dialysis) ? ?| ?Stage five ? | ? Stage five ?+ ---+ ---+ -------+ *Each stage assumes the associated GFR level has been in effect for at least three months. ?Stages 1 to 5, with or without kidney disease, indicate chronic kidney disease. Notes: Determination of stages one and two (with eGFR >59mL/min/1.73 m2) requires estimation of kidney damage for at least three months as defined by structural or functional abnormalities of the kidney, manifested by either:Pathological abnormalities or Markers of kidney damage (including abnormalities in the composition of the blood or urine or abnormalities in imaging tests). Lab Interpretation Abnormal (test code = 81461-6) [facility] HospitalIRON2021-02-11 16:23:00 Test Item Value Reference Range Interpretation Comments IRON (test code = 0277469504) 84 ug/dL 50-160 Lab Interpretation (test code = Normal 82782-8) [facility] HospitalSEDIMENTATION [id number] 15:45:00 Test Item Value Reference Range Interpretation Comments ESR (test code = See_Comment [Automated message] 6077102217) The system [employer] generated this result transmitted ref erence range: 0 - 10 m m/HR. The reference r alfreda was not used to interpret this result as normal/abnor mal. Lab Interpretation (test Normal code = 88846-5) [facility] HospitalURINALYSIS2021-02-11 15:41:00 Test Item Value Reference Range Interpretation Comments APPEARANCE (test code Clear Clear = 7133658928) COLOR (test code = Yellow Yellow 9426563624) PH (test code = 4.8-8.0 9691954455) SP GRAVITY (test code 1.003-1.030 = 5587502297) GLU U QUAL (test code Normal Normal = 6917895160) BLOOD (test code = Negative Negative 2427195318) KETONES (test code = Negative Negative 6598522010) PROTEIN (test code = Negative Negative 2887-8) UROBILIN (test code = Normal Normal 6613384474) BILIRUBIN (test code = Negative Negative 0235654999) NITRITE (test code = Negative Negative 0719372735) LEUK AGNES (test code Negative Negative = 4810724066) RBC/HPF (test code = See_Comment [Autom ated message] 4711282817) The system [employer] generated this result transmitted ref erence range: 0 - 3 HP F. The reference range was not used to interpr et this result as normal/abnormal . WBC/HPF (test code = <1 See_Comment [Autom ated message] 0769296532) The system [employer] generated this result transmitted ref erence range: 0 - 5 HP F. The reference range was not used to interpr et this result as normal/abnormal . BACTERIA (test code = Negative Negative 1729829062) SQ EPITH (test code = <1 HPF 0053784513) [facility] HospitalCB WITH [id number] 15:16:00 Test Item Value Reference Range Interpretation Comments WBC (test code = See_Comment [Automated 8090-2) message] The sy stem which generated this result transmitted reference range : 4.20 - 10.70 10*3/?L. The reference range was not used to interpret this result as normal/abnormal . RBC (test code = See_Comment H [Automated 129-8) message] The sy stem which generated this result transmitted reference range : 4.26 - 5.52 10*6/?L. The reference range was not used to interpret this result as normal/abnormal . HGB (test code = 16.5 g/dL 12.2-16.4 H 718-7) HCT (test code = 49.3 % 38.4-49.3 4544-3) MCV (test code = 85.9 fL 81.7-95.6 787-2) MCH (test code = 28.7 pg 26.1-32.7 785-6) MCHC (test code = 33.5 g/dL 31.2-35 786-4) RDW-SD (test code = 39.9 fL 38.5-51.6 47924-6) RDW-CV (test code = 12.8 % 12.1-15.4 788-0) PLT (test code = See_Comment [Automated 777-3) message] The sy stem which generated this result transmitted reference range : 150 - 328 10*3/ ?L. The reference r alfreda was not used to interpret this result as normal/abnormal . MPV (test code = 11.0 fL 9.8-13 90016-8) NRBC/100 WBC (test See_Comment [Automat ed code = 2598974490) message] The system which generated this result transmitted reference range : 0.0 - 10.0 /100 WBCs. The refer ence range was not u sed to interpret th is result as normal/abnormal . NRBC x10^3 (test code <0.01 See_Comment [Auto mated = 1632791017) message] The s ystem which generated this result transmitted reference range : 10*3/?L. The reference range was not used to interpret this result as normal/abnormal . GRAN MAT (NEUT) % 63.1 % (test code = 770-8) IMM GRAN % (test code 0.70 % = 4699712102) LYMPH % (test code = 22.0 % 736-9) MONO % (test code = 11.5 % 5905-5) EOS % (test code = 1.9 % 713-8) BASO % (test code = 0.8 % 706-2) GRAN MAT x10^3(ANC) 5.50 10*3/uL 1.99-6.95 (test code = 3676347468) IMM GRAN x10^3 (test 0.06 10*3/uL 0-0.06 code = 7424875469) LYMPH x10^3 (test code 1.92 10*3/uL 1.09-3.23 = 731-0) MONO x10^3 (test code 1.00 10*3/uL 0.36-1.02 = 742-7) EOS x10^3 (test code = 0.17 10*3/uL 0.06-0.53 711-2) BASO x10^3 (test code 0.07 10*3/uL 0.01-0.09 = 704-7) Lab Interpretation Abnormal (test code = 64909-9) [facility] URINALYSIS, [id number] 13:26:00 Test Item Value Reference Range Interpretation Comments POCT U SP GRAV (test code = 1.025 mg/dl 1.005-1.025 3255) POCT PH U (test code = 3254) 5.5 mg/dl 5-8 POCT U LEUK EST (test code = negative Negative - Negative 3263) POCT U NIT (test code = 3262) negative Negative - Negative POCT U PROT (test code = negative Negative - Negative 3259) POCT U GLU (test code = 3256) negative Negative - Negative POCT U KETONE (test code = negative Negative - Negative 3258) POCT U UROBILI (test code = 0.2 mg/dl 0.2-1 3260) POCT U BILI (test code = negative Negative - Negative 3261) POCT U BLD (test code = 3257) negative Negative - Negative POCT U COLOR (test code = yellow 3266) POCT U APPEAR (test code = cloudy 3267) [facility] URINALYSIS, [id number] 13:26:00 Test Item Value Reference Range Interpretation Comments POCT U SP GRAV (test code = 1.025 mg/dl 1.005-1.025 3255) POCT PH U (test code = 3254) 5.5 mg/dl 5-8 POCT U LEUK EST (test code = negative Negative - Negative 3263) POCT U NIT (test code = 3262) negative Negative - Negative POCT U PROT (test code = negative Negative - Negative 3259) POCT U GLU (test code = 3256) negative Negative - Negative POCT U KETONE (test code = negative Negative - Negative 3258) POCT U UROBILI (test code = 0.2 mg/dl 0.2-1 3260) POCT U BILI (test code = negative Negative - Negative 3261) POCT U BLD (test code = 3257) negative Negative - Negative POCT U COLOR (test code = yellow 3266) POCT U APPEAR (test code = cloudy 3267) [facility] URINALYSIS, [id number] 13:32:00 Test Item Value Reference Range Interpretation Comments POCT U SP GRAV (test code = 1.025 mg/dl 1.005-1.025 3255) POCT PH U (test code = 3254) 6.0 mg/dl 5-8 POCT U LEUK EST (test code = negative Negative - Negative 3263) POCT U NIT (test code = 3262) negative Negative - Negative POCT U PROT (test code = negative Negative - Negative 3259) POCT U GLU (test code = 3256) negative Negative - Negative POCT U KETONE (test code = negative Negative - Negative 8) POCT U UROBILI (test code = 0.2 mg/dl 0.2-1 3260) POCT U BILI (test code = negative Negative - Negative 1) POCT U BLD (test code = 3257) trace Negative - Negative POCT U COLOR (test code = yellow 3266) POCT U APPEAR (test code = clear 3267) [facility] URINALYSIS, [id number] 13:32:00 Test Item Value Reference Range Interpretation Comments POCT U SP GRAV (test code = 1.025 mg/dl 1.005-1.025 3255) POCT PH U (test code = 3254) 6.0 mg/dl 5-8 POCT U LEUK EST (test code = negative Negative - Negative 3263) POCT U NIT (test code = 3262) negative Negative - Negative POCT U PROT (test code = negative Negative - Negative 3259) POCT U GLU (test code = 3256) negative Negative - Negative POCT U KETONE (test code = negative Negative - Negative 3258) POCT U UROBILI (test code = 0.2 mg/dl 0.2-1 3260) POCT U BILI (test code = negative Negative - Negative 3261) POCT U BLD (test code = 3257) trace Negative - Negative POCT U COLOR (test code = yellow 3266) POCT U APPEAR (test code = clear 3267) [facility] URINALYSIS, [id number] 13:44:00 Test Item Value Reference Range Interpretation Comments POCT U SP GRAV (test code = 1.015 mg/dl 1.005-1.025 3255) POCT PH U (test code = 3254) 6.0 mg/dl 5-8 POCT U LEUK EST (test code = negative Negative - Negative 3263) POCT U NIT (test code = 3262) negative Negative - Negative POCT U PROT (test code = negative Negative - Negative 3259) POCT U GLU (test code = 3256) negative Negative - Negative POCT U KETONE (test code = negative Negative - Negative 3258) POCT U UROBILI (test code = 0.2 mg/dl 0.2-1 3260) POCT U BILI (test code = negative Negative - Negative 3261) POCT U BLD (test code = 3257) moderate Negative - Negative POCT U COLOR (test code = orange 3266) POCT U APPEAR (test code = clear 3267) [facility] URINALYSIS, [id number] 13:44:00 Test Item Value Reference Range Interpretation Comments POCT U SP GRAV (test code = 1.015 mg/dl 1.005-1.025 3255) POCT PH U (test code = 3254) 6.0 mg/dl 5-8 POCT U LEUK EST (test code = negative Negative - Negative 3263) POCT U NIT (test code = 3262) negative Negative - Negative POCT U PROT (test code = negative Negative - Negative 3259) POCT U GLU (test code = 3256) negative Negative - Negative POCT U KETONE (test code = negative Negative - Negative 3258) POCT U UROBILI (test code = 0.2 mg/dl 0.2-1 3260) POCT U BILI (test code = negative Negative - Negative 3261) POCT U BLD (test code = 3257) moderate Negative - Negative POCT U COLOR (test code = orange 3266) POCT U APPEAR (test code = clear 3267) [facility] HospitalBASIC METABOLIC [id number] 06:17:00 Test Item Value Reference Range Interpretation Comments SODIUM (test code = 139 MMOL/L 137-145 N NA) POTASSIUM (test code = 3.8 MMOL/L 3.5-5.1 N K) CHLORIDE (test code = 102 MMOL/L 98-107 N CL) CARBON DIOXIDE (test 31 MMOL/L 22-30 H code = CO2) GLUCOSE (test code = 109 MG/DL 74-106 H GLU) BLOOD UREA NITROGEN 15 MG/DL 9-20 N (test code = BUN) GLOMERULAR FILTRATION > 60 Report ing units: RATE (test code = GFR) ml/mi n/1.73 m2 (Modified MDRD Formula)Referen ce Range: > or = 6 0 ml/min/1.73 m2 CREATININE (test code 1.00 MG/DL 0.66-1.25 N = CREAT) CALCIUM (test code = 10.0 MG/DL 8.4-10.2 N CA) LIPID PROFILE (CORONARY RISK)2019-08-12 06:17:00 Test Item Value Reference Range Interpretation Comments TRIGLYCERIDES (test 104 MG/DL TRIGLYCE RIDES code = TRIG) REFERENCE RANGE:Normal: < 150 mg/dLBorderline High: 150-199 mg/dLHi gh: 200-499 mg/dLVe ry High: >=500 mg/ dL CHOLESTEROL (test code 174 MG/DL <200 = CHOL) HDL CHOLESTEROL (test 56 MG/DL 40-59 N code = HDL) LIPOPROTEIN LDL (test 105 MG/DL 0-99 H code = LDL) OPTIMAL........ .<100 mg/dLNEAR OPTIMAL/ABOVE OPTIMAL........ .100-12 9 mg/dL BORDERLINE HIGH.........13 0-159 mg/dL HIGH.........16 0-189 mg/dL VERY HIGH...... ...>/= 190 mg/dL [id number] 06:17:00 Test Item Value Reference Range Interpretation Comments MAGNESIUM (test code = MAG) 2.1 MG/DL 1.6-2.3 N BASIC METABOLIC [id number] 06:06:00 Test Item Value Reference Range Interpretation Comments SODIUM (test code = 139 MMOL/L 137-145 N NA) POTASSIUM (test code = 3.8 MMOL/L 3.5-5.1 N K) CHLORIDE (test code = 102 MMOL/L 98-107 N CL) CARBON DIOXIDE (test 31 MMOL/L 22-30 H code = CO2) GLUCOSE (test code = 109 MG/DL 74-106 H GLU) BLOOD UREA NITROGEN 15 MG/DL 9-20 N (test code = BUN) GLOMERULAR FILTRATION > 60 Report ing units: RATE (test code = GFR) ml/mi n/1.73 m2 (Modified MDRD Formula)Referen ce Range: > or = 6 0 ml/min/1.73 m2 CREATININE (test code 1.00 MG/DL 0.66-1.25 N = CREAT) CALCIUM (test code = 10.0 MG/DL 8.4-10.2 N CA) LIPID PROFILE (CORONARY RISK)2019-08-12 06:06:00 Test Item Value Reference Range Interpretation Comments TRIGLYCERIDES (test 104 MG/DL TRIGLYCE RIDES code = TRIG) REFERENCE RANGE:Normal: < 150 mg/dLBorderline High: 150-199 mg/dLHi gh: 200-499 mg/dLVe ry High: >=500 mg/ dL CHOLESTEROL (test code 174 MG/DL <200 = CHOL) HDL CHOLESTEROL (test 56 MG/DL 40-59 N code = HDL) LIPOPROTEIN LDL (test MG/DL 0-99 code = LDL) [id number] 06:06:00 Test Item Value Reference Range Interpretation Comments MAGNESIUM (test code = MAG) 2.1 MG/DL 1.6-2.3 N BASIC METABOLIC [id number] 06:05:00 Test Item Value Reference Range Interpretation Comments SODIUM (test code = 139 MMOL/L 137-145 N NA) POTASSIUM (test code = 3.8 MMOL/L 3.5-5.1 N K) CHLORIDE (test code = 102 MMOL/L 98-107 N CL) CARBON DIOXIDE (test 31 MMOL/L 22-30 H code = CO2) GLUCOSE (test code = 109 MG/DL 74-106 H GLU) BLOOD UREA NITROGEN 15 MG/DL 9-20 N (test code = BUN) GLOMERULAR FILTRATION > 60 Report ing units: RATE (test code = GFR) ml/mi n/1.73 m2 (Modified MDRD Formula)Referen ce Range: > or = 6 0 ml/min/1.73 m2 CREATININE (test code 1.00 MG/DL 0.66-1.25 N = CREAT) CALCIUM (test code = MG/DL 8.7-9.7 CA) LIPID PROFILE (CORONARY RISK)2019-08-12 06:05:00 Test Item Value Reference Range Interpretation Comments TRIGLYCERIDES (test 104 MG/DL TRIGLYCE RIDES code = TRIG) REFERENCE RANGE:Normal: < 150 mg/dLBorderline High: 150-199 mg/dLHi gh: 200-499 mg/dLVe ry High: >=500 mg/ dL CHOLESTEROL (test code 174 MG/DL <200 = CHOL) HDL CHOLESTEROL (test MG/DL 40-59 code = HDL) LIPOPROTEIN LDL (test MG/DL 0-99 code = LDL) [id number] 06:05:00 Test Item Value Reference Range Interpretation Comments MAGNESIUM (test code = MAG) MG/DL 1.6-2.3 BASIC METABOLIC [id number] 06:04:00 Test Item Value Reference Range Interpretation Comments SODIUM (test code = NA) 139 MMOL/L 137-145 N POTASSIUM (test code = K) 3.8 MMOL/L 3.5-5.1 N CHLORIDE (test code = CL) 102 MMOL/L 98-107 N CARBON DIOXIDE (test code = CO2) MMOL/L 22-30 GLUCOSE (test code = GLU) MG/DL 74-106 BLOOD UREA NITROGEN (test code = MG/DL 9-20 BUN) GLOMERULAR FILTRATION RATE (test code = GFR) CREATININE (test code = CREAT) MG/DL 0.66-1.25 CALCIUM (test code = CA) MG/DL 8.7-9.7 LIPID PROFILE (CORONARY RISK)2019-08-12 06:04:00 Test Item Value Reference Range Interpretation Comments TRIGLYCERIDES (test code = TRIG) MG/DL CHOLESTEROL (test code = CHOL) 174 MG/DL <200 HDL CHOLESTEROL (test code = HDL) MG/DL 40-59 LIPOPROTEIN LDL (test code = LDL) MG/DL 0-99 [id number] 06:04:00 Test Item Value Reference Range Interpretation Comments MAGNESIUM (test code = MAG) MG/DL 1.6-2.3 BASIC METABOLIC [id number] 06:02:00 Test Item Value Reference Range Interpretation Comments SODIUM (test code = NA) 139 MMOL/L 137-145 N POTASSIUM (test code = K) 3.8 MMOL/L 3.5-5.1 N CHLORIDE (test code = CL) 102 MMOL/L 98-107 N CARBON DIOXIDE (test code = CO2) MMOL/L 22-30 GLUCOSE (test code = GLU) MG/DL 74-106 BLOOD UREA NITROGEN (test code = MG/DL 9-20 BUN) GLOMERULAR FILTRATION RATE (test code = GFR) CREATININE (test code = CREAT) MG/DL 0.66-1.25 CALCIUM (test code = CA) MG/DL 8.7-9.7 LIPID PROFILE (CORONARY RISK)2019-08-12 06:02:00 Test Item Value Reference Range Interpretation Comments TRIGLYCERIDES (test code = TRIG) MG/DL CHOLESTEROL (test code = CHOL) MG/DL <200 HDL CHOLESTEROL (test code = HDL) MG/DL 40-59 LIPOPROTEIN LDL (test code = LDL) MG/DL 0-99 [id number] 06:02:00 Test Item Value Reference Range Interpretation Comments MAGNESIUM (test code = MAG) MG/DL 1.6-2.3 BASIC METABOLIC [id number] 06:01:00 Test Item Value Reference Range Interpretation Comments SODIUM (test code = NA) MMOL/L 137-145 POTASSIUM (test code = K) MMOL/L 3.5-5.1 CHLORIDE (test code = CL) 102 MMOL/L 98-107 N CARBON DIOXIDE (test code = CO2) MMOL/L 22-30 GLUCOSE (test code = GLU) MG/DL 74-106 BLOOD UREA NITROGEN (test code = MG/DL 9-20 BUN) GLOMERULAR FILTRATION RATE (test code = GFR) CREATININE (test code = CREAT) MG/DL 0.66-1.25 CALCIUM (test code = CA) MG/DL 8.7-9.7 LIPID PROFILE (CORONARY RISK)2019-08-12 06:01:00 Test Item Value Reference Range Interpretation Comments TRIGLYCERIDES (test code = TRIG) MG/DL CHOLESTEROL (test code = CHOL) MG/DL <200 HDL CHOLESTEROL (test code = HDL) MG/DL 40-59 LIPOPROTEIN LDL (test code = LDL) MG/DL 0-99 [id number] 06:01:00 Test Item Value Reference Range Interpretation Comments MAGNESIUM (test code = MAG) MG/DL 1.6-2.3 PROTHROMBIN [id number] 05:59:00 Test Item Value Reference Range Interpretation Comments PROTHROMBIN TIME 11.6 SECONDS 9.4-12.5 N PATIENT (test code = PTP) INTERNATIONAL NORMAL 1.0 The INR is to be RATIO (test code = used only for INR) monitoring oral anticoagulantth erap y. INDICATION I NR VALUE ---- ---- ---- -------1. Prophylaxis, de ep venous thrombos is, including hig h risk surgery. 2.0 - 3.0 2. Prophylaxis, de ep venous thrombos is, hip surgery, treatment for d eep venous thrombosis or pulmonary prevention of systemic emboli sm in patients wit h valvular heart disease, atrial fibrillation, tissue heart va lve, or acute myocar dial infarction. 2.0 - 3 .0 3. Mechanical prosthesis hear t valves, recurrent syste masood embolism. 3.0 - 4.5 PTT [id number] 05:59:00 Test Item Value Reference Range Interpretation Comments PTT ACTIVATED (test code = APTT) 30.3 SECONDS 25.1-36.5 N CBC W/AUTO [id number] 05:49:00 Test Item Value Reference Range Interpretation Comments WHITE BLOOD CELL (test code = 11.0 K/MM3 3.8-9.8 H WBC) RED BLOOD CELL (test code = 5.65 M/MM3 3.95-5.67 N RBC) HEMOGLOBIN (test code = HGB) 17.2 G/DL 12.4-16.7 H HEMATOCRIT (test code = HCT) 51.7 % 35.9-49.5 H MEAN CELL VOLUME (test code = 92 fL 81.7-96.1 N MCV) MEAN CELL HGB (test code = MCH) 30.4 pg 27.6-33.2 N MEAN CELL HGB CONCETRATION 33.3 % 32.9-35.5 N (test code = MCHC) RED CELL DISTRIBUTION WIDTH 12.6 % 12.1-15.2 N (test code = RDW) PLATELET COUNT (test code = 231 K/MM3 129-368 N PLT) MEAN PLATELET VOLUME (test code 11.7 fl 7.4-10.4 H = MPV) NEUTROPHIL % (test code = NT%) 64.8 % 43-75 N IMMATURE GRANULOCYTE % (test 0.5 % 0.0-2.0 N code = IG%) LYMPHOCYTE % (test code = LY%) 25.5 % 14-44 N MONOCYTE % (test code = MO%) 7.6 % 4-13 N EOSINOPHIL % (test code = EO%) 0.9 % 0-6 N BASOPHIL % (test code = BA%) 0.7 % 0-2 N NUCLEATED RBC % (test code = 0.0 % 0-1.0 N NRBC%) NEUTROPHIL # (test code = NT#) 7.14 K/mm3 2.0-7.6 N IMMATURE GRANULOCYTE # (test 0.06 x10 3/uL 0-0.03 H code = IG#) LYMPHOCYTE # (test code = LY#) 2.81 K/mm3 1.0-3.8 N MONOCYTE # (test code = MO#) 0.84 K/mm3 0.1-0.8 H EOSINOPHIL # (test code = EO#) 0.10 K/mm3 0.0-0.2 N BASOPHIL # (test code = BA#) 0.08 K/mm3 0.0-0.2 N NUCLEATED RBC # (test code = 0.00 K/mm3 0.0-0.1 N NRBC#) [id number] Test Item Value Reference Range Interpretation Comments Coronavirus 2019 [facility] Bedside (test Negative Negative code = COVNONPUIBED) Coron[facility] 2019 [facility] [id number] 15:51:00 Test Item Value Reference Range Interpretation Comments Coronavirus 2019 [facility] Bedside (test Negative Negative code = COVNONPUIBED) POCT URINALYSIS, [id number] 19:20:00 Test Item Value Reference Range Interpretation Comments POCT U SP GRAV (test code = <=1.005 1.005-1.025 3255) POCT PH U (test code = 3254) 5.5 mg/dl 5-8 POCT U LEUK EST (test code = negative Negative - Negative 3262) POCT U NIT (test code = negative Negative - Negative 3262) POCT U PROT (test code = negative Negative - Negative 3259) POCT U GLU (test code = negative Negative - Negative 3256) POCT U KETONE (test code = negative Negative - Negative 3258) POCT U UROBILI (test code = 0.2 mg/dl 0.2-1 3260) POCT U BILI (test code = negative Negative - Negative 3261) POCT U BLD (test code = negative Negative - Negative 3257) POCT U COLOR (test code = light yellow 3266) POCT U APPEAR (test code = clear 3267) [facility] URINALYSIS, [id number] 19:20:00 Test Item Value Reference Range Interpretation Comments POCT U SP GRAV (test code = <=1.005 1.005-1.025 3255) POCT PH U (test code = 3254) 5.5 mg/dl 5-8 POCT U LEUK EST (test code = negative Negative - Negative 3263) POCT U NIT (test code = negative Negative - Negative 3262) POCT U PROT (test code = negative Negative - Negative 325) POCT U GLU (test code = negative Negative - Negative 3256) POCT U KETONE (test code = negative Negative - Negative 3258) POCT U UROBILI (test code = 0.2 mg/dl 0.2-1 3260) POCT U BILI (test code = negative Negative - Negative 3261) POCT U BLD (test code = negative Negative - Negative 3257) POCT U COLOR (test code = light yellow 3266) POCT U APPEAR (test code = clear 3267) [facility] URINALYSIS, [id number] 19:20:00 Test Item Value Reference Range Interpretation Comments POCT U SP GRAV (test code = <=1.005 1.005-1.025 3255) POCT PH U (test code = 3254) 5.5 mg/dl 5-8 POCT U LEUK EST (test code = negative Negative - Negative 3263) POCT U NIT (test code = negative Negative - Negative 3262) POCT U PROT (test code = negative Negative - Negative 3259) POCT U GLU (test code = negative Negative - Negative 3256) POCT U KETONE (test code = negative Negative - Negative 3258) POCT U UROBILI (test code = 0.2 mg/dl 0.2-1 3260) POCT U BILI (test code = negative Negative - Negative 3261) POCT U BLD (test code = negative Negative - Negative 3257) POCT U COLOR (test code = light yellow 3266) POCT U APPEAR (test code = clear 3267) [facility] 2 [id number] 19:08:28HISTORY: Preop. TECHNIQUE: PA and lateral views of the chest are obtained. Comparison ismade with portable study of 05/01/2018. FINDINGS: No acute pneumonia detected. No pneumothorax or pleural effusionor pulmonary congestion. Cardiothoracic ratio of approximately 13.6/35.2 cmis consistent with normal cardiac size. Multilevel lower cervical ACDFsurgical changes noted. No compression fracture detected in the thoracicvertebral bodies. No aggressive bone lesions. CONCLUSIONS: No signs of acute cardiopulmonary disease. [facility], Radiant Results Inft User - 12/08/2018 2:08 PM CDTHISTORY: Preop.TECHNIQUE: PA and lateral views of the chest are obtained. Comparison ismade with portable study of 05/01/2018.FINDINGS: No acute pneumonia detected. No pneumothorax or pleural effusionor pulmonary congestion. Cardiothoracic ratio of approximately 13.6/35.2 cmis consistent with normal cardiac size. Multilevel lower cervical ACDFsurgical changes noted. No compression fracture detected in the thoracicvertebral bodies. No aggressive bone lesions.CONCLUSIONS: No signs of acute cardiopulmonary disease.[facility] HospitalPROCALCITONIN2019-09-06 15:21:00 Test Item Value Reference Range Interpretation Comments Procalcitonin (test 0.11 ng/mL <0.07 H code = 8090201976) [place] (test code = [place]) INTERPRETATION OF PROCALCITONIN RESULTS IN ADULTS >= 18 YEARS OF AGEInitiation and discontinuation of antibiotics on patients with suspected or confirmed Lower Respiratory Tract Infection in Adults >= 18 years of age.+ +---- + ----+ ---------+|Procalcitonin |Interpretation?|Antibio tic? |Considerations? |ng/mL? |?|recommendation |? + +-------- --------+ + -----+| <0.1? | Bacterial?| Strongly?|? |?| infection very | discouraged? | Overruling:? |?| unlikely? |? | ? Clinically unstable? + +-------- --------+ + ? High risk for adverse? | <0.25?| Bacterial?| Discouraged? |? outcome? |?| infection?|? | ? SEE IMPORTANT NOTE?|?| unlikely? |? |? + +-------- --------+ + -----+| >=0.25? | Bacterial?| Encouraged?|? |?| infection?|? |? |?| likely? |? | Consider treatment failure?+ + +------- --------+ if levels does not decrease | >0.5? | Bacterial?| Strongly?| appropriately? |?| infection very | encouraged?|? |?| likely? |? |? + +-------- --------+ + -----+Discontinuation of antibiotics in high-acuity patients with suspected or confirmed sepsis in Adults >= 18 years of age.+ +---- + ----+ ---------+|Procalcitonin |Interpretation?|Antibio tic? |Considerations? |ng/mL? |?|recommendation |? + +-------- --------+ + -----+| <0.25?| Bacterial?| Strongly?|? |?| infection very | discouraged? | Overruling:? |?| unlikely? |? | ? Clinically unstable? + +-------- --------+ + ? High risk for adverse? | <0.5 or drop | Bacterial?| Discouraged? |? outcome? | >80% from?| infection?|? | ? SEE IMPORTANT NOTE?| highest PCT?| unlikely? |? |? | level?|?|? |? + +-------- --------+ + -----+| >=0.5?| Bacterial?| Encouraged?|? |?| infection?|? |? |?| likely? |? | Consider treatment failure?+ + +------- --------+ if levels does not decrease | >1.0? | Bacterial?| Strongly?| appropriately? |?| infection very | encouraged?|? |??| likely? |? |? + +-------- --------+ + -----+Percentage of drop of Procalcitonin calculation for Discontinuation of antibiotics in high-acuity patients with suspected or confirmed sepsis in Adults >= 18 years of age.? Procalcitonin highest{}-Procalcitonin current{}Delta Procalcitonin = x100% ? Procalcitonin current {}IMPORTANT NOTE: Procalcitonin may be elevated without bacterial infection by physiologic stress related to trauma, magana, chronic dialysis, metastatic cancer, surgery in the past seven days, malaria, some fungal infections, and some forms of vasculitis. The interpretation algorithm may not apply to patients with immunosuppression (equivalent of >10 mg of prednisone daily), HIV with CD4 cell count < 350 cells/mm3, active malignancy on systemic chemotherapy, solid organ transplant or hematopoietic stem cell transplantation, or hospital acquired pneumonia. Additionally, some clinical trials of procalcitonin have excluded patients with shock requiring vasopressor use, acute respiratory failure requiring mechanical ventilation, or those with known lung abscess/empyema.For further information please refer to:[email or web address] Lab Interpretation Abnormal (test code = 07132-6) [facility] HospitalTHYROID STIMULATING [id number] 14:36:00 Test Item Value Reference Range Interpretation Comments TSH (test code = See_Comment L Biotin has been 5345330668) reported to [facility] se a negative bias, interpret resul ts relative to ulices lopes's use of biotin. [Automated mess age] The system whic h generated this result transmitted ref erence range: 0.45 - 4 .70 mIU/L. The refe rence range was not u sed to interpret this result as normal/abnor mal. Lab Interpretation (test Abnormal code = 98586-1) [facility] HospitalURINALYSIS2019-09-06 13:32:00 Test Item Value Reference Range Interpretation Comments APPEARANCE (test code Slightly Hazy Clear A = 6083389176) COLOR (test code = Yellow Yellow 5231621067) PH (test code = 4.8-8.0 9030182924) SP GRAVITY (test code 1.003-1.030 = 2656253158) GLU U QUAL (test code Negative Negative = 3081599785) BLOOD (test code = Small Negative A 4127920226) KETONES (test code = Negative Negative 1806390472) PROTEIN (test code = Negative Negative 2887-8) UROBILIN (test code = 0.2 mg/dL See_Comment [Auto mated 7415150740) message] The system which generated this result transmit radha reference range : 0-1.0 mg/dL. Th e reference range was not used to interpret this result as normal/abnormal . BILIRUBIN (test code = Negative Negative 8163506396) NITRITE (test code = Negative Negative 4977744055) LEUK AGNES (test code Negative Negative = 5472138240) RBC/HPF (test code = See_Comment H [Autom ated 4484867067) message] The system which generated this result transmit radha reference range : 0 - 3 HPF. The reference range was not used to interpret this result as normal/abnormal . WBC/HPF (test code = See_Comment [Autom ated 0774547545) message] The system which generated this result transmit radha reference range : 0 - 5 HPF. The reference range was not used to interpret this result as normal/abnormal . BACTERIA (test code = Moderate Negative A 8942361193) MUCOUS (test code = Slight Negative LPF A 3425717636) CHOL SUKHI (test code = See_Comment [Aut omated 7156061144) message] The system which generated this result transmit radha reference range : <=1 HPF. The reference range was not used to interpret this result as normal/abnormal . Lab Interpretation Abnormal (test code = 59630-5) [facility] HospitalURIC ACID, URIC [id number] 12:52:00 Test Item Value Reference Range Interpretation Comments URIC AC U (test code = 9428584573) 46.6 mg/dL [facility] HospitalCOMP. METABOLIC PANEL (67120)2018-12-02 12:30:00 Test Item Value Reference Range Interpretation Comments NA (test code = 140 mmol/L 135-145 2503212887) K (test code = 4.8 mmol/L 3.5-5 7053507229) CL (test code = 109 mmol/L 98-108 H 8571643290) CO2 TOTAL (test code = 24 mmol/L 23-31 0834590776) AGAP (test code = 2-16 4300508894) BUN (test code = 25 mg/dL 7-23 H 3233889968) GLUCOSE (test code = 129 mg/dL 70-110 H 1988563114) CREATININE (test code = 1.02 mg/dL 0.6-1.25 6391544283) TOTAL BILI (test code = 0.4 mg/dL 0.1-1.0 0876120075) CALCIUM (test code = 9.1 mg/dL 8.6-10.6 5911879811) T PROTEIN (test code = 5.9 g/dL 6.3-8.2 L 7967718041) ALBUMIN (test code = 3.8 g/dL 3.5-5 1368409879) ALK PHOS (test code = 86 U/L 34-122 3953971199) ALT(SGPT) (test code = 60 U/L 9-51 H 6370029450) AST(SGOT) (test code = 61 U/L 13-40 H 4214333098) eGFR Calculation mL/min/1.73m2 (Non-) (test code = 9331709321) eGFR Calculation mL/min/1.73m2 () (test code = 0478387071) [place] (test code = [place]) Association of Glomerular Filtration Rate (GFR) and Staging of Kidney Disease*+ + + +| GFR (mL/min/1.73 m2)?| With Kidney Damage?|?Without Kidney Damage+ --------+ --------+ +|?>90?|?S tage one?|? Normal?+ ---------+ ---------+ +|?60-89? |?Stage two?|? Decreased GFR? + --+ --+ ------+|?30-59?|?Stage three?|? Stage three? + --+ --+ ------+|?15-29?|?Stage four? |? Stage four?+ -------+ -------+ +|?<15 (or dialysis)?|?Stage five? |? Stage five?+ -------+ -------+ +*Each stage assumes the associated GFR level has been in effect for at least three months.?Stages 1 to 5, with or without kidney disease, indicate chronic kidney disease.Notes: Determination of stages one and two (with eGFR >59mL/min/1.73 m2) requires estimation of kidney damage for at least three months as defined by structural or functional abnormalities of the kidney, manifested by either:Pathological abnormalities or Markers of kidney damage (including abnormalities in the composition of the blood or urine or abnormalities in imaging tests). Lab Interpretation Abnormal (test code = 26378-9) [facility] HospitalMAGNESIUM2019-09-06 11:28:00 Test Item Value Reference Range Interpretation Comments MAGNESIUM (test code = 4525572296) 2.4 mg/dL 1.7-2.4 Lab Interpretation (test code = Normal 36879-1) [facility] HospitalURIC [id number] 11:27:00 Test Item Value Reference Range Interpretation Comments URIC ACID (test code = 9696429330) 6.9 mg/dL 3.6-8 Lab Interpretation (test code = Normal 98590-0) [facility] HospitalCB WITH [id number] 11:06:00 Test Item Value Reference Range Interpretation Comments WBC (test code = See_Comment [Automated 4519-2) message] The sy stem which generated this result transmitted reference range : 4.20 - 10.70 10*3/?L. The reference range was not used to interpret this result as normal/abnormal . RBC (test code = See_Comment [Automated 058-5) message] The sy stem which generated this result transmitted reference range : 4.26 - 5.52 10*6/?L. The reference range was not used to interpret this result as normal/abnormal . HGB (test code = 13.3 g/dL 12.2-16.4 718-7) HCT (test code = 39.1 % 38.4-49.3 4544-3) MCV (test code = 89.1 fL 81.7-95.6 787-2) MCH (test code = 30.3 pg 26.1-32.7 785-6) MCHC (test code = 34.0 g/dL 31.2-35 786-4) RDW-SD (test code = 41.0 fL 38.5-51.6 20960-2) RDW-CV (test code = 12.6 % 12.1-15.4 788-0) PLT (test code = See_Comment L [Automated 777-3) message] The sy stem which generated this result transmitted reference range : 150 - 328 10*3/ ?L. The reference r alfreda was not used to interpret this result as normal/abnormal . MPV (test code = 12.3 fL 9.8-13 99552-2) IPF % (test code = 7.2 % 1.2-10.7 Platelet count 1690506460) measured by fluorescence method. NRBC/100 WBC (test See_Comment [Automat ed code = 8464753806) message] The system which generated this result transmitted reference range : 0.0 - 10.0 /100 WBCs. The refer ence range was not u sed to interpret th is result as normal/abnormal . NRBC x10^3 (test code <0.01 See_Comment [Auto mated = 1427239387) message] The s ystem which generated this result transmitted reference range : 10*3/?L. The reference range was not used to interpret this result as normal/abnormal . GRAN MAT (NEUT) % 80.4 % (test code = 770-8) IMM GRAN % (test code 0.60 % = 5045819672) LYMPH % (test code = 9.0 % 736-9) MONO % (test code = 9.7 % 5905-5) EOS % (test code = 0.1 % 713-8) BASO % (test code = 0.2 % 706-2) GRAN MAT x10^3(ANC) 7.05 10*3/uL 1.99-6.95 H (test code = 5436987322) IMM GRAN x10^3 (test 0.05 10*3/uL 0-0.06 code = 2793379787) LYMPH x10^3 (test code 0.79 10*3/uL 1.09-3.23 L = 731-0) MONO x10^3 (test code 0.85 10*3/uL 0.36-1.02 = 742-7) EOS x10^3 (test code = <0.03 0.06-0.53 L 711-2) BASO x10^3 (test code <0.03 0.01-0.09 = 704-7) Lab Interpretation Abnormal (test code = 89531-1) [facility] HospitalPROTEIN CREAT RATIO URINE [id number] 05:01:00 Test Item Value Reference Range Interpretation Comments T. PROT U (test 12 mg/dL code = 2888-6) CREAT U (test code 19.6 mg/dL = 9564480535) Protein/Creatinine 0.0-2.0 Ratio Urine (test code = 1553184730) [place] (test code = Random Urine Total Protein [place]) Reference RangesRandom Specimen:? Less than 10 mg/dLFirst Morning Specimen:?Less than 20 mg/dL? [facility] HospitalSODIUM, URINE [id number] 04:37:00 Test Item Value Reference Range Interpretation Comments NA URINE (test code = 6871748841) 13 mmol/L [facility] HospitalUS RETROPERITONEAL [id number] 04:05:19 Unremarkable renal ultrasound. IRodolfo MD., have reviewed this study and agree with the abovereport.HISTORY: PAUL, urinary retention . RENAL ULTRASOUND COMPARISON: None. FINDINGS: RIGHT KIDNEY: Normal size, contour, and echotexture. The right kidneymeasures 10.6 x 5.2 x 5.1 cm in length.?No ne phrolithiasis orhydronephrosis. LEFT KIDNEY: Normal size, contour, and echotexture.?The left kidneymeasures 13.3 x 17.2 x 6.5 cm in length. No nephrolithiasis orhydronephrosis. BLADDER: A Mena catheter decompresses the urinary bladder. [facility], Radiant Results Inft User - 12/01/2018 11:05 PM CDTHISTORY:PAUL, urinary retention . RENAL ULTRASOUNDCOMPARISON: None.FINDINGS: RIGHT KIDNEY: Normal size, contour, and echotexture. The right kidneymeasures 10.6 x 5.2 x 5.1 cm in length. No nephrolithiasis orhydronephrosis.LEFT KIDNEY: Normal size, contour, and echotexture. The left kidneymeasures 13.3 x 17.2x 6.5 cm in length. No nephrolithiasis orhydronephrosis.BLADDER: A Mena catheter decompresses the urinary bladder.IMPRESSIONUnremarkable renal ultrasound.Cierra Alston MD., have reviewed this studyand agree with the abovereport. [facility] HospitalCT ABDOMEN PELVIS WO [id number] 04:01:[address] findings explain patient's hematuria. Specifically, nohydronephrosis or uretero nephrolithiasis or bladder stone is identified.2.?Mild colonic diverticulosis without CT evidence of acutedivert iculitis.3.?Mild hepatomegaly.4.?Status post cholecystectomy. IRodolfo MD., have reviewed this study and agree with the abovereport.* * * * * * * * ORIGINAL REPORT * * * * * * * * EXAM: CT ABDOMEN PELVIS WO CONTRAST HISTORY: 53-year-old male complains of Hematuria, unknown cause COMPARISON: CT abdomen pelvis dated 06/16/2018 TECHNIQUE AND FINDINGS: Contiguous axial imaging from the level of the lungbases through the pubic symphysis was performed without the intravenousadministration of contrast. Coronal and sagittal reconstructions wereobtained.?Auto mA and/or iterative reconstruction were used to reduceradiation dose. FINDINGS: LOWER THORAX: The lungs bases are clear; except for scatteredright basaldependent atelectasis. No cardiomegaly. LIVER: The liver is enlarged, measures 18.6 cm. Normal contour. No focalhepatic lesions are identified within limitation of a noncontrast study. GALLBLADDER AND BILIARY TREE: No biliary ductal dilation. Surgical absenceof the gallbladder. SPLEEN: No splenomegaly. PANCREAS: No ductal dilation or masses. ADRENAL GLANDS: No adrenal nodules. KIDNEYS: No hydronephrosis, stones, or masses. PERITONEUM AND RETROPERITONEUM: No free air or fluid. LYMPH NODES:No lymphadenopathy. GI TRACT: Scattered diverticuli are seen along the sigmoid and descendingcolon, without pericolonic inflammation. No bowel dilation or wallthickening. The appendix is normal (2:72-87). PELVIS/BLADDER: The bladder is partially decompressed and contained a Foleycatheter. No bladder stone is appreciated. Nondependent air is seen withinthe bladder, likely related to prior catheterization. VESSELS: Scattered atherosclerotic calcifications are seen along theaortoiliac arterial trunk. BONES AND SOFT TISSUES: Minimal retrolisthesis of L1 on L2. Mildthoracolumbar stenosis is noted. Scattered punctate foci of sclerosis areseen in the right femoral head, likely within bone islands. No susp iciouslytic or sclerotic bony lesions. Mild thoracolumbar degenerative changesare noted. An electronic device is seen in the right abdominal wall. [facility], Radiant Results Inft User - 12/01/2018 11:01 PMCDT* * * * * * * * ORIGINAL REPORT * * * * * * * *EXAM: CT ABDOMEN PELVIS WO CONTRASTHISTORY: 53-year-old male complains of Hematuria, unknown cause COMPARISON: CT abdomen pelvis dated 06/16/2018TECHNIQUE AND FINDINGS: Contiguous axial imaging from the level of the lungbases through the pubic symphysiswas performed without the intravenousadministration of contrast. Coronal and sagittal reconstructions wereobtained. Auto mA and/or iterative reconstruction were used to reduceradiation dose.FINDINGS:LOWER THORAX: The lungs bases are clear; except for scattered right basaldependent atelectasis. No cardiomegaly.LIVER: The liver is enlarged, measures 18.6 cm. Normal contour. No focalhepatic lesions are identified within limitation of a noncontrast study.GALLBLADDER AND BILIARY TREE: No biliary ductal dilation. Surgical absenceof the gallbladder.SPLEEN: No splenomegaly.PANCREAS: No ductal dilation or masses.ADRENAL GLANDS: No adrenal nodules.KIDNEYS: No hydronephrosis, stones, or masses.PERITONEUM AND RETROPERITONEUM: No free air or fluid.LYMPH NODES: No lymphadenopathy.GI TRACT: Scattered diverticuli are seen along the sigmoid and descendingcolon, without pericolonic inflammation. No bowel dilation or wallthickening. The appendix is normal (2:72-87).PELVIS/BLADDER: The bladder is partially decompressed and contained a Foleycatheter. No bladder stone is appreciated. Nondependent air is seen withinthe bladder, likely related to prior catheterization.VESSELS: Scattered atherosclerotic calcifications are seen along theaortoiliac arterial trunk.BONES AND SOFT TISSUES: Minimal retrolisthesis of L1 on L2. Mildthoracolumbar stenosis is noted. Scattered punctate foci of sclerosis areseen in the right femoral head, likely within bone islands. No suspiciouslytic or sclerotic bony lesions. Mild thoracolumbar degenerative changesare noted. An electronic device is seen in the right abdominal wall. IMPRESSION1. No CT findings explain patient's hematuria. Specifically, nohydronephrosis or uretero nephrolithiasis or bladder stone is identified.2. Mild colonic diverticulosis without CT evidence of acutediverticulitis.3. Mild hepatomegaly.4. Status post cholecystectomy. I, Cierra Moralez MD., have review ed this study and agree with the abovereport.[facility] URIC [id number] 03:04:00 Test Item Value Reference Range Interpretation Comments URIC ACID (test code = 7973366380) 11.0 mg/dL 3.6-8 H Lab Interpretation (test code = Abnormal 50401-3) [facility] 22:04:00 Test Item Value Reference Range Interpretation Comments APPEARANCE (test code = Clear Clear 0981524803) COLOR (test code = Yellow Yellow 8419995088) PH (test code = 4.8-8.0 1380998582) SP GRAVITY (test code = >=1.030 1.003-1.030 7323239769) GLU U QUAL (test code = Negative Negative 3062075959) BLOOD (test code = Trace Negative A 2165536662) KETONES (test code = Negative Negative 8759803158) PROTEIN (test code = Negative Negative 2887-8) UROBILIN (test code = 0.2 mg/dL See_Comment [Auto mated message] 5242192312) The system [employer] generated this result transmit radha reference range : 0-1.0 mg/dL. Th e reference range was not used to interpret this result as normal/abnormal . BILIRUBIN (test code = Negative Negative 5666333270) NITRITE (test code = Negative Negative 5250044538) LEUK AGNES (test code = Negative Negative 8165661255) RBC/HPF (test code = See_Comment [Autom ated message] 1778061864) The system [employer] generated this result transmit radha reference range : 0 - 3 HPF. The refe rence range was not u sed to interpret th is result as normal/abnormal . WBC/HPF (test code = See_Comment [Autom ated message] 9201394347) The system [employer] generated this result transmit radha reference range : 0 - 5 HPF. The refe rence range was not u sed to interpret th is result as normal/abnormal . BACTERIA (test code = Few Negative A 5140436687) SQ EPITH (test code = HPF 5667856185) Lab Interpretation (test Abnormal code = 93797-1) [facility]. METABOLIC PANEL (64243)2018-12-01 21:05:00 Test Item Value Reference Range Interpretation Comments NA (test code = 138 mmol/L 135-145 8605412127) K (test code = 4.3 mmol/L 3.5-5 0120526507) CL (test code = 102 mmol/L 98-108 7593932404) CO2 TOTAL (test code = 23 mmol/L 23-31 3866856322) AGAP (test code = 2-16 3860842383) BUN (test code = 36 mg/dL 7-23 H 8305886643) GLUCOSE (test code = 140 mg/dL 70-110 H 0169501261) CREATININE (test code = 2.05 mg/dL 0.6-1.25 H 5552788831) TOTAL BILI (test code = 0.5 mg/dL 0.1-1.1 3725832401) CALCIUM (test code = 9.5 mg/dL 8.6-10.6 3328008061) T PROTEIN (test code = 7.3 g/dL 6.3-8.2 1557091334) ALBUMIN (test code = 4.6 g/dL 3.5-5 7188693178) ALK PHOS (test code = 95 U/L 34-122 0337504598) ALT(SGPT) (test code = 70 U/L 9-51 H 3560682234) AST(SGOT) (test code = 91 U/L 13-40 H 0072046073) eGFR Calculation mL/min/1.73m2 (Non-) (test code = 2493489982) eGFR Calculation mL/min/1.73m2 () (test code = 9821247987) [place] (test code = [place] Association of Glomerular Filtration Rate (GFR) and Staging of Kidney Disease*+ + + +| GFR (mL/min/1.73 m2)?| With Kidney Damage?|?Without Kidney Damage+ --------+ --------+ +|?>90?|?S tage one?|? Normal?+ ---------+ ---------+ +|?60-89? |?Stage two?|? Decreased GFR? + --+ --+ ------+|?30-59?|?Stage three?|? Stage three? + --+ --+ ------+|?15-29?|?Stage four? |? Stage four?+ -------+ -------+ +|?<15 (or dialysis)?|?Stage five? |? Stage five?+ -------+ -------+ +*Each stage assumes the associated GFR level has been in effect for at least three months.?Stages 1 to 5, with or without kidney disease, indicate chronic kidney disease.Notes: Determination of stages one and two (with eGFR >59mL/min/1.73 m2) requires estimation of kidney damage for at least three months as defined by structural or functional abnormalities of the kidney, manifested by either:Pathological abnormalities or Markers of kidney damage (including abnormalities in the composition of the blood or urine or abnormalities in imaging tests). Lab Interpretation Abnormal (test code = 92589-2) [facility] WITH [id number] 20:55:00 Test Item Value Reference Range Interpretation Comments WBC (test code = See_Comment H [Automated 2137-2) message] The system which generated this result transmit radha reference range : 4.20 - 10.70 10*3/?L. The reference range was not used to interpret this result as normal/abnormal . RBC (test code = See_Comment [Automated 979-8) message] The system which generated this result transmit radha reference range : 4.26 - 5.52 10*6/?L. The reference range was not used to interpret this result as normal/abnormal . HGB (test code = 14.8 g/dL 12.2-16.4 718-7) HCT (test code = 44.6 % 38.4-49.3 4544-3) MCV (test code = 89.0 fL 81.7-95.6 787-2) MCH (test code = 29.5 pg 26.1-32.7 785-6) MCHC (test code = 33.2 g/dL 31.2-35 786-4) RDW-SD (test code = 40.4 fL 38.5-51.6 78002-8) RDW-CV (test code = 12.4 % 12.1-15.4 788-0) PLT (test code = See_Comment [Automated 777-3) message] The system which generated this result transmit radha reference range : 150 - 328 10*3/ ?L. The reference range was not u sed to interpret th is result as normal/abnormal . MPV (test code = 11.6 fL 9.8-13 86409-2) NRBC/100 WBC (test See_Comment [Automat ed code = 4444187602) message] The system which generated this result transmit radha reference range : 0.0 - 10.0 /100 WBCs. The reference range was not used to interpret this result as normal/abnormal . NRBC x10^3 (test code <0.01 See_Comment [Auto mated = 8073234375) message] The system which generated this result transmit radha reference range : 10*3/?L. The reference range was not used to interpret this result as normal/abnormal . GRAN MAT (NEUT) % 84.0 % (test code = 770-8) IMM GRAN % (test code 0.60 % = 7519899750) LYMPH % (test code = 10.0 % 736-9) MONO % (test code = 5.1 % 5905-5) EOS % (test code = 0.0 % 713-8) BASO % (test code = 0.3 % 706-2) GRAN MAT x10^3(ANC) 11.73 10*3/uL 1.99-6.95 H (test code = 0360741895) IMM GRAN x10^3 (test 0.08 10*3/uL 0-0.06 H code = 8372384344) LYMPH x10^3 (test code 1.40 10*3/uL 1.09-3.23 = 731-0) MONO x10^3 (test code 0.71 10*3/uL 0.36-1.02 = 742-7) EOS x10^3 (test code = <0.03 0.06-0.53 L 711-2) BASO x10^3 (test code 0.04 10*3/uL 0.01-0.09 = 704-7) Lab Interpretation Abnormal (test code = 72210-4) [facility] (NON-REPORTABLE)2018-11-04 15:38:18 These images do not require a Radiology diagnostic report.[facility]2019-07-29 14:11:00 Test Item Value Reference Range Interpretation Comments APTT Patient (test See_Comment [Automat ed code = 3173-2) message] The system which generated this result transmitted reference range : 23 - 38 Seconds . The reference range was not used to interpr et this result as normal/abnormal . [place] (test code = [place]) The [facility] patient population mean normal value for aPTT is 30 seconds. Lab Interpretation Normal (test code = 09861-7) [facility] HospitalPROTHROMBIN TIME / [id number] 14:09:00 Test Item Value Reference Range Interpretation Comments PROTIME PATIENT (test See_Comment L [Auto mated message] code = 5964-2) The system wh ich generated this result transmitted ref erence range: 12.0 - 1 4.7 Seconds. The reference range was not used to int erpret this result as normal/abnormal . INR (test code = 6301-6) Nor mal INR <1.1; Warfarin Therap eutic range 2.0 to 3. 0 or 2.5 to 3.5, dep ending upon the indica tions. Lab Interpretation (test Abnormal code = 04939-4) [facility] HospitalADC OR [facility] ONLY - PLATELET FUNCTION TEST 2018-10-24 13:47:00 Test Item Value Reference Range Interpretation Comments COL/ADP See_Comment ADP did not nee d (test code to be run due t o = EPI within norm al 4162152583) ranges. [Automated message] The system which generated this result transmitted reference range : 56 - 102 Second s. The reference range was not used to interpr et this result as normal/abnormal . COL/EPI See_Comment [Automated (test code message] The = system which 5792584995) generated this result transmitted reference range : 80 - 184 Second s. The reference range was not used to interpr et this result as normal/abnormal . [place] (test ? INTERPRETATION/ASSESSMENT code = [place]) OF PLATELET FUNCTIONPFA? Normal?ASA(Aspirin)? vWD, Thrombasthenia or Result? ? review platelet count and H&H? COL/EPI? Normal?Abnormal? Abnormal? COL/ADP? Not Done?Normal? AbnormalIf platelets are below 100,000 and both PFA results are abnormal, this indicatesquantitative and/or qualitative platelet abnormality with potential failure toform primary hemostatic plug.?Platelet supplements should be considered if clinicallyindicated.If platelets are above 100,000 but hematocrit is below 25 and both PFA results areabnormal, this indicates platelet dysfunction due to a disturbance in normal laminarblood flow with a potential to bleed.?Consider red cell transfusion prior to consideringplatelet supplements. [facility] HospitalCB WITH [id number] 13:44:00 Test Item Value Reference Range Interpretation Comments WBC (test code = See_Comment [Automated 9290-2) message] The sy stem which generated this result transmitted reference range : 4.20 - 10.70 10*3/?L. The reference range was not used to interpret this result as normal/abnormal . RBC (test code = See_Comment H [Automated 769-8) message] The sy stem which generated this result transmitted reference range : 4.26 - 5.52 10*6/?L. The reference range was not used to interpret this result as normal/abnormal . HGB (test code = 17.5 g/dL 12.2-16.4 H 718-7) HCT (test code = 52.4 % 38.4-49.3 H 4544-3) MCV (test code = 90.2 fL 81.7-95.6 787-2) MCH (test code = 30.1 pg 26.1-32.7 785-6) MCHC (test code = 33.4 g/dL 31.2-35 786-4) RDW-SD (test code = 43.4 fL 38.5-51.6 11782-4) RDW-CV (test code = 13.2 % 12.1-15.4 788-0) PLT (test code = See_Comment [Automated 777-3) message] The sy stem which generated this result transmitted reference range : 150 - 328 10*3/ ?L. The reference r alfreda was not used to interpret this result as normal/abnormal . MPV (test code = 12.0 fL 9.8-13 34717-6) NRBC/100 WBC (test See_Comment [Automat ed code = 9838960094) message] The system which generated this result transmitted reference range : 0.0 - 10.0 /100 WBCs. The refer ence range was not u sed to interpret th is result as normal/abnormal . NRBC x10^3 (test code <0.01 See_Comment [Auto mated = 3580319335) message] The s ystem which generated this result transmitted reference range : 10*3/?L. The reference range was not used to interpret this result as normal/abnormal . GRAN MAT (NEUT) % 56.8 % (test code = 770-8) IMM GRAN % (test code 0.40 % = 2052646916) LYMPH % (test code = 26.5 % 736-9) MONO % (test code = 10.2 % 5905-5) EOS % (test code = 4.6 % 713-8) BASO % (test code = 1.5 % 706-2) GRAN MAT x10^3(ANC) 3.78 10*3/uL 1.99-6.95 (test code = 3817232573) IMM GRAN x10^3 (test 0.03 10*3/uL 0-0.06 code = 6714760265) LYMPH x10^3 (test code 1.77 10*3/uL 1.09-3.23 = 731-0) MONO x10^3 (test code 0.68 10*3/uL 0.36-1.02 = 742-7) EOS x10^3 (test code = 0.31 10*3/uL 0.06-0.53 711-2) BASO x10^3 (test code 0.10 10*3/uL 0.01-0.09 H = 704-7) Lab Interpretation Abnormal (test code = 41306-3) [facility]"
[2021-07-21] MEDS ORDERED: ASPIRIN 81 MG CHEWABLE TABLET ONE (14:36)
[2021-07-21] MEDS ORDERED: METHYLPREDNISOLONE 125 MG INJ ONE (14:36)
[2021-07-21] MEDS ORDERED: ALBUTEROL 2.5 MG/3 ML NEB SOL ONE (14:37)
[2021-07-21] MEDS ORDERED: FAMOTIDINE 20 MG/2 ML VIAL IV ONE (14:37)
[2021-07-21] MEDS ORDERED: IPRATROPIUM BROM 0.5MG/2.5ML ONE (14:37)
[2021-07-21 15:04] LABS: Absolute Lymphocytes (CBC) 1.9 K/uL (0.7-4.9); Hematocrit 46.3 % (39.6-49.0); Lymphocytes % 23.5 % (15.3-44.8); MPV 9.4 fL (7.6-11.3); Protime INR 0.96; RBC Red Blood Cell Count 5.38 M/uL (4.33-5.43)
[2021-07-21 15:36] LABS: ALT/SGPT 71 U/L (12-78); AST/SGOT 28 U/L (15-37); Albumin 3.6 g/dL (3.4-5.0); Alkaline Phosphatase 105 U/L (45-117); BUN Blood Urea Nitrogen 8 mg/dL (7-18); Bicarbonate 27 mmol/L (21-32); Bilirubin Total 0.3 mg/dL (0.2-1.0); Glucose Level 88 mg/dL (74-106); Magnesium 2.1 mg/dL (1.8-2.4); NT PRO-BNP 191 pg/mL (<125); Potassium 4.1 mmol/L (3.5-5.1); Protein, Total 7.1 g/dL (6.4-8.2); Sodium Level 139 mmol/L (136-145)
[2021-07-21 15:37] LABS: Bilirubin Direct < 0.1 mg/dL (0-0.2)
--- NOTE | 2021-07-21 16:11 | RAD REPORT ---
EXAM DESCRIPTION: RAD - Chest Single View - 07/21/2021 4:02 pm CLINICAL HISTORY: SOB COMPARISON: Chest Pa And Lat (2 Views) dated 05/30/2021; Chest Pa And Lat (2 Views) dated 09/15/2016; C HEST PA AND LAT 2 VIEW dated 05/07/2014; CHEST PA AND LAT 2 VIEW dated 04/25/2014 FINDINGS: Lines: None. Lungs: No evidence of edema or pneumonia. Pleural: No significant pleural effusions or pneumothorax. Cardiac: The heart size is within normal limits. Bones: No acute fractures. ACDF in the cervical spine. Other: IMPRESSION: No acute cardiopulmonary disease.
[2021-07-21] MEDS ORDERED: ONDANSETRON 4 MG/2 ML VIAL ONE (17:28)
[2021-07-21 17:33] LABS: Urine Blood Negative (Negative); Urine Glucose Negative (Negative); Urine Protein Negative (Negative); Urine Specific Gravity 1.015 (1.005-1.030)
--- NOTE | 2021-07-21 17:48 | RAD REPORT ---
EXAM DESCRIPTION: CTAbdomen Pelvis W Contrast - 07/21/2021 5:38 pm CLINICAL HISTORY: Epigastric pain COMPARISON: CT ABD PELVIS W CONTRAST dated 11/01/2013; CT ABD PELVIS W CONTRAST dated 12/18/2007 TECHNIQUE: CT of the abdomen and pelvis was performed. All CT scans are performed using dose optimization technique as appropriate and may include automated exposure control or mA/KV adjustment according to patient size. FINDINGS: Lower chest: No acute abnormality. Liver: Hepatic steatosis. Biliary: Cholecystectomy Stomach: No significant focal abnormality. Duodenum: No significant focal abnormality. Pancreas: No significant abnormality. Spleen: No significant abnormality. Adrenal: No suspicious lesions. Kidney/ureter: No hydronephrosis. No renal calculi. Retroperitoneum: No retroperitoneal adenopathy. Vascular: No aneurysm. Bowel: No significant focal abnormality. Normal appendix Peritoneum: No ascites or free air. Bladder: Grossly unremarkable. Reproductive: No adnexal masses. Prior TURP. Bones: No acute fracture. Epidural pain pump. Other: n/a IMPRESSION: No acute intra-abdominal or pelvic finding. No specific CT findings to explain epigastri c pain. Normal appendix. Prior cholecystectomy.
[2021-07-21] MEDS ORDERED: PANTOPRAZOLE 40 MG INJ ONE (17:55)
[2021-07-21] MEDS ORDERED: LIDOCAINE VISCOUS 2% SOLN 15 ML UDC ONE (17:55)
[2021-07-21] MEDS ORDERED: MAGNES/ALUMIN/SIMET 30ML UCUP ONE (17:55)
[2021-07-21] MEDS ORDERED: NA CHLORIDE 0.9% 500 ML ONE (17:55)
--- NOTE | 2021-07-21 18:21 | ER ---
Nurse's Notes [facility] Name: Eduardo Hobbs Age: 56 yrs Sex: Male : 1965 Arrival Date: 07/21/2021 Time: 13:52 Bed 30 Private MD: Pablito Smith K; Sergio Peterson B Diagnosis: Epigastric pain;COPD/ Chronic obstructive pulmonary disease with (acute) exacerbation Presentation: 07/21 14:24 Chief complaint: Patient states: increased SOB, hx of COPD, pt also reports abd burning aa5 pain. Pt diaphoretic during triage. 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 Coronavirus screen: cough unrelated to allergies. Ebola Screen: No symptoms or risks identified at this time. Initial Sepsis Screen: Does the patient meet any 2 criteria? RR > 20 per min. Does the patient have a suspected source of infection? No. Patient's initial sepsis screen is negative. Risk Assessment: Do you want to hurt yourself or someone else? Patient reports no desire to harm self or others. Onset of symptoms was June 2021. 14:24 Acuity: ANGIE 2 aa5 14:24 Method Of Arrival: Ambulatory aa5 Historical: - Allergies: 14:26 No Known Allergies; aa5 - PMHx: 14:26 COPD; Hypertensive disorder; high cholesterol; GERD; aa5 - PSHx: 14:26 spinal surgery; carpal tunnel; Cholecystectomy; hernia; aa5 - Immunization history:: Flu vaccine is up to date. - Social history:: Smoking status: Patient reports the use of cigarette tobacco products, 3/4 pack of cigarettes . Screenin:30 Abuse screen: Denies threats or abuse. Nutritional screening: No deficits noted. jb4 Tuberculosis screening: No symptoms or risk factors identified. Fall Risk None identified. 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 aa5 15:00 General: Appears in no apparent distress. comfortable, Behavior is calm, cooperative, jb4 appropriate for age. Pain: Denies pain. Neuro: Level of Consciousness is awake, alert, obeys commands, Oriented to person, place, time, situation. Cardiovascular: Patient's skin is warm and dry. Respiratory: Reports shortness of breath at rest on exertion. GI: Abdomen is round non-distended, Reports nausea. : No signs and/or symptoms were reported regarding the genitourinary system. EENT: No signs and/or symptoms were reported regarding the EENT system. Derm: Skin is intact, Skin is pink, warm \T\ dry. Musculoskeletal: Circulation, motion, and sensation intact. Range of motion: intact in all extremities. 16:00 Reassessment: Patient appears in no apparent distress at this time. Patient and/or jb4 family updated on plan of care and expected duration. Pain level reassessed. Patient is alert, oriented x 3, equal unlabored respirations, skin warm/dry/pink. 17:30 Reassessment: Patient appears in no apparent distress at this time. Patient and/or jb4 family updated on plan of care and expected duration. Pain level reassessed. Patient is alert, oriented x 3, equal unlabored respirations, skin warm/dry/pink. 18:38 Reassessment: Patient appears in no apparent distress at this time. Patient and/or jb4 family updated on plan of care and expected duration. Pain level reassessed. Patient is alert, oriented x 3, equal unlabored respirations, skin warm/dry/pink. Vital Signs: 14:24 BP 123 / 99; Pulse 77; Resp 26 S; Temp 98.6(O); Pulse Ox 97% ; Weight 112.49 kg (R); aa5 Height 5 ft. 10 in. (177.80 cm) (R); 15:56 BP 126 / 69; Pulse 63; Resp 17; Pulse Ox 95% on R/A; jb4 17:00 BP 138 / 76; Pulse 64; Resp 18; Pulse Ox 94% on R/A; jb4 18:38 BP 137 / 81; Pulse 70; Resp 18; Pulse Ox 96% on R/A; jb4 14:24 Body Mass Index 35.58 (112.49 kg, 177.80 cm) aa5 ED Course: 13:52 Patient arrived in ED. as 13:53 Pablito Smith MD is Private Physician. as 13:53 Sergio Peterson MD is Private Physician. as 14:11 Joe Heller PA is PHCP. cp 14:11 Fran Stahl MD is Attending Physician. cp 14:24 Arm band placed on. aa5 14:25 Triage completed. aa5 14:40 Initial lab(s) drawn, by ED staff, sent to lab. Inserted saline lock: 20 gauge in right aa5 antecubital area, using aseptic technique. Blood collected. IV Inserted by BRAD Alexandre. 15:08 Luis Enrique Tristan, RN is Primary Nurse. jb4 15:30 Patient has correct armband on for positive identification. Bed in low position. Call jb4 light in reach. Side rails up X 1. media monitor on. Pulse ox on. NIBP on. 16:04 XRAY Chest (1 view) In Process Unspecified. EDMS 17:39 CT Abd/Pelvis - IV Contrast Only In Process Unspecified. EDMS 18:19 Pablito Smith MD is Referral Physician. cp 18:41 No provider procedures requiring assistance completed. IV discontinued, intact, jb4 bleeding controlled, No redness/swelling at site. Pressure dressing applied. Administered Medications: 14:37 Drug: Albuterol - atroVENT (ipratropium) (3:1) (2.5 mg - 0.5 mg) 3 ml Route: Nebulizer; aa5 15:30 Follow up: Response: No adverse reaction; Marked relief of symptoms jb4 14:37 Drug: Aspirin Chewable Tablet 324 mg Route: PO; aa5 15:30 Follow up: Response: No adverse reaction jb4 14:49 Drug: SOLU-Medrol (methylPrednisoLONE) 125 mg Route: IVP; Site: right antecubital; aa5 15:30 Follow up: Response: No adverse reaction; Marked relief of symptoms jb4 14:49 Drug: Pepcid (famotidine) 20 mg Route: IVP; Site: right antecubital; aa5 15:30 Follow up: Response: No adverse reaction; Marked relief of symptoms jb4 17:31 Drug: Zofran (Ondansetron) 4 mg Route: IVP; Site: right antecubital; jb4 18:42 Follow up: Response: No adverse reaction jb4 18:00 Drug: NS 0.9% 500 ml Route: IV; Rate: bolus; Site: right antecubital; jb4 18:42 Follow up: IV Status: Completed infusion; IV Intake: 500ml jb4 18:01 Drug: ProTONIX (pantoprazole) 40 mg Route: IVP; Site: right antecubital; jb4 18:43 Follow up: Response: No adverse reaction; Marked relief of symptoms jb4 18:01 Drug: GI Cocktail without - (Maalox Suspension 30 ml, Lidocaine Liquid 2 % 15 jb4 ml) Route: PO; 18:42 Follow up: Response: No adverse reaction; Marked relief of symptoms jb4 Intake: 18:42 IV: 500ml; Total: 500ml. jb4 Outcome: 18:21 Discharge ordered by MD. cp 18:41 Discharged to home ambulatory, with family. jb4 18:41 Condition: stable 18:41 Discharge instructions given to patient, Instructed on discharge instructions, follow up and referral plans. medication usage, Demonstrated understanding of instructions, follow-up care, medications, Prescriptions given X 3. 18:43 Patient left the ED. jb4 Signatures: Dispatcher [employer] EDMallory Castro Audri, RN RN aa5 Joe Heller PA PA cp Bryson, James, RN RN jb4
--- NOTE | 2021-07-21 18:21 | EDPHYS ---
Physician Documentation [facility] Name: Eduardo Hobbs Age: 56 yrs Sex: Male : 1965 Arrival Date: 07/21/2021 Time: 13:52 Bed 30 Private MD: Pablito Smith K; Sergio Peterson B ED Physician Fran Stahl HPI: 07/21 14:35 This 56 yrs old Male presents to ER via Ambulatory with complaints of COPD cp Exacerbation, Abdominal Pain. 14:35 The patient has shortness of breath at rest. cp 14:35 Onset: The symptoms/episode began/occurred today. Duration: The symptoms are cp continuous, and are steadily getting worse. The patient's shortness of breath is aggravated by light activity, talking. Associated signs and symptoms: Pertinent positives: diaphoresis, nausea, upper abdomen pain, Pertinent negatives: chest pain, productive cough, fever, vomiting. Severity of symptoms: in the emergency department the symptoms are unchanged. Patient reports acute specialist recently changed steroid inhalers. Historical: - Allergies: 14:26 No Known Allergies; aa5 - PMHx: 14:26 COPD; Hypertensive disorder; high cholesterol; GERD; aa5 - PSHx: 14:26 spinal surgery; carpal tunnel; Cholecystectomy; hernia; aa5 - Immunization history:: Flu vaccine is up to date. - Social history:: Smoking status: Patient reports the use of cigarette tobacco products, 3/4 pack of cigarettes . ROS: 14:40 Constitutional: Negative for body aches, chills, fever, poor PO intake. cp 14:40 Eyes: Negative for injury, pain, redness, and discharge. cp 14:40 ENT: Negative for drainage from ear(s), ear pain, sore throat, difficulty swallowing, cp difficulty handling secretions. 14:40 Cardiovascular: Negative for chest pain, edema. 14:40 Respiratory: Positive for cough, with no reported sputum, shortness of breath, at rest. wheezing. 14:40 Abdomen/GI: Positive for abdominal pain, nausea, Negative for vomiting, diarrhea, constipation. 14:40 Back: Negative for pain at rest, pain with movement. 14:40 Neuro: Negative for altered mental status, dizziness, headache, weakness. 14:40 All other systems are negative. Exam: 14:45 Constitutional: The patient appears in no acute distress, alert, awake, non-toxic, well cp developed, well nourished, diaphoretic. 14:45 Head/Face: Normocephalic, atraumatic. cp 14:45 Eyes: Periorbital structures: appear normal, Conjunctiva: normal, no exudate, no injection, Sclera: no appreciated abnormality, Lids and lashes: appear normal, bilaterally. 14:45 ENT: External ear(s): are unremarkable, Nose: is normal, Mouth: Lips: moist, Oral mucosa: pink and intact, moist, Posterior pharynx: Airway: no evidence of obstruction, patent, Tonsils: are normal in appearance, swelling, is not appreciated, erythema, is not appreciated, exudate, is not appreciated. 14:45 Neck: ROM/movement: is normal, is supple, without pain, no range of motions limitations. 14:45 Chest/axilla: Inspection: normal, Palpation: is normal, no crepitus, no tenderness. 14:45 Cardiovascular: Rate: normal, Rhythm: regular, Edema: is not appreciated, JVD: is not appreciated. 14:45 Respiratory: mild respiratory distress is noted, Respirations: labored breathing, that is mild, Breath sounds: decreased breath sounds, that are mild, throughout, stridor, is not appreciated, wheezing: that is mild, is heard diffusely. 14:45 Abdomen/GI: Inspection: abdomen appears normal, Bowel sounds: active, all quadrants, Palpation: soft, in all quadrants, mild abdominal tenderness, in the epigastric area, rebound tenderness, is not appreciated, voluntary guarding, is not appreciated, involuntary guarding, is not appreciated. 14:45 Back: pain, is absent, ROM is normal. 14:45 Neuro: Orientation: to person, place \T\ time. Mentation: is normal, Cerebellar function: is grossly normal, Motor: moves all fours, strength is normal, Sensation: is normal. 15:04 ECG was reviewed by the Attending Physician. cp Vital Signs: 14:24 BP 123 / 99; Pulse 77; Resp 26 S; Temp 98.6(O); Pulse Ox 97% ; Weight 112.49 kg (R); aa5 Height 5 ft. 10 in. (177.80 cm) (R); 15:56 BP 126 / 69; Pulse 63; Resp 17; Pulse Ox 95% on R/A; jb4 17:00 BP 138 / 76; Pulse 64; Resp 18; Pulse Ox 94% on R/A; jb4 18:38 BP 137 / 81; Pulse 70; Resp 18; Pulse Ox 96% on R/A; jb4 14:24 Body Mass Index 35.58 (112.49 kg, 177.80 cm) aa5 MDM: 14:58 Patient medically screened. cp 18:20 Data reviewed: vital signs, nurses notes, lab test result(s), EKG, radiologic studies, cp plain films. 18:20 Differential diagnosis: Bronchitis CHF exacerbation, Chronic Obstructive Pulmonary cp Disease Myocardial Infarction pneumonia, Pneumothorax pulmonary edema, Sepsis Unstable Angina. Test interpretation: by ED physician or midlevel provider: ECG, plain radiologic studies. Counseling: I had a detailed discussion with the patient and/or guardian regarding: the historical points, exam findings, and any diagnostic results supporting the discharge/admit diagnosis, lab results, radiology results, the need for outpatient follow up, a chief warden, a acute specialist, to return to the emergency department if symptoms worsen or persist or if there are any questions or concerns that arise at home. Response to treatment: the patient's symptoms have markedly improved after treatment. 07/21 14:28 Order name: Basic Metabolic Panel; Complete Time: 16:36 07/21 16:36 Interpretation: Normal except: CL 108; GFR 76. 07/21 14:28 Order name: CBC with Diff; Complete Time: 15:10 07/21 15:10 Interpretation: Reviewed. 07/21 14:28 Order name: LFT's; Complete Time: 16:36 07/21 18:10 Interpretation: Reviewed. 07/21 14:28 Order name: Magnesium; Complete Time: 16:36 07/21 14:28 Order name: NT PRO-BNP; Complete Time: 16:36 07/21 14:28 Order name: PT-INR; Complete Time: 15:10 07/21 14:28 Order name: Troponin HS; Complete Time: 16:36 07/21 18:11 Interpretation: Reviewed. 07/21 14:28 Order name: XRAY Chest (1 view); Complete Time: 16:36 07/21 16:42 Order name: CT Abd/Pelvis - IV Contrast Only; Complete Time: 18:10 07/21 17:33 Order name: Urine Dipstick-Ancillary; Complete Time: 17:35 EDMS 07/21 17:36 Interpretation: Reviewed. 07/21 14:28 Order name: EKG; Complete Time: 14:29 cp 07/21 14:28 Order name: Cardiac monitoring; Complete Time: 15:08 cp 07/21 14:28 Order name: EKG - Nurse/Tech; Complete Time: 15:21 cp 07/21 14:28 Order name: IV Saline Lock; Complete Time: 14:49 cp 07/21 14:28 Order name: Labs collected and sent; Complete Time: 14:49 cp 07/21 14:28 Order name: O2 Per Protocol; Complete Time: 15:08 cp 07/21 14:28 Order name: O2 Sat Monitoring; Complete Time: 15:08 cp 07/21 15:00 Order name: Labs - recollect needed: recollect green top; Complete Time: 15:08 bd EC:04 Rate is 57 beats/min. Rhythm is regular. IA interval is normal. QRS interval is normal. cp QT interval is normal. T waves are Inverted in lead aVR. Interpreted by me. Reviewed by me. Administered Medications: 14:37 Drug: Albuterol - atroVENT (ipratropium) (3:1) (2.5 mg - 0.5 mg) 3 ml Route: Nebulizer; aa5 15:30 Follow up: Response: No adverse reaction; Marked relief of symptoms jb4 14:37 Drug: Aspirin Chewable Tablet 324 mg Route: PO; aa5 15:30 Follow up: Response: No adverse reaction jb4 14:49 Drug: SOLU-Medrol (methylPrednisoLONE) 125 mg Route: IVP; Site: right antecubital; aa5 15:30 Follow up: Response: No adverse reaction; Marked relief of symptoms jb4 14:49 Drug: Pepcid (famotidine) 20 mg Route: IVP; Site: right antecubital; aa5 15:30 Follow up: Response: No adverse reaction; Marked relief of symptoms jb4 17:31 Drug: Zofran (Ondansetron) 4 mg Route: IVP; Site: right antecubital; jb4 18:42 Follow up: Response: No adverse reaction jb4 18:00 Drug: NS 0.9% 500 ml Route: IV; Rate: bolus; Site: right antecubital; jb4 18:42 Follow up: IV Status: Completed infusion; IV Intake: 500ml jb4 18:01 Drug: ProTONIX (pantoprazole) 40 mg Route: IVP; Site: right antecubital; jb4 18:43 Follow up: Response: No adverse reaction; Marked relief of symptoms jb4 18:01 Drug: GI Cocktail without - (Maalox Suspension 30 ml, Lidocaine Liquid 2 % 15 jb4 ml) Route: PO; 18:42 Follow up: Response: No adverse reaction; Marked relief of symptoms jb4 Disposition: 07/22 07:06 Co-signature as Attending Physician, Fran Stahl MD. rn Disposition Summary: 07/21/21 18:21 Discharge Ordered Location: Home cp Condition: Stable cp Diagnosis - Epigastric pain cp - COPD/ Chronic obstructive pulmonary disease with (acute) exacerbation cp Followup: cp - With: Pablito Smith MD - When: 2 - 3 days - Reason: COPD exacerbation Followup: cp - With: Private Physician - When: primary chief warden - Reason: epigastric pain Discharge Instructions: - Discharge Summary Sheet cp - Abdominal Pain, Adult cp - Chronic Obstructive Pulmonary Disease Exacerbation cp Forms: - Medication Reconciliation Form cp - Thank You Letter cp - Antibiotic Education cp - Prescription Opioid Use cp Prescriptions: - Prednisone 20 mg Oral Tablet - take 2 tablets by ORAL route once daily for 5 days; 10 tablet; Refills: 0, cp Product Selection Permitted - Zofran 4 mg Oral Tablet - take 1 tablet by ORAL route every 12 hours As needed; 20 tablet; Refills: 0, cp Product Selection Permitted - Pepcid 20 mg Oral Tablet - take 1 tablet by ORAL route every 12 hours for 10 days; 20 tablet; Refills: 0, cp Product Selection Permitted Signatures: Dispatcher [employer] Kirsten Og Roman, MD MD rn Calderon, Audri, RN RN aa5 Joe Heller PA PA cp Bryson, James, RN RN jb4 Corrections: (The following items were deleted from the chart) 07/21 22:50 22:49 Constitutional: Negative for body aches, chills, fever, poor PO intake, cp cp
[2021-07-21 21:06] VITALS: TEMP 98.6
[2021-07-21 21:10] VITALS: BP 137/81; O2SAT 96
--- NOTE | 2021-07-22 09:34 | EKG ---
Test Date: 2021-07-21 Test Time: 14:53:33 Academic Vice President: NAUN MEASUREMENT RESULTS: Intervals: Rate: 57 CO: 180 QRSD: 92 QT: 428 QTc: 416 Hibbs: P: 37 CO: 180 QRS: 23 T: 51 INTERPRETIVE STATEMENTS: Sinus bradycardia Otherwise normal ECG Compared to ECG 11/01/2013 11:57:02 No significant changes Electronically Signed On 07-22-21 09:31:51 CDT by Ajay Johnson
== END 2021-07-21 18:43 | disposition home or self-care (01) ==
LOC: ER 13:51
DX: J44.1 Chronic obstructive pulmonary disease with (acute) exacerbation (principal); R10.13 Epigastric pain; I10 Essential (primary) hypertension; E78.00 Pure hypercholesterolemia, unspecified; F17.210 Nicotine dependence, cigarettes, uncomplicated
CPT/HCPCS: 96361; 93005; 85025; 80048; 36415; 83735; 85610; 80076; 81003; 84484; 83880; 74177; 71045; 94640; 96375; 96374; 99285; Q9967; C9113; J7040; J2930; J2405; J3490

== ENCOUNTER 2024-02-21 13:33 | Inpatient (IN) | payer OTHER ==
[2024-02-21 14:37] LABS: Absolute Basophils 0.1 K/uL (0-0.5); Absolute Eosinophils 0.1 K/uL (0-0.5); Absolute Lymphocytes (CBC) 1.6 K/uL (0.7-4.9); Absolute Monocytes 0.7 K/uL (0.1-1.3); Absolute Neutrophil 4.1 K/uL (1.8-8.0); Basophils % 1.1 % (0-1.3); Eosinophils % 1.2 % (0-4.4); Hematocrit 42.1 % (39.6-49.0); Hemoglobin 13.8 g/dL (13.6-17.9); Lymphocytes % 24.3 % (15.3-44.8); MCH 25.8 pg (27.0-35.0); MCHC 32.7 g/dL (32.0-36.0); MCV 78.9 fL (80-100); MPV 8.9 fL (7.6-11.3); Monocytes % 11.4 % (3.3-12.3); Nucleated Red Blood Cells % 0.1 % (0-0); Platelets 261 thou/uL (152-406); RBC Red Blood Cell Count 5.33 M/uL (4.33-5.43); Red Cell Distribution Width 15.6 % (12.1-15.2)
[2024-02-21 14:39] LABS: PT Prothrombin Time 12.2 SECONDS (9.4-12.5); Protime INR 1.09
[2024-02-21 14:55] LABS: ALT/SGPT 26 U/L (16-61); AST/SGOT 18 U/L (15-37); Albumin 3.8 g/dL (3.4-5.0); Albumin/Globulin Ratio 1.2 (1.1-1.8); Alkaline Phosphatase 106 U/L (45-117); Anion Gap 8.7 mEq/L (5.0-15.0); BUN Blood Urea Nitrogen 10 mg/dL (7-18); Bicarbonate 30 mEq/L (21-32); Bilirubin Total 0.6 mg/dL (0.2-1.0); Globulin 3.2 g/dL (2.3-3.5); Glomerular Filtration Rate 50 ml/min (=/>90); Glucose Level 98 mg/dL (74-106); Magnesium 2.3 mg/dL (1.6-2.4); NT PRO-BNP 17 pg/mL (<125); Potassium 3.7 mEq/L (3.5-5.1); Sodium Level 134 mEq/L (136-145); Troponin High Sensitivity 5.2 pg/mL (<58.9)
[2024-02-21 14:56] LABS: Bilirubin Direct < 0.2 mg/dL (0-0.2); Bilirubin Indirect, Calculated 0.4 mg/dL (0.2-0.8)
--- NOTE | 2024-02-21 14:57 | RAD REPORT ---
EXAMINATION: ONE VIEW CHEST XR CLINICAL INDICATION: Male, 58 years old.,CHEST PAIN TECHNIQUE: Frontal chest projection is submitted. Examination is limited by patient positioning and t echnique. COMPARISON: 04/07/2023 FINDINGS: The lungs are mildly hypoinflated and clear. No pneumothorax or sizable effusion. The heart is michelle l in size. Mediastinal contours are unremarkable. IMPRESSION: No acute intrathoracic abnormalities.
[2024-02-21] MEDS ORDERED: IPRATROPIUM BROM 0.5MG/2.5ML ONE (15:01)
[2024-02-21] MEDS ORDERED: ALBUTEROL 2.5 MG/3 ML NEB SOL ONE (15:01)
[2024-02-21 15:03] LABS: SARS-CoV-2 Antigen CONTROL BLUE LINE VIS/BG OK; SARS-CoV-2 Antigen Rapid Res Negative (Negative)
[2024-02-21 15:21] LABS: Specific Gravity < 1.005 (1.005-1.030); Sqamous Epithelial None Seen /HPF (None Seen); Urine Bacteria None Seen /HPF (<20); Urine Bilirubin NEGATIVE (Negative); Urine Blood Negative (Negative); Urine Clarity Turbid (Clear); Urine Color Colorless (Yellow); Urine Culture Reflex Order NOT NEEDED; Urine Glucose NEGATIVE (Negative); Urine Ketones NEGATIVE (Negative); Urine Microscopic Reflex YN ORDER UMIC; Urine Nitrite NEGATIVE (Negative); Urine Protein NEGATIVE (Negative); Urine RBC <5 /HPF (None Seen); Urine Urobilinogen Normal (Normal); Urine WBC <5 /HPF (<5); Urine pH 5.5 (5.0-7.0)
[2024-02-21] MEDS ORDERED: NA CHLORIDE 0.9% 500 ML ONE (15:53)
[2024-02-21] MEDS ORDERED: METHYLPREDNISOLONE 125 MG INJ ONE (15:53)
--- NOTE | 2024-02-21 17:01 | RAD REPORT ---
EXAMINATION: US Extrem Venous W Compress Rm CLINICAL INDICATION: [facility] MAIN PAIN Bed Name: 21 Y TECHNIQUE: Complete bilateral duplex sonography of the BILATERAL lower extremity veins was performed. The examination included compression for vein patency, color Doppler imaging and flow augmentation in response to distal compression of the distal external iliac, common femoral, femoral, popliteal, t ibial, and great and small saphenous veins. COMPARISON: No prior exam. FINDINGS: Duplex sonography testing of the veins of the BILATERAL lower extremity was performed. Color flow luciana ging shows all veins to be compressible with [id number] color filling. Pulsatile and phasic flow is present within all lower extremity deep and superficial veins examined. IMPRESSION: There is no deep vein or superficial vein thrombosis.
--- NOTE | 2024-02-21 17:01 | RAD REPORT ---
EXAMINATION: US Lower Extremity Arterial Bilat CLINICAL INDICATION: Male, 58 years old. [facility] MAIN PAIN Bed Name: 23 TECHNIQUE: Arterial duplex ultrasound of the bilateral lower extremities, with real-time, duplex, and spectral flow Doppler evaluation. COMPARISON: No prior exam. FINDINGS: Brachial artery systolic pressure is symmetric bilaterally. Grayscale: Grayscale: Mild atherosclerotic plaque. Right lower extremity: The common femoral through dorsalis pedis arteries are patent, with triphasic waveforms. Left lower extremity: The common femoral through dorsalis pedis arteries are patent, with triphasic waveforms. IMPRESSION:
--- NOTE | 2024-02-21 17:43 | RAD REPORT ---
EXAM: CT Head Brain Wo Cont HISTORY: HEADACHE COMPARISON: None TECHNIQUE: Multiple contiguous axial images were obtained for a CT of the brain without contrast. Sag ittal and coronal reformats were performed. One or more of the following dose reduction techniques were used: Automated exposure control, adjus tment of the mA and kV according to patient size, and iterative reconstruction. Unless otherwise specified, incidental findings do not require dedicated imaging follow-up. FINDINGS: No evidence of hydrocephalus, intracranial hemorrhage, or extra-axial fluid collection. The brain is normal in morphology. The calvarium is intact. The visualized paranasal sinuses and mastoid air cells are essentially clear . IMPRESSION: No evidence of acute intracranial abnormality.
[2024-02-21] MEDS ORDERED: ONDANSETRON 4 MG/2 ML VIAL ONE (17:56)
--- NOTE | 2024-02-21 18:40 | ER ---
Nurse's Notes [facility] Name: Eduardo Hobbs Age: 58 yrs Sex: Male : 1965 Arrival Date: 02/21/2024 Time: 13:33 Bed 23 Private MD: Diagnosis: COPD/ Chronic obstructive pulmonary disease with (acute) exacerbation;Hypoxemia Presentation: 02/20 14:01 Chief complaint: Patient states: headache started five days ago, then lightheaded 3 tm6 days ago. Nausea, no vomiting, decreased appetite. Pain in neck, lower back. Bilateral lower legs get red. Feels SOB. Coronavirus screen: Client denies travel out of the [place] in the last 14 days. Ebola Screen: Patient negative for fever greater than or equal to 101.5 degrees Fahrenheit, and additional compatible Ebola Virus Disease symptoms Patient denies exposure to infectious person. Patient denies travel to an Ebola-affected area in the 21 days before illness onset. No symptoms or risks identified at this time. Initial Sepsis Screen: Does the patient meet any 2 criteria? No. Patient's initial sepsis screen is negative. Does the patient have a suspected source of infection? No. Patient's initial sepsis screen is negative. Risk Assessment: Do you want to hurt yourself or someone else? Patient reports no desire to harm self or others. Onset of symptoms was February 16, 2024. 14:01 Method Of Arrival: Wheelchair tm6 14:01 Acuity: ANGIE 3 tm6 Triage Assessment: 14:03 General: Appears uncomfortable, Behavior is calm, cooperative. Pain: Complains of pain tm6 in back and neck. EENT: No signs and/or symptoms were reported regarding the EENT system. Neuro: Level of Consciousness is awake, alert, obeys commands, Oriented to person, place, time, situation, Reports headache since 5 days ago. Cardiovascular: Reports lightheadedness, since 3 days ago Patient's skin is warm and dry. Respiratory: Reports shortness of breath since 3 days ago Airway is patent Respiratory effort is labored, Respiratory pattern is regular, symmetrical. GI: Abdomen is round Reports nausea. : No signs and/or symptoms were reported regarding the genitourinary system. Derm: Reports redness in both lower legs. Musculoskeletal: Reports pain in back and neck. Historical: - Allergies: 14:03 No Known Allergies; tm6 - PMHx: 14:03 COPD; GERD; High Cholesterol; Hypertensive disorder; tm6 - PSHx: 14:03 carpal tunnel; Cholecystectomy; hernia; Spinal surgery; tm6 - Immunization history:: Client reports receiving the 2nd dose of the Covid vaccine. - Infectious Disease History:: Denies. - Social history:: Smoking status: Patient/guardian denies using tobacco, the patient reports quitting approximately 1 years ago. Screenin:25 [facility] ED Fall Risk Assessment (Adult) History of falling in the last 3 months, jb4 including since admission No falls in past 3 months (0 pts) Confusion or Disorientation No (0 pts) Intoxicated or Sedated No (0 pts) Impaired Gait No (0 pts) Mobility Assist Device Used No (0 pt) Altered Elimination No (0 pt) Score/Fall Risk Level 0 - 2 = Low Risk Oriented to surroundings, Maintained a safe environment. Abuse screen: Denies threats or abuse. Nutritional screening: No deficits noted. Tuberculosis screening: No symptoms or risk factors identified. Assessment: 15:20 General: Appears in no apparent distress. uncomfortable, Behavior is calm, cooperative, jb4 appropriate for age. Pain: Denies pain. Neuro: Level of Consciousness is awake, alert, obeys commands, Oriented to person, place, time, situation. Cardiovascular: Patient's skin is warm and dry. Respiratory: Reports shortness of breath at rest Airway is patent Respiratory effort is even, unlabored, Respiratory pattern is regular, symmetrical, O2 sats noted to drop into the 80's while pt is resting. Derm: Skin is intact, Skin is pink, warm \T\ dry. Musculoskeletal: Circulation, motion, and sensation intact. Range of motion: intact in all extremities. 16:33 Reassessment: Patient appears in no apparent distress at this time. Patient and/or jb4 family updated on plan of care and expected duration. Pain level reassessed. Patient is alert, oriented x 3, equal unlabored respirations, skin warm/dry/pink. Patient states feeling better. 17:30 Reassessment: Patient appears in no apparent distress at this time. Patient and/or jb4 family updated on plan of care and expected duration. Pain level reassessed. Patient is alert, oriented x 3, equal unlabored respirations, skin warm/dry/pink. 18:30 Reassessment: Patient appears in no apparent distress at this time. Patient and/or jb4 family updated on plan of care and expected duration. Pain level reassessed. Patient is alert, oriented x 3, equal unlabored respirations, skin warm/dry/pink. 19:30 Reassessment: Patient appears in no apparent distress at this time. Patient and/or jb4 family updated on plan of care and expected duration. Pain level reassessed. Patient is alert, oriented x 3, equal unlabored respirations, skin warm/dry/pink. 20:30 Reassessment: Patient appears in no apparent distress at this time. Patient and/or jb4 family updated on plan of care and expected duration. Pain level reassessed. Patient is alert, oriented x 3, equal unlabored respirations, skin warm/dry/pink. 21:24 Reassessment: Patient appears in no apparent distress at this time. Patient and/or jb4 family updated on plan of care and expected duration. Pain level reassessed. Patient is alert, oriented x 3, equal unlabored respirations, skin warm/dry/pink. Vital Signs: 13:52 BP 115 / 61; Pulse 77; Resp 19; Temp 98(O); Pulse Ox 88% on R/A; MAP 76 mmHg; Weight tm6 108.86 kg; Height 5 ft. 10 in. ; Pain 0/10; 14:01 Pulse Ox 93% on 2 lpm NC; Weight 108.86 kg; Height 5 ft. 9 in. ; tm6 16:33 BP 103 / 78; Pulse 86; Resp 20; Pulse Ox 97% on 2 lpm NC; jb4 18:30 BP 114 / 64; Pulse 82; Resp 16; Pulse Ox 90% on R/A; jb4 19:45 BP 114 / 65; Pulse 91; Resp 16; Pulse Ox 96% on 2 lpm NC; jb4 20:51 BP 113 / 76; Pulse 91; Resp 16; Pulse Ox 94% on 2 lpm NC; jb4 14:01 Body Mass Index 35.44 (108.86 kg, 175.26 cm) tm6 13:52 Pain Scale: Adult tm6 ED Course: 13:36 Patient arrived in ED. ra3 13:42 Joe Heller PA is PHCP. cp 13:42 Joe Brown MD is Attending Physician. cp 14:03 Triage completed. tm6 14:03 Arm band placed on right wrist. tm6 14:21 XRAY Chest (1 view) In Process Unspecified. EDMS 14:26 Initial lab(s) drawn, by me, sent to lab. Inserted saline lock: 20 gauge in left aa5 antecubital area, using aseptic technique. Blood collected. Flushed with 10 mL NS. 14:35 EKG done, by ED staff, reviewed by Joe VANG. aa5 15:33 Luis Enrique Tristan, RN is Primary Nurse. jb4 16:28 US LE Arterial Bilateral In Process Unspecified. EDMS 16:28 US Extremity Venous W Compression Rm In Process Unspecified. EDMS 16:41 CT Head Brain wo Cont In Process Unspecified. EDMS 18:39 Molina Green MD is Hospitalizing Provider. cp 21:25 Patient has correct armband on for positive identification. Bed in low position. Call jb4 light in reach. Side rails up X 1. Provided Education on: . 21:25 No provider procedures requiring assistance completed. Patient admitted, IV remains in jb4 place. Administered Medications: 15:15 Drug: DuoNeb Nebulize (2.5 mg - 0.5 mg) 3 ml Nebulizer once Route: Nebulizer; jb4 15:59 Drug: MethylPrednisoLONE IVP 125 mg IVP once Route: IVP; Site: left antecubital; jb4 16:00 Drug: NS 0.9% IV 500 ml IV at bolus once; to be given as a bolus over 30 minutes Route: jb4 IV; Rate: bolus; Site: left antecubital; 17:59 Drug: Ondansetron IVP 4 mg IVP once; over 2 minutes Route: IVP; Site: left antecubital; jb4 Outcome: 18:40 Decision to Hospitalize by Provider. cp 21:25 Admitted to Tele accompanied by nurse, via wheelchair, room 403, with oxygen, with jb4 chart, 21:25 Condition: stable 21:25 Discharge instructions given to patient, Instructed on the need for admit, Demonstrated understanding of instructions, 21:30 Patient left the ED. jb4 Signatures: Dispatcher [employer] EDMS Carlotta Horne RN RN aa5 Joe Heller PA PA cp Luis Enrique Tristan, RN DOMINGA jb4 Evelyne, Tawney, RN RN tm6 Carmen, Lalitha ra3
--- NOTE | 2024-02-21 18:40 | EDPHYS ---
Physician Documentation [facility] Name: Eduardo Hobbs Age: 58 yrs Sex: Male : 1965 Arrival Date: 02/21/2024 Time: 13:33 Bed 23 Private MD: ED Physician Joe Brown HPI: 02/20 14:05 This 58 yrs old Male presents to ER via Wheelchair with complaints of Decreased cp Appetite - 5-6 days, Blood Pressure Problem. 14:05 Patient presents to ED with multiple complaints. Reports not feeling well for past 5-6 cp days, shortness of breath, intermittent chest pressure. Reports redness of legs and low blood pressure today. Historical: - Allergies: 14:03 No Known Allergies; tm6 - PMHx: 14:03 COPD; GERD; High Cholesterol; Hypertensive disorder; tm6 - PSHx: 14:03 carpal tunnel; Cholecystectomy; hernia; Spinal surgery; tm6 - Immunization history:: Client reports receiving the 2nd dose of the Covid vaccine. - Infectious Disease History:: Denies. - Social history:: Smoking status: Patient/guardian denies using tobacco, the patient reports quitting approximately 1 years ago. ROS: 14:10 Constitutional: Negative for body aches, fever, poor PO intake, cp 14:10 Eyes: Negative for injury, pain, redness, and discharge, cp 14:10 ENT: Negative for drainage from ear(s), ear pain, sore throat, difficulty swallowing, cp difficulty handling secretions, 14:10 Cardiovascular: Positive for chest pain, Negative for edema, palpitations, 14:10 Respiratory: Positive for shortness of breath, Negative for cough, wheezing, 14:10 Abdomen/GI: Negative for abdominal pain, vomiting, diarrhea, constipation, 14:10 Neuro: Positive for headache, Negative for altered mental status, 14:10 All other systems are negative, Exam: 14:15 Constitutional: The patient appears in no acute distress, alert, awake, non-toxic, well cp developed, well nourished, uncomfortable, 14:15 Head/Face: Normocephalic, atraumatic. cp 14:15 Eyes: Periorbital structures: appear normal, Conjunctiva: normal, no exudate, no injection, Sclera: no appreciated abnormality, Lids and lashes: appear normal, bilaterally, 14:15 ENT: External ear(s): are unremarkable, Nose: is normal, Mouth: Lips: moist, Oral mucosa: pink and intact, moist, Posterior pharynx: Airway: no evidence of obstruction, patent, 14:15 Neck: ROM/movement: is normal, is supple, without pain, no range of motions limitations, 14:15 Chest/axilla: Inspection: normal, 14:15 Cardiovascular: Rate: normal, Rhythm: regular, Edema: is not appreciated, JVD: is not appreciated, 14:15 Respiratory: the patient does not display signs of respiratory distress, Respirations: labored breathing, that is mild, Breath sounds: decreased breath sounds, that are mild, throughout, stridor, is not appreciated, wheezing: is not appreciated, 14:15 Abdomen/GI: Inspection: abdomen appears normal, Palpation: abdomen is soft and non-tender, in all quadrants, 14:15 Back: pain, is absent, ROM is normal, 14:15 Skin: cellulitis, is not appreciated, no rash present. 14:15 Neuro: Orientation: to person, place \T\ time. Mentation: is normal, Cerebellar function: is grossly normal, Motor: moves all fours, no focal deficits, Sensation: no obvious gross deficits, 14:42 ECG was reviewed by the Attending Physician. cp Vital Signs: 13:52 BP 115 / 61; Pulse 77; Resp 19; Temp 98(O); Pulse Ox 88% on R/A; MAP 76 mmHg; Weight tm6 108.86 kg; Height 5 ft. 10 in. ; Pain 0/10; 14:01 Pulse Ox 93% on 2 lpm NC; Weight 108.86 kg; Height 5 ft. 9 in. ; tm6 16:33 BP 103 / 78; Pulse 86; Resp 20; Pulse Ox 97% on 2 lpm NC; jb4 18:30 BP 114 / 64; Pulse 82; Resp 16; Pulse Ox 90% on R/A; jb4 19:45 BP 114 / 65; Pulse 91; Resp 16; Pulse Ox 96% on 2 lpm NC; jb4 20:51 BP 113 / 76; Pulse 91; Resp 16; Pulse Ox 94% on 2 lpm NC; jb4 14:01 Body Mass Index 35.44 (108.86 kg, 175.26 cm) tm6 13:52 Pain Scale: Adult tm6 MDM: 14:03 Medical Screening Exam initiated cp 18:45 Data reviewed: vital signs, nurses notes, lab test result(s), EKG, radiologic studies, cp CT scan, plain films, and as a result, I will admit patient. 18:45 Differential diagnosis: viral Infection, bacterial infection, bronchitis, pneumonia cp UTI. Management of patient was discussed with the following: Hospitalist: [facility] MEDICAL OFFICER will admit to services of hospitalist. I considered the following discharge prescriptions or medication management in the emergency department Medications were administered in the Emergency Department. See MAR. Independent interpretation of the following test(s) in the Emergency Department EKG: See my EKG interpretation above. Counseling: I had a detailed discussion with the patient and/or guardian regarding the historical points, exam findings, and any diagnostic results supporting the discharge/admit diagnosis, lab results, radiology results, the need for further work-up and treatment in the hospital. Response to treatment: the patient's symptoms have mildly improved after treatment, and as a result, I will admit patient. 02/20 14:02 Order name: Basic Metabolic Panel; Complete Time: 15:19 02/20 15:20 Interpretation: Normal except: NA 134; CRE 1.58; GFR 50. 02/20 14:02 Order name: CBC with Diff; Complete Time: 15:19 02/20 15:21 Interpretation: Normal except: MCV 78.9; MCH 25.8; RDW 15.6. 02/20 14:02 Order name: LFT's; Complete Time: 15:19 02/20 14:02 Order name: Magnesium; Complete Time: 15:19 02/20 14:02 Order name: NT PRO-BNP; Complete Time: 15:19 02/20 14:02 Order name: PT-INR; Complete Time: 15:19 02/20 14:02 Order name: Troponin HS; Complete Time: 15:19 02/20 14:02 Order name: SARS RAPID; Complete Time: 15:19 02/20 14:02 Order name: Influenza Screen (a \T\ B); Complete Time: 15:19 02/20 14:02 Order name: Urinalysis w/ reflexes; Complete Time: 15:21 02/20 15:21 Interpretation: Normal except: [facility] Turbid; Urine SG < 1.005. 02/20 15:25 Order name: D-Dimer; Complete Time: 16:06 02/20 16:06 Interpretation: Reviewed. 02/20 19:51 Order name: CBC with Automated Diff [facility] 02/20 19:51 Order name: Comprehensive Metabolic Panel [facility] 02/20 19:51 Order name: Creatine Phosphokinase [facility] 02/20 19:51 Order name: Lactate w/ 2H reflex if indic. [facility] 02/20 19:51 Order name: Magnesium [facility] 02/20 19:51 Order name: NT PRO-BNP [facility] 02/20 19:51 Order name: Phosphorus [facility] 02/20 19:51 Order name: Thyroid Stimulating Hormone [facility] 02/20 19:51 Order name: Urinalysis w/ reflexes [facility] 02/20 19:51 Order name: Lipid Profile [facility] 02/20 19:51 Order name: Lipid Profile [facility] 02/20 19:51 Order name: Troponin High Sensitivity [facility] 02/20 19:51 Order name: Troponin High Sensitivity [facility] 02/20 19:51 Order name: Troponin High Sensitivity [facility] 02/20 19:51 Order name: Troponin High Sensitivity [facility] 02/20 14:02 Order name: XRAY Chest (1 view); Complete Time: 15:19 02/20 15:25 Order name: US LE Arterial Bilateral; Complete Time: 17:08 02/20 15:25 Order name: US Extremity Venous W Compression Rm; Complete Time: 17:08 02/20 17:08 Interpretation: Report reviewed. 02/20 16:07 Order name: CT Head Brain wo Cont; Complete Time: 17:58 02/20 17:58 Interpretation: Report reviewed. 02/20 19:51 Order name: CONS Physician Consult [facility] 02/20 19:52 Order name: Respiratory Therapy Consult [facility] 02/20 14:02 Order name: Cardiac monitoring; Complete Time: 14:38 02/20 14:02 Order name: EKG - Nurse/Tech; Complete Time: 14:38 02/20 14:02 Order name: IV Saline Lock; Complete Time: 14:38 02/20 14:02 Order name: Labs collected and sent; Complete Time: 14:38 02/20 14:02 Order name: O2 Per Protocol; Complete Time: 14:38 02/20 14:02 Order name: O2 Sat Monitoring; Complete Time: 14:38 cp EC:42 Rate is 77 beats/min. Rhythm is regular. VA interval is normal. QRS interval is normal. cp QT interval is normal. T waves are Inverted in lead aVR. Interpreted by me. Reviewed by me. Administered Medications: 15:15 Drug: DuoNeb Nebulize (2.5 mg - 0.5 mg) 3 ml Nebulizer once Route: Nebulizer; jb4 15:59 Drug: MethylPrednisoLONE IVP 125 mg IVP once Route: IVP; Site: left antecubital; jb4 16:00 Drug: NS 0.9% IV 500 ml IV at bolus once; to be given as a bolus over 30 minutes Route: jb4 IV; Rate: bolus; Site: left antecubital; 17:59 Drug: Ondansetron IVP 4 mg IVP once; over 2 minutes Route: IVP; Site: left antecubital; jb4 Disposition Summary: 02/21/24 18:40 Hospitalization Ordered Notes: Hospitalization Status: Inpatient Admission cp Provider: Molina Green cp [facility] cp Condition: Stable cp Problem: new cp Symptoms: have improved cp Bed/Room Type: Standard cp Room Assignment: 403(02/21/24 20:24) ty Diagnosis - COPD/ Chronic obstructive pulmonary disease with (acute) exacerbation cp - Hypoxemia cp Forms: - Medication Reconciliation Form cp - SBAR form cp - Leadership Thank You Letter cp Signatures: Dispatcher [employer] EDMS Joe Heller PA PA cp Bryson, James, RN RN jb4 Tenzin tSubbs RN RN tm6 Vitor Hussein ty Corrections: (The following items were deleted from the chart) 14:02 14:02 BASIC METABOLIC PANEL+C.LAB.BRZ ordered. EDMS EDMS 14:02 14:02 CBC+H.LAB.BRZ ordered. EDMS EDMS 14:02 14:02 HEPATIC FUNCTION+C.LAB.BRZ ordered. EDMS EDMS 14:02 14:02 MAGNESIUM+C.LAB.BRZ ordered. EDMS EDMS 14:02 14:02 PROBNP+C.LAB.BRZ ordered. EDMS EDMS 14:02 14:02 PROTIME (+INR)+COAG.LAB.BRZ ordered. EDMS EDMS 14:02 14:02 Troponin High Sensitivity+C.LAB.BRZ ordered. EDMS EDMS 14: 14:02 SARS-COV-2 Antigen Rapid+I.LAB.BRZ ordered. EDMS EDMS 14: 14:02 Influenza Screen (A \T\ B)+BA.LAB.BRZ ordered. EDMS EDMS 14:02 14:02 Chest Single View+RAD.RAD.BRZ ordered. EDMS EDMS 14:03 14:02 Urinalysis+U.LAB.BRZ ordered. EDMS EDMS 15:26 15:26 Lower Extremity Arterial Bilat+US.RAD.BRZ ordered. EDMS EDMS 15:26 15:26 Extrem Venous W Compression Rm+US.RAD.BRZ ordered. EDMS EDMS 20:24 18:40 cp ty
[2024-02-21] MEDS ORDERED: ALBUTEROL 2.5 MG/3 ML NEB SOL NEB PRN (19:46)
[2024-02-21] MEDS ORDERED: ONDANSETRON 4 MG/2 ML VIAL IV PRN (19:46)
--- NOTE | 2024-02-21 19:56 | P.HP ---
Certification for Inpatient With expected LOS: <2 Midnights Practitioner: I am a practitioner with admitting privileges, knowledge of patient current condition, hospital course, and medical plan of care. Services: Services provided to patient in accordance with Admission requirements found in Title 42 Section 412.3 of the Code of Federal Regulations Patient History Date of Service: 02/21/24 Reason for admission: hypoxia, hypotension History of Present Illness: 66-year-old man with a past medical history significant for COPD, HTN, HDL, and GERD presented to the emergency department complaining of chest pain, dyspnea, and hypotension for the past 7 days. The patient states he has a history of COPD exacerbations, and his last one was in 2021. He is not on home oxygen. Patient is a former smoker, who quit 1.5 years ago. He states as of late he is not been eating or drinking much, and has not had to take his HTN medication for the past week. Also, the patient describes his chest pain as substernal, without radiation, and of an aching quality. He denies fever, cough, and urinary symptoms. - Past Medical/Surgical History Diabetic: No -: COPD -: HTN -: HDL -: GERD -: Spinal surgery s/p pain pump placement in lumbar spine -: carpal tunnel release -: cholecystectomy -: hernia repair - Social History Smoking Status: Former smoker (quit 1.5 years ago) Alcohol use: No Review of Systems Respiratory: Shortness of Breath Cardiovascular: Chest Pain Neurological: Weakness Physical Examination - Vital Signs Temperature: 98.0 F Blood Pressure: 104/56 Pulse: 93 Respirations: 18 Pulse Ox (%): 95 (on nasal cannula) - Physical Exam General: Alert, Oriented x3 HEENT: Atraumatic, Normocephalic Neck: JVD not distended Respiratory: Clear to auscultation bilaterally Cardiovascular: No edema, Regular rate/rhythm, No gallops, No rubs, No murmurs Gastrointestinal: Normal bowel sounds, Non-distended, No tenderness Musculoskeletal: No swelling, No erythema, No tenderness, No warmth Neurological: Normal strength at 5/5 x4 extr, Sensation intact - Studies Laboratory Data (last 24 hrs) 02/21/24 02/21/24 02/21/24 14:26 14:26 14:26 WBC 6.60 Hgb 13.8 Hct 42.1 Plt Count 261 PT 12.2 INR 1.09 Sodium 134 L Potassium 3.7 BUN 10 Creatinine 1.58 H Glucose 98 Magnesium 2.3 Total Bilirubin 0.6 AST 18 ALT 26 Alkaline Phosphatase 106 Microbiology Data (last 24 hrs): 02/21/24 14:29 Nasopharnyx Influenza Type A Antigen Screen - Final 02/21/24 14:29 Nasopharnyx Influenza Type B Antigen Screen - Final Assessment and Plan - Problems (Diagnosis) (1) Hypoxia Current Visit: Yes Status: Acute (2) Hypotension Current Visit: Yes Status: Acute - Plan Hypoxia: Admit to floor Pulmonology consulted Respiratory therapy consulted DuoNebs as needed ordered CXR revealed no acute abnormality US of b/l LE no DVT Head CT revealed no abnormality D-dimer within normal limits Continue with oxygen via nasal cannula Continue with Solu-Medrol Hypotension: Gentle hydration Negative troponin BNP within normal limit No UTI - Advance Directives Does patient have a Living Will: No Does patient have a Durable POA for Healthcare: No
[2024-02-21] MEDS: NA CHLORIDE 0.9% 500 ML IV ONE (20:01)
[2024-02-21] MEDS ORDERED: ACETAMINOPHEN 325 MG TABLET ONE (20:23)
[2024-02-21] MEDS: ACETAMINOPHEN 325 MG TABLET PO PRN (20:24)
[2024-02-21] MEDS: MORPHINE 2 MG/ML SYR IV PRN (22:23)
[2024-02-21 23:03] VITALS: BMI 33.6
[2024-02-21] MEDS: METHYLPREDNISOLONE 125 MG INJ IV SCH (23:16)
[2024-02-22] MEDS: IPRATROPIUM BROM 0.5MG/2.5ML NEB SCH (02:45)
[2024-02-22] MEDS: PANTOPRAZOLE 40MG TABLET PO SCH (05:24)
[2024-02-22 06:05] LABS: Absolute Lymphocytes (CBC) 0.7 K/uL (0.7-4.9); Absolute Monocytes 0.1 K/uL (0.1-1.3); Absolute Neutrophil 5.9 K/uL (1.8-8.0); Basophils % 0.2 % (0-1.3); Hematocrit 41.9 % (39.6-49.0); Hemoglobin 13.9 g/dL (13.6-17.9); Lymphocytes % 10.4 % (15.3-44.8); MCHC 33.1 g/dL (32.0-36.0); MCV 78.6 fL (80-100); MPV 9.2 fL (7.6-11.3); Neutrophils % 88.4 % (41.7-73.7); Nucleated Red Blood Cells % 0.1 % (0-0); Platelets 301 thou/uL (152-406); RBC Red Blood Cell Count 5.34 M/uL (4.33-5.43); Red Cell Distribution Width 15.7 % (12.1-15.2)
[2024-02-22 06:27] LABS: Albumin 3.7 g/dL (3.4-5.0); Anion Gap 8.9 mEq/L (5.0-15.0); Bilirubin Total 0.5 mg/dL (0.2-1.0); Globulin 3.6 g/dL (2.3-3.5); Magnesium 2.7 mg/dL (1.6-2.4); Phosphorus 2.3 mg/dL (2.5-4.9); Potassium 4.9 mEq/L (3.5-5.1); Protein, Total 7.3 g/dL (6.4-8.2); Thyroid Stimulating Hormone 0.612 uIU/mL (0.358-3.740); Troponin High Sensitivity 4.1 pg/mL (<58.9)
[2024-02-22 07:25] LABS: Blood Morphology Comment NOT SEEN (NOT SEEN); Platelet Estimate ADEQ; White Blood Cell Scan OK (OK)
[2024-02-22] MEDS: ENOXAPARIN 40 MG/0.4 ML SQ SCH (07:52)
[2024-02-22] MEDS: HYDROMORPHONE HCL 1 MG/ML INJ IV ONE (07:53)
[2024-02-22] MEDS: NYSTATIN 500,000 UNIT/5 ML UDC PO SCH (07:53)
[2024-02-22] MEDS: PREGABALIN 50 MG CAP PO SCH (07:53)
[2024-02-22] MEDS: TESTOSTERONE CYPIONATE 200 MG/ML IM SCH (10:44)
[2024-02-22] MEDS: DIPHENHYDRAMINE 50 MG/ML VIAL IV ONE (11:23)
[2024-02-22] MEDS: METOCLOPRAMIDE 10 MG/2mL INJ IV ONE (11:24)
[2024-02-22] MEDS: NACHLORIDE 0.45% 1,000 ML IV SCH (14:36)
[2024-02-22] MEDS: HYDROMORPHONE HCL 1 MG/ML INJ IV PRN (14:39)
--- NOTE | 2024-02-22 15:32 | P.PN ---
Subjective Date of Service: 02/22/24 Chief Complaint: hypoxia, hypotension Patient is complaining of migraine headaches, right his headache is severe, partial response to IV hydromorphone given this morning. Blood pressure has improved and patient is currently normotensive. He denies any chest pain. Physical Examination - Vital Signs Temperature: 97.5 F Blood Pressure: 124/80 Pulse: 88 Respirations: 16 Pulse Ox (%): 94 - Studies Microbiology Data (last 24 hrs): 02/21/24 14:29 Nasopharnyx Influenza Type A Antigen Screen - Final 02/21/24 14:29 Nasopharnyx Influenza Type B Antigen Screen - Final Assessment And Plan - Plan Physical examination General: Alert and oriented x3, moderate distress due to headache. HEENT: Conjunctiva not pale, anicteric sclera Neck: Supple, no elevated JVD Heart: Heart sounds 1 and 2 normal, regular rhythm, normal rate, no pedal edema Lungs: Mild scattered wheezes, adequate breath sounds bilaterally, no rhonchi or crackles. Abdomen: Soft, nondistended, nontender, normal bowel sounds. Extremities: No tenderness, no deformity Skin: Normal skin turgor, no rash, no nodules or ulcers. Neuro: No focal motor deficit. Normal speech. Psychiatry: Normal mood, no agitation. Diagnosis Drug-induced hypotension Acute kidney injury Acute migraine attack Acute respiratory failure with hypoxia COPD exacerbation Hyponatremia Plan Drug-induced hypotension Patient is on multiple antihypertensives. I suspect low BP recorded in the ED related to antihypertensive use. Blood pressure has improved with IV hydration Continue IV NS. Monitor BP Hold home antihypertensives. Acute migraine attack Migraine cocktail-hydromorphone, Benadryl and Reglan. Patient will continue his home dose Ubrelvy. Acute respiratory failure with hypoxia COPD exacerbation Continue bronchodilator Oral prednisone Continue home dose Roflumilast. Pulmonary Dr. Smith input appreciated Wean off oxygen as tolerated. Hyponatremia Continue IV NS Monitor BMP Chest pain Hyperlipidemia Troponin trended negative. ACS not likely. Continue Plavix, lipitor. BPH Continue tamsulosin. Chronic back pain Patient has pain pump in place. DVT prophylaxis: Lovenox. Advanced directive: Full code.
[2024-02-22] MEDS: PENTOXIFYLLINE ER 400 MG TAB PO SCH (20:37)
[2024-02-22] MEDS: predniSONE 10 MG TAB PO SCH (20:37)
[2024-02-22] MEDS: ATORVASTATIN 40 MG TAB PO SCH (20:37)
[2024-02-22] MEDS: TAMSULOSIN 0.4 MG SR CAP PO SCH (20:37)
[2024-02-22] MEDS: HOME MED 1 EA UNK (Fluticasone/Umeclidin/Vilanter [Trelegy Ellipta 200-62.5-25] Blst.W.Dev IH SCH (21:00)
[2024-02-22] MEDS ORDERED: HOME MED 1 EA UNK (Fluticasone/Umeclidin/Vilanter [Trelegy Ellipta 200-62.5-25] Blst.W.Dev IH SCH (21:00)
[2024-02-23 06:34] LABS: Albumin 3.1 g/dL (3.4-5.0); Albumin/Globulin Ratio 1.1 (1.1-1.8); Anion Gap 5.6 mEq/L (5.0-15.0); Bilirubin Total 0.2 mg/dL (0.2-1.0); Globulin 2.8 g/dL (2.3-3.5); Potassium 4.6 mEq/L (3.5-5.1); Protein, Total 5.9 g/dL (6.4-8.2)
[2024-02-23] MEDS: CLOPIDOGREL 75 MG TABLET PO SCH (08:05)
[2024-02-23] MEDS: ROFLUMILAST 500 MCG TABLET PO SCH (08:05)
[2024-02-23] MEDS: LACTOBACILLUS/ACIDOPHILUS TAB PO SCH (08:06)
[2024-02-23] MEDS: MAGNESIUM OXIDE 400 MG TAB PO SCH (08:06)
[2024-02-23] MEDS: EZETIMIBE 10 MG TAB PO SCH (08:07)
[2024-02-23] MEDS: CYCLOBENZAPRINE 10 MG TAB PO SCH (08:07)
[2024-02-23] MEDS: POTASS/SODIUM PHOSPHATE 1 PKT POWD.PACK PO SCH (08:08)
--- NOTE | 2024-02-23 11:38 | EKG ---
Test Date: 2024-02-21 Test Time: 14:36:15 Elevator Conductor: DOMINGA MEASUREMENT RESULTS: Intervals: Rate: 77 OR: 182 QRSD: 100 QT: 362 QTc: 409 [place]roix: P: 59 OR: 182 QRS: 4 T: 56 INTERPRETIVE STATEMENTS: Normal sinus rhythm Normal ECG Compared to ECG 07/21/2021 14:53:33 Sinus bradycardia no longer present Electronically Signed On 02-23-24 11:34:19 MILITARY ADMINISTRATIVE TECHNICIAN by Piotr Napier
[2024-02-23] MEDS ORDERED: ALBUTEROL 2.5 MG/3 ML NEB SOL NEB PRN (11:57)
--- NOTE | 2024-02-23 13:07 | RAD REPORT ---
EXAMINATION: CTA CHEST PE CLINICAL INDICATION: Hypoxia TECHNIQUE: 100 cc 370 Isovue administered intravenously. This examination was performed according to an angiographic protocol with 3D post-processing. This involves 3D reconstructions, MIPs, volume rendered images and/or shaded surface rendering. One or more of the following dose reduction techniqu es were used: Automated exposure control, adjustment of the mA and/or kV according to patient size, and/or iterative reconstruction. Unless otherwise specified, incidental findings do not require dedic ated imaging follow-up. [id number]. COMPARISON: No prior exam. FINDINGS: The opacification of the pulmonary arteries is suboptimal. No gross pulmonary embolus seen An aortic aneurysm not noted. No pleural effusion. No pericardial effusion. Areas of subsegmental atelectasis are present within the lungs bilaterally. IMPRESSION: No gross visualization of a pulmonary embolism
--- NOTE | 2024-02-23 14:16 | RAD REPORT ---
EXAM:Sinus W/Cont Clinical history: Sinus pain Comparison 2022 TECHNIQUE: Computed axial tomography sinuses obtained with coronal and sagittal reconstruction. 100 cc Isovue [address] chest prior to this exam. FINDINGS: The sinuses are clear. Frontal sinus aplastic. The ostiomeatal complexes are narrowed bilaterally. Nasal septum deviated towards the right. IMPRESSION: Clear sinuses. The ostiomeatal complexes are narrowed bilaterally. Nasal septum deviated towards the right.
--- NOTE | 2024-02-23 15:57 | P.PN ---
Subjective Date of Service: 02/23/24 Chief Complaint: hypoxia, hypotension Patient is still complaining of severe headache and is wondering if the headache is related to sinusitis. He denies any chest pain. Physical Examination - Vital Signs Temperature: 97.6 F Blood Pressure: 137/70 Pulse: 94 Respirations: 20 Pulse Ox (%): 97 Assessment And Plan - Plan Physical examination General: Alert and oriented x3, moderate distress due to headache. Neck: Supple, no elevated JVD Heart: Heart sounds 1 and 2 normal, regular rhythm, normal rate, no pedal edema Lungs: Mild scattered wheezes, adequate breath sounds bilaterally, no crackles. Abdomen: Soft, nondistended, nontender, normal bowel sounds. Extremities: No tenderness, no deformity Skin: Normal skin turgor, no rash, no nodules or ulcers. Neuro: No focal motor deficit. Normal speech. Psychiatry: Normal mood, no agitation. Diagnosis Drug-induced hypotension Acute kidney injury Acute migraine attack Acute respiratory failure with hypoxia COPD exacerbation Hyponatremia Plan Drug-induced hypotension Patient is on multiple antihypertensives. I suspect low BP recorded in the ED related to antihypertensive use. Blood pressure has improved and stable. Continue to hold antihypertensives. On IV NS Monitor BP Acute migraine attack Migraine cocktail-hydromorphone, Benadryl and Reglan. Patient to continue his home dose Ubrelvy. CT sinuses does not show any sinusitis. Acute respiratory failure with hypoxia COPD exacerbation CTA thorax negative for pulmonary embolism. Continue bronchodilator Oral prednisone Continue home dose Roflumilast. Pulmonary Dr. Smith consulted. Wean off oxygen as tolerated. Hyponatremia Continue IV NS Monitor BMP Chest pain Hyperlipidemia Troponin trended negative. ACS not likely. Continue Plavix, lipitor. BPH Continue tamsulosin. Chronic back pain Patient has pain pump in place. DVT prophylaxis: Lovenox. Advanced directive: Full code.
[2024-02-23] MEDS: METHYLPREDNISOLONE 40 MG INJ IV SCH (20:11)
[2024-02-24 06:18] LABS: Absolute Lymphocytes (CBC) 0.6 K/uL (0.7-4.9); Absolute Monocytes 0.2 K/uL (0.1-1.3); Absolute Neutrophil 7.1 K/uL (1.8-8.0); Hematocrit 37.9 % (39.6-49.0); Hemoglobin 12.1 g/dL (13.6-17.9); Lymphocytes % 7.7 % (15.3-44.8); MCH 25.5 pg (27.0-35.0); MCHC 31.9 g/dL (32.0-36.0); Monocytes % 2.3 % (3.3-12.3); Platelets 270 thou/uL (152-406); RBC Red Blood Cell Count 4.74 M/uL (4.33-5.43); Red Cell Distribution Width 15.5 % (12.1-15.2)
[2024-02-24 06:40] LABS: Anion Gap 5.6 mEq/L (5.0-15.0); Potassium 4.6 mEq/L (3.5-5.1); Troponin High Sensitivity 4.7 pg/mL (<58.9)
[2024-02-24] MEDS ORDERED: ACETAMIN/CAFFEINE/BUTALB TAB PO PRN (12:52)
--- NOTE | 2024-02-24 12:59 | P.PN ---
Subjective Date of Service: 02/24/24 Chief Complaint: hypoxia, hypotension Patient reports intermittent migraine attack. He has cough productive of whitish to yellow sputum. He remains on 2 L oxygen by nasal cannula. No recorded fever. He denies any chest pain. Physical Examination - Vital Signs Temperature: 98.2 F Blood Pressure: 144/71 Pulse: 81 Respirations: 16 Pulse Ox (%): 95 Assessment And Plan - Plan Physical examination General: Alert and oriented x3, moderate distress due to headache. Neck: Supple, no elevated JVD Heart: Heart sounds 1 and 2 normal, regular rhythm, normal rate, no pedal edema Lungs: Mild scattered wheezes, adequate breath sounds bilaterally, no crackles. Abdomen: Soft, nondistended, nontender, normal bowel sounds. Extremities: No tenderness, no deformity Skin: Normal skin turgor, no rash, no nodules or ulcers. Neuro: No focal motor deficit. Normal speech. Psychiatry: Normal mood, no agitation. Diagnosis Drug-induced hypotension Acute kidney injury Acute migraine attack Acute respiratory failure with hypoxia COPD exacerbation Hyponatremia Plan Drug-induced hypotension Patient is on multiple antihypertensives. I suspect low BP recorded in the ED related to antihypertensive use. Blood pressure has improved and stable. Resume antihypertensives stepwise. Discontinue IV fluid. Monitor BP Acute migraine attack Migraine cocktail-hydromorphone, Benadryl and Reglan. Patient to continue his home dose Ubrelvy. CT sinuses does not show any sinusitis. Trial of Fioricet. Acute respiratory failure with hypoxia COPD exacerbation CTA thorax negative for pulmonary embolism. Continue bronchodilator IV steroid Continue home dose Roflumilast. Pulmonary Dr. Smith consulted. Wean off oxygen as tolerated. Hyponatremia Hyponatremia resolved Discontinue IV fluid Monitor BMP Chest pain Hyperlipidemia Troponin trended negative. ACS not likely. Continue Plavix, lipitor. BPH Continue tamsulosin. Chronic back pain Patient has pain pump in place. DVT prophylaxis: Lovenox. Advanced directive: Full code.
[2024-02-24] MEDS: AZITHROMYCIN IV 500 MG in NA CHLORIDE 0.9% 250 ML IVPB SCH (15:37)
[2024-02-24] MEDS: CEFTRIAXONE 1,000 MG in NA CHLORIDE 0.9% 50 ML IVPB SCH (16:30)
[2024-02-25] MEDS: UBROGEPANT 100 MG PO PRN (05:15)
[2024-02-25 06:16] LABS: Absolute Lymphocytes (CBC) 1.1 K/uL (0.7-4.9); Absolute Monocytes 0.4 K/uL (0.1-1.3); Absolute Neutrophil 7.1 K/uL (1.8-8.0); Basophils % 0.1 % (0-1.3); Hematocrit 39.5 % (39.6-49.0); Hemoglobin 12.9 g/dL (13.6-17.9); Lymphocytes % 12.9 % (15.3-44.8); MCH 25.8 pg (27.0-35.0); MCHC 32.6 g/dL (32.0-36.0); MCV 79.3 fL (80-100); MPV 9.5 fL (7.6-11.3); Monocytes % 4.4 % (3.3-12.3); Neutrophils % 82.6 % (41.7-73.7); Platelets 299 thou/uL (152-406); RBC Red Blood Cell Count 4.98 M/uL (4.33-5.43); Red Cell Distribution Width 15.5 % (12.1-15.2)
[2024-02-25 06:38] LABS: Anion Gap 7.3 mEq/L (5.0-15.0); Potassium 4.3 mEq/L (3.5-5.1)
[2024-02-25 08:02] VITALS: BP 161/79; TEMP 97.7
[2024-02-25 10:26] VITALS: O2SAT 91
--- NOTE | 2024-02-25 15:15 | P.DS ---
Admission Date: 02/21/24 Discharge Date: 02/25/24 Disposition: ROUTINE DISCHARGE Discharge Condition: FAIR Reason for Admission: hypoxia, hypotension Brief History of Present Illness: 66-year-old man with a past medical history significant for COPD, HTN, HDL, and GERD presented to the emergency department complaining of chest pain, dyspnea, and hypotension for 7 days. He is not on home oxygen. Patient is a former smoker, who quit 1.5 years ago. He reported exposure to wood dust from [place]. Chest x-ray did not show any acute disease. Patient was not hypotensive in the ED. Patient did not meet criteria for sepsis. He was hospitalized for further management. Hospital Course: Diagnosis Drug-induced hypotension Acute kidney injury Acute migraine attack Acute respiratory failure with hypoxia COPD exacerbation Hyponatremia Plan Drug-induced hypotension Patient is on multiple antihypertensives. I suspect low BP recorded related to antihypertensive use. Blood pressure has improved and became hypertensive. Nebivolol and losartan resumed on discharge. Patient has been informed not to take his amlodipine and his BP is consistently above 140. He was briefly hydrated with IV NS. Acute migraine attack Treated with migraine cocktail-hydromorphone, Benadryl and Reglan. Patient to continued his home dose Ubrelvy. CT sinuses does not show any sinusitis. He was also placed on a trial of Fioricet. Overall patient headache markedly improved. Acute respiratory failure with hypoxia COPD exacerbation CTA thorax negative for pulmonary embolism. Hypoxia likely secondary to COPD exacerbation Patient was treated with bronchodilator and IV steroid Continued home dose Roflumilast. Pulmonary Dr. Smith evaluated patient and assisted with management. Hypoxia resolved, patient was weaned off oxygen to room air. He tolerated room air at rest and with ambulation with good oxygen saturation Hyponatremia Hyponatremia resolved with IV NS Chest pain Hyperlipidemia Chest pain described as worse with deep breathing. Troponin trended negative. ACS not likely. Continued Plavix, lipitor. BPH Continued tamsulosin. Chronic back pain Patient has pain pump in place. Vital Signs/Physical Exam: Temp Pulse Resp BP Pulse Ox 97.7 F 63 22 H 161/79 H 96 02/25/24 08:00 02/25/24 08:00 02/25/24 08:56 02/25/24 08:00 02/25/24 08:56 General: Alert, In no apparent distress, Oriented x3 HEENT: Mucous membr. moist/pink, Sclerae nonicteric Neck: Supple, JVD not distended Respiratory: Clear to auscultation bilaterally, Normal air movement Cardiovascular: No edema, Regular rate/rhythm, Normal S1 S2, No murmurs Gastrointestinal: Normal bowel sounds, Soft and benign, Non-distended, No tenderness Musculoskeletal: No swelling Integumentary: No rashes, No cyanosis Neurological: Normal speech, Normal strength at 5/5 x4 extr Laboratory Data at Discharge: WBC 8.60 thou/uL (4.3-10.9) 02/25/24 05:33 Hgb 12.9 g/dL (13.6-17.9) L 02/25/24 05:33 Hct 39.5 % (39.6-49.0) L 02/25/24 05:33 Plt Count 299 thou/uL (152-406) 02/25/24 05:33 PT 12.2 SECONDS (9.4-12.5) 02/21/24 14:26 INR 1.09 02/21/24 14:26 Sodium 136 mEq/L (136-145) 02/25/24 05:33 Potassium 4.3 mEq/L (3.5-5.1) 02/25/24 05:33 BUN 13 mg/dL (7-18) 02/25/24 05:33 Creatinine 1.02 mg/dL (0.70-1.30) 02/25/24 05:33 Glucose 137 mg/dL (74-106) H 02/25/24 05:33 Phosphorus 2.3 mg/dL (2.5-4.9) L 02/22/24 05:47 Magnesium 2.7 mg/dL (1.6-2.4) H 02/22/24 05:47 Total Bilirubin 0.2 mg/dL (0.2-1.0) 02/23/24 05:36 AST 12 U/L (15-37) L 02/23/24 05:36 ALT 20 U/L (16-61) 02/23/24 05:36 Alkaline Phosphatase 80 U/L (45-117) D 02/23/24 05:36 Triglycerides 57 mg/dL (<150) 02/22/24 05:47 Cholesterol 140 mg/dL (<200) 02/22/24 05:47 HDL Cholesterol 37 mg/dL (40-60) L 02/22/24 05:47 Cholesterol/HDL Ratio 3.78 02/22/24 05:47 Home Medications: Albuterol Sulfate [Ventolin Hfa] 2 puff IH BIDP PRN 02/21/24 Atorvastatin Calcium [Lipitor] 40 mg PO BEDTIME 02/21/24 Cholecalciferol (Vitamin D3) [D3-50] 50,000 unit PO DAILY 02/21/24 Clopidogrel Bisulfate [Plavix] 75 mg PO DAILY 02/21/24 Cyclobenzaprine [Flexeril*] 10 mg PO DAILY 02/21/24 Ezetimibe 10 mg PO DAILY 02/21/24 Fluticasone/Umeclidin/Vilanter [Trelegy Ellipta 200-62.5-25] 1 puff IH BID 02/21/24 Hydromorphone [Dilaudid*] 4 mg PO TIDP PRN 02/21/24 L.acidoph,Paracasei, B.lactis [Probiotic] 1 each PO DAILY 02/21/24 Losartan Potassium 100 mg PO DAILY 02/21/24 Magnesium Oxide [Mag 0X*] 400 mg PO DAILY 02/21/24 Nebivolol HCl 2.5 mg PO DAILY 02/21/24 Pantoprazole Sodium [Protonix] 40 mg PO DAILY 02/21/24 Pentoxifylline 400 mg PO BID 02/21/24 Pregabalin [Lyrica*] 50 mg PO BID 02/21/24 Roflumilast 500 mcg PO DAILY 02/21/24 Semaglutide [Ozempic] 2 mg SQ EVERY 7TH DAY 02/21/24 Tamsulosin [Flomax*] 0.4 mg PO BEDTIME 02/21/24 Testosterone Cypionate [Testone Cik] 200 mg IM EVERY 7TH DAY 02/21/24 Ubrogepant [Ubrelvy] 100 mg PO PRN PRN 02/23/24 Acetam/Caff/Butal [Fioricet*] 1 tab PO Q6H PRN #30 tab 02/25/24 levoFLOXacin [Levaquin] 750 mg PO DAILY #5 tab 02/25/24 predniSONE [Deltasone] 20 mg PO BID #8 tab 02/25/24 New Medications: Acetam/Caff/Butal [Fioricet*] 1 tab PO Q6H PRN #30 tab PRN Reason: Headache levoFLOXacin [Levaquin] 750 mg PO DAILY #5 tab predniSONE [Deltasone] 20 mg PO BID #8 tab Diet: AHA Activity: Ad malia Followup: Sergio Peterson MD [Primary Care Provider] - 1 Week Time spent managing pt's care (in minutes): 34
== END 2024-02-25 10:50 | disposition home or self-care (01) | DRG 190 ==
LOC: ER 13:33 → ERHOLD 19:46 → 4TH 20:54
PROVIDERS: ADMIT Internal Medicine; ATTEND Internal Medicine
DX: J44.1 Chronic obstructive pulmonary disease with (acute) exacerbation (principal); J96.01 Acute respiratory failure with hypoxia; N17.9 Acute kidney failure, unspecified; E87.1 Hypo-osmolality and hyponatremia; I95.2 Hypotension due to drugs; T46.5X5A Adverse effect of other antihypertensive drugs, initial encounter; K21.9 Gastro-esophageal reflux disease without esophagitis; I10 Essential (primary) hypertension; I95.9 Hypotension, unspecified; E78.00 Pure hypercholesterolemia, unspecified; G89.29 Other chronic pain; M54.9 Dorsalgia, unspecified; N40.0 Benign prostatic hyperplasia without lower urinary tract symptoms; G43.909 Migraine, unspecified, not intractable, without status migrainosus; Z11.52 Encounter for screening for COVID-19; Z90.49 Acquired absence of other specified parts of digestive tract; Z87.891 Personal history of nicotine dependence
CPT/HCPCS: 36415; 70450; 70487; 71045; 71275; 80048; 80053; 80061; 80076; 81001; 82550; 83605; 83735; 83880; 84100; 84443; 84484; 85025; 85379; 85610; 87804; 87811; 93005; 93925; 93970; 94010; 94640; 94760; 96374; 96375; 99285; J0696; J1171; J1200; J1650; J2270; J2405; J2765; J2919; J7040; J7050; J7512; J7613; J7644; Q9967

== ENCOUNTER 2024-05-22 14:26 | Inpatient (IN) | payer OTHER ==
--- NOTE | 2024-05-22 16:24 | RAD REPORT ---
EXAMINATION: CT HEAD WITHOUT CONTRAST CLINICAL INDICATION: Male, 59 years old.Dizziness;Headache TECHNIQUE: Axial CT images from the skull base to the vertex without intravenous contrast. Coronal an d sagittal reformatted images were created from the data set. One or more of the following dose reduction techniques were used: Automated exposure control, adjustment of the mA and/or kV according to patient size, and/or iterative reconstruction. Unless otherwise specified, incidental findings do not require dedicated imaging follow-up. [id number]. COMPARISON: No prior exam. FINDINGS: INTRACRANIAL: No acute intracranial hemorrhage. No hydrocephalus. No mass effect or midline shift. No significant white matter disease. VASCULATURE: No visualized abnormalities in the arteries or dural venous sinuses. SCALP/SKULL: No significant soft tissue or osseous abnormalities. SINUSES: The visualized paranasal sinuses and mastoid air cells are predominantly clear. IMPRESSION: No acute intracranial abnormality.
--- NOTE | 2024-05-22 16:36 | RAD REPORT ---
EXAM: Chest Single View HISTORY: COUGH COMPARISON: 02/21/2024 FINDINGS: LUNGS/PLEURA: The lungs are clear. No pleural effusions or pneumothorax. No pulmonary edema. MEDIASTINUM: The mediastinal silhouette is within normal limits. CARDIAC: The cardiac silhouette is within normal limits. UPPER ABDOMEN: No significant abnormality. BONES: No acute abnormality. ACDF in the cervical spine. LINES/TUBES/OTHER: N/A IMPRESSION: No evidence of acute cardiopulmonary disease.
[2024-05-22 18:16] LABS: Absolute Basophils 0.1 K/uL (0-0.5); Absolute Eosinophils 0.1 K/uL (0-0.5); Absolute Lymphocytes (CBC) 1.4 K/uL (0.7-4.9); Absolute Monocytes 0.8 K/uL (0.1-1.3); Absolute Neutrophil 5.8 K/uL (1.8-8.0); Basophils % 0.6 % (0-1.3); Eosinophils % 1.2 % (0-4.4); Hematocrit 42.2 % (39.6-49.0); Hemoglobin 13.8 g/dL (13.6-17.9); Lymphocytes % 16.8 % (15.3-44.8); MCH 24.4 pg (27.0-35.0); MCHC 32.6 g/dL (32.0-36.0); MCV 74.8 fL (80-100); MPV 8.7 fL (7.6-11.3); Monocytes % 9.7 % (3.3-12.3); Neutrophils % 71.7 % (41.7-73.7); Platelets 253 thou/uL (152-406); RBC Red Blood Cell Count 5.64 M/uL (4.33-5.43); Red Cell Distribution Width 16.4 % (12.1-15.2)
[2024-05-22] MEDS ORDERED: DIPHENHYDRAMINE 50 MG/ML VIAL ONE (18:17)
[2024-05-22] MEDS ORDERED: NA CHLORIDE 0.9% 1,000 ML ONE (18:18)
[2024-05-22] MEDS ORDERED: METOCLOPRAMIDE 10 MG/2mL INJ ONE (18:18)
[2024-05-22 18:34] LABS: Troponin High Sensitivity 3.5 pg/mL (<58.9)
[2024-05-22] MEDS ORDERED: droPERidol 5 MG/2 ML VIAL ONE (18:58)
[2024-05-22] MEDS ORDERED: KETOROLAC 30 MG/ML INJ ONE (18:58)
[2024-05-22] MEDS ORDERED: VANCOMYCIN 1 GM/VIAL ONE (19:46)
[2024-05-22] MEDS ORDERED: DIAZEPAM 10 MG/2 ML INJ SYRINGE ONE (19:46)
[2024-05-22] MEDS ORDERED: ACETAMINOPHEN 500 MG TAB ONE (19:47)
[2024-05-22] MEDS ORDERED: NA CHLORIDE 0.9% 250 ML ONE (19:48)
[2024-05-22 20:12] LABS: Specific Gravity 1.023 (1.005-1.030); Sqamous Epithelial <5 /HPF (None Seen); Urine Bacteria None Seen /HPF (<20); Urine Bilirubin NEGATIVE (Negative); Urine Blood Negative (Negative); Urine Clarity Clear (Clear); Urine Color Light-Yellow (Yellow); Urine Culture Reflex Order NOT NEEDED; Urine Glucose NEGATIVE (Negative); Urine Ketones 4+ (Over) (Negative); Urine Micro Reflex YN NO BILL MICROSCOPIC; Urine Mucus Slight /HPF (None Seen); Urine Nitrite NEGATIVE (Negative); Urine Protein TRACE (Negative); Urine RBC <5 /HPF (None Seen); Urine Urobilinogen Normal (Normal); Urine WBC <5 /HPF (<5); Urine WBC Clump Rare /HPF (None Seen); Urine Yeast (Budding) Trace /HPF (None Seen)
--- NOTE | 2024-05-22 20:28 | RAD REPORT ---
EXAMINATION: CT ABDOMEN AND PELVIS WITH CONTRAST CLINICAL INDICATION: Male, 59 years old.ABD PAIN TECHNIQUE: CT abdomen and pelvis was performed, after the administration of IV contrast, [facility]. Axial, sagittal and coronal reconstructions were obtained. One or more of the following dose reduction techniques were used: Automated exposure control, adjustment of the mA and/o r kV according to patient size, and/or iterative reconstruction. Unless otherwise specified, incidental findings do not require dedicated imaging follow-up. [id number]. COMPARISON: 07/21/2021 FINDINGS: LOWER CHEST: No acute process identified.No significant pericardial effusion. UPPER GI: No significant abnormality. LIVER: Hepatic steatosis, but otherwise unremarkable. GALLBLADDER/BILE DUCTS: Cholecystectomy. Mild extra-hepatic biliary ductal dilatation is likely relat ed to the post-cholecystectomy state. Consider correlating with LFT's.? PANCREAS: No mass, ductal dilation, or migdalia-pancreatic fluid. SPLEEN: Unremarkable. ADRENALS: No adrenal masses. KIDNEYS AND URETERS: No hydronephrosis.No suspicious renal mass.No renal calculi. ABDOMINAL AORTA AND OTHER VESSELS: Moderate atherosclerotic changes without aortic aneurysm. PERITONEUM: No abnormal free fluid. No free air. LYMPH NODES: No pathologic lymphadenopathy. ABDOMINAL WALL: Unremarkable SMALL BOWEL/COLON: Small bowel has normal course and caliber. No colonic wall thickening or pericolon ic inflammatory changes.Normal appendix. URINARY BLADDER: Underdistended but grossly unremarkable. REPRODUCTIVE ORGANS: No pathologic process. MUSCULOSKELETAL: No acute or suspicious osseous abnormality. ADDITIONAL FINDINGS: Epidural pain pump. IMPRESSION: No acute findings within the abdomen or pelvis.
--- NOTE | 2024-05-22 20:37 | EDPHYS ---
Physician Documentation [facility] Name: Eduardo Hobbs Age: 59 yrs Sex: Male : 1965 Arrival Date: 05/22/2024 Time: 14:26 Bed 23 Private MD: ED Physician Toan Poole HPI: 05/22 15:27 This 59 yrs old Male presents to ER via Wheelchair with complaints of ec2 Dizziness, Headache, confusion, not eating or drinking. 15:27 Patient arrives today for evaluation of headache along with increasing confusion. ec2 Patient has been increasingly confused over the past several days. Complaining of chronic headaches ongoing for the past several months. Reports some occasional nausea as well as malaise, decreased p.o. intake. No vomiting, no diarrhea. No urinary complaints.. Historical: - Allergies: 15:20 No Known Allergies; ap3 - PMHx: 15:18 COPD; GERD; High Cholesterol; Hypertensive disorder; ap3 15:20 Diabetes mellitus; ap3 - PSHx: 15:18 carpal tunnel; Cholecystectomy; hernia; Spinal surgery; ap3 - Infectious Disease History:: Denies. - Social history:: Smoking status: Patient denies any tobacco usage or history of. ROS: 15:27 Constitutional: as per hpi ec2 Exam: 15:27 Constitutional: GEN: NAD Head: atraumatic Eyes: EOMI Ears: External ears are ec2 normal. CV: Tachycardia LUNGS: no respiratory distress ABD: non-distended soft, not guarding, not rigid SKIN: no evidence of rashes MSK: no evidence of trauma. Neuro: Cranial nerves II through XII intact, strength intact all 4 extremities. Vital Signs: 15:13 BP 122 / 83; Pulse 120; Resp 19; Temp 97.7(O); Pulse Ox 99% on R/A; Weight 108.86 kg; ap3 18:31 BP 149 / 93; Pulse 122; Resp 18; Pulse Ox 97% on R/A; jb4 19:30 BP 121 / 55; Pulse 117; Resp 17; Pulse Ox 97% on R/A; jb4 20:28 BP 132 / 80; Pulse 109; Resp 16; Temp 98(O); Pulse Ox 97% on R/A; jb4 21:45 BP 146 / 77; Pulse 90; Resp 16; Pulse Ox 97% on R/A; jb4 MDM: 15:26 Medical Screening Exam initiated ec2 15:28 Data reviewed: vital signs, nurses notes. ED course: Patient arrives today for ec2 evaluation of headache along with feeling unwell. Will obtain lab work, CT imaging of the head, lab work. Differential include processes such as uremia, electrolyte disturbances, intracranial mass, hyperammonemia.. 18:02 ED course: EKG independently reviewed and interpreted by me, shows sinus tachycardia, ec2 rate 112, no acute ST segment elevations, intervals are nonactionable.. 19:34 ED course: Further discussion with patient indicates that he has rash to the right ec2 lower extremity, my examination there is erythema and warmth, suspect cellulitis, will add on vancomycin as well.. 20:36 ED course: Will admit patient for cellulitis, confusion. Discussed with hospitalist, 2 pending admission.. 05/22 15:27 Order name: Basic Metabolic Panel; Complete Time: 18:43 ec2 05/22 15:27 Order name: CBC with Diff; Complete Time: 18:24 ec2 05/22 15:27 Order name: Troponin HS; Complete Time: 18:43 ec2 05/22 15:27 Order name: AMMONIA; Complete Time: 18:43 ec2 05/22 15:27 Order name: UAM; Complete Time: 20:12 ec2 05/22 22:59 Order name: Urinalysis w/ reflexes EDMA 05/22 22:59 Order name: CBC with Automated Diff EDMA 05/22 22:59 Order name: CBC with Automated Diff EDMA 05/22 22:59 Order name: Comprehensive Metabolic Panel EDMA 05/22 22:59 Order name: Comprehensive Metabolic Panel EDMA 05/22 23:00 Order name: ABG Arterial Blood Gas EDMA 05/22 15:27 Order name: XRAY Chest (1 view); Complete Time: 17:16 ec2 05/22 15:27 Order name: CT Head Brain wo Cont; Complete Time: 17:16 ec2 05/22 18:56 Order name: CT Abd/Pelvis - IV Contrast Only; Complete Time: 20:36 ec2 05/22 23:00 Order name: Brain Wo Cont EDMA 05/22 22:59 Order name: CONS Physician Consult EDMA 05/22 15:27 Order name: Cardiac monitoring; Complete Time: 18:11 ec2 05/22 15:27 Order name: EKG - Nurse/Tech; Complete Time: 18:11 ec2 05/22 15:27 Order name: IV Saline Lock; Complete Time: 18:11 ec2 05/22 15:27 Order name: Labs collected and sent; Complete Time: 18:11 ec2 05/22 15:27 Order name: O2 Per Protocol; Complete Time: 18:11 ec2 05/22 15:27 Order name: O2 Sat Monitoring; Complete Time: 18:11 ec2 Administered Medications: 18:24 Drug: NS 0.9% IV 1000 ml IV at 1 bolus Per protocol; to be given as a bolus over 60 jb4 minutes Route: IV; Rate: 1 bolus; Site: right upper arm; 18:24 Drug: metoCLOPramide IVP 10 mg IVP once; over 1 to 2 minutes Route: IVP; Site: right jb4 upper arm; 18:24 Drug: diphenhydrAMINE IVP 25 mg IVP once Route: IVP; Site: right upper arm; jb4 19:00 Drug: Droperidol IVP 1.25 mg IVP once Route: IVP; Site: right upper arm; jb4 19:00 Drug: Ketorolac IVP 15 mg IVP once Route: IVP; Site: right upper arm; jb4 20:00 Drug: vancoMYCIN IVPB 1 grams IVPB once over 2 hrs Route: IVPB; Infused Over: 2 hrs; jb4 Site: right upper arm; 20:00 Drug: Diazepam IVP 5 mg IVP once Route: IVP; Site: right upper arm; jb4 20:00 Drug: Acetaminophen PO 1000 mg PO once Route: PO; jb4 Disposition Summary: 05/22/24 20:36 Hospitalization Ordered Notes: Hospitalization Status: Inpatient Admission ec2 Provider: Dave Mott ec2 Condition: Stable ec2 Problem: new ec2 Symptoms: are unchanged ec2 Bed/Room Type: Standard ec2 Location: Intensive Care Unit(05/22/24 21:31) cg Room Assignment: 8-(05/22/24 21:31) cg Diagnosis - Cellulitis of right lower limb ec2 - Confusion ec2 Forms: - Medication Reconciliation Form ec2 - SBAR form ec2 - Leadership Thank You Letter ec2 Signatures: Dispatcher [employer] EDMS Philly Mckay, RN RN cg Luis Enrique Tristan RN RN jb4 Raven Narvaez RN RN ap3 Toan Poole MD MD ec2 Corrections: (The following items were deleted from the chart) 15:18 15:18 Allergies: No Known Allergies; ap3 ap3 15: 15:27 Chest Single View+RAD.RAD.BRZ ordered. EDMS EDMS : 15: Head Brain Wo Cont+CT.RAD.BRZ ordered. EDMS EDMS : 20:36 Telemetry/MedSurg (Inpatient) ec2 cg : 20:36 ec2 cg
--- NOTE | 2024-05-22 20:37 | ER ---
Nurse's Notes [facility] Name: Eduardo Hobbs Age: 59 yrs Sex: Male : 1965 Arrival Date: 05/22/2024 Time: 14:26 Bed 23 Private MD: Diagnosis: Cellulitis of right lower limb;Confusion Presentation: 05/22 15:13 Chief complaint: Spouse and/or significant other states: the patient has been sick ap3 since last week, and saw his PCP last week and he has just been getting worse. patients reports the patient is not really eating, drinking and starting yesterday he was getting really antsy and was "checking out then would check back in". Patients states he has done this before but never this bad. Coronavirus screen: At this time, the client does not indicate any symptoms associated with coronavirus-19. Ebola Screen: No symptoms or risks identified at this time. Initial Sepsis Screen: Does the patient meet any 2 criteria? HR > 90 bpm. Does the patient have a suspected source of infection? No. Patient's initial sepsis screen is negative. Risk Assessment: Do you want to hurt yourself or someone else? Patient reports no desire to harm self or others. Onset of symptoms is unknown. 15:13 Method Of Arrival: Wheelchair ap3 15:13 Acuity: ANGIE 2 ap3 Triage Assessment: 15:18 Headache History: The patient has had previous headaches. General: Appears ill, ap3 Behavior is calm. Pain: Complains of pain in head Pain began unknown. Neuro: Level of Consciousness is awake, alert, obeys commands. Neuro: Reports patients reports recent intermittent confusion that started yesterday morning. . Cardiovascular: Patient's skin is warm and dry. Respiratory: Airway is patent Respiratory effort is even, unlabored, Respiratory pattern is regular, symmetrical. GI: Parent/caregiver reports the patient having he isn't eating or drinking. Historical: - Allergies: 15:20 No Known Allergies; ap3 - PMHx: 15:18 COPD; GERD; High Cholesterol; Hypertensive disorder; ap3 15:20 Diabetes mellitus; ap3 - PSHx: 15:18 carpal tunnel; Cholecystectomy; hernia; Spinal surgery; ap3 - Infectious Disease History:: Denies. - Social history:: Smoking status: Patient denies any tobacco usage or history of. Screenin:20 Abuse screen: Denies threats or abuse. Nutritional screening: No deficits noted. ap3 Tuberculosis screening: No symptoms or risk factors identified. 15:23 [facility] ED Fall Risk Assessment (Adult) History of falling in the last 3 months, ap3 including since admission No falls in past 3 months (0 pts) Confusion or Disorientation Yes (5 pts) Intoxicated or Sedated No (0 pts) Impaired Gait No (0 pts) Mobility Assist Device Used No (0 pt) Altered Elimination Score/Fall Risk Level 3 or more points = High Risk Oriented to surroundings, Maintained a safe environment, Educated pt \\T\\ family on fall prevention, incl call for assistance when getting out of bed, Assessed \\T\\ reinforced patient's understanding of fall precautions, Hourly rounding (assess needs \\T\\ fall precautionary measures) done, Used ambulatory aids as needed (educated on \\T\\ assisted with), Apply high fall risk patient identification: yellow non skid footwear/ fall signage, Remained w/in arm's length of patient and in sight while toileting, Offered frequent toileting (1:1 observation), Utilized family, sitter, or virtual hotel operations manager as indicated. Assessment: 18:08 General: Appears in no apparent distress. uncomfortable, Behavior is calm, cooperative, jb4 appropriate for age. Pain: Complains of pain in posterior aspect of left lateral abdomen and posterior aspect of right lateral abdomen Pain does not radiate. Pain currently is 8 out of 10 on a pain scale. Neuro: Level of Consciousness is awake, alert, obeys commands, Oriented to person, place, time. Cardiovascular: Patient's skin is warm and dry. Respiratory: Airway is patent Respiratory effort is even, unlabored, Respiratory pattern is regular, symmetrical. GI: No signs and/or symptoms were reported involving the gastrointestinal system. : No signs and/or symptoms were reported regarding the genitourinary system. Derm: Skin is intact, Skin is pink, warm \\T\\ dry. Musculoskeletal: Circulation, motion, and sensation intact. Range of motion: intact in all extremities. 19:30 Reassessment: Pt now A\\T\\0x2 to self and place. Pt reports that his pain is better. jb4 Respirations are even and unlabored. 20:30 Reassessment: Patient appears in no apparent distress at this time. No changes from jb4 previously documented assessment. Patient and/or family updated on plan of care and expected duration. Pain level reassessed. 21:30 Reassessment: Patient appears in no apparent distress at this time. No changes from jb4 previously documented assessment. Patient and/or family updated on plan of care and expected duration. Pain level reassessed. Pt and family refusing further vitals until they reach ICU. 22:30 Reassessment: Patient appears in no apparent distress at this time. No changes from jb4 previously documented assessment. Patient and/or family updated on plan of care and expected duration. Pain level reassessed. Vital Signs: 15:13 BP 122 / 83; Pulse 120; Resp 19; Temp 97.7(O); Pulse Ox 99% on R/A; Weight 108.86 kg; ap3 18:31 BP 149 / 93; Pulse 122; Resp 18; Pulse Ox 97% on R/A; jb4 19:30 BP 121 / 55; Pulse 117; Resp 17; Pulse Ox 97% on R/A; jb4 20:28 BP 132 / 80; Pulse 109; Resp 16; Temp 98(O); Pulse Ox 97% on R/A; jb4 21:45 BP 146 / 77; Pulse 90; Resp 16; Pulse Ox 97% on R/A; jb4 ED Course: 14:30 Patient arrived in ED. al6 14:45 Toan Poole MD is Attending Physician. ec2 15:18 Triage completed. ap3 15:24 Arm band placed on left wrist. ap3 15:50 XRAY Chest (1 view) In Process Unspecified. EDMS 16:04 CT Head Brain wo Cont In Process Unspecified. EDMS 18:08 Inserted saline lock: 18 gauge in right upper arm, using aseptic technique. Blood jb4 collected. 18:11 Basic Metabolic Panel Sent. jb4 18:11 CBC with Diff Sent. jb4 18:11 Troponin HS Sent. jb4 18:11 AMMONIA Sent. jb4 18:29 Luis Enrique Tristan, DOMINGA is Primary Nurse. jb4 19:30 Patient has correct armband on for positive identification. Bed in low position. Call jb4 light in reach. Side rails up X 1. Provided Education on: plan of care. 20:14 CT Abd/Pelvis - IV Contrast Only In Process Unspecified. EDMS 20:36 Dave Mott MD is Hospitalizing Provider. ec2 21:30 IV discontinued, intact, bleeding controlled, No redness/swelling at site. Pressure jb4 dressing applied, D/c'ed by pt. 21:45 No provider procedures requiring assistance completed. Inserted saline lock: 18 gauge jb4 in right hand, using aseptic technique. Patient admitted, IV remains in place. Administered Medications: 18:24 Drug: NS 0.9% IV 1000 ml IV at 1 bolus Per protocol; to be given as a bolus over 60 jb4 minutes Route: IV; Rate: 1 bolus; Site: right upper arm; 18:24 Drug: metoCLOPramide IVP 10 mg IVP once; over 1 to 2 minutes Route: IVP; Site: right jb4 upper arm; 18:24 Drug: diphenhydrAMINE IVP 25 mg IVP once Route: IVP; Site: right upper arm; jb4 19:00 Drug: Droperidol IVP 1.25 mg IVP once Route: IVP; Site: right upper arm; jb4 19:00 Drug: Ketorolac IVP 15 mg IVP once Route: IVP; Site: right upper arm; jb4 20:00 Drug: vancoMYCIN IVPB 1 grams IVPB once over 2 hrs Route: IVPB; Infused Over: 2 hrs; jb4 Site: right upper arm; 20:00 Drug: Diazepam IVP 5 mg IVP once Route: IVP; Site: right upper arm; jb4 20:00 Drug: Acetaminophen PO 1000 mg PO once Route: PO; jb4 Medication: 19:30 VIS not applicable for this client. jb4 Outcome: 20:36 Decision to Hospitalize by Provider. ec2 23:22 Patient left the ED. ha1 Signatures: Dispatcher [employer] EDLuis Enrique Rivera RN RN jb4 Raven Narvaez RN RN ap3 Pamella Granados RN RN ha1 Toan Poole MD MD ec2 Valentina Moya Corrections: (The following items were deleted from the chart) 15:18 15:18 Allergies: No Known Allergies; ap3 ap3 19:08 19:00 Ketorolac IVP 15 mg IVP in right antecubital jb4 jb4
--- NOTE | 2024-05-22 21:05 | P.HP ---
Certification for Inpatient Patient admitted to: Inpatient With expected LOS: >2 Midnights Practitioner: I am a practitioner with admitting privileges, knowledge of patient current condition, hospital course, and medical plan of care. Services: Services provided to patient in accordance with Admission requirements found in Title 42 Section 412.3 of the Code of Federal Regulations Patient History Date of Service: 05/22/24 Reason for admission: AMS History of Present Illness: 59 yrs old Male with past medical history of COPD, hypertension, hyperlipidemia, diabetes, anxiety was brought to ER with confusion and headache which has been going on for the last 2 days and has been progressively worsening . Complains of bilateral bifrontal headache. No seizure-like activities. Patient is a poor historian hence most of the history is obtained from the chart review and also talking to the ER physician and family member at the bedside. As per the family patient has been increasingly confused over the last few days. Associated with some nausea but no vomiting. Denies any chest pain or shortness of breath. No fever or chills. No sick contacts. Patient has been on 2 different antibiotics recently as per the family for right lower extremity cellulitis Patient was assessed in the ER and is admitted for further management Allergies No Known Allergies Allergy (Unverified 02/21/24 20:09) Home medications list reviewed: Yes Home Medications: Albuterol Sulfate [Ventolin Hfa] 2 puff IH BIDP PRN 02/21/24 Atorvastatin Calcium [Lipitor] 40 mg PO BEDTIME 02/21/24 Cholecalciferol (Vitamin D3) [D3-50] 50,000 unit PO DAILY 02/21/24 Clopidogrel Bisulfate [Plavix] 75 mg PO DAILY 02/21/24 Cyclobenzaprine [Flexeril*] 10 mg PO DAILY 02/21/24 Ezetimibe 10 mg PO DAILY 02/21/24 Fluticasone/Umeclidin/Vilanter [Trelegy Ellipta 200-62.5-25] 1 puff IH BID 02/21/24 Hydromorphone [Dilaudid*] 4 mg PO TIDP PRN 02/21/24 L.acidoph,Paracasei, B.lactis [Probiotic] 1 each PO DAILY 02/21/24 Losartan Potassium 100 mg PO DAILY 02/21/24 Magnesium Oxide [Mag 0X*] 400 mg PO DAILY 02/21/24 Nebivolol HCl 2.5 mg PO DAILY 02/21/24 Pantoprazole Sodium [Protonix] 40 mg PO DAILY 02/21/24 Pentoxifylline 400 mg PO BID 02/21/24 Pregabalin [Lyrica*] 50 mg PO BID 02/21/24 Roflumilast 500 mcg PO DAILY 02/21/24 Semaglutide [Ozempic] 2 mg SQ EVERY 7TH DAY 02/21/24 Tamsulosin [Flomax*] 0.4 mg PO BEDTIME 02/21/24 Testosterone Cypionate [Testone Cik] 200 mg IM EVERY 7TH DAY 02/21/24 Ubrogepant [Ubrelvy] 100 mg PO PRN PRN 02/23/24 Acetam/Caff/Butal [Fioricet*] 1 tab PO Q6H PRN #30 tab 02/25/24 levoFLOXacin [Levaquin] 750 mg PO DAILY #5 tab 02/25/24 predniSONE [Deltasone] 20 mg PO BID #8 tab 02/25/24 - Past Medical/Surgical History Diabetic: No Past Medical History: Reviewed- Non-Contributory -: COPD -: HTN -: HDL -: GERD Past Surgical History: Reviewed- Non-Contributory -: Spinal surgery s/p pain pump placement in lumbar spine -: carpal tunnel release -: cholecystectomy -: hernia repair - Family History Family History: Reviewed- Non-Contributory - Social History Smoking Status: Former smoker Alcohol use: No CD- Drugs: No Caffeine use: Yes Review of Systems is unable to be obtained Physical Examination - Vital Signs Temperature: 97.2 F Blood Pressure: 132/68 Pulse: 78 Respirations: 18 Pulse Ox (%): 94 - Physical Exam General: Alert, Mild distress, Confused HEENT: Atraumatic, Normocephalic Neck: Supple Respiratory: Clear to auscultation bilaterally, Normal air movement Cardiovascular: Regular rate/rhythm, Normal S1 S2 Capillary refill: <2 Seconds Gastrointestinal: Soft and benign, W/out hepatosplenomegaly Musculoskeletal: No clubbing, Erythema, Tenderness Integumentary: No rashes, Tenderness/swelling, Erythema Neurological: Other (Confused, alert awake) Lymphatics: No axilla or inguinal lymphadenopathy - Studies Laboratory Data (last 24 hrs) 05/22/24 05/22/24 18:08 18:08 WBC 8.10 Hgb 13.8 Hct 42.2 Plt Count 253 Sodium 137 Potassium 4.0 BUN 8 Creatinine 0.97 Glucose 75 Assessment and Plan - Plan Acute encephalopathy Head CT is negative for any acute changes Possibly metabolic will get an ABG Will also get an ammonia level Monitor neuro vital signs Will get an MRI of the brain Hypertension Antihypertensives titrated Continue home medications and titrate as needed Hyperlipidemia Continue statin Diabetes Insulin sliding scale Accu-Chek before every meal and at bedtime History of COPD Continue home medications and titrate as needed Cellulitis right lower extremity Restarted on IV antibiotic patient has been on 2 antibiotics recently Obtain cultures Change antibiotic as per sensitivity GI/DVT prophylaxis Advanced directive full code Discharge Plan: Home Plan to discharge in: 48 Hours - Advance Directives Does patient have a Living Will: No Does patient have a Durable POA for Healthcare: No - Code Status/Comfort Care Code Status: Full Code Time Spent Managing Pts Care (In Minutes): 48
[2024-05-22] MEDS ORDERED: ONDANSETRON 4 MG/2 ML VIAL IV PRN (22:54)
[2024-05-22] MEDS: NA CHLORIDE 0.9% 1,000 ML IV SCH (23:55)
[2024-05-23] MEDS: IPRATROPIUM BROM 0.5MG/2.5ML NEB PRN (01:52)
[2024-05-23] MEDS: ALBUTEROL 2.5 MG/3 ML NEB SOL NEB PRN (01:52)
[2024-05-23] MEDS: ACETAMINOPHEN 325 MG TABLET PO PRN (05:28)
[2024-05-23 05:38] VITALS: BMI 35.0
[2024-05-23 06:08] LABS: Absolute Basophils 0.1 K/uL (0-0.5); Absolute Eosinophils 0.1 K/uL (0-0.5); Absolute Lymphocytes (CBC) 1.7 K/uL (0.7-4.9); Absolute Monocytes 0.9 K/uL (0.1-1.3); Absolute Neutrophil 4.2 K/uL (1.8-8.0); Basophils % 0.9 % (0-1.3); Eosinophils % 1.5 % (0-4.4); Hematocrit 37.5 % (39.6-49.0); Hemoglobin 12.4 g/dL (13.6-17.9); Lymphocytes % 24.6 % (15.3-44.8); MCH 24.7 pg (27.0-35.0); MCHC 33.1 g/dL (32.0-36.0); MCV 74.6 fL (80-100); MPV 8.8 fL (7.6-11.3); Monocytes % 12.8 % (3.3-12.3); Neutrophils % 60.2 % (41.7-73.7); Nucleated Red Blood Cells % 0.1 % (0-0); Platelets 232 thou/uL (152-406); RBC Red Blood Cell Count 5.02 M/uL (4.33-5.43)
[2024-05-23 06:36] LABS: Albumin 3.1 g/dL (3.4-5.0); Albumin/Globulin Ratio 1.1 (1.1-1.8); Anion Gap 10.8 mEq/L (5.0-15.0); Bilirubin Total 0.6 mg/dL (0.2-1.0); Globulin 2.9 g/dL (2.3-3.5); Magnesium 1.9 mg/dL (1.6-2.4); Phosphorus 2.7 mg/dL (2.5-4.9); Potassium 3.8 mEq/L (3.5-5.1)
[2024-05-23] MEDS: POTASSIUM CL SA 10 MEQ TAB PO ONE (08:21)
[2024-05-23] MEDS: CEFTRIAXONE 1,000 MG in NA CHLORIDE 0.9% 50 ML IVPB SCH (08:21)
--- NOTE | 2024-05-23 11:37 | RAD REPORT ---
EXAMINATION: Low Extremity Wo Cont CLINICAL INDICATION: Male, 59 years old.RLE FOR CELLULITIS RIGHT TECHNIQUE: CT above extremity was performed without contrast. Reformats were performed. One or more o f the following dose reduction techniques were used: Automated exposure control, adjustment of the mA and/or kV according to patient size, and/or iterative reconstruction. Unless otherwise specified, incidental findings do not require dedicated imaging follow-up. [id number]. COMPARISON: No prior exam. FINDINGS: No fracture identified in the right lower extremity. No soft tissue gas. No CT evidence of osteomyeli tis. No abscess identified. Mild peripheral vascular calcifications are noted. Mild skin thickening and subcutaneous edema anterior to the patellar tendon and patella. Mild skin thickening and subcutan eous edema is also present at the ankle. IMPRESSION: No abscess, fracture, soft tissue gas, or evidence of osteomyelitis in the right lower extremity.
[2024-05-23 12:20] LABS: C.diff Antigen/Toxin Ag neg : Tox neg (NEG : NEG); CDIFF INTERNAL NEG CONTROL White Background (WHITE BKGD); STOOL CONSISTENCY Liquid/Semi-Solid
[2024-05-23] MEDS ORDERED: UBROGEPANT 100 MG PO PRN (13:42)
--- NOTE | 2024-05-23 13:46 | P.PN ---
Date of Service: 05/23/24 Subjective: Assuming care today. Seen resting in bed. Endorses headache. He rates the pain as a 9 out of 10. He remains tachycardic with mildly elevated blood pressures. He states he has Dilaudid at home that he takes. In addition he has his pain pump. His is at bedside. He continues to endorse pain in the right lower extremity. He states the headache is in the top left part of his face over the temporal region. Review of Systems is unable to be obtained Physical Examination - Vital Signs Temperature: 97.2 F Blood Pressure: 132/68 Pulse: 78 Respirations: 18 Pulse Ox (%): 94 - Physical Exam General: Alert, Mild distress, Confused HEENT: Atraumatic, Normocephalic Neck: Supple Respiratory: Clear to auscultation bilaterally, Normal air movement Cardiovascular: Regular rate/rhythm, Normal S1 S2 Capillary refill: <2 Seconds Gastrointestinal: Soft and benign, W/out hepatosplenomegaly Musculoskeletal: No clubbing, Erythema, Tenderness Integumentary: No rashes, Tenderness/swelling, Erythema Neurological: Other (Confused, alert awake) Lymphatics: No axilla or inguinal lymphadenopathy - Studies Laboratory Data (last 24 hrs) 05/22/24 05/22/24 18:08 18:08 WBC 8.10 Hgb 13.8 Hct 42.2 Plt Count 253 Sodium 137 Potassium 4.0 BUN 8 Creatinine 0.97 Glucose 75 Assessment and Plan Acute encephalopathy Head CT is negative for any acute changes Possibly metabolic will get an ABG Will also get an ammonia level Monitor neuro vital signs Will get an MRI of the brain Hypertension Antihypertensives titrated Continue home medications and titrate as needed Hyperlipidemia Continue statin Diabetes Insulin sliding scale Accu-Chek before every meal and at bedtime History of COPD Continue home medications and titrate as needed Cellulitis right lower extremity Restarted on IV antibiotic patient has been on 2 antibiotics recently Obtain cultures Change antibiotic as per sensitivity GI/DVT prophylaxis Advanced directive full code Discharge Plan: Home Plan to discharge in: 48 Hours - Advance Directives Does patient have a Living Will: No Does patient have a Durable POA for Healthcare: No - Code Status/Comfort Care Code Status: Full Code Time Spent Managing Pts Care (In Minutes): 48
[2024-05-23] MEDS ORDERED: ALBUTEROL 2.5 MG/3 ML NEB SOL NEB PRN (14:26)
[2024-05-23] MEDS: HYDROMORPHONE HCL 1 MG/ML INJ IV PRN (17:14)
[2024-05-23] MEDS: PENTOXIFYLLINE ER 400 MG TAB PO SCH (20:14)
[2024-05-23] MEDS: ATORVASTATIN 40 MG TAB PO SCH (20:14)
[2024-05-23] MEDS: TAMSULOSIN 0.4 MG SR CAP PO SCH (20:14)
[2024-05-23] MEDS: HYDROMORPHONE ORAL 4 MG TAB PO PRN (20:19)
[2024-05-23] MEDS: CARBOXYMETHYLCELLULOSE SODIUM 0.5% 15 ML OPTH SCH (21:30)
[2024-05-24] MEDS ORDERED: ACETAMIN/CAFFEINE/BUTALB TAB PO ONE (02:59)
[2024-05-24] MEDS: ACETAMIN/CAFFEINE/BUTALB TAB PO PRN (03:04)
[2024-05-24] MEDS ORDERED: BACITRACIN/POLYMIX OPTH OINT 3.5GM EACH EYE SCH (08:00)
[2024-05-24 08:41] LABS: Absolute Basophils 0.1 K/uL (0-0.5); Absolute Eosinophils 0.2 K/uL (0-0.5); Absolute Lymphocytes (CBC) 1.7 K/uL (0.7-4.9); Absolute Monocytes 0.7 K/uL (0.1-1.3); Absolute Neutrophil 3.8 K/uL (1.8-8.0); Eosinophils % 2.7 % (0-4.4); Hematocrit 39.6 % (39.6-49.0); Hemoglobin 12.7 g/dL (13.6-17.9); MCH 24.5 pg (27.0-35.0); MCHC 32.1 g/dL (32.0-36.0); MCV 76.3 fL (80-100); MPV 8.5 fL (7.6-11.3); Monocytes % 10.6 % (3.3-12.3); Neutrophils % 59.7 % (41.7-73.7); Nucleated Red Blood Cells % 0.1 % (0-0); Platelets 238 thou/uL (152-406); Red Cell Distribution Width 16.3 % (12.1-15.2)
[2024-05-24 08:56] LABS: Anion Gap 9.6 mEq/L (5.0-15.0); Magnesium 1.9 mg/dL (1.6-2.4); Phosphorus 2.5 mg/dL (2.5-4.9); Potassium 3.6 mEq/L (3.5-5.1); Uric Acid 5.6 mg/dL (3.5-7.2)
[2024-05-24] MEDS: MAGNESIUM OXIDE 400 MG TAB PO SCH (09:00)
[2024-05-24] MEDS: TADALAFIL 5 MG PO SCH ×2 (09:00→13:01)
[2024-05-24] MEDS: ERYTHROMYCIN 3.5GM OPTH OINT EACH EYE SCH (09:34)
[2024-05-24] MEDS: VITAMIN D 5,000 UNIT CAP PO SCH (09:35)
[2024-05-24] MEDS: NEBIVOLOL HCL 5 MG TAB PO SCH (09:35)
[2024-05-24] MEDS: LOSARTAN POTASSIUM 50 MG TABLET PO SCH (09:35)
[2024-05-24] MEDS: CLOPIDOGREL 75 MG TABLET PO SCH (09:35)
[2024-05-24] MEDS: EZETIMIBE 10 MG TAB PO SCH (09:35)
[2024-05-24] MEDS: TESTOSTERONE CYPIONATE 200 MG/ML IM SCH (13:01)
[2024-05-24] MEDS: UMECLIDIN IH SCH (13:02)
[2024-05-24] MEDS: VILANTER IH SCH (13:02)
[2024-05-24] MEDS: FLUTICASONE IH SCH (13:02)
--- NOTE | 2024-05-24 13:55 | P.PN ---
Date of Service: 05/24/24 Subjective: He feels much better today. Denies headache. Eyes are very red. His states that they were crusty. Redness in his right lower leg is improved. Denies fevers and chills. Pain is rated at a 4 out of 10 Review of Systems 10 point review of systems is negative except otherwise noted Eyes: Redness Physical Examination - Vital Signs Temperature: 97.2 F Blood Pressure: 132/68 Pulse: 78 Respirations: 18 Pulse Ox (%): 94 - Physical Exam General: Alert, Mild distress, Confused HEENT: Atraumatic, Normocephalic, red eyes Neck: Supple Respiratory: Clear to auscultation bilaterally, Normal air movement Cardiovascular: Regular rate/rhythm, Normal S1 S2 Capillary refill: <2 Seconds Gastrointestinal: Soft and benign, W/out hepatosplenomegaly Musculoskeletal: No clubbing, Erythema, Tenderness Integumentary: No rashes, Tenderness/swelling, Erythema Neurological: Other (Confused, alert awake) Lymphatics: No axilla or inguinal lymphadenopathy - Studies Laboratory Data (last 24 hrs) 05/22/24 05/22/24 18:08 18:08 WBC 8.10 Hgb 13.8 Hct 42.2 Plt Count 253 Sodium 137 Potassium 4.0 BUN 8 Creatinine 0.97 Glucose 75 Assessment and Plan Acute encephalopathy Improving back to baseline Gabapentin held Cellulitis right lower extremity CT of right lower extremity with skin thickening at knee and ankle Continue IV Rocephin Conjunctivitis Erythromycin ophthalmic ribbon Hypertension Continue antihypertensive Diarrhea Negative C. difficile Hyperlipidemia Continue statin Diabetes Insulin sliding scale Accu-Chek before every meal and at bedtime History of COPD Continue home medications and titrate as needed CAD Continue clopidogrel and statin BPH Continue tamsulosin and tadalafil GI/DVT prophylaxis Advanced directive full code Discharge Plan: Home Plan to discharge in: 48 Hours - Advance Directives Does patient have a Living Will: No Does patient have a Durable POA for Healthcare: No - Code Status/Comfort Care Code Status: Full Code Time Spent Managing Pts Care (In Minutes): 48
[2024-05-24 14:18] LABS: Specific Gravity 1.007 (1.005-1.030); Urine Bilirubin NEGATIVE (Negative); Urine Blood Negative (Negative); Urine Clarity Clear (Clear); Urine Color Colorless (Yellow); Urine Glucose NEGATIVE (Negative); Urine Ketones NEGATIVE (Negative); Urine Microscopic Reflex YN NO UMIC; Urine Nitrite NEGATIVE (Negative); Urine Protein NEGATIVE (Negative); Urine Urobilinogen Normal (Normal); Urine pH 5.5 (5.0-7.0)
[2024-05-24] MEDS ORDERED: HOME MED 1 EA UNK (Fluticasone/Umeclidin/Vilanter [Trelegy Ellipta 200-62.5-25] Blst.W.Dev IH SCH (21:00)
[2024-05-25] MEDS ORDERED: HYDRALAZINE HCL 20 MG/ML VIAL IV PRN (06:35)
[2024-05-25 08:42] LABS: Anion Gap 10.5 mEq/L (5.0-15.0); Potassium 3.5 mEq/L (3.5-5.1)
[2024-05-25] MEDS: SEMAGLUTIDE 2 MG/0.75 ML SQ SCH (09:00)
[2024-05-25] MEDS ORDERED: TADALAFIL 5 MG PO SCH (09:00)
--- NOTE | 2024-05-25 10:01 | P.PN ---
Date of Service: 05/25/24 Subjective: He feels much better today. Denies headache. Eyes are very red. His states that they were crusty. Redness in his right lower leg is improved. Denies fevers and chills. Pain is rated at a 4 out of 10 Review of Systems 10 point review of systems is negative except otherwise noted Eyes: Redness Physical Examination - Vital Signs Temperature: 97.2 F Blood Pressure: 132/68 Pulse: 78 Respirations: 18 Pulse Ox (%): 94 - Physical Exam General: Alert, Mild distress, Confused HEENT: Atraumatic, Normocephalic, red eyes Neck: Supple Respiratory: Clear to auscultation bilaterally, Normal air movement Cardiovascular: Regular rate/rhythm, Normal S1 S2 Capillary refill: <2 Seconds Gastrointestinal: Soft and benign, W/out hepatosplenomegaly Musculoskeletal: No clubbing, Erythema, Tenderness Integumentary: No rashes, Tenderness/swelling, Erythema Neurological: Other (Confused, alert awake) Lymphatics: No axilla or inguinal lymphadenopathy - Studies Laboratory Data (last 24 hrs) 05/22/24 05/22/24 18:08 18:08 WBC 8.10 Hgb 13.8 Hct 42.2 Plt Count 253 Sodium 137 Potassium 4.0 BUN 8 Creatinine 0.97 Glucose 75 Assessment and Plan Acute encephalopathy Improving back to baseline Gabapentin held Cellulitis right lower extremity Improving Obtain procalcitonin Can switch to oral antibiotic if procalcitonin levels normal Conjunctivitis Continue erythromycin ophthalmic ribbon Hypertension Stable Continue losartan As needed hydralazine Diarrhea Negative C. difficile Hyperlipidemia Continue statin Diabetes Insulin sliding scale Accu-Chek before every meal and at bedtime History of COPD Continue home medications and titrate as needed CAD Continue clopidogrel and statin BPH Continue tamsulosin and tadalafil GI/DVT prophylaxis Advanced directive full code Discharge Plan: Home Plan to discharge in: 48 Hours - Advance Directives Does patient have a Living Will: No Does patient have a Durable POA for Healthcare: No - Code Status/Comfort Care Code Status: Full Code Time Spent Managing Pts Care (In Minutes): 48
[2024-05-25] MEDS: ROFLUMILAST 500 MCG TABLET PO SCH (10:28)
[2024-05-25] MEDS: KETOROLAC 30 MG/ML INJ IV ONE (13:53)
--- NOTE | 2024-05-25 16:57 | EKG ---
Test Date: 2024-05-22 Test Time: 18:00:23 Sail Maker: ENEDINA MEASUREMENT RESULTS: Intervals: Rate: 112 TX: 166 QRSD: 88 QT: 324 QTc: 442 [place]: P: 80 TX: 166 QRS: 20 T: 70 INTERPRETIVE STATEMENTS: Sinus tachycardia Otherwise normal ECG Compared to ECG 02/21/2024 14:36:15 Sinus rhythm no longer present Electronically Signed On 05-25-24 16:47:42 [employer] by Piotr Napier
[2024-05-25] MEDS: POTASSIUM CL SA 10 MEQ TAB PO ONE (17:09)
[2024-05-26 06:47] LABS: Anion Gap 7.5 mEq/L (5.0-15.0); Phosphorus 4.3 mg/dL (2.5-4.9); Potassium 3.5 mEq/L (3.5-5.1)
[2024-05-26] MEDS: POTASSIUM CL SA 10 MEQ TAB PO ONE (08:46)
[2024-05-26 08:49] VITALS: BP 126/86
[2024-05-26 08:58] VITALS: TEMP 98.2
[2024-05-26] MEDS: DOXYCYCLINE 100 MG in NA CHLORIDE 0.9% 100 ML IVPB ONE (09:33)
[2024-05-26 11:22] VITALS: O2SAT 91
[2024-05-26] MEDS ORDERED: CEPHALEXIN 250 MG CAP PO SCH (12:00)
--- NOTE | 2024-05-26 14:17 | P.DS ---
Admission Date: 05/22/24 Discharge Date: 05/26/24 Disposition: DC HOME/HOME HEALTH CARE Discharge Condition: GOOD Reason for Admission: AMS Brief History of Present Illness: 59 yrs old Male with past medical history of COPD, hypertension, hyperlipidemia, diabetes, anxiety was brought to ER with confusion and headache which has been going on for the last 2 days and has been progressively worsening . Complains of bilateral bifrontal headache. No seizure-like activities. Patient is a poor historian hence most of the history is obtained from the chart review and also talking to the ER physician and family member at the bedside. As per the family patient has been increasingly confused over the last few days. Associated with some nausea but no vomiting. Denies any chest pain or shortness of breath. No fever or chills. No sick contacts. Patient has been on 2 different antibiotics recently as per the family for right lower extremity cellulitis Patient was assessed in the ER and is admitted for further management Hospital Course: 59 yrs old Male with past medical history of COPD, hypertension, hyperlipidemia, diabetes, anxiety admitted for right lower extremity cellulitis. On admission, was on was on Rocephin with clinical improvement. At time of discharge, prescribed Augmentin and doxycycline for 5 days to complete total of 9 days of antibiotic course. Vital Signs/Physical Exam: Temp Pulse Resp BP Pulse Ox 98.2 F 76 16 126/86 91 05/26/24 08:00 05/26/24 08:45 05/26/24 08:00 05/26/24 08:45 05/26/24 08:00 General: Alert HEENT: Atraumatic Neck: Supple Respiratory: Clear to auscultation bilaterally Cardiovascular: No edema Capillary refill: <2 Seconds Gastrointestinal: Normal bowel sounds Musculoskeletal: No clubbing, No swelling, No contractures Integumentary: No rashes Neurological: Normal gait, Normal speech, Normal strength at 5/5 x4 extr Laboratory Data at Discharge: WBC 6.40 thou/uL (4.3-10.9) 05/24/24 08:22 Hgb 12.7 g/dL (13.6-17.9) L 05/24/24 08:22 Hct 39.6 % (39.6-49.0) 05/24/24 08:22 Plt Count 238 thou/uL (152-406) 05/24/24 08:22 Sodium 140 mEq/L (136-145) 05/26/24 05:51 Potassium 3.5 mEq/L (3.5-5.1) 05/26/24 05:51 BUN 7 mg/dL (7-18) 05/26/24 05:51 Creatinine 0.87 mg/dL (0.70-1.30) 05/26/24 05:51 Glucose 88 mg/dL (74-106) 05/26/24 05:51 Uric Acid Cancelled 05/24/24 Unknown Phosphorus 4.3 mg/dL (2.5-4.9) 05/26/24 05:51 Magnesium 1.9 mg/dL (1.6-2.4) 05/24/24 08:22 Total Bilirubin 0.6 mg/dL (0.2-1.0) 05/23/24 05:43 AST 28 U/L (15-37) 05/23/24 05:43 ALT 30 U/L (16-61) 05/23/24 05:43 Alkaline Phosphatase 74 U/L (45-117) 05/23/24 05:43 Home Medications: Albuterol Sulfate [Ventolin Hfa] 2 puff IH BIDP PRN 02/21/24 Atorvastatin Calcium [Lipitor] 40 mg PO BEDTIME 02/21/24 Cholecalciferol (Vitamin D3) [D3-50] 50,000 unit PO DAILY 02/21/24 Clopidogrel Bisulfate [Plavix] 75 mg PO DAILY 02/21/24 Cyclobenzaprine [Flexeril*] 10 mg PO DAILY 02/21/24 Ezetimibe 10 mg PO DAILY 02/21/24 Fluticasone/Umeclidin/Vilanter [Trelegy Ellipta 200-62.5-25] 1 puff IH BID 02/21/24 L.acidoph,Paracasei, B.lactis [Probiotic] 1 each PO DAILY 02/21/24 Losartan Potassium 100 mg PO DAILY 02/21/24 Magnesium Oxide [Mag 0X*] 400 mg PO DAILY 02/21/24 Nebivolol HCl 2.5 mg PO DAILY 02/21/24 Pantoprazole Sodium [Protonix] 40 mg PO BID 02/21/24 Pentoxifylline 400 mg PO BID 02/21/24 Pregabalin [Lyrica*] 50 mg PO BID 02/21/24 Roflumilast 500 mcg PO DAILY 02/21/24 Semaglutide [Ozempic] 2 mg SQ EVERY 7TH DAY 02/21/24 Tamsulosin [Flomax*] 0.4 mg PO BEDTIME 02/21/24 Testosterone Cypionate [Testone Cik] 100 mg IM EVERY 7TH DAY 02/21/24 Ubrogepant [Ubrelvy] 100 mg PO PRN PRN 02/23/24 Acetam/Caff/Butal [Fioricet*] 1 tab PO Q6H PRN #30 tab 02/25/24 Cyclobenzaprine [Flexeril*] 10 mg PO DAILY 05/23/24 Hydromorphone [Dilaudid*] 4 mg PO Q8HP PRN 05/23/24 tadalafiL [Tadalafil] 5 mg PO DAILY 05/23/24 Amox/Clavulanate [Augmentin 875-125 Tab] 1 each PO BID 5 Days #10 tab 05/26/24 Doxycycline Hyclate 100 mg PO BID 5 Days 05/26/24 New Medications: Amox/Clavulanate [Augmentin 875-125 Tab] 1 each PO BID 5 Days #10 tab Doxycycline Hyclate 100 mg PO BID 5 Days Followup: Óscar Peterson MD [Primary Care Provider] - 1-2 Weeks
[2024-05-31] MEDS ORDERED: TESTOSTERONE CYPIONATE 200 MG/ML IM SCH (09:00)
[2024-05-31] MEDS ORDERED: SEMAGLUTIDE 2 MG/0.75 ML SQ SCH (09:00)
== END 2024-05-26 11:10 | disposition home health service (06) | DRG 602 ==
LOC: ER 14:26 → 3RD-ICU 22:54 → 4TH 05-24 13:22
PROVIDERS: ADMIT Family Medicine; ATTEND Internal Medicine
DX: L03.115 Cellulitis of right lower limb (principal); G93.41 Metabolic encephalopathy; E78.00 Pure hypercholesterolemia, unspecified; I10 Essential (primary) hypertension; E11.9 Type 2 diabetes mellitus without complications; H10.9 Unspecified conjunctivitis; N40.0 Benign prostatic hyperplasia without lower urinary tract symptoms; K21.9 Gastro-esophageal reflux disease without esophagitis; J44.9 Chronic obstructive pulmonary disease, unspecified; I25.10 Atherosclerotic heart disease of native coronary artery without angina pectoris; R19.7 Diarrhea, unspecified; Z90.49 Acquired absence of other specified parts of digestive tract; Z79.02 Long term (current) use of antithrombotics/antiplatelets; Z79.52 Long term (current) use of systemic steroids; Z79.899 Other long term (current) drug therapy; Z87.891 Personal history of nicotine dependence
CPT/HCPCS: 36415; 70450; 71045; 73700; 74177; 80048; 80053; 81001; 81003; 82140; 82947; 83735; 84100; 84145; 84484; 84550; 85025; 87324; 93005; 94640; 96374; 96375; 99284; J0696; J1171; J1200; J1790; J2765; J3360; J7030; J7050; J7613; J7644; Q9967

== ENCOUNTER 2024-06-20 09:10 | Day surgery (SDC) | payer OTHER ==
[2024-06-19 11:27] LABS: PT Prothrombin Time 11.3 SECONDS (10-13.0); PTT, Activated Partial Thromb 26.3 SECONDS (27.2-37.4); Protime INR 0.99
[2024-06-20] MEDS: Ringers Lactate 1,000 ML IV ONE (09:40)
[2024-06-20] MEDS ORDERED: KETOROLAC 30 MG/ML INJ ONE (10:04)
[2024-06-20] MEDS ORDERED: FENTANYL CITR 100 MCG/2 ML ONE (10:04)
[2024-06-20] MEDS ORDERED: propofoL 200 MG/20 ML VIAL IV ONE (10:04)
[2024-06-20] MEDS ORDERED: LIDOCAINE 1% MPF 5 ML VIAL ONE (10:04)
[2024-06-20] MEDS ORDERED: MIDAZOLAM HCL 2 MG/2 ML INJ ONE (10:05)
[2024-06-20] MEDS: CEFAZOLIN SODIUM 1 GM/VIAL ONE (11:00)
[2024-06-20] MEDS: HYDROMORPHONE HCL 1 MG/ML INJ ONE ×2 (11:56→12:06)
[2024-06-20] MEDS: MORPHINE 4 MG/ML SYR ONE ×2 (12:16→12:26)
--- NOTE | 2024-06-20 12:59 | OP ---
Date of Procedure: 06/20/2024 Surgeon: Rolly Welch MD Preoperative Diagnosis: Left knee pain with mechanical symptoms, probable meniscal tear or tears, al so with some degenerative changes. Postoperative Diagnoses: 1. 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 2. 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 3. Displaceable radial and horizontal tearing of the medial meniscus. 4. Loose body found in the lateral compartment. Procedures: 1. Left knee arthroscopy with debridement of unstable chondral flaps at the patellofemoral joint. 2. Debridement of medial meniscal tear. 3. Removal of loose body. Estimated Blood Loss: Less than 10 cc. Complications: There were no complications. Indications For Operation: Mr. Hobbs is a 59-year-old male with rather significant problems with ch ronic pain as well as medical issues. He arrived to my office with complaints of mechanical symptoms as well as swelling and pain. This is unrelieved with conservative management. He does have an MRI which demonstrates probable meniscal tear or tears as well as degenerative changes. Risks, benefits , and alternatives of the surgery have been discussed with him including the possibility of infection , blood clot, anesthetic possible complications which will be covered by Anesthesia, and the risks th at this may not be helpful as his arthritic symptoms may dominate his presentation. He says he under stands things as presented. He is not an excellent candidate for knee replacement and we will see ho w he does with this arthroscopic management and he agrees to proceed. Description Of Procedure: The patient was taken to the operating room, placed in the supine position . General anesthesia was obtained by the anesthesia staff. Following this, a well-padded tourniquet was placed on superior left thigh. Left lower extremity was then prepped and draped in usual steril e fashion for the procedure. Following this, a standard superior medial arthroscopy portal was then placed with liberation approximately 30 cc of rather normal-appearing synovial fluid. After this, a standard inferolateral arthroscopy portal was then established atraumatically with 1 pass. The knee was sequentially examined including suprapatellar pouch, medial and lateral gutters, medial and later al compartments, as well as notch and patellofemoral joint. Pertinent findings included visible bone in the medial compartment at both the femoral and tibial aspects of the compartment. Also seen is a significant amount of fraying associated with the patella with unstable chondral flaps present. Als o seen is a complex, although mostly radial tear of the medial meniscus which extends from approximat aniket the 9 o'clock position down to the most posterior aspect of the meniscus. Also seen in the later al compartment has a what appeared to be a small loose body. A needle was used for localization of t he medial portal which was then established and a shaver was then used to debride back the medial men iscus to a firm hook stable well contoured base. Attention was then turned to the lateral compartmen t and the small loose body was removed using the shaver. The lateral meniscus and medial meniscus we re then probed to ensure there were no unstable flaps and they appeared to be hook stable and well co ntoured. Attention was then turned to the patella and generally I do not do any chondroplasty unless the flaps appear to be frankly unstable, but these appear to be unstable and could be causing mechan ical symptoms. Therefore, they were debrided. No chondral tissue was removed other than which was a bsolutely unstable. After this, the knee was again sequentially examined in all the above areas. No further pathology seen, which was amenable to arthroscopic intervention with the exception of a smal l synovial band which was debrided. After this, the inferior arthroscopy portals were stapled shut. Superior medial arthroscopy portal was used for placement of local anesthetic. It was then stapled. The patient was placed in a well-padded sterile dressing, awakened, taken to recovery room in good condition. There were no complications. SE/MODL Voice ID: [id number] Report ID: [id number]
[2024-06-20] MEDS: HYDROCODONE/APAP 10/325 TAB ONE (13:00)
[2024-06-20 13:48] VITALS: BP 130/58; TEMP 97.6; O2SAT 95
== END 2024-06-20 13:40 | disposition home or self-care (01) ==
LOC: OR 09:10
PROVIDERS: ATTEND Orthopaedic Surgery
PROC: 0SBD4ZZ Excision of Left Knee Joint, Percutaneous Endoscopic Approach (ICD-10-PCS; principal; 2024-06-20 10:48)
DX: S83.242A Other tear of medial meniscus, current injury, left knee, initial encounter (principal); M22.42 Chondromalacia patellae, left knee
CPT/HCPCS: 36415; 85610; 85730; 29881; J2704; J2003; J2250; J3010; J1171 ×2; J7120; J0690